=== PATIENT | female | born 1935 | race Caucasian/White ===

== ENCOUNTER 2019-06-10 12:01 | Outpatient (CLI) | payer MEDICARE, OTHER, SELFPAY ==
[2019-06-10 13:28] LABS: Basophils # 0.1 10^3/uL (0.0-0.1); Basophils % 0.1 %; Eosinophils # 0.2 10^3/uL (0.0-0.8); Eosinophils % 0.4 %; Hematocrit 41.2 % (37.0-47.0); Lymphocytes # 48.3 10^3/uL (0.8-4.8); Lymphocytes % 85.1 %; Mean Corpuscular HGB Conc 31.6 g/dL (30.0-36.0); Mean Corpuscular Volume 98.3 fL (81-99); Mean Platelet Volume 11.5 fL (7.4-10.4); Monocytes # 3.1 10^3/uL (0.2-0.9); Monocytes % 5.4 %; Neutrophils % 8.7 %; Nucleated Red Blood Cells % 0 %; Platelet Count 289 10^3/cmm (130-400); Red Blood Count 4.19 10^6/uL (4.1-5.3); Red Cell Distribution Width 18.1 % (12.1-15.1)
[2019-06-10 14:10] LABS: Slide Review Slide Review Perform; White Blood Count 56.8 10^3/uL (4.0-10.0)
--- NOTE | 2019-06-12 09:25 | ONC FU_ITS ---
Dr. Horton Patient Follow-Up Note Patient: Sadie Martines Unit #: [id number]: 1935 Dicatated By: Dakota Horton M.D.Date of Visit:Jun 10, 2019 Onc Med Follow-up/Prog Note Chief Complaint: Chronic lymphocytic leukemia. History of Present Illness: This is an 83 year-old woman with chronic lymphocytic leukemia, Hill stage 0. She had a mild lymphocytosis as an incidental finding on a CBC in March 2016. It had worsened slightly on a repeat study in September 2016. She was then seen by Dr. Rose, and she was confirmed by whole blood flow cytometry on 10/22/2016 to have a monoclonal B-cell population with kappa restriction, CD5 and CD23 positive, consistent with chronic lymphocytic leukemia. By clinical evaluation she was felt to have Hill stage 0 disease, and she has been followed on observation/expectant management. Her most recent laboratory studies, from 05/18/2018, showed hemoglobin normal at 13.2 g with hematocrit 41%. The white blood cell count was elevated at 67,600 with the differential showing 70% lymphocytes, 7% neutrophils, 8% monocytes, and 5% basophils. The platelet count was normal at 200,000. Her comprehensive metabolic profile was unremarkable. The only prior laboratory results that I have available are PJ and RA titers from 10/03/2016. The PJ was negative. The RA was elevated at 48 IU/mL. I had seen her initially on 07/07/2017. She had additional laboratory studies on 08/05/2018. Her CBC at that time showed hemoglobin normal at 13.3 g with white blood cell count 91,900 and platelet count 234,000. Her comprehensive metabolic profile was unremarkable. Uric acid level was mildly elevated at 8.7 mg/dL. LDH was 216 U/L, normal range 120-250. Her RA titer was elevated at 26 IU/mL, but her CCP antibody was normal at less than 16 and her sedimentation rate was normal at 10 mm/hour. As her CLL did not appear to be overtly symptomatic, I had recommended that she continue on observation/expectant management. Her other medical illnesses include hypertension, hyperlipidemia, degenerative arthritis, and vitamin B12 deficiency. She has a history of smoking 1 pack of cigarettes daily for 45 years, but she quit smoking 20 years ago. She has moderate alcohol use. She is seen for a follow-up visit. She has been feeling pretty good generally. She says she has been lazy, but that she just attributes to the cold weather. Her ECOG score is 1. Her appetite is good. She has not had fever or night sweats, but she sometimes feels warm at night. She has sinus drainage with some associated cough. She does not complain of shortness of breath or chest pain. She has no GI complaints. She has some urinary frequency and urgency. She has joint pain, particularly in the knees, and moreso on the right. She is scheduled to get a new injection next month. She has carpal tunnel symptoms bilaterally. She has no other focal neurologic symptoms. Medications: C 500 1 Tablet (of 500 mg) Oral daily, Co Q 10 1 Tablet (of 10 mg) Capsule Oral daily, Glucosamine 1 Tablet Oral daily, Lisinopril 1 Tablet (of 30 mg) Oral daily, Lutein-Zeaxanthin 1 Capsule Oral daily, Magnesium 1 Tablet (of 400 mg) Oral daily, Red Yeast Rice 1 Tablet (of 600 mg) Oral daily, Vitamin D2 1 Tablet (of 2000 Units) Oral daily, Zinc 1 Capsule (of 50 mg) Oral daily Allergies: No Known Allergies. Review of Systems: Constitutional - Her energy is fairly good. She does light work at home. Her appetite is good and her weight is up slightly. No fever, chills or hot flashes. She has some sweating at night. ECOG score is 1, ENMT - She has sinus drainage and a cough in the mornings. No mouth sores. No sore throat or difficulty swallowing, Hematologic/Lymphatic - She bruises easily, Respiratory - No shortness of breath. No pleuritic pain or hemoptysis, Cardiovascular - No angina pain. No palpitations, Gastrointestinal - No nausea or vomiting. No heartburn or acid reflux. No diarrhea or constipation. No blood in the stool or black stools, Genitourinary (F) - No dysuria or hematuria. She has urinary frequency. She has urgency. No incontinence, Musculoskeletal - She will be getting a different type of injection for the pain in her right knee, Integumentary - No skin complications, Neurologic - No headache or dizziness. She has numbness and tingling in her hands, Psychiatric - No anxiety or depression. No insomnia. Vital Signs: Performed on Jun 10, 2019 13:54 Height - 63.00 in Weight - 211.4 lbs (HIGH) BSA - 1.98 sq.m BMI - 37.45 (HIGH) Temperature - 97.4 F (LOW) Pulse - 77 /min Respiration - 24 /min BP - 138/66 mm(hg) O2 Sat - 97 % Pain - 7 Physical Examination: Constitutional - She looks pretty good generally, Eyes - Sclerae nonicteric. Conjunctivae clear, ENMT - No lesions noted in the oral cavity, Hematologic/Lymphatic - No cervical, clavicular, or axillary adenopathy, Respiratory - Lungs are clear with good air movement bilaterally, Cardiovascular - Heart rhythm is regular. There is a II/ systolic murmur. There is no gallop or rub noted, Abdomen - Soft. Liver and spleen are not enlarged. There is no abdominal mass or ascites noted and there is no inguinal adenopathy, Extremities - There are mild venous stasis changes and there is mild lower extremity edema. Dorsalis pedis pulses are palpable bilaterally, Neurologic - No focal neurologic deficits noted. Lab/Imaging: CBC shows hemoglobin 13.0 g, white blood cell count 56,800, and platelet count 289,000. The absolute lymphocyte count is 48,300 compared to 89,800 in August 2018. Impression: 1. Patient with chronic lymphocytic leukemia, Hill stage 0, initially presenting with lymphocytosis in March 2016. 2. She has been followed on observation/expectant management, though with fairly rapid increase in her lymphocyte count. Her other medical illnesses include: 3. Hypertension. 4. Hyperlipidemia. 5. Degenerative arthritis. 6. Vitamin B12 deficiency. 7. She had an elevated RA titer in September 2016. The clinical significance is uncertain. She had significant lymphocytosis at initial diagnosis, though her disease was stage 0 and she was not symptomatic. During the past year her lymphocyte count has been coming down gradually. She appears stable clinically. Plan: She remains on observation/expectant management for the CLL. I will see her again in 6 months. Signed By: Dakota Horton M.D. <<Signature on File>>
== END 2019-06-10 12:02 | disposition home or self-care (01) ==
LOC: ONCMED 12:01
PROVIDERS: PCP Nurse Practitioner Family; Visit Provider Internal Medicine Medical Oncology
DX: C91.10 Chronic lymphocytic leukemia of B-cell type not having achieved remission (principal); I10 Essential (primary) hypertension; E78.5 Hyperlipidemia, unspecified; M19.90 Unspecified osteoarthritis, unspecified site; E53.8 Deficiency of other specified B group vitamins; M25.562 Pain in left knee; M25.561 Pain in right knee; G56.03 Carpal tunnel syndrome, bilateral upper limbs; Z87.891 Personal history of nicotine dependence
CPT/HCPCS: 36415; 85025; G0463

== ENCOUNTER → 2019-08-13 09:12 | Outpatient (BNVA) | payer MEDICARE, OTHER, SELFPAY | PROVIDERS: PCP Nurse Practitioner Family; Visit Provider Orthopaedic Surgery | DX: M17.0 Bilateral primary osteoarthritis of knee (principal); M25.562 Pain in left knee | CPT/HCPCS: 73560; 73565 ==

== ENCOUNTER 2019-12-16 11:47 | Outpatient (CLI) | payer MEDICARE, OTHER, SELFPAY ==
[2019-12-16 12:23] LABS: Basophils % 0.1 %; Eosinophils # 0.2 10^3/uL (0.0-0.8); Eosinophils % 0.3 %; Hematocrit 40.3 % (37.0-47.0); Hemoglobin 11.9 g/dL (11.5-15.3); Lymphocytes # 60.1 10^3/uL (0.8-4.8); Lymphocytes % 90.8 %; Mean Corpuscular HGB Conc 29.5 g/dL (30.0-36.0); Mean Corpuscular Hemoglobin 30.9 pg (28.0-34.0); Mean Corpuscular Volume 104.7 fL (81-99); Mean Platelet Volume 9.7 fL (7.4-10.4); Monocytes # 2.2 10^3/uL (0.2-0.9); Monocytes % 3.3 %; Neutrophils # 3.52 10^3/uL (1.8-7.7); Neutrophils % 5.3 %; Nucleated Red Blood Cells % 0 %; Platelet Count 228 10^3/cmm (130-400); Red Blood Count 3.85 10^6/uL (4.1-5.3); Red Cell Distribution Width 18.6 % (12.1-15.1)
[2019-12-16 12:42] LABS: Alanine Aminotransferase 16 U/L (0-33); Albumin Level 4.3 g/dL (3.5-5.2); Alkaline Phosphatase 62 IU/L (35-105); Anion Gap 15.6 (5-19); Aspartate Amino Transferase 13 U/L (0-32); Blood Urea Nitrogen 20 mg/dL (8-23); Calcium 9.4 mg/dL (8.5-10.5); Carbon Dioxide 23 mmol/L (22-29); Chloride 105 mmol/L (98-107); Globulin 2.3 g/dL (1.3-4.6); Glucose 95 mg/dL (65-115); Lactate Dehydrogenase 267 U/L (135-214); Osmolality Calculated 284 mOsm/kg (285-295); Potassium 4.6 mmol/L (3.5-5.1); Sodium 139 mmol/L (136-145); Total Bilirubin 0.6 mg/dL (0.15-1.2); Total Protein 6.6 g/dL (6.6-8.7)
[2019-12-16 12:59] LABS: Slide Review Slide Review Perform; White Blood Count 66.2 10^3/uL (4.0-10.0)
[2019-12-16 18:39] LABS: Iron 95 ug/dL (37-145); Percent Saturation 34.5 % (20-50); Total Iron Binding Capacity 275 mcg/dl; Unsaturated Iron Binding 180 ug/dL (112-347)
--- NOTE | 2019-12-18 17:35 | ONC FU_ITS ---
Dr. Horton Patient Follow-Up Note Patient: Sadie Martines Unit #: [id number]: 1935 Dicatated By: Dakota Horton M.D.Date of Visit:Dec 16, 2019 Onc Med Follow-up/Prog Note Chief Complaint: Chronic lymphocytic leukemia. History of Present Illness: This is an 84 year-old woman with chronic lymphocytic leukemia, Hill stage 0 at initial diagnosis in 2016. She had a mild lymphocytosis as an incidental finding on a CBC in March 2016. It had worsened slightly on a repeat study in September 2016. She was then seen by Dr. Rose, and she was confirmed by whole blood flow cytometry on 10/22/2016 to have a monoclonal B-cell population with kappa restriction, CD5 and CD23 positive, consistent with chronic lymphocytic leukemia. By clinical evaluation she was felt to have Hill stage 0 disease, and she has been followed on observation/expectant management. Her most recent laboratory studies, from 05/18/2018, showed hemoglobin normal at 13.2 g with hematocrit 41%. The white blood cell count was elevated at 67,600 with the differential showing 70% lymphocytes, 7% neutrophils, 8% monocytes, and 5% basophils. The platelet count was normal at 200,000. Her comprehensive metabolic profile was unremarkable. The only prior laboratory results that I have available are PJ and RA titers from 10/03/2016. The PJ was negative. The RA was elevated at 48 IU/mL. I had seen her initially on 07/07/2017. She had additional laboratory studies on 08/05/2018. Her CBC at that time showed hemoglobin normal at 13.3 g with white blood cell count 91,900 and platelet count 234,000. Her comprehensive metabolic profile was unremarkable. Uric acid level was mildly elevated at 8.7 mg/dL. LDH was 216 U/L, normal range 120-250. Her RA titer was elevated at 26 IU/mL, but her CCP antibody was normal at less than 16 and her sedimentation rate was normal at 10 mm/hour. As her CLL did not appear to be overtly symptomatic, I had recommended that she continue on observation/expectant management. Her other medical illnesses include hypertension, hyperlipidemia, degenerative arthritis, and vitamin B12 deficiency. She has a history of smoking 1 pack of cigarettes daily for 45 years, but she quit smoking 20 years ago. She has moderate alcohol use. She is seen for a follow-up visit. She has been feeling pretty good generally, though she says she does get tired. ECOG score is 1. Her appetite is good. She has no fever. She has had one recent episode of significant night sweating. She has a little bit of sinus drainage and she occasionally has cough in the morning. She does not complain of shortness of breath or chest pain. She sometimes has nausea. She manages it with peppermint. She has no other GI complaints. She has frequent urination. She is having significant pain in both knees, right worse than left. She does not complain of headache. She sometimes has dizziness. She has numbness and tingling in both hands, which comes and goes. Medications: Co Q 10 1 Tablet (of 10 mg) Capsule Oral daily, Glucosamine 1 Tablet Oral daily, Lisinopril 1 Tablet (of 30 mg) Oral daily, Lutein-Zeaxanthin 1 Capsule Oral daily, Magnesium 1 Tablet (of 400 mg) Oral daily, Vitamin D2 1 Tablet (of 2000 Units) Oral daily, Zinc 1 Capsule (of 50 mg) Oral daily Allergies: No Known Allergies. Review of Systems: Constitutional - She has been feeling pretty good, though she says she does get tired. Appetite has been good. Her weight is down a few pounds. She has not had fever. She had one recent episode of pretty significant night sweating. ECOG score is 1, ENMT - She has a little bit of sinus drainage. No mouth sores. No sore throat or difficulty swallowing, Hematologic/Lymphatic - She has had some bruising, Respiratory - No shortness of breath. She occasionally has cough in the morning. No pleuritic pain or hemoptysis, Cardiovascular - No angina pain. No palpitations, Gastrointestinal - She sometimes has nausea, which she manages with peppermint. No heartburn or acid reflux. No diarrhea or constipation. No blood in the stool or black stools, Genitourinary (F) - No dysuria or hematuria. She has urinary frequency. No urgency or incontinence, Musculoskeletal - She has pain in both knees, right worse than left. She will be seeing Dr. Ambrosio next week, Integumentary - No skin rash, Neurologic - No headache. She has dizziness. She has intermittent numbness/tingling in both hands. No other focal neurologic symptoms, Psychiatric - No anxiety or depression. She does not sleep well at night. Vital Signs: Performed on Dec 16, 2019 13:11 Height - 63.00 in Weight - 207.00 lbs (LOW) BSA - 1.96 sq.m BMI - 36.67 (HIGH) Temperature - 97.4 F (LOW) Pulse - 78 /min Respiration - 19 /min BP - 138/62 mm(hg) O2 Sat - 97 % Pain - 0 Fatigue - 6 Physical Examination: Constitutional - She looks pretty good generally, Eyes - Sclerae nonicteric. Conjunctivae clear, ENMT - No lesions noted in the oral cavity, Hematologic/Lymphatic - No cervical, clavicular, or axillary adenopathy, Respiratory - Lungs are clear with good air movement bilaterally, Cardiovascular - Heart rhythm is regular. There is a II/ systolic murmur. There is no gallop or rub noted, Abdomen - Soft. Liver and spleen are not enlarged. There is no abdominal mass or ascites noted and there is no inguinal adenopathy, Extremities - There are mild venous stasis changes. There is slight lower extremity edema. Dorsalis pedis pulses are palpable bilaterally, Neurologic - No focal neurologic deficits noted. Lab/Imaging: Test performed on Dec 16, 2019 11:55 LDH (Total) 267 U/L Sodium 139 mmol/L Potassium 4.6 mmol/L Chloride 105 mmol/L CO2 23 mmol/L Anion Gap 15.6 BUN 20 mg/dL Creatinine 1.1 mg/dL Cr Clearance (Est) 57.44 mL/min Glucose 95 mg/dL Calcium 9.4 mg/dL Protein, Total 6.6 g/dL Albumin 4.3 g/dL Globulin 2.3 g/dL Bilirubin, Total 0.6 mg/dL ALT (SGPT) 16 U/L AST (SGOT) 13 U/L Alkaline Phosphatase 62 IU/L WBC 66.2 10 3/uL RBC 3.85 10 6/uL HGB 11.9 g/dL HCT 40.3 % MCV 104.7 fL MCH 30.9 pg MCHC 29.5 g/dL RDW 18.6 % Platelet Count 228 10 3/cmm MPV 9.7 fL Neutrophils 3.52 10 3/uL Lymphocytes 60.1 10 3/uL Monocytes 2.2 10 3/uL Eosinophils 0.2 10 3/uL Basophils 0.0 10 3/uL Neutrophil % 5.3 % Lymphocyte % 90.8 % Monocyte % 3.3 % Eosinophil % 0.3 % Basophils % 0.1 % NRBC % 0 % CBC Slide Review Slide Review Perform SLIDE REVIEW AGREES WITH AUTOMATED RESULT Impression: 1. Patient with chronic lymphocytic leukemia, Hill stage 0, initially presenting with lymphocytosis in March 2016. 2. She has been followed on observation/expectant management, though with fairly rapid increase in her lymphocyte count. Her other medical illnesses include: 3. Hypertension. 4. Hyperlipidemia. 5. Degenerative arthritis. 6. Vitamin B12 deficiency. 7. She had an elevated RA titer in September 2016. The clinical significance is uncertain. She had significant lymphocytosis at initial diagnosis, though her disease was stage 0 and she was not symptomatic. During follow-up her lymphocyte count has varied somewhat, but overall it has been increasing. She has now become mildly anemic. The cause is uncertain, but if it is due to the chronic lymphocytic leukemia, it would change her to Hill stage III disease and that would potentially be an indication for treatment. Plan: She will be seeing Dr. Ambrosio next week in regard to the arthritis in her knees. I will have serum iron studies added to her current lab studies. Assuming those are normal, she will just remain on observation/expectant management for the CLL, but I will now start following her at 3-month intervals. Signed By: Dakota Horton M.D. <<Signature on File>>
== END 2019-12-16 11:48 | disposition home or self-care (01) ==
LOC: ONCMED 11:48
PROVIDERS: PCP Nurse Practitioner Family; Visit Provider Internal Medicine Medical Oncology
DX: C91.10 Chronic lymphocytic leukemia of B-cell type not having achieved remission (principal); M17.0 Bilateral primary osteoarthritis of knee; I10 Essential (primary) hypertension; E78.5 Hyperlipidemia, unspecified; E53.8 Deficiency of other specified B group vitamins; D64.9 Anemia, unspecified
CPT/HCPCS: 36415; 80053; 83540; 83550; 83615; 85025; G0463

== ENCOUNTER → 2020-02-17 13:37 | Outpatient (BNVA) | payer MEDICARE, OTHER, SELFPAY | PROVIDERS: PCP Nurse Practitioner Family; Visit Provider Specialist | DX: M17.12 Unilateral primary osteoarthritis, left knee (principal) | CPT/HCPCS: 73560; 73565 ==

== ENCOUNTER → 2020-03-09 10:49 | Outpatient (BNVA) | payer MEDICARE, OTHER, SELFPAY | PROVIDERS: PCP Nurse Practitioner Family; Visit Provider Specialist | DX: Z11.59 Encounter for screening for other viral diseases (principal); M17.11 Unilateral primary osteoarthritis, right knee | CPT/HCPCS: 87635 ==

== ENCOUNTER 2020-03-14 14:42 | Observation (INO) | payer MEDICARE, OTHER, SELFPAY ==
[2020-03-02 10:14] VITALS: BMI 38.0
--- NOTE | 2020-03-02 10:30 | ECG_ITS ---
[facility] Test Date: 2020-03-02 Pat Name: Sadie Martines Department: Room: Gender: Female Human Anatomy Teacher: ABENA JINB: 1935 Requested By: Cammy Gordon Order Number: [id number] Griffin MD: VINCENT AGUILLON Measurements Intervals [place] Rate: 69 P: 53 [place]: 159 QRS: 0 QRSD: 88 T: 41 QT: 368 QTc: 396 Interpretive Statements SINUS RHYTHM MODERATE VOLTAGE CRITERIA FOR LVH, CONSIDER NORMAL VARIANT [MEETS CRITERIA IN ONE OF: R(aVL), S(V1), R(V5), R(V5/V6)+S(V1)] MINIMAL ST DEPRESSION [0.025+ mV ST DEPRESSION] No previous ECG available for comparison Electronically Signed On 03-03-2020 19:34:43 HEAD TRANSFER CLERK by VINCENT AGUILLON [id number]
--- NOTE | 2020-03-02 11:06 | ANES.PREANE2 ---
Pre-Anesthetic Assessment Pre-Anesthetic Assessment: Height/Weight: Height 1.57 m Weight 94.347 kg Preop Diagnosis: Degenerative osteoarthritis left knee Proposed Procedure: Operation Date: 03/14/20 07:00 Proposed Procedures p Right Total Knee Arthroplasty 52569 M17.11(Right) - Brinda Ambrosio MD Familial anesthetic complications: none Social: Social History: Alcohol (up to 3 vodkas with water a night) and No tobacco Exam: Pre-Anes Outpt Exam: alert, oriented x 3, clear to auscultation bilaterally and regular rate & rhythm Airway: Cervical ROM: WNL MP: 1 Dentition: False CV/HEM: CV/HEM: HTN Metabolic: Metabolic: Morbid obesity Comments: hx leukemia Musc/skel: Musc/skel: OA/DJD Anesthetic Plan: ASA status: 2 Anesthesia: General and Regional (specify below) Risk of > 500 ml blood loss (7ml/kg in children): No PFSH Anesthesia PFSH: Medical History Hypertension Lymphatic leukemia Social History Smoking and tobacco status: former smoker Alcohol intake: current Alcohol intake frequency: 0-2 Drinks per Day Data Anesthesia Cardiac Studies: No Data to Display
[2020-03-02 11:32] LABS: Add Urine Microscopic? NO
[2020-03-02 11:35] LABS: Hematocrit 38.4 % (37.0-47.0); Hemoglobin 11.9 g/dL (11.5-15.3); Mean Corpuscular Hemoglobin 30.7 pg (28.0-34.0); Mean Corpuscular Volume 99.2 fL (81-99); Platelet Count 225 10^3/cmm (130-400); Red Blood Count 3.87 10^6/uL (4.1-5.3); Red Cell Distribution Width 17.8 % (12.1-15.1)
[2020-03-02 11:39] LABS: Bilirubin Urine Neg (Negative); Blood Urine Neg (Negative); Glucose Urine UA Norm (Normal); Ketones Urine Negative (Negative); Leukocyte Esterase Urine Negative (Negative); Nitrate Urine Negative (Negative); Protein Urine Neg (Negative); Urine Appearance Clear (CLEAR); Urine Color Yellow (Yellow); Urobilinogen Urine Neg (Negative); pH Urine 7 (5-7)
[2020-03-02 11:52] LABS: White Blood Count 67.4 10^3/uL (4.0-10.0)
[2020-03-02 11:56] LABS: Absolute Segmented Neutrophil 5.4 10/cmm (1.6-7.1); Lymphocytes 78 %; Platelet Estimate Normal (Normal); Segmented Neutrophils 8 %; Smudge Cells 2+; Total Cells Counted 100 (0-100)
[2020-03-02 11:57] LABS: Absolute Neutrophil 5.4 10^3/cmm (1.4-6.5); Alanine Aminotransferase 18 U/L (0-33); Albumin Level 4.3 g/dL (3.5-5.2); Alkaline Phosphatase 61 IU/L (35-105); Anion Gap 15.6 (5-19); Aspartate Amino Transferase 14 U/L (0-32); Blood Urea Nitrogen 27 mg/dL (8-23); Calcium 9.4 mg/dL (8.5-10.5); Carbon Dioxide 25 mmol/L (22-29); Chloride 106 mmol/L (98-107); Eosinophils 0 %; Globulin 2.1 g/dL (1.3-4.6); Glucose 93 mg/dL (65-115); Osmolality Calculated 299 mOsm/kg (285-295); Potassium 4.6 mmol/L (3.5-5.1); Sodium 142 mmol/L (136-145); Total Bilirubin 0.6 mg/dL (0.15-1.2); Total Protein 6.4 g/dL (6.6-8.7)
[2020-03-14] VITALS (21 sets, daily range): BP systolic 92–208; BP diastolic 51–107; PULSE 56–95; RESP 13–20; TEMP 36.5–37; O2SAT 91–100
[2020-03-14] MEDS: sodium chloride 0.9% 1,000 ML 30 ML IV (08:46)
[2020-03-14] MEDS: CELEcoxib 200 mg Capsule 400 MG PO (08:52)
[2020-03-14] MEDS: midazolam 1 mg/mL INJ 2 mL 2 MG IVP (09:03)
--- NOTE | 2020-03-14 09:10 | P.ANESUD_ITS ---
Pre-Anesthetic Update Pre-Anesthetic Assessment: Date of Surgery/Procedure: 03/14/20 Preop Deonna gnosis: Degenerative osteoarthritis left knee Proposed Procedure: Operation Date: 03/14/20 09:40 Proposed Procedures p Right Total Knee Arthroplasty 30648 M17.11(Right) - Brinda Ambrosio MD Any changes to Pre-Anesthetic Assessment?: No Changes from Pre-Anesthetic Assessment: none Last Intake: Intake Last Liquid Date 03/13/20 Last Liquid Time 22:00 Last Solid Date 03/13/20 Last Solid Time 17:30 Vitals: Temperature 97.7 F 03/14/20 08:34 Temperature Source Temporal Artery S can 03/14/20 08:34 Pulse Rate 64 03/14/20 08:34 Pulse Rhythm 03/14/20 08:26 Respiratory Rate 18 03/14/20 08:34 Blood Pressure 191/61 03/14/20 08:34 Blood Pressure Ashley n 104 03/14/20 08:34 Pulse Oximetry 99 03/14/20 08:34 Oxygen Delivery Me thod 03/14/20 08:26 Exam: Pre-Anes Outpt Exam: alert, oriented x 3, clear to auscultation bilaterally and regular rate & rhythm Cardiac Studies: No Data to Display
--- NOTE | 2020-03-14 09:10 | ANES.PROC ---
Anesthesia Procedures Procedure/Date: 03/14/20 Nerve Block ^: Nerve Block 1: Main Anesthesia: general anesthesia Time Out Performed: Yes Consent: requested by attending/covering physician, from patient, from other, risks and benefits reviewed, patient agrees to proceed and emergency procedure Nerve block location: adductor canal (R) Anesthesia monitors applied: pulse oximetry, EKG, BP cuff and oxygen Nerve block position: supine Anesthetic Used: ropivicaine 0.5% and with decadron (4 mg) Amount of anesthesia used (mL): 30 Ultrasound used to: recognize landmarks and visualize and ID femerol nerve Nerve Stimulator Used?: No Interscalene/Femoral BLK: 4 stimuplex 21 g needle used for position and inplane approach, other needle, visualize local anesthetic spread and no vascular puncture identified Injection: neg aspiration of heme Patient Tolerated Procedure: well Complications: none
--- NOTE | 2020-03-14 09:21 | W.PM.OPSUD ---
Surgery/Procedure H&P Update DATE OF PROCEDURE: March 14, 2020 DATE H&P PERFORMED: 03/03/20 H&P UPDATE INFORMATION: I have reviewed H&P completed within last 30 days, I have examined patient prior to procedure, No changes to prior documentation and H&P is in [facility] [place], [place] EMR on date indicated PREOP DIAGNOSIS: Osteoarthritis Right Knee PLANNED PROCEDURE: Operation Date: 03/14/20 09:40 Proposed Procedures p Right Total Knee Arthroplasty 99241 M17.11(Right) - Brinda Ambrosio MD Related Problem List Diagnoses (1) Localized osteoarthritis of right knee:
--- NOTE | 2020-03-14 11:18 | SUR.OPER ---
Called and notified Daughter of surgical start.
[2020-03-14] MEDS: vancomycin 1,000 MG SDV 1000 MG XX (11:29)
[2020-03-14] MEDS: ceFAZolin 1,000 mg SDV 1000 MG IRRIGATION ×2 (11:30→11:31)
--- NOTE | 2020-03-14 13:02 | PM.OP ---
Operative Report Date of procedure: March 14, 2020 Pre-op Diagnosis: Osteoarthritis Right Knee, Severe Post-op diagnosis: same Procedure Done: Right total knee arthroplasty Implants: The [employer] total knee system with a size 4 triathlon beaded posterior stabilized femur right, a triathlon titanium tibial component size 4 beaded, a triathlon X3 posterior stabilized tibial bearing insert size 4 x 13 mm and a beaded triathlon titanium asymmetric patella size 32 x 10 mm Specimens removed/disposition: Bone, disposed of Pathology: none sent Surgeon: Brinda Ambrosio Silver Service Waiter: [facility] OR technicians Anesthesia: General (Intubated, ASA 2) Estimated blood loss (mL): 50 Tourniquet time (min): 103 Tourniquet time: At 250 mmHg IV fluids (mL): 1,000 Urine output (mL): 200 Complications: None Findings: Severe degenerative osteoarthritis with correctable varus deformity preoperatively Condition: stable Disposition: PACU (Then to floor for observation and postoperative pain management and rehabilitation) Brief History: This 84-year-old woman presented with complaints of severe right knee pain. She had difficulties with her daily activities of living. Conservative measures were not effective in relieving her pain and improving her function. She wished to proceed with total knee arthroplasty. Risks and complications were explained and discussed with her. Consents were signed preoperatively and questions were answered. Procedure: The patient was brought to the operating theater, and after undergoing adequate general intubated anesthesia with supplemental regional block, ASA2, the right lower extremity was prepped with Dura-Prep and draped in usual fashion following placement of a tourniquet high on the leg. The leg was then draped free. Following prepping and draping, the leg was exsanguinated, and the tourniquet was elevated to 250 mmHg for a total tourniquet time of 103 minutes. Prior to elevation of the tourniquet, but following exposure of the site of surgery, a surgical pause was performed. At the time of the surgical pause, we confirmed the site and side of surgery. Additionally, we confirmed the appropriate and timely administration of preoperative antibiotics, Ancef 2 g and transexemic acid 1 g. The availability of equipment was confirmed, and the patient's identity was verbalized as well. Following the surgical pause, an incision was made centering over the patella continuing proximally and distally as necessary to allow access to the knee joint. Dissection continued through skin and soft tissues using a scalpel. Hemostasis was obtained using electrocautery. The skin incision was followed by a median parapatellar arthrotomy. The leg was extended and the patella was everted. Following this, the leg was returned to flexed position. The distal femur was exposed and a drill hole was made in this for placement of the distal femoral jig. The distal femoral jig was set at 5? of valgus. The distal femoral cutting block was then placed in appropriate position, and an tony wing was used to confirm an appropriate amount of distal femur would be resected. The distal femoral resection was accomplished with 8 mm of bone being resected distally. After the distal femoral resection had been accomplished, the femur was measured and it measured a size 4. Medial lateral dimension also measured a size 4. A size 4 femoral cutting block was placed in position, and we were then able to accomplish the anterior, posterior and chamfer cuts. This jig was then removed and the notch guide was placed in position. With the notch guide in appropriate position, the notch was excised including resection of the anterior and posterior cruciate ligaments. This notch was to allow for the posterior stabilized femoral component. At this point, the femur was prepared and attention was directed to the proximal tibia. The posterior knee retractor was placed along with medial and lateral retractors. Further resection of the menisci was accomplished as we had better visualization. A complete meniscectomy was performed both medially and laterally with care being taken to protect the popliteus. Retractors were then placed so that the proximal tibia was well visualized. A drill hole was then made in the tibia for placement of the intramedullary guide. This guide was placed so that approximately 2 mm of bone would be resected from the deficient medial tibial plateau. The intramedullary guide was utilized supplemented with an extramedullary guide to assure appropriate alignment for the proximal tibial resection. The proximal tibial jig was then evaluated, pinned in position, and the proximal tibial resection was accomplished without difficulty. The jig was removed and the proximal tibia was measured. It measured a size 4. We then attempted a trial reduction with a size 4 by 11 mm insert. The femoral component was placed in position for the trial reduction, and the knee was placed through range of motion. The knee was slightly unbalanced and a medial release was required. Following a medial release, we trialed with a 4 x 13 mm insert. With this, there was excellent stability with excellent varus-valgus alignment with appropriate patellar tracking. This was felt to be the appropriate size insert. There was full extension and flexion without lift off and the rotation of the tibia was marked. Alignment was checked from the hip to the ankle, and this was noted to be appropriate as well. Attention was then directed to the patella. The patella was measured with a caliper. We resected sufficient patella to leave approximately 14 mm of patella remaining. Measurements of the patella then indicated that a size asymmetric 32 mm x 10 mm was the appropriate patellar size. We then placed the jig to drill for the 3 pegs of the press-fit patella, and these drill holes were made without incident. A trial patella was then placed, and the knee was placed through range of motion. The patella was noted to track nicely without evidence of subluxation. The femur was prepared for a press-fit femur by drilling 2 holes for the femoral pegs. All trial components were subsequently removed. The tibial tray was then pinned into position, and we broached the tibia for the stem of the tibial component. Subsequently, 4 drill holes were made for placement of the press-fit tibia. This was accomplished without difficulty. Care was taken to assure appropriate rotation of the tibia as well as appropriate position on the proximal tibia. The tibial tray was completely seated on the proximal tibia. Following broaching, the tibial guide was removed, and all surfaces were copiously irrigated. The surfaces were then dried and a bone plug was placed into the distal femur. Exparel was also injected at this point. The Tritanium tibia was impacted into position. The beaded femur was then impacted into position in a cementless fashion. The tibial insert was placed. The patella was pressed into position with a patellar clamp. The knee was irrigated with 20 mL of Betadine and 500 mL of normal saline, and this was allowed to remain in the knee for 3-4 minutes. The knee was then copiously irrigated and suctioned dry. Attention was then directed to closure. Closure was accomplished with 0 Vicryl in the fascial tissues, 2-0 Monocryl was used in the subcutaneous tissues, and the skin was closed with skin loretta and Exofin. A sterile dressing was then placed consisting of Telfa, 4 x 4's, ABDs, sterile soft roll, and an Mike wrap. The patient was returned the Recovery Room in a satisfactory condition. X-rays were obtained there. The patient will be discharged to the floor for postoperative rehabilitation and pain management. She'll be under observation status with plans to discharge home with home health. Associated Problem List Diagnoses (1) Primary localized osteoarthritis of left knee:
[2020-03-14] MEDS: labetalol 5 mg/mL SDV 20mL IVP ×2 (13:09→13:19)
--- NOTE | 2020-03-14 13:17 | XR_ITS ---
WS: [id number] Exam: XR knee RT 1-2V 18177 Date/Time of Exam: 03/14/2020 1:15 PM Reason For Exam: Status post total knee arthroplasty Total knee prosthesis is in place in excellent position. Postoperative changes in the adjacent soft t issues. Anterior surgical skin clips are noted. XR/XR knee RT 1-2V 14086 IMPRESSION: 1. Total knee replacement in excellent position.
--- NOTE | 2020-03-14 14:19 | SUR.PHASEI ---
pt sleeps if not disturbed rt knee dressing d/i first ice in place distal foot pink warm , vargas patent to DD yellow urine noted.VSS , holding pt for room placement
--- NOTE | 2020-03-14 14:32 | PM.PACU ---
PACU note Post-Anesthesia Exam: awake and vital signs stable Disposition: admitted
[2020-03-14] MEDS: lisinopril 10 mg Tablet 30 MG PO (15:53)
[2020-03-14] MEDS: oxyCODONE 5 mg IR Tab/Cap PO (15:55)
[2020-03-14] MEDS: chlorhexidine gluconate 0.12% Btl 473 mL 30 ML MUCOUS MEM ×2 (15:55→21:06)
[2020-03-14] MEDS: mupirocin oint 22 gm 1 APPLIC NASAL (17:32)
[2020-03-14] MEDS: iron polysaccharide complex 150 mg Capsule PO (17:32)
[2020-03-14] MEDS: calcium carbonate 500 mg Chew Tablet 1000 MG PO (17:32)
[2020-03-14] MEDS: sennosides-docusate Tablet 2 TAB PO (17:32)
[2020-03-14] MEDS: CELEcoxib 200 mg Capsule PO (21:06)
[2020-03-15 00:47] VITALS: BP 109/58; PULSE 67; RESP 17; TEMP 36.8; O2SAT 92
[2020-03-15 04:31] VITALS: BP 115/57; PULSE 60; RESP 18; TEMP 36.9; O2SAT 96
[2020-03-15 06:17] LABS: Basophils # 0.1 10^3/uL (0.0-0.1); Basophils % 0.1 %; Hematocrit 32.1 % (37.0-47.0); Hemoglobin 9.4 g/dL (11.5-15.3); Lymphocytes # 71.1 10^3/uL (0.8-4.8); Lymphocytes % 82.2 %; Mean Corpuscular HGB Conc 29.3 g/dL (30.0-36.0); Mean Corpuscular Hemoglobin 31.2 pg (28.0-34.0); Mean Corpuscular Volume 106.6 fL (81-99); Mean Platelet Volume 10.7 fL (7.4-10.4); Monocytes # 2.2 10^3/uL (0.2-0.9); Monocytes % 2.5 %; Neutrophils # 12.76 10^3/uL (1.8-7.7); Neutrophils % 14.8 %; Nucleated Red Blood Cells % 0 %; Platelet Count 165 10^3/cmm (130-400); Red Blood Count 3.01 10^6/uL (4.1-5.3); Red Cell Distribution Width 18.7 % (12.1-15.1)
[2020-03-15 06:39] LABS: Blood Urea Nitrogen 34 mg/dL (8-23); Calcium 8.3 mg/dL (8.5-10.5); Carbon Dioxide 22 mmol/L (22-29); Chloride 106 mmol/L (98-107); Glucose 122 mg/dL (65-115); Osmolality Calculated 291 mOsm/kg (285-295); Sodium 136 mmol/L (136-145)
[2020-03-15 06:50] LABS: Slide Review Slide Review Perform; White Blood Count 86.5 10^3/uL (4.0-10.0)
[2020-03-15 06:51] LABS: Anion Gap 13.1 (5-19); Potassium 5.1 mmol/L (3.5-5.1)
--- NOTE | 2020-03-15 06:53 | PC.NURSE ---
Notified Dr Ambrosio of patient's critical lab WBC 86.5
--- NOTE | 2020-03-15 07:07 | ANE.PACU2 ---
Inpatient post-anesthesia follow up: Airway intact: Yes Vital signs: Temperature 98.4 F Pulse Rate 60 Respiratory Rate 18 Blood Pressure 115/57 Pulse Oximetry 96 Oxygen Delivery Me thod Room Air Oxygen Flow Rate 2 Fraction of Inspir ed Oxygen Hydration adequate: Yes Nausea and vomiting: No Pain level: 2 Mental status: Baseline
[2020-03-15] MEDS: iron polysaccharide complex 150 mg Capsule PO (07:39)
[2020-03-15 07:52] VITALS: BP 118/60; PULSE 65; RESP 18; TEMP 36.7; O2SAT 92
[2020-03-15] MEDS: CELEcoxib 200 mg Capsule PO (09:25)
[2020-03-15] MEDS: cholecalciferol (vitamin D3) 1,000 unit Tablet 1000 UNIT PO (09:25)
[2020-03-15] MEDS: aspirin 325 mg EC Tablet PO (09:25)
[2020-03-15] MEDS: multivitamin therapeutic Tablet 1 TAB PO (09:25)
[2020-03-15] MEDS: calcium carbonate 500 mg Chew Tablet 1000 MG PO (09:26)
[2020-03-15] MEDS: mupirocin oint 22 gm 1 APPLIC NASAL (09:26)
[2020-03-15] MEDS: lisinopril 10 mg Tablet 30 MG PO (09:26)
[2020-03-15] MEDS: sennosides-docusate Tablet 2 TAB PO (09:26)
[2020-03-15] MEDS: chlorhexidine gluconate 0.12% Btl 473 mL 30 ML MUCOUS MEM (09:26)
[2020-03-15 11:18] VITALS: BP 123/69; PULSE 64; RESP 18; TEMP 36.4; O2SAT 98
--- NOTE | 2020-03-15 12:54 | PC.OT ---
OT screening performed today. Pt states she is independent in all ADL tasks and lives with son who can help her but she hasn't needed it. She has grab bars, shower chair, cane and is getting a walker. Pt demonstrated functional B UE strength/ROM. Pt is supposed to discharge home today. No further skilled OT required. co sign: Lakshmi Pat, MARYR/L
--- NOTE | 2020-03-15 13:11 | P.DS_ITS ---
Discharge Providers Date of Admission: 03/14/20 14:42 Date of Discharge: March 15, 2020 Attending Provider at Admission: Brinda Ambrosio MD Attending Provider at Discharge: Brinda Ambrosio MD Primary Care Provider: Griselda Garrett APRN Diagnoses at Discharge Discharge Diagnosis (1) Primary localized osteoarthritis of left knee: Status: Acute Reason for Visit Reason for Visit: right total knee arthroplasty Hospital Course Hospital Course Patient was admitted for same-day surgery. This was on March 14. She underwent the following procedure: Right total knee arthroplasty utilizing the [employer] total knee system with a size 4 triathlon beaded posterior stabilized femur right, a triathlon titanium tibial component size 4 beaded, a triathlon X3 posterior stabilized tibial bearing insert size 4 x 13 mm and a beaded triathlon titanium asymmetric patella size 32 x 10 mm. She was admitted under observation status overnight for pain management and monitoring. On the first postoperative day, the patient's dressing was removed. Her wound was benign. There was no drainage. She was able to actively lift her leg. She was neurologically intact distally. Patient felt ready for discharge, and physical therapy felt she was safe to go home. Therefore, she was discharged home to follow-up with me in the office as scheduled. Physical Exam Const: COMMON NORMALS: no acute distress, average body habitus, patient oriented x3 and alert GENERAL APPEARANCE: cooperative and comfortable ORIENTATION/CONSCIOUSNESS: Yes awake HENMT: COMMON NORMALS: normocephalic and atraumatic HEAD & SCALP: normocep halic and atraumatic Eye: GENERAL EYE: appearance normal, both eyes and all related structures Chest: COMMONS NORMALS: normal inspection of the chest Resp: COMMON NORMALS: normal respiratory effort EFFORT & INSPECTION: Yes able to speak in complete sentences and Yes symmetric chest movement Extremity: RIGHT LOWER EXTREMITY: Yes knee joint (Dressing is removed. The wound is benign. There is minimal to no swelling) Right knee: Yes inspection (There is no drainage and no sign of infection.), Yes palpation (Minimal tenderness about the knee and no tenderness within the calf.) and Yes neurovascular exam (Intact distal to the surgical site.) Neuro: COMMON NORMALS: patient oriented x3 SENSORIUM/ORIENTATION: Yes alert Psych: COMMON NORMALS: mental status grossly normal APPEARANCE: Yes grossly normal ATTITUDE: Yes calm and Yes engaged ATTENTION/CONCENTRATION: Yes attention grossly intact Skin: COMMON NORMALS: no rashes or lesions noted GENERAL SKIN EXAM: no rashes or lesions noted Urinary Catheter Management^: Lucas: Cath Placed During This Visit: yes, but has since been removed by the nurse Reason for Continuing Indwelling Catheter: Decision to DC Catheter Urinary Catheter Date of Insertion: 03/14/20 Urinary Catheter Time of Insertion: 10:50 Date Urinary Catheter Removed: 03/15/20 Time Urinary Catheter Discontinued: 06:45 Discharge Data Data Completed and Pending: Completed Studies During Hospitalization Category Date Time Status XR knee RT 1-2V 7 3560 Urgent Exams 03/14/20 13:17 Completed Pending at discharge Category Date Time Status Complete Blood Co unt w/Auto AM LABS Lab 03/16/20 04:00 Uncollected Complete Blood Co unt w/Auto AM LABS Lab 03/17/20 04:00 Uncollected Labs from last 24 hours 03/15/20 03/15/20 06:10 06:10 WBC 86.5 H* RBC 3.01 L Hgb 9.4 L Hct 32.1 L MCV 106.6 H MCH 31.2 MCHC 29.3 L RDW 18.7 H Plt Count 165 MPV 10.7 H Neut % (Auto) 14.8 Lymph % (Auto) 82.2 Eaton % (Auto) 2.5 Eos % (Auto) 0.0 Baso % (Auto) 0.1 Neut # (Auto) 12.76 H Lymph # (Auto) 71.1 H Eaton # (Auto) 2.2 H Eos # (Auto) 0.0 Baso # (Auto) 0.1 Nucleated RBC % (a uto) 0 Nucleated RBCs # 0.0 Sodium 136 Potassium 5.1 Chloride 106 Carbon Dioxide 22 Anion Gap 13.1 BUN 34 H Creatinine 1.2 H GFR Calculation Not Reportable Glucose 122 H Calculated Osmolal ity 291 Calcium 8.3 L Vitals: Last Vital Signs Temp 97.6 F 03/15/20 11:18 Pulse 64 03/15/20 11:18 Resp 18 03/15/20 11:18 BP 123/69 03/15/20 11:18 Pulse Ox 98 03/15/20 11:18 Discharge Plan Discharge Patient Disposition: Home Health Service Condition: Stable Prescriptions: New celecoxib 200 mg Capsule 200 mg PO DAILY 30 Days Qty: 30 RF: 0 oxycodone 5 mg Tablet 5 mg PO Q4H PRN (Reason: Moderate Pain) 7 Days Qty: 30 RF: 0 aspirin 325 mg Tablet,Delayed Release (Dr/Ec) 325 mg PO DAILY Qty: 0 RF: 0 acetaminophen 500 mg Tablet 1,000 mg PO Q8H Qty: 0 RF: 0 Continued lisinopril 30 mg tablet 30 mg PO ONCE RF: 0 ascorbic acid (vitamin C) [Vitamin C] 1,000 mg Tablet 500 mg PO DAILY RF: 0 glucosamine sulfate [Glucosamine] 500 mg Tablet 500 mg PO BID RF: 0 zinc 50 mg Tablet 50 mg PO DAILY RF: 0 magnesium 30 mg Tablet 30 mg PO DAILY RF: 0 lutein extract-zeaxanthin ext 15-0.7 mg Capsule 1 cap PO DAILY RF: 0 Vitamin D3 Complete 18 mg iron-800 mcg-150 mg Tablet 1 tab PO DAILY RF: 0 Discharge Orders: Discharge Order (Routine); Ordered 03/15/20 Ordered By: Brinda Ambrosio Other Ambulatory Orders: DME: Walker (Order) Location: None Selected Ordered By: Brinda Ambrosio Referrals: [facility] [place] [Outside] Brinda Ambrosio MD [Physician] - 03/31/20 11:00 am (Follow-up with me on 04/05/2020 at 1 PM. Please have nurse visit for staple removal as noted above.) Discharge Diet: Advance as tolerated and Usual diet Discharge Activity: Increase activity as tolerated, Use walker/crutches as instructed and As per PT/OT instructions Activity Restrictions/Additional Instructions: Cover wound as needed. Ice to wound. Ambulate weightbearing as tolerated. Range of motion and gait training with physical therapy. Discharge Attestations Time Spent in Discharge Care*: greater than 30 min Specific Discharge Activities: educating patient, discussing with case preparer and liner/social workers/dc planners and documenting/other paperwork Quality Metrics Clinical Quality Measures During this hospital stay, did patient experience: None Coding Level of Care Code Acute Vamp Stitcher for Michele Fwd Diagnoses Primary localized osteoarthritis of left knee M17.12
--- NOTE | 2020-03-15 13:32 | PC.CHAP ---
Pastoral Care Encounter/Spiritual Assessment Type of Contact [] Declined funds development director visit [] Patient/Family/Request visit [] Outpatient visit [] Follow-up visit [] Physician referral [] Code/Alert [X] Routine visit [] Staff referral [] Actively dying [] Patient sleeping [] Family support [] [] Out of room [] Palliative care [] [] Receiving care in room [] Pre-surgical visit [] Trauma [] Long length of stay [] ICU visit [] Other: Relational/Emotional Strength [] Patient feels connected with others/family/visitors/staff [] Distress [] Loneliness/isolation [] Abandonment Spirituality of Patient [] Person of Ghada [] Attends Zoroastrianism of their Ghada [] Believes in Prayer [] Reads Bible or Christianity materials [] There are Spiritual issues to be addressed Refinery Technician Interventions [] Prayer [] Active listening [] Non-anxious presence [] Spiritual/emotional support [] Crisis/trauma care [] Spiritual counseling [] Bereavement support [] Provided bereavement packet [] Provided Bible/devotional materials [] Provided toy/stuffed animal, coloring book to patient or family member [] Provided Communion [] Anointing/[place] [] Salvation [] Completed spiritual assessment [] Other: Impact on Illness or Injury [] Angry [] Fearful [] Anxious [] Often cries [] Exhaustion [] Unable to work [] Unable to attend temple [] Unable to walk/stand [] Unable to read [] Unable to drive [] Unable to eat/drink [] Unable to sleep [] Unable to be with family [] Patient intubated [] Other: Summary Time spent with patient
--- NOTE | 2020-03-15 14:20 | PC.NURSE ---
Faxed IVAN JOYA
--- NOTE | 2020-03-15 14:47 | PC.NURSE ---
patient given discharge instructions and patient verbalized understanding of instructions. patient received walker from HOME. Patient waiting on daughter to arrive for ride home.
--- NOTE | 2020-03-15 15:32 | PC.NURSE ---
patient taken to private vehicle via wheelchair.
[2020-03-15 15:33] VITALS: BP 123/69; PULSE 64; RESP 18; TEMP 36.4; O2SAT 98
== END 2020-03-15 15:34 | disposition home health service (06) ==
LOC: MEDSURG 14:42
PROVIDERS: Admitting Provider Specialist; PCP Nurse Practitioner Family; Visit Provider Specialist
PROC: (CPT 27447; principal; 2020-03-14 09:40)
DX: M17.11 Unilateral primary osteoarthritis, right knee (principal); M17.12 Unilateral primary osteoarthritis, left knee; Z87.891 Personal history of nicotine dependence
CPT/HCPCS: 27447; 12345; 36415; 51702; 64447; 73560; 76942; 80048; 80053; 81003; 85007; 85025; 93005; 94762; 96365; 96374; 97110; 97116; 97161; 97530; C1776; C9290; G0378; J0131; J0690; J1100; J2250; J2704; J2795; J3010; J3370; J3490; J7030

== ENCOUNTER → 2020-04-05 13:13 | Outpatient (BNVA) | payer MEDICARE, OTHER, SELFPAY | PROVIDERS: PCP Nurse Practitioner Family; Visit Provider Specialist | DX: M17.11 Unilateral primary osteoarthritis, right knee (principal) | CPT/HCPCS: 73560; 73565 ==

== ENCOUNTER 2020-04-17 11:52 | Outpatient (CLI) | payer MEDICARE, OTHER, SELFPAY ==
[2020-04-17 12:41] LABS: Eosinophils # 0.1 10^3/uL (0.0-0.8); Eosinophils % 0.1 %; Hematocrit 31.6 % (37.0-47.0); Hemoglobin 9.2 g/dL (11.5-15.3); Lymphocytes # 96.6 10^3/uL (0.8-4.8); Lymphocytes % 88.1 %; Mean Corpuscular HGB Conc 29.1 g/dL (30.0-36.0); Mean Corpuscular Volume 106.4 fL (81-99); Mean Platelet Volume 9.8 fL (7.4-10.4); Monocytes # 4.4 10^3/uL (0.2-0.9); Neutrophils # 8.02 10^3/uL (1.8-7.7); Neutrophils % 7.4 %; Nucleated Red Blood Cells % 0 %; Platelet Count 266 10^3/cmm (130-400); Red Blood Count 2.97 10^6/uL (4.1-5.3); Red Cell Distribution Width 20.4 % (12.1-15.1)
[2020-04-17 12:42] LABS: Alanine Aminotransferase 15 U/L (0-33); Alkaline Phosphatase 96 IU/L (35-105); Anion Gap 14.9 (5-19); Aspartate Amino Transferase 13 U/L (0-32); Blood Urea Nitrogen 23 mg/dL (8-23); Calcium 9.4 mg/dL (8.5-10.5); Carbon Dioxide 24 mmol/L (22-29); Chloride 106 mmol/L (98-107); Globulin 2.3 g/dL (1.3-4.6); Glucose 100 mg/dL (65-115); Lactate Dehydrogenase 275 U/L (135-214); Osmolality Calculated 294 mOsm/kg (285-295); Potassium 4.9 mmol/L (3.5-5.1); Sodium 140 mmol/L (136-145); Total Bilirubin 0.7 mg/dL (0.15-1.2); Total Protein 6.3 g/dL (6.6-8.7)
[2020-04-17 12:54] LABS: White Blood Count 109.7 10^3/uL (4.0-10.0)
[2020-04-17 12:59] LABS: Slide Review Slide Review Perform
[2020-04-17 14:29] LABS: Iron 62 ug/dL (37-145); Percent Saturation 22.3 % (20-50); Total Iron Binding Capacity 278 mcg/dl; Unsaturated Iron Binding 216 ug/dL (112-347)
--- NOTE | 2020-04-20 10:48 | ONC FU_ITS ---
Dr. Horton Patient Follow-Up Note Patient: Sadie Martines Unit #: [id number]: 1935 Dicatated By: Dakota Horton M.D.Date of Visit:Apr 17, 2020 Onc Med Follow-up/Prog Note Chief Complaint: Chronic lymphocytic leukemia. History of Present Illness: This is an 84 year-old woman with chronic lymphocytic leukemia, Hill stage 0 at initial diagnosis in 2016. She had a mild lymphocytosis as an incidental finding on a CBC in March 2016. It had worsened slightly on a repeat study in September 2016. She was then seen by Dr. Rose, and she was confirmed by whole blood flow cytometry on 10/22/2016 to have a monoclonal B-cell population with kappa restriction, CD5 and CD23 positive, consistent with chronic lymphocytic leukemia. By clinical evaluation she was felt to have Hill stage 0 disease, and she has been followed on observation/expectant management. Her most recent laboratory studies, from 05/18/2018, showed hemoglobin normal at 13.2 g with hematocrit 41%. The white blood cell count was elevated at 67,600 with the differential showing 70% lymphocytes, 7% neutrophils, 8% monocytes, and 5% basophils. The platelet count was normal at 200,000. Her comprehensive metabolic profile was unremarkable. The only prior laboratory results that I have available are PJ and RA titers from 10/03/2016. The PJ was negative. The RA was elevated at 48 IU/mL. I had seen her initially on 07/07/2017. She had additional laboratory studies on 08/05/2018. Her CBC at that time showed hemoglobin normal at 13.3 g with white blood cell count 91,900 and platelet count 234,000. Her comprehensive metabolic profile was unremarkable. Uric acid level was mildly elevated at 8.7 mg/dL. LDH was 216 U/L, normal range 120-250. Her RA titer was elevated at 26 IU/mL, but her CCP antibody was normal at less than 16 and her sedimentation rate was normal at 10 mm/hour. As her CLL did not appear to be overtly symptomatic, I had recommended that she continue on observation/expectant management. Her other medical illnesses include hypertension, hyperlipidemia, degenerative arthritis, and vitamin B12 deficiency. She has a history of smoking 1 pack of cigarettes daily for 45 years, but she quit smoking 20 years ago. She has moderate alcohol use. INTERIM HISTORY: On 03/14/2020 she underwent right total knee arthroplasty. She had no complications with the procedure. She is seen for a follow-up visit. She complains that she has been tiring very easily. She has ambulating well and she is able to do light work. Her ECOG score is 1. Appetite has diminished, and her weight is down a few pounds. She does not had fever. She recently had a single episode of night sweating. She has sinus drainage and she does have some cough, mainly in the morning. She does not complain of shortness of breath or chest pain. She has no GI complaints. She does report having frequent urination with small volume voids. She still has some pain in the right knee, but not bad. She says her numbness/tingling has improved. Medications: Co Q 10 1 Tablet (of 10 mg) Capsule Oral daily, Glucosamine 1 Tablet Oral daily, Lisinopril 1 Tablet (of 30 mg) Oral daily, Lutein-Zeaxanthin 1 Capsule Oral daily, Magnesium 1 Tablet (of 400 mg) Oral daily, Vitamin D2 1 Tablet (of 2000 Units) Oral daily, Zinc 1 Capsule (of 50 mg) Oral daily Allergies: No Known Allergies. Review of Systems: Constitutional - She complains that she tires very easily. She is able to do light work. Appetite has diminished and her weight is down a few pounds. She has not had fever. She had one episode of night sweating. ECOG score is 1, ENMT - She has sinus congestion/drainage. No mouth sores. She has a slight sore throat in the morning. No difficulty swallowing, Hematologic/Lymphatic - She has had some bruising, Respiratory - No shortness of breath. She has had some cough, mainly in the morning. No pleuritic pain or hemoptysis, Cardiovascular - No angina pain. No palpitations, Gastrointestinal - No nausea or vomiting. No heartburn or acid reflux. No diarrhea or constipation. No blood in the stool or black stools, Genitourinary (F) - No dysuria or hematuria. She has frequent urination with small volume voids. No urgency or incontinence, Musculoskeletal - She has some pain in the right knee, but not bad, Integumentary - No skin rash, Neurologic - No headache or dizziness. Her numbness/tingling has improved. No other focal neurologic symptoms, Psychiatric - No anxiety or depression. No insomnia. Vital Signs: Performed on Apr 17, 2020 13:37 Height - 63.00 in Weight - 202.8 lbs (LOW) BSA - 1.95 sq.m BMI - 35.92 (HIGH) Temperature - 98.0 F (LOW) Pulse - 88 /min Respiration - 22 /min BP - 138/92 mm(hg) O2 Sat - 97 % Pain - 6 Physical Examination: Constitutional - She looks pretty good generally, Eyes - Sclerae nonicteric. Conjunctivae clear, ENMT - No lesions noted in the oral cavity, Hematologic/Lymphatic - No cervical, clavicular, or axillary adenopathy, Respiratory - Lungs are clear with good air movement bilaterally, Cardiovascular - Heart rhythm is regular. There is a II/ systolic murmur. There is no gallop or rub noted, Abdomen - Soft. Liver and spleen are not enlarged. There is no abdominal mass or ascites noted and there is no inguinal adenopathy, Extremities - There is mild lower extremity edema, worse on the right, Neurologic - No focal neurologic deficits noted. Lab/Imaging: Test performed on Apr 17, 2020 12:10 Iron 62 mcg/dL LDH (Total) 275 U/L Sodium 140 mmol/L Iron Binding Capacity (TIBC) 278 mcg/dl Potassium 4.9 mmol/L % Iron Saturation 22.3 % Chloride 106 mmol/L CO2 24 mmol/L UIBC 216 mcg/dL Anion Gap 14.9 BUN 23 mg/dL Creatinine 1.0 mg/dL Cr Clearance (Est) 61.90 mL/min Glucose 100 mg/dL Osmolality - Calculated 294 mOsm/kg Calcium 9.4 mg/dL Protein, Total 6.3 g/dL Albumin 4.0 g/dL Globulin 2.3 g/dL Bilirubin, Total 0.7 mg/dL ALT (SGPT) 15 U/L AST (SGOT) 13 U/L Alkaline Phosphatase 96 IU/L WBC 109.7 10 3/uL RBC 2.97 10 6/uL HGB 9.2 g/dL HCT 31.6 % MCV 106.4 fL MCH 31.0 pg MCHC 29.1 g/dL RDW 20.4 % Platelet Count 266 10 3/cmm MPV 9.8 fL Neutrophils 8.02 10 3/uL Lymphocytes 96.6 10 3/uL Monocytes 4.4 10 3/uL Eosinophils 0.1 10 3/uL Basophils 0.0 10 3/uL Neutrophil % 7.4 % Lymphocyte % 88.1 % Monocyte % 4.0 % Eosinophil % 0.1 % Basophils % 0.0 % NRBC % 0 % CBC Slide Review Slide Review Perform SLIDE REVIEW AGREES WITH AUTOMATED RESULTS MANY SMUDGE CELLS OBSERVED ON SMEAR --- 04/17/20 1259 --- Slide Review previously reported as: Slide Review Perform SLIDE REVIEW AGREES WITH AUTOMATED RESULTS Impression: 1. Patient with chronic lymphocytic leukemia, Hill stage 0, initially presenting with lymphocytosis in March 2016. 2. She has been followed on observation/expectant management, though with fairly rapid increase in her lymphocyte count. Her other medical illnesses include: 3. Hypertension. 4. Hyperlipidemia. 5. Degenerative arthritis. 6. Vitamin B12 deficiency. 7. She had an elevated RA titer in September 2016. The clinical significance is uncertain. She had significant lymphocytosis at initial diagnosis, though her disease was stage 0 and she was not symptomatic. During follow-up her lymphocyte count has varied somewhat, but overall it has been increasing. As of her follow-up visit in November 2019 she had become mildly anemic. Since then, there has been a further decline in her hemoglobin/hematocrit levels, but in the interim she also underwent a total knee arthroplasty procedure, which may be a contributing factor to the anemia. Her serum iron studies show transferrin saturation in the low normal range. Plan: She will continue her monthly B12 injections I also will have her take an oral iron supplement. I will check blood counts monthly now. If her anemia is not improving, it will be an indication to start treatment for the CLL. I will tentatively plan a follow-up visit in 3 months. In the meantime, she also will be given a prescription for furosemide 20 mg daily for the lower extremity edema. Signed By: Dakota Horton M.D. <<Signature on File>>
== END 2020-04-17 11:53 | disposition home or self-care (01) ==
LOC: ONCMED 11:55
PROVIDERS: PCP Nurse Practitioner Family; Visit Provider Internal Medicine Medical Oncology
DX: C91.10 Chronic lymphocytic leukemia of B-cell type not having achieved remission (principal); R60.0 Localized edema; D64.9 Anemia, unspecified; I10 Essential (primary) hypertension; E78.5 Hyperlipidemia, unspecified; M19.90 Unspecified osteoarthritis, unspecified site; E53.8 Deficiency of other specified B group vitamins; R76.0 Raised antibody titer; Z96.659 Presence of unspecified artificial knee joint
CPT/HCPCS: 36415; 80053; 83540; 83550; 83615; 85025; 99214

== ENCOUNTER 2020-05-18 08:39 | Outpatient (CLI) | payer MEDICARE, OTHER, SELFPAY ==
[2020-05-18 09:17] LABS: Basophils # 0.1 10^3/uL (0.0-0.1); Basophils % 0.1 %; Eosinophils # 0.2 10^3/uL (0.0-0.8); Eosinophils % 0.2 %; Hematocrit 37.2 % (37.0-47.0); Hemoglobin 11.1 g/dL (11.5-15.3); Lymphocytes # 71.2 10^3/uL (0.8-4.8); Lymphocytes % 87.6 %; Mean Corpuscular HGB Conc 29.8 g/dL (30.0-36.0); Mean Corpuscular Hemoglobin 31.7 pg (28.0-34.0); Mean Corpuscular Volume 106.3 fL (81-99); Mean Platelet Volume 10.3 fL (7.4-10.4); Monocytes # 4.2 10^3/uL (0.2-0.9); Monocytes % 5.2 %; Neutrophils # 5.26 10^3/uL (1.8-7.7); Neutrophils % 6.6 %; Nucleated Red Blood Cells % 0 %; Platelet Count 248 10^3/cmm (130-400); Red Cell Distribution Width 19.1 % (12.1-15.1)
[2020-05-18 09:35] LABS: Anion Gap 14.6 (5-19); Blood Urea Nitrogen 19 mg/dL (8-23); Calcium 9.4 mg/dL (8.5-10.5); Carbon Dioxide 26 mmol/L (22-29); Chloride 103 mmol/L (98-107); Glucose 98 mg/dL (65-115); Osmolality Calculated 290 mOsm/kg (285-295); Potassium 4.6 mmol/L (3.5-5.1); Sodium 139 mmol/L (136-145)
[2020-05-18 10:21] LABS: White Blood Count 81.2 10^3/uL (4.0-10.0)
[2020-05-18 10:22] LABS: Slide Review Slide Review Perform
[2020-05-19 11:32] LABS: LAB Peripheral Smear Sent for Review
== END 2020-05-18 08:40 | disposition home or self-care (01) ==
PROVIDERS: PCP Nurse Practitioner Family; Visit Provider Internal Medicine Medical Oncology
DX: C91.10 Chronic lymphocytic leukemia of B-cell type not having achieved remission (principal); D63.0 Anemia in neoplastic disease
CPT/HCPCS: 80048; 85025

== ENCOUNTER → 2020-05-22 09:32 | Outpatient (BNVA) | payer MEDICARE, OTHER, SELFPAY | PROVIDERS: PCP Nurse Practitioner Family; Visit Provider Specialist | DX: M17.11 Unilateral primary osteoarthritis, right knee (principal); Z96.651 Presence of right artificial knee joint | CPT/HCPCS: 73560; 73565 ==

== ENCOUNTER 2020-06-19 09:04 | Outpatient (CLI) | payer MEDICARE, OTHER, SELFPAY ==
[2020-06-19 09:38] LABS: Basophils % 0.1 %; Eosinophils # 0.2 10^3/uL (0.0-0.8); Eosinophils % 0.2 %; Hemoglobin 11.5 g/dL (11.5-15.3); Lymphocytes # 68.2 10^3/uL (0.8-4.8); Lymphocytes % 88.7 %; Mean Corpuscular HGB Conc 30.3 g/dL (30.0-36.0); Mean Corpuscular Volume 102.4 fL (81-99); Mean Platelet Volume 10.5 fL (7.4-10.4); Monocytes # 3.8 10^3/uL (0.2-0.9); Neutrophils # 4.44 10^3/uL (1.8-7.7); Neutrophils % 5.7 %; Nucleated Red Blood Cells % 0 %; Platelet Count 213 10^3/cmm (130-400); Red Blood Count 3.71 10^6/uL (4.1-5.3); Red Cell Distribution Width 18.3 % (12.1-15.1)
[2020-06-19 09:41] LABS: White Blood Count 76.9 10^3/uL (4.0-10.0)
[2020-06-19 09:53] LABS: Anion Gap 14.2 (5-19); Blood Urea Nitrogen 15 mg/dL (8-23); Calcium 9.5 mg/dL (8.5-10.5); Carbon Dioxide 25 mmol/L (22-29); Chloride 108 mmol/L (98-107); Glucose 79 mg/dL (65-115); Iron 79 ug/dL (37-145); Osmolality Calculated 296 mOsm/kg (285-295); Percent Saturation 29.5 % (20-50); Potassium 4.2 mmol/L (3.5-5.1); Sodium 143 mmol/L (136-145); Total Iron Binding Capacity 267 mcg/dl; Unsaturated Iron Binding 188 ug/dL (112-347)
== END 2020-06-19 09:05 | disposition home or self-care (01) ==
LOC: ONCMED 09:07
PROVIDERS: PCP Nurse Practitioner Family; Visit Provider Internal Medicine Medical Oncology
DX: C91.10 Chronic lymphocytic leukemia of B-cell type not having achieved remission (principal); D50.9 Iron deficiency anemia, unspecified; M25.562 Pain in left knee; Z96.652 Presence of left artificial knee joint
CPT/HCPCS: 73560; 73565; 80048; 83540; 83550; 85025

== ENCOUNTER 2020-07-19 11:43 | Outpatient (CLI) | payer MEDICARE, OTHER, SELFPAY ==
[2020-07-19 12:45] LABS: Basophils # 0.1 10^3/uL (0.0-0.1); Basophils % 0.1 %; Eosinophils # 0.3 10^3/uL (0.0-0.8); Eosinophils % 0.4 %; Hematocrit 40.3 % (37.0-47.0); Hemoglobin 11.9 g/dL (11.5-15.3); Lymphocytes # 63.7 10^3/uL (0.8-4.8); Mean Corpuscular HGB Conc 29.5 g/dL (30.0-36.0); Mean Corpuscular Hemoglobin 30.6 pg (28.0-34.0); Mean Corpuscular Volume 103.6 fL (81-99); Mean Platelet Volume 10.5 fL (7.4-10.4); Monocytes # 5.3 10^3/uL (0.2-0.9); Monocytes % 7.1 %; Neutrophils # 4.52 10^3/uL (1.8-7.7); Neutrophils % 6.2 %; Nucleated Red Blood Cells % 0 %; Platelet Count 240 10^3/cmm (130-400); Red Blood Count 3.89 10^6/uL (4.1-5.3); Red Cell Distribution Width 18.5 % (12.1-15.1)
[2020-07-19 13:31] LABS: Reticulocyte % 1 % (37.0-47.0); Slide Review Slide Review Perform; White Blood Count 74.1 10^3/uL (4.0-10.0)
[2020-07-19 13:34] LABS: Alanine Aminotransferase 16 U/L (0-33); Albumin Level 4.1 g/dL (3.5-5.2); Alkaline Phosphatase 63 IU/L (35-105); Aspartate Amino Transferase 13 U/L (0-32); Blood Urea Nitrogen 26 mg/dL (8-23); Calcium 9.4 mg/dL (8.5-10.5); Carbon Dioxide 23 mmol/L (22-29); Chloride 105 mmol/L (98-107); Globulin 2.3 g/dL (1.3-4.6); Glucose 85 mg/dL (65-115); Iron 92 ug/dL (37-145); Osmolality Calculated 302 mOsm/kg (285-295); Percent Saturation 33.9 % (20-50); Sodium 144 mmol/L (136-145); Total Bilirubin 0.5 mg/dL (0.15-1.2); Total Iron Binding Capacity 271 mcg/dl; Total Protein 6.4 g/dL (6.6-8.7); Unsaturated Iron Binding 179 ug/dL (112-347)
[2020-07-19 13:35] LABS: Lactate Dehydrogenase 280 U/L (135-214)
--- NOTE | 2020-07-23 10:41 | ONC FU_ITS ---
Dr. Horton Patient Follow-Up Note Patient: Sadie Martines Unit #: [id number]: 1935 Dicatated By: Dakota Horton M.D.Date of Visit:Jul 19, 2020 Onc Med Follow-up/Prog Note Chief Complaint: Chronic lymphocytic leukemia. History of Present Illness: This is an 84 year-old woman with chronic lymphocytic leukemia, Hill stage 0 at initial diagnosis in 2016. She had a mild lymphocytosis as an incidental finding on a CBC in March 2016. It had worsened slightly on a repeat study in September 2016. She was then seen by Dr. Rose, and she was confirmed by whole blood flow cytometry on 10/22/2016 to have a monoclonal B-cell population with kappa restriction, CD5 and CD23 positive, consistent with chronic lymphocytic leukemia. By clinical evaluation she was felt to have Hill stage 0 disease, and she has been followed on observation/expectant management. Her most recent laboratory studies, from 05/18/2018, showed hemoglobin normal at 13.2 g with hematocrit 41%. The white blood cell count was elevated at 67,600 with the differential showing 70% lymphocytes, 7% neutrophils, 8% monocytes, and 5% basophils. The platelet count was normal at 200,000. Her comprehensive metabolic profile was unremarkable. The only prior laboratory results that I have available are PJ and RA titers from 10/03/2016. The PJ was negative. The RA was elevated at 48 IU/mL. I had seen her initially on 07/07/2017. She had additional laboratory studies on 08/05/2018. Her CBC at that time showed hemoglobin normal at 13.3 g with white blood cell count 91,900 and platelet count 234,000. Her comprehensive metabolic profile was unremarkable. Uric acid level was mildly elevated at 8.7 mg/dL. LDH was 216 U/L, normal range 120-250. Her RA titer was elevated at 26 IU/mL, but her CCP antibody was normal at less than 16 and her sedimentation rate was normal at 10 mm/hour. As her CLL did not appear to be overtly symptomatic, I had recommended that she continue on observation/expectant management. Her other medical illnesses include hypertension, hyperlipidemia, degenerative arthritis, and vitamin B12 deficiency. She underwent right total knee arthroplasty in February 2020. She has a history of smoking 1 pack of cigarettes daily for 45 years, but she quit smoking 20 years ago. She has moderate alcohol use. INTERIM HISTORY: She is seen for a follow-up visit. She has been feeling good. She has been told that she also needs a left knee replacement. She says her energy is okay in the mornings, but she does tend to be tired by afternoon. Her ECOG score is 1. She has good appetite. She has no fever or night sweats. She has some sinus drainage and she has a little bit of cough in the morning. She does not complain of shortness of breath or chest pain. She has no GI or complaints. She does have significant pain from her left knee radiating up to her left groin area. She does not complain of headache or dizziness. She has some numbness/tingling in her hands. Medications: Co Q 10 1 Tablet (of 10 mg) Capsule Oral daily, Glucosamine 1 Tablet Oral daily, Lisinopril 1 Tablet (of 30 mg) Oral daily, Lutein-Zeaxanthin 1 Capsule Oral daily, Magnesium 1 Tablet (of 400 mg) Oral daily, Vitamin D2 1 Tablet (of 2000 Units) Oral daily, Zinc 1 Capsule (of 50 mg) Oral daily Allergies: No Known Allergies. Vital Signs: Performed on Jul 19, 2020 13:50 Height - 63.00 in Weight - 196.6 lbs (LOW) BSA - 1.92 sq.m BMI - 34.83 (HIGH) Temperature - 97.7 F (LOW) Pulse - 63 /min Respiration - 18 /min BP - 130/70 mm(hg) O2 Sat - 93 % (LOW) Pain - 7 Fatigue - 6 Physical Examination: Constitutional - She looks pretty good generally, Eyes - Sclerae nonicteric. Conjunctivae clear, ENMT - No lesions noted in the oral cavity, Hematologic/Lymphatic - No cervical, clavicular, or axillary adenopathy, Respiratory - Lungs are clear with good air movement bilaterally, Cardiovascular - Heart rhythm is regular. There is a II/ systolic murmur. There is no gallop or rub noted, Abdomen - Soft. Liver and spleen are not enlarged. There is no abdominal mass or ascites noted and there is no inguinal adenopathy, Extremities - There is slight edema at the right ankle, Neurologic - No focal neurologic deficits noted. Lab/Imaging: Test performed on Jul 19, 2020 12:06 Iron 92 mcg/dL LDH (Total) 280 U/L Sodium 144 mmol/L Iron Binding Capacity (TIBC) 271 mcg/dl Potassium 5.0 mmol/L % Iron Saturation 33.9 % Chloride 105 mmol/L CO2 23 mmol/L UIBC 179 mcg/dL Anion Gap 21.0 BUN 26 mg/dL Creatinine 1.0 mg/dL Cr Clearance (Est) 60.01 mL/min Glucose 85 mg/dL Osmolality - Calculated 302 mOsm/kg Calcium 9.4 mg/dL Protein, Total 6.4 g/dL Albumin 4.1 g/dL Globulin 2.3 g/dL Bilirubin, Total 0.5 mg/dL ALT (SGPT) 16 U/L AST (SGOT) 13 U/L Alkaline Phosphatase 63 IU/L Retic Count % 1 % WBC 74.1 10 3/uL RBC 3.89 10 6/uL HGB 11.9 g/dL HCT 40.3 % MCV 103.6 fL MCH 30.6 pg MCHC 29.5 g/dL RDW 18.5 % Platelet Count 240 10 3/cmm MPV 10.5 fL Neutrophils 4.52 10 3/uL Lymphocytes 63.7 10 3/uL Monocytes 5.3 10 3/uL Eosinophils 0.3 10 3/uL Basophils 0.1 10 3/uL Neutrophil % 6.2 % Lymphocyte % 86.0 % Monocyte % 7.1 % Eosinophil % 0.4 % Basophils % 0.1 % NRBC % 0 % CBC Slide Review Slide Review Perform Problem List: 1. Chronic lymphocytic leukemia, Hill stage 0, initially presenting with lymphocytosis in March 2016. 2. Anemia. She has history of vitamin B12 deficiency. She had suspected iron deficiency following total knee arthroplasty. 3. Hypertension. 4. Hyperlipidemia. 5. Degenerative arthritis. Problems Addressed with this Encounter and Plan: 1. Patient with chronic lymphocytic leukemia, Hill stage 0 at initial diagnosis in March 2016. She has been followed expectantly, though with fairly rapid increase in her lymphocyte count. She has become borderline anemic, but thus far her other blood counts remain adequate and as long as her clinical status is also stable I will continue to follow her on observation/expectant management. She will be scheduled for repeat CBC in 3 months and for a follow-up visit in 6 months. 2. As of her follow-up visit in November 2019 she had become mildly anemic. Etiology is not entirely certain. She has history of vitamin B12 deficiency. She underwent a total knee arthroplasty procedure, which also may have contributed to the anemia. The other likely possibility is that it may be associated with the chronic lymphocytic leukemia. For now she will continue her monthly B12 injections and she will continue her oral iron supplement. Signed By: Dakota Horton M.D. <<Signature on File>>
== END 2020-07-19 11:44 | disposition home or self-care (01) ==
LOC: ONCMED 11:46
PROVIDERS: PCP Nurse Practitioner Family; Visit Provider Internal Medicine Medical Oncology
DX: C91.10 Chronic lymphocytic leukemia of B-cell type not having achieved remission (principal); D64.9 Anemia, unspecified
CPT/HCPCS: 80053; 83010; 83540; 83550; 83615; 85025; 85045; 99214

== ENCOUNTER → 2020-09-13 09:49 | Outpatient (BNVA) | payer MEDICARE, OTHER, SELFPAY | PROVIDERS: PCP Nurse Practitioner Family; Visit Provider Specialist | DX: M17.12 Unilateral primary osteoarthritis, left knee (principal); M25.562 Pain in left knee | CPT/HCPCS: 73560; 73565 ==

== ENCOUNTER → 2020-09-19 13:02 | Day surgery (SDC) | payer MEDICARE, OTHER, SELFPAY | PROVIDERS: PCP Nurse Practitioner Family; Visit Provider Specialist | DX: Z01.818 Encounter for other preprocedural examination (principal) | CPT/HCPCS: 93005 ==

== ENCOUNTER → 2020-09-21 12:46 | Outpatient (BNVA) | payer MEDICARE, OTHER, SELFPAY | PROVIDERS: PCP Nurse Practitioner Family; Visit Provider Specialist | DX: M17.12 Unilateral primary osteoarthritis, left knee (principal); Z20.822 Contact with and (suspected) exposure to COVID-19 | CPT/HCPCS: 87635 ==

== ENCOUNTER 2020-09-26 16:43 | Observation (INO) | payer MEDICARE, OTHER, SELFPAY ==
[2020-09-19 12:29] VITALS: BMI 35.8
[2020-09-19 13:01] LABS: Basophils # 0.2 10^3/uL (0.0-0.1); Basophils % 0.2 %; Eosinophils # 0.3 10^3/uL (0.0-0.8); Eosinophils % 0.4 %; Hemoglobin 11.9 g/dL (11.5-15.3); Mean Corpuscular HGB Conc 31.3 g/dL (30.0-36.0); Mean Corpuscular Hemoglobin 31.1 pg (28.0-34.0); Mean Corpuscular Volume 99.2 fL (81-99); Monocytes # 9.8 10^3/uL (0.2-0.9); Monocytes % 12.6 %; Neutrophils % 4.6 %; Nucleated Red Blood Cells % 0.1 %; Platelet Count 219 10^3/cmm (130-400); Red Blood Count 3.83 10^6/uL (4.1-5.3); Red Cell Distribution Width 18.8 % (12.1-15.1)
--- NOTE | 2020-09-19 13:02 | ECG_ITS ---
[facility] ED Test Date: 2020-09-19 Pat Name: Sadie Martines Department: Room: Gender: Female [employer]: : 1935 Requested By: Cammy Gordon Order Number: [id number] Griffin MD: Izabella Beltran M.D. Measurements Intervals [place] Rate: 61 P: 43 [place]: 153 QRS: -7 QRSD: 89 T: 14 QT: 400 QTc: 405 Interpretive Statements SINUS RHYTHM VOLTAGE CRITERIA FOR LVH [MEETS CRITERIA IN ONE OF: R(aVL), S(V1), R(V5), R(V5/V6)+S(V1)] Compared to ECG 03/02/2020 10:51:58 ST (T wave) deviation no longer present Electronically Signed On 09-19-2020 18:40:36 CDT by Izabella Beltran M.D. [email or web address]
--- NOTE | 2020-09-19 13:04 | ANES.PREANE2 ---
Pre-Anesthetic Assessment Pre-Anesthetic Assessment: Height/Weight: Height 1.57 m Weight 88.904 kg Preop Diagnosis: Left Knee DJD Proposed Procedure: Operation Date: 09/26/20 17:15 Proposed Procedures p left Total Knee Arthroplasty 20993 m17.10(Left) - Brinda Ambrosio MD Familial anesthetic complications: none Social: Social History: No alcohol and No tobacco Exam: Pre-Anes Outpt Exam: alert, oriented x 3, clear to auscultation bilaterally and regular rate & rhythm Airway: Cervical ROM: WNL MP: 3 Dentition: False and Full CV/HEM: CV/HEM: HTN Anesthetic Plan: ASA status: 2 Anesthesia: General and Regional (specify below) Other: patient declines spinal Risk of > 500 ml blood loss (7ml/kg in children): No PFSH Anesthesia PFSH: Medical History Hypertension Lymphatic leukemia Primary localized osteoarthritis of left knee Social History Smoking and tobacco status: former smoker Alcohol intake: current Alcohol intake frequency: 0-2 Drinks per Day Data Anesthesia CBC & Chem 7: 09/19/20 12:50 09/19/20 12:50 Cardiac Studies: No Data to Display
[2020-09-19 13:11] LABS: Add Urine Microscopic? NO; Charge for UA Resulting for Rev
[2020-09-19 13:38] LABS: Slide Review Slide Review Perform; White Blood Count 78.1 10^3/uL (4.0-10.0)
[2020-09-19 13:52] LABS: Bilirubin Urine Neg (Negative); Blood Urine Neg (Negative); Glucose Urine UA Norm (Normal); Ketones Urine Negative (Negative); Leukocyte Esterase Urine Negative (Negative); Nitrate Urine Negative (Negative); Protein Urine Neg (Negative); Specific Gravity, Urine 1.005 (1.005-1.030); Urine Appearance Clear (CLEAR); Urine Color Yellow (Yellow); Urobilinogen Urine Norm (Negative); pH Urine 7 (5-7)
[2020-09-19 14:57] LABS: Alanine Aminotransferase 19 U/L (0-33); Albumin Level 4.7 g/dL (3.5-5.2); Alkaline Phosphatase 62 IU/L (35-105); Anion Gap 18.1 (5-19); Aspartate Amino Transferase 14 U/L (0-32); Blood Urea Nitrogen 22 mg/dL (8-23); Calcium 9.4 mg/dL (8.5-10.5); Carbon Dioxide 25 mmol/L (22-29); Chloride 105 mmol/L (98-107); Globulin 1.6 g/dL (1.3-4.6); Glucose 88 mg/dL (65-115); Osmolality Calculated 299 mOsm/kg (285-295); Potassium 5.1 mmol/L (3.5-5.1); Sodium 143 mmol/L (136-145); Total Bilirubin 0.7 mg/dL (0.15-1.2); Total Protein 6.3 g/dL (6.6-8.7)
[2020-09-26] VITALS (12 sets, daily range): BP systolic 101–197; BP diastolic 60–91; PULSE 62–92; RESP 16–20; TEMP 36.3–37.2; O2SAT 93–100
[2020-09-26] MEDS: CELEcoxib 200 mg Capsule 400 MG PO (12:53)
[2020-09-26] MEDS: acetaminophen 1,000 MG/100 ML PIGGYBACK 400 MG IV ×2 (12:54→21:13)
[2020-09-26] MEDS: sodium chloride 0.9% 1,000 ML 30 ML IV (12:54)
--- NOTE | 2020-09-26 14:17 | P.ANESUD_ITS ---
Pre-Anesthetic Update Pre-Anesthetic Assessment: Date of Surgery/Procedure: 09/26/20 Preop Deonna gnosis: Left Knee DJD Proposed Procedure: Operation Date: 09/26/20 13:50 Proposed Procedures p left Total Knee Arthroplasty 07894 m17.10(Left) - Brinda Ambrosio MD Any changes to Pre-Anesthetic Assessment?: No Last Intake: Intake Last Liquid Date 09/25/20 Last Liquid Time 20:00 Last Solid Date 09/25/20 Last Solid Time 17:30 Vitals: Temperature 97.4 F L 09/26/20 12:35 Temperature Source Temporal Artery S can 09/26/20 12:35 Pulse Rate 67 09/26/20 12:35 Respiratory Rate 18 09/26/20 12:35 Blood Pressure 197/68 09/26/20 12:35 Blood Pressure Ashley n 111 09/26/20 12:35 Pulse Oximetry 98 09/26/20 12:35 Oxygen Delivery Me thod 09/26/20 12:45 Exam: Pre-Anes Outpt Exam: alert, oriented x 3, clear to auscultation bilaterally and regular rate & rhythm Cardiac Studies: No Data to Display
--- NOTE | 2020-09-26 14:39 | W.PM.OPSUD ---
Surgery/Procedure H&P Update DATE OF PROCEDURE: September 26, 2020 DATE H&P PERFORMED: 09/13/20 H&P UPDATE INFORMATION: I have reviewed H&P completed within last 30 days, I have examined patient prior to procedure, No changes to prior documentation and H[place] is [place] [facility] [place] date indicated PREOP DIAGNOSIS: Left Knee DJD PLANNED PROCEDURE: Operation Date: 09/26/20 13:50 Proposed Procedures p left Total Knee Arthroplasty 46488 m17.10(Left) - Brinda Ambrosio MD Related Problem List Diagnoses (1) Osteoarthritis of left knee: Qualifiers: Osteoarthritis type: primary Qualified Code(s): M17.12 - Unilateral primary osteoarthritis, left knee
--- NOTE | 2020-09-26 15:21 | ANES.PROC ---
Anesthesia Procedures Procedure/Date: 09/26/20 Nerve Block ^: Nerve Block 1: Main Anesthesia: general anesthesia Time Out Performed: Yes Consent: requested by attending/covering physician, from patient, risks and benefits reviewed and patient agrees to proceed Nerve block location: adductor canal (left) Anesthesia monitors applied: pulse oximetry, EKG, BP cuff and oxygen Nerve block position: supine Anesthetic Used: ropivicaine 0.5% Amount of anesthesia used (mL): 20 Nerve Stimulator Used?: No Interscalene/Femoral BLK: 4 stimuplex 21 g needle used for position and inplane approach, visualize local anesthetic spread and no vascular puncture identified Injection: neg aspiration of heme Patient Tolerated Procedure: well Complications: none
[2020-09-26] MEDS: vancomycin 1,000 MG SDV 1000 MG XX (16:03)
[2020-09-26] MEDS: ceFAZolin 1,000 mg SDV 2000 MG IRRIGATION (16:03)
--- NOTE | 2020-09-26 17:06 | P.OP_ITS ---
Operative Report Date of procedure: September 26, 2020 Pre-op Diagnosis: Left Knee primary osteoarthritis Post-op diagnosis: same Post-op Findings: Severe degenerative osteoarthritis left knee Procedure Done: Left total knee arthroplasty Implants: The [place] total knee system with a size 3 triathlon beaded posterior stabilized femur right, a triathlon titanium tibial component size 3 beaded, a triathlon X3 posterior stabilized tibial bearing insert size 3 x 11 mm and a beaded triathlon titanium asymmetric patella size 32 x 10 mm Specimens removed/disposition: Bone, disposed of Pathology: none sent Surgeon: Brinda Ambrosio [employer] Professor: [facility] operating room technicians Anesthesia: General (Intubated, ASA 2) Estimated blood loss (mL): 200 Tourniquet time (min): 12 Tourniquet time: At 250 mmHg. Blood pressure elevated and tourniquet was released IV fluids (mL): 1,100 Urine output (mL): 100 Complications: None Findings: Severe degenerative osteoarthritis with correctable varus deformity preoperatively Condition: stable Disposition: PACU (Then to floor for observation and postoperative pain management and rehabilitation) Brief History: This 84-year-old woman presented with complaints of severe left knee pain. She had difficulties with her daily activities of living. Conservative measures were not effective in relieving her pain and improving her function. She wished to proceed with total knee arthroplasty. Risks and complications were explained and discussed with her. Consents were signed preoperatively and questions were answered. Procedure: The patient was brought to the operating theater, and after undergoing adequate general intubated anesthesia with supplemental regional block, ASA2, the left lower extremity was prepped with Dura-Prep and draped in usual fashion following placement of a tourniquet high on the leg. The leg was then draped free. Following prepping and draping, the leg was exsanguinated, and the tourniquet was elevated to 250 mmHg for a total tourniquet time of 12 minutes. Prior to elevation of the tourniquet, but following exposure of the site of surgery, a surgical pause was performed. At the time of the surgical pause, we confirmed the site and side of surgery. Additionally, we confirmed the appropriate and timely administration of preoperative antibiotics, Ancef 2 g and transexemic acid 1 g. The availability of equipment was confirmed, and the patient's identity was verbalized as well. Following the surgical pause, an incision was made centering over the patella continuing proximally and distally as necessary to allow access to the knee joint. Dissection continued through skin and soft tissues using a scalpel. Hemostasis was obtained using electrocautery. The skin incision was followed by a median parapatellar arthrotomy. The leg was extended and the patella was everted. Following this, the leg was returned to flexed position. The distal femur was exposed and a drill hole was made in this for placement of the distal femoral jig. The distal femoral jig was set at 5? of valgus. The distal femoral cutting block was then placed in appropriate position, and an tony wing was used to confirm an appropriate amount of distal femur would be resected. The distal femoral resection was accomplished with 8 mm of bone being resected distally. After the distal femoral resection had been accomplished, the femur was measured and it measured a size 3. Medial lateral dimension also measured a size 3. A size 3 femoral cutting block was placed in position, and we were then able to accomplish the anterior, posterior and chamfer cuts. This jig was then removed and the notch guide was placed in position. With the notch guide in appropriate position, the notch was excised including resection of the anterior and posterior cruciate ligaments. This notch was to allow for the posterior stabilized femoral component. At this point, the femur was prepared and attention was directed to the proximal tibia. The posterior knee retractor was placed along with medial and lateral retractors. Further resection of the menisci was accomplished as we had better visualization. A complete meniscectomy was performed both medially and laterally with care being taken to protect the popliteus. Retractors were then placed so that the proximal tibia was well visualized. A drill hole was then made in the tibia for placement of the intramedullary guide. This guide was placed so that approximately 2 mm of bone would be resected from the deficient medial tibial plateau. The intramedullary guide was utilized supplemented with an extramedullary guide to assure appropriate alignment for the proximal tibial resection. The proximal tibial jig was then evaluated, pinned in position, and the proximal tibial resection was accomplished without difficulty. The jig was removed and the proximal tibia was measured. It measured a size 3. We then attempted a trial reduction with a size 3 by 9 mm insert. The femoral component was placed in position for the trial reduction, and the knee was placed through range of motion. The knee was slightly unbalanced and a medial release was required. Following a medial release, we trialed with a 3 x 11 mm insert. With this, there was excellent stability with excellent varus-valgus alignment with appropriate patellar tracking. This was felt to be the appropriate size insert. There was full extension and flexion without lift off and the rotation of the tibia was marked. Alignment was checked from the hip to the ankle, and this was noted to be appropriate as well. Attention was then directed to the patella. The patella was measured with a caliper. We resected sufficient patella to leave approximately 14 mm of patella remaining. Measurements of the patella then indicated that a size asymmetric 32 mm x 10 mm was the appropriate patellar size. We then placed the jig to drill for the 3 pegs of the press-fit patella, and these drill holes were made without incident. A trial patella was then placed, and the knee was placed through range of motion. The patella was noted to track nicely without evidence of subluxation. The femur was prepared for a press-fit femur by drilling 2 holes for the femoral pegs. All trial components were subsequently removed. The tibial tray was then pinned into position, and we broached the tibia for the stem of the tibial component. Subsequently, 4 drill holes were made for placement of the press-fit tibia. This was accomplished without difficulty. Care was taken to assure appropriate rotation of the tibia as well as appropriate position on the proximal tibia. The tibial tray was completely seated on the proximal tibia. Following broaching, the tibial guide was removed, and all surfaces were copiously irrigated. The surfaces were then dried and a bone plug was placed into the distal femur. Exparel was also injected at this point. The Tritanium tibia was impacted into position. The beaded femur was then impacted into position in a cementless fashion. The tibial insert was placed. The patella was pressed into position with a patellar clamp. The knee was irrigated with 20 mL of Betadine and 500 mL of normal saline, and this was allowed to remain in the knee for 3-4 minutes. The knee was then copiously irrigated and suctioned dry. Attention was then directed to closure. Closure was accomplished with 0 Vicryl in the fascial tissues, 2-0 Monocryl was used in the subcutaneous tissues, and the skin was closed with skin loretta and Dermabond Prineo. A sterile dressing was then placed consisting of Telfa, 4 x 4's, ABDs, sterile soft roll, and an Mike wrap. The patient was returned the Recovery Room in a satisfactory condition. X-rays were obtained there. The patient will be discharged to the floor for postoperative rehabilitation and pain management. She'll be under observation status with plans to discharge home with home health. Associated Problem List Diagnoses (1) Osteoarthritis of left knee: Qualifiers: Osteoarthritis type: primary Qualified Code(s): M17.12 - Unilateral primary osteoarthritis, left knee
--- NOTE | 2020-09-26 17:22 | XR_ITS ---
NOTE: Report was unsigned for reason: Order was edited. Original Signature date and time was: 09/27/20 @ 0759 WS: [id number] Left knee, 2 views, 09/26/2020 Clinical Data: Status post total knee arthroplasty Comparison: Left knee, 09/13/2020. Findings: A total knee arthroplasty has been inserted. The components are in good position. There is air in the knee joint from the surgery. There are anterior surgical loretta. [facility] LT 3V* [id number] Impression: Left knee arthroplasty. Kellgren-Bird Classification: NA
--- NOTE | 2020-09-26 17:31 | ANE.PACU2 ---
Inpatient post-anesthesia follow up: Airway intact: Yes Vital signs: Temperature 98.9 F Pulse Rate 73 Respiratory Rate 17 Blood Pressure 179/74 Pulse Oximetry 100 Oxygen Delivery Me thod Simple Mask Oxygen Flow Rate 8 Fraction of Inspir ed Oxygen Hydration adequate: Yes Nausea and vomiting: No Pain level: 3 Mental status: Baseline
--- NOTE | 2020-09-26 17:36 | SUR.PHASEI ---
X RAYS DONE, PT AWAKES AND TURNS TO LT SIDE, FIRST ICE TO LT KNEE DRESSING D/I DISTAL FOOT PINK WARM PULSE STRONG AND REGULAR , IV PATENT, BP BETTER THAN ON ADMIT TO PACU. DR ROSENBERG TALKED TO PT FAMILY WITH UPDATE AND THAT SHE WILL BE ON FLOOR IN 10-15 MINUTES. PT SLEEPS IF NOT AWAKENED, O2 3LNC SATS 94%
[2020-09-26] MEDS: calcium carbonate 500 mg Chew Tablet 1000 MG PO (19:06)
[2020-09-26] MEDS: sennosides-docusate Tablet 2 TAB PO (19:06)
[2020-09-26] MEDS: mupirocin oint 22 gm 1 APPLIC NASAL (19:06)
[2020-09-26] MEDS: iron polysaccharide complex 150 mg Capsule PO (19:06)
[2020-09-26] MEDS: chlorhexidine gluconate 0.12% Btl 473 mL 30 ML MUCOUS MEM (21:17)
[2020-09-26] MEDS: CELEcoxib 200 mg Capsule PO (23:03)
[2020-09-27] VITALS (7 sets, daily range): BP systolic 94–138; BP diastolic 56–75; PULSE 69–75; RESP 16–18; TEMP 36.6–37.1; O2SAT 93–97
[2020-09-27 02:42] LABS: Basophils # 0.1 10^3/uL (0.0-0.1); Basophils % 0.1 %; Hematocrit 33.6 % (37.0-47.0); Hemoglobin 10.2 g/dL (11.5-15.3); Lymphocytes # 62.8 10^3/uL (0.8-4.8); Lymphocytes % 74.6 %; Mean Corpuscular HGB Conc 30.4 g/dL (30.0-36.0); Mean Corpuscular Hemoglobin 30.6 pg (28.0-34.0); Mean Corpuscular Volume 100.9 fL (81-99); Mean Platelet Volume 10.5 fL (7.4-10.4); Monocytes # 8.2 10^3/uL (0.2-0.9); Monocytes % 9.8 %; Nucleated Red Blood Cells % 0 %; Platelet Count 193 10^3/cmm (130-400); Red Blood Count 3.33 10^6/uL (4.1-5.3); Red Cell Distribution Width 18.7 % (12.1-15.1)
[2020-09-27 03:03] LABS: Anion Gap 16.2 (5-19); Blood Urea Nitrogen 31 mg/dL (8-23); Calcium 8.5 mg/dL (8.5-10.5); Carbon Dioxide 23 mmol/L (22-29); Chloride 108 mmol/L (98-107); Glucose 142 mg/dL (65-115); Osmolality Calculated 303 mOsm/kg (285-295); Potassium 5.2 mmol/L (3.5-5.1); Sodium 142 mmol/L (136-145)
[2020-09-27 03:26] LABS: Slide Review Slide Review Perform; White Blood Count 84.2 10^3/uL (4.0-10.0)
[2020-09-27] MEDS: acetaminophen 1,000 MG/100 ML PIGGYBACK 400 MG IV ×2 (05:17→12:05)
[2020-09-27] MEDS: sennosides-docusate Tablet 2 TAB PO (08:49)
[2020-09-27] MEDS: oxyCODONE 5 mg IR Tab/Cap PO ×2 (08:49→13:12)
[2020-09-27] MEDS: aspirin 325 mg EC Tablet PO (08:49)
[2020-09-27] MEDS: multivitamin therapeutic Tablet 1 TAB PO (08:49)
[2020-09-27] MEDS: calcium carbonate 500 mg Chew Tablet 1000 MG PO (08:49)
[2020-09-27] MEDS: cholecalciferol (vitamin D3) 1,000 unit Tablet 1000 UNIT PO (08:49)
[2020-09-27] MEDS: iron polysaccharide complex 150 mg Capsule PO (08:49)
[2020-09-27] MEDS: lisinopril 20 mg Tablet 30 MG PO (08:49)
[2020-09-27] MEDS: chlorhexidine gluconate 0.12% Btl 473 mL 30 ML MUCOUS MEM ×2 (08:51→12:08)
[2020-09-27] MEDS: sodium chloride 0.9% 1,000 ML 100 ML IV (10:15)
--- NOTE | 2020-09-27 10:25 | PC.CHAP ---
Pastoral Care Encounter/Spiritual Assessment Type of Contact [] Declined residential solar sales consultant visit [] Patient/Family/Request visit [] Outpatient visit [] Follow-up visit [] Physician referral [] Code/Alert [x] Routine visit [] Staff referral [] Actively dying [x] Patient sleeping [] Family support [] [] Out of room [] Palliative care [] [] Receiving care in room [] Pre-surgical visit [] Trauma [] Long length of stay [] ICU visit [] Other: Relational/Emotional Strength [] Patient feels connected with others/family/visitors/staff [] Distress [] Loneliness/isolation [] Abandonment Spirituality of Patient [] Person of Ghada [] Attends Mu-Ism of their Ghada [] Believes in Prayer [] Reads Bible or Faith materials [] There are Spiritual issues to be addressed 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 [] Prayer [] Active listening [] Non-anxious presence [] Spiritual/emotional support [] Crisis/trauma care [] Spiritual counseling [] Bereavement support [] Provided bereavement packet [] Provided Bible/devotional materials [] Provided toy/stuffed animal, coloring book to patient or family member [] Provided Communion [] Anointing/[place] [] Salvation [] Completed spiritual assessment [] Other: Impact on Illness or Injury [] Angry [] Fearful [] Anxious [] Often cries [] Exhaustion [] Unable to work [] Unable to attend latter day [] Unable to walk/stand [] Unable to read [] Unable to drive [] Unable to eat/drink [] Unable to sleep [] Unable to be with family [] Patient intubated [] Other: Summary Time spent with patient
[2020-09-27] MEDS: CELEcoxib 200 mg Capsule PO (12:05)
--- NOTE | 2020-09-27 14:22 | P.DS_ITS ---
Discharge Providers Date of Admission: 09/26/20 16:43 Date of Discharge: September 27, 2020 Attending Provider at Admission: Brinda Ambrosio MD Attending Provider at Discharge: Brinda Ambrosio MD Primary Care Provider: Griselda Garrett APRN Diagnoses at Discharge Discharge Diagnosis (1) Osteoarthritis of left knee: Status: Acute Qualifiers: Osteoarthritis type: primary Qualified Code(s): M17.12 - Unilateral primary osteoarthritis, left knee (2) History of total left knee replacement: Status: Acute Permanent problem details: [place] total knee system with a size 3 triathlon beaded posterior stabilized femur left, a triathlon titanium tibial component size 3 beaded, a triathlon X3 posterior stabilized tibial bearing insert size 3 x 11 mm and a beaded triathlon titanium asymmetric patella size 32 x 10 mm Reason for Visit Reason for Visit: left total knee arthroplasty Hospital Course Hospital Course This 84-year-old woman was admitted secondary to severe degenerative osteoarthritis of the left knee for same-day total knee arthroplasty. She tolerated the procedure well. Following the procedure, she was placed in observation status for postoperative evaluation, optimization of pain control, and physical therapy initiation. On the first postoperative day, the patient was seen. Dressing was removed. Her wound was benign. There is no evidence of DVT. She was independent in transfers and working with physical therapy. The patient wished to be discharged to home, and I was in agreement with this. Therefore she was discharged home to follow-up with me in the office as previously scheduled. Physical Exam Const: COMMON NORMALS: no acute distress, average body habitus, patient oriented x3 and alert GENERAL APPEARANCE: cooperative and comfortable ORIENTATION/CONSCIOUSNESS: Yes awake HENMT: COMMON NORMALS: normocephalic and atraumatic HEAD & SCALP: normocephalic and atraumatic Eye: GENERAL EYE: appearance normal, both eyes and all related structures Chest: COMMONS NORMALS: normal inspection of the chest Resp: COMMON NORMALS: normal respiratory effort EFFORT & INSPECTION: Yes able to speak in complete sentences and Yes symmetric chest movement Extremity: LEFT LOWER EXTREMITY: Yes knee joint (Dressing is removed. Wound is benign.) Left knee: Yes inspection (There is minimal ecchymosis.), Yes palpation (Minimal tenderness about the total knee arthroplasty), Yes ROM (Able to straight leg raise and flex the knee comfortably.) and Yes neurovascular exam (Intact with no evidence of DVT) Neuro: COMMON NORMALS: patient oriented x3 SENSORIUM/ORIENTATION: Yes alert Psych: COMMON NORMALS: mental status grossly normal APPEARANCE: Yes grossly normal ATTITUDE: Yes calm and Yes engaged ATTENTION/CONCENTRATION: Yes attention grossly intact Skin: COMMON NORMALS: no rashes or lesions noted GENERAL SKIN EXAM: no rashes or lesions noted Urinary Catheter Management^: F: Cath Placed During This Visit: yes, but has since been removed by the nurse Reason for Continuing Indwelling Catheter: Perioperative Use in Selected Surgeries Urinary Catheter Date of Insertion: 09/26/20 Urinary Catheter Time of Insertion: 15:05 Date Urinary Catheter Removed: 09/27/20 Time Urinary Catheter Discontinued: 06:24 Discharge Data Data Completed and Pending: Completed Studies During Hospitalization Category Date Time Status XR knee LT 3V* [id number] Urgent Exams 09/26/20 17:22 Completed Labs from last 24 hours 09/27/20 09/27/20 02:28 02:28 WBC 84.2 H* RBC 3.33 L Hgb 10.2 L Hct 33.6 L MCV 100.9 H MCH 30.6 MCHC 30.4 RDW 18.7 H Plt Count 193 MPV 10.5 H Neut % (Auto) 15.0 Lymph % (Auto) 74.6 [place] % (Auto) 9.8 Eos % (Auto) 0.0 Baso % (Auto) 0.1 Neut # (Auto) 12.70 H Lymph # (Auto) 62.8 H [place] # (Auto) 8.2 H Eos # (Auto) 0.0 Baso # (Auto) 0.1 Nucleated RBC % (a uto) 0 Nucleated RBCs # 0.0 Sodium 142 Potassium 5.2 H Chloride 108 H Carbon Dioxide 23 Anion Gap 16.2 BUN 31 H Creatinine 1.1 H GFR Calculation Not Reportable Glucose 142 H Calculated Osmolal ity 303 H Calcium 8.5 Vitals: Last Vital Signs Temp 97.9 F 09/27/20 11:29 Pulse 75 09/27/20 11:29 Resp 16 09/27/20 13:12 BP 119/68 09/27/20 11:29 Pulse Ox 93 09/27/20 11:29 Discharge Plan Discharge Patient Disposition: Home Health Service Condition: Stable Prescriptions: New celecoxib 200 mg Capsule 200 mg PO DAILY Qty: 30 RF: 1 acetaminophen 500 mg Tablet 1,000 mg PO Q8H Qty: 0 RF: 0 aspirin 325 mg Tablet,Delayed Release (Dr/Ec) 325 mg PO BID 30 Days Qty: 60 RF: 0 oxycodone 5 mg Tablet 5 mg PO Q4H PRN (Reason: Moderate Pain) Qty: 30 RF: 0 Continued lisinopril 30 mg tablet 30 mg PO ONCE RF: 0 Multi-Day Plus Iron 1 tab PO DAILY RF: 0 Co Q-10 30 mg PO DAILY RF: 0 ascorbic acid (vitamin C) [Vitamin C] 1,000 mg Tablet 500 mg PO DAILY RF: 0 glucosamine sulfate [Glucosamine] 500 mg Tablet 500 mg PO BID RF: 0 zinc 50 mg Tablet 50 mg PO DAILY RF: 0 magnesium 30 mg Tablet 30 mg PO DAILY RF: 0 Vitamin D3 Complete 18 mg iron-800 mcg-150 mg Tablet 1 tab PO DAILY RF: 0 Discontinued aspirin 325 mg Tablet,Delayed Release (Dr/Ec) 325 mg PO DAILY Qty: 0 RF: 0 Discharge Orders: Discharge Order (Routine); Ordered 09/27/20 Ordered By: rBinda Ambrosio Referrals: Marycruz Jara [Other] Brinda Ambrosio MD [Physician] - 10/11/20 9:15 am Discharge Diet: Advance as tolerated and Usual diet Discharge Activity: Increase activity as tolerated, Limit activity as instructed, Use walker/crutches as instructed and As per PT/OT instructions Patient Instructions: Aspirin (By mouth), Celecoxib (By mouth), Oxycodone, Slow Release (By mouth), Total Knee Replacement (DC), Opioid Safety Activity Restrictions/Additional Instructions: Range of motion, gait training, strengthening per physical therapy. Ice and elevate left lower extremity. Discharge Attestations Time Spent in Discharge Care*: greater than 30 min Specific Discharge Activities: educating patient, discussing with case manage rs/social workers/dc planners and documenting/other paperwork Quality Metrics Clinical Quality Measures During this hospital stay, did patient experience: None Coding Level of Care Code Acute Chg FW DC note Exam Detailed Diagnoses Osteoarthritis of left knee M17.12 Osteoarthritis type: primary History of total left knee replacement Z96.652
== END 2020-09-27 15:04 | disposition home health service (06) ==
LOC: MEDSURG 16:43
PROVIDERS: Admitting Provider Specialist; PCP Nurse Practitioner Family; Visit Provider Specialist
PROC: (CPT 27447; principal; 2020-09-26 13:20)
DX: M17.12 Unilateral primary osteoarthritis, left knee (principal); I10 Essential (primary) hypertension; Z87.891 Personal history of nicotine dependence
CPT/HCPCS: 27447; 36415; 64447; 73560; 73562; 76942; 80048; 80053; 81003; 85025; 96365; 97116; 97161; 97165; C1776; C9290; G0378; J0360; J0690; J1100; J1170; J2405; J2704; J2710; J2795; J3010; J3370; J3490; J7030

== ENCOUNTER → 2020-10-11 09:04 | Outpatient (BNVA) | payer MEDICARE, OTHER, SELFPAY | PROVIDERS: PCP Nurse Practitioner Family; Visit Provider Specialist | DX: M25.559 Pain in unspecified hip (principal); M25.462 Effusion, left knee; Z96.652 Presence of left artificial knee joint | CPT/HCPCS: 73560; 73565 ==

== ENCOUNTER → 2020-11-08 10:21 | Outpatient (BNVA) | payer MEDICARE, OTHER, SELFPAY | PROVIDERS: PCP Nurse Practitioner Family; Visit Provider Specialist | DX: Z96.652 Presence of left artificial knee joint (principal) | CPT/HCPCS: 73560; 73565 ==

== ENCOUNTER 2021-01-24 12:12 | Outpatient (CLI) | payer MEDICARE, OTHER, SELFPAY ==
[2021-01-24 13:01] LABS: Basophils # 0.1 10^3/uL (0.0-0.1); Basophils % 0.1 %; Eosinophils # 0.2 10^3/uL (0.0-0.8); Eosinophils % 0.2 %; Hematocrit 36.7 % (37.0-47.0); Hemoglobin 11.1 g/dL (11.5-15.3); Lymphocytes % 83.9 %; Mean Corpuscular HGB Conc 30.2 g/dL (30.0-36.0); Mean Corpuscular Hemoglobin 30.3 pg (28.0-34.0); Mean Corpuscular Volume 100.3 fl (81-99); Mean Platelet Volume 9.9 fL (7.4-10.4); Monocytes # 14.5 10^3/uL (0.2-0.9); Monocytes % 11.5 %; Neutrophils # 5.13 10^3/uL (1.8-7.7); Nucleated Red Blood Cells % 0 %; Platelet Count 247 10^3/cmm (130-400); Red Blood Count 3.66 10^6/uL (4.1-5.3); Red Cell Distribution Width 18.6 % (12.1-15.1)
[2021-01-24 13:26] LABS: Alanine Aminotransferase 16 U/L (0-33); Albumin Level 4.4 g/dL (3.5-5.2); Alkaline Phosphatase 68 IU/L (35-105); Anion Gap 14.7 (5-19); Aspartate Amino Transferase 15 U/L (0-32); Blood Urea Nitrogen 25 mg/dL (8-23); Calcium 9.7 mg/dL (8.5-10.5); Carbon Dioxide 26 mmol/L (22-29); Chloride 103 mmol/L (98-107); Glucose 80 mg/dL (65-115); Iron 91 ug/dL (37-145); Osmolality Calculated 291 mOsm/kg (285-295); Potassium 4.7 mmol/L (3.5-5.1); Sodium 139 mmol/L (136-145); Total Bilirubin 0.6 mg/dL (0.15-1.2); Total Iron Binding Capacity 284 mcg/dl; Total Protein 6.4 g/dL (6.6-8.7); Unsaturated Iron Binding 193 ug/dL (112-347)
[2021-01-24 13:31] LABS: Lymphocytes # 106.5 10^3/uL (0.8-4.8)
[2021-01-24 13:34] LABS: White Blood Count 126.9 10^3/uL (4.0-10.0)
[2021-01-24 13:35] LABS: Slide Review Slide Review Perform
[2021-01-24 14:03] LABS: Lactate Dehydrogenase 329 U/L (135-214)
--- NOTE | 2021-01-24 14:33 | ONC FU_ITS ---
Dr. Horton Patient Follow-Up Note Patient: Sadie Martines Unit #: [id number]: 1935 Dicatated By: Dakota Horton M.D.Date of Visit:Jan 24, 2021 Onc Med Follow-up/Prog Note Chief Complaint: Chronic lymphocytic leukemia. History of Present Illness: This is an 84 year-old woman with chronic lymphocytic leukemia, Hill stage 0 at initial diagnosis in 2016. She had a mild lymphocytosis as an incidental finding on a CBC in March 2016. It had worsened slightly on a repeat study in September 2016. She was then seen by Dr. Rose, and she was confirmed by whole blood flow cytometry on 10/22/2016 to have a monoclonal B-cell population with kappa restriction, CD5 and CD23 positive, consistent with chronic lymphocytic leukemia. By clinical evaluation she was felt to have Hill stage 0 disease, and she has been followed on observation/expectant management. Her most recent laboratory studies, from 05/18/2018, showed hemoglobin normal at 13.2 g with hematocrit 41%. The white blood cell count was elevated at 67,600 with the differential showing 70% lymphocytes, 7% neutrophils, 8% monocytes, and 5% basophils. The platelet count was normal at 200,000. Her comprehensive metabolic profile was unremarkable. The only prior laboratory results that I have available are PJ and RA titers from 10/03/2016. The PJ was negative. The RA was elevated at 48 IU/mL. I had seen her initially on 07/07/2017. She had additional laboratory studies on 08/05/2018. Her CBC at that time showed hemoglobin normal at 13.3 g with white blood cell count 91,900 and platelet count 234,000. Her comprehensive metabolic profile was unremarkable. Uric acid level was mildly elevated at 8.7 mg/dL. LDH was 216 U/L, normal range 120-250. Her RA titer was elevated at 26 IU/mL, but her CCP antibody was normal at less than 16 and her sedimentation rate was normal at 10 mm/hour. As her CLL did not appear to be overtly symptomatic, I had recommended that she continue on observation/expectant management. Her other medical illnesses include hypertension, hyperlipidemia, degenerative arthritis, and vitamin B12 deficiency. She underwent right total knee arthroplasty in February 2020. She has a history of smoking 1 pack of cigarettes daily for 45 years, but she quit smoking 20 years ago. She has moderate alcohol use. INTERIM HISTORY: At her follow-up visit in March 2020 she had become moderately anemic, hemoglobin 9.2 g. I had suspected that it was probably related to the total knee arthroplasty, and at that point I did have her start on oral iron supplement. As of her visit in June 2019 when she was just mildly anemic with hemoglobin 11.9 g. Her white blood cell count has remained stable at 74,000 with normal platelet count at 240,000. She continued expectant management. She is seen for a follow-up visit. Her main complaint is that she has had ongoing problems with her left knee since her surgery in February, mainly with pain in the lateral aspect of the left leg just below the knee. She also has pain, though, in her left buttock area. It mainly occurs with walking, and it does limit her activity. She also does have some fatigue. Her ECOG score is 1. She has good appetite. She has no fever or night sweats. She has some sinus drainage in the mornings and she has associated cough. She does not complain of shortness of breath or chest pain. She has no GI complaints other than some mild constipation with her oral iron supplement. She has frequent urination. She has no other joint or bone pain. She does not complain of headache or dizziness. She does have some numbness in the left leg. Medications: Co Q 10 1 Tablet (of 10 mg) Capsule Oral daily, Glucosamine 1 Tablet Oral daily, Lisinopril 1 Tablet (of 30 mg) Oral daily, Lutein-Zeaxanthin 1 Capsule Oral daily, Magnesium 1 Tablet (of 400 mg) Oral daily, Vitamin D2 1 Tablet (of 2000 Units) Oral daily, Zinc 1 Capsule (of 50 mg) Oral daily Allergies: No Known Allergies. Vital Signs: Performed on Jan 24, 2021 14:17 Height - 63.00 in Weight - 190 lbs (LOW) BSA - 1.89 sq.m BMI - 33.66 (HIGH) Temperature - 98.2 F (LOW) Pulse - 83 /min Respiration - 18 /min BP - 160/70 mm(hg) (HIGH) O2 Sat - 97 % Pain - 4 Fatigue - 6 Physical Examination: Constitutional - She looks pretty good generally, Eyes - Sclerae nonicteric. Conjunctivae clear, ENMT - No lesions noted in the oral cavity, Hematologic/Lymphatic - No cervical, clavicular, or axillary adenopathy, Respiratory - Lungs are clear with good air movement bilaterally, Cardiovascular - Heart rhythm is regular. There is a II/ systolic murmur. There is no gallop or rub noted, Abdomen - Soft. Liver and spleen are not enlarged. There is no abdominal mass or ascites noted and there is no inguinal adenopathy, Extremities - No edema, Neurologic - No focal neurologic deficits noted. Lab/Imaging: Test performed on Jan 24, 2021 12:45 Iron 91 mcg/dL LDH (Total) 329 U/L Sodium 139 mmol/L Iron Binding Capacity (TIBC) 284 mcg/dl Potassium 4.7 mmol/L % Iron Saturation 32.0 % Chloride 103 mmol/L CO2 26 mmol/L UIBC 193 mcg/dL Anion Gap 14.7 BUN 25 mg/dL Creatinine 1.0 mg/dL Cr Clearance (Est) 56.9800 mL/min Glucose 80 mg/dL Osmolality - Calculated 291 mOsm/kg Calcium 9.7 mg/dL Protein, Total 6.4 g/dL Albumin 4.4 g/dL Globulin 2.0 g/dL Bilirubin, Total 0.6 mg/dL ALT (SGPT) 16 U/L AST (SGOT) 15 U/L Alkaline Phosphatase 68 IU/L WBC 126.9 10 3/uL RBC 3.66 10 6/uL HGB 11.1 g/dL HCT 36.7 % MCV 100.3 fl MCH 30.3 pg MCHC 30.2 g/dL RDW 18.6 % Platelet Count 247 10 3/cmm MPV 9.9 fL Neutrophils 5.13 10 3/uL Lymphocytes 106.5 10 3/uL Monocytes 14.5 10 3/uL Eosinophils 0.2 10 3/uL Basophils 0.1 10 3/uL Neutrophil % 4.0 % Lymphocyte % 83.9 % Monocyte % 11.5 % Eosinophil % 0.2 % Basophils % 0.1 % NRBC % 0 % CBC Slide Review Slide Review Perform SLIDE REVIEWED AGREES WITH THE AUTO RESULT. Problem List: 1. Chronic lymphocytic leukemia, Hill stage 0, initially presenting with lymphocytosis in March 2016. 2. Anemia. She has history of vitamin B12 deficiency. She had suspected iron deficiency following total knee arthroplasty. 3. Hypertension. 4. Hyperlipidemia. 5. Degenerative arthritis. Problems Addressed with this Encounter and Plan: Patient with chronic lymphocytic leukemia, Hill stage 0 at initial diagnosis in March 2016. She has been on expectant management. She had become moderately anemic following a left total knee arthroplasty procedure in February 2020. She did so some improvement with an oral iron supplement, but she has remained mildly anemic. During this time there has been a progressive increase in her lymphocyte count, which is now little over 100,000. At this point I think it is likely that some compound of the anemia is related to the CLL. If there is further decline in her hemoglobin/hematocrit levels, it will be an indication for her to start treatment. As such, I will recheck a CBC in 3 months. I will see her again in 6 months, or sooner as needed. Signed By: Dakota Horton M.D. <<Signature on File>>
== END 2021-01-24 12:13 | disposition home or self-care (01) ==
LOC: ONCMED 12:15
PROVIDERS: PCP Nurse Practitioner Family; Visit Provider Internal Medicine Medical Oncology
DX: C91.10 Chronic lymphocytic leukemia of B-cell type not having achieved remission (principal); D64.9 Anemia, unspecified; E53.8 Deficiency of other specified B group vitamins; I10 Essential (primary) hypertension; E78.5 Hyperlipidemia, unspecified; M19.90 Unspecified osteoarthritis, unspecified site; Z79.899 Other long term (current) drug therapy
CPT/HCPCS: 36415; 80053; 83540; 83550; 83615; 85025; 99214

== ENCOUNTER → 2021-02-19 10:04 | Outpatient (BNVA) | payer MEDICARE, OTHER, SELFPAY | PROVIDERS: PCP Nurse Practitioner Family; Visit Provider Specialist | DX: Z96.652 Presence of left artificial knee joint (principal) | CPT/HCPCS: 73560; 73565 ==

== ENCOUNTER 2021-06-05 09:20 | Outpatient (CLI) | payer MEDICARE, OTHER, SELFPAY ==
[2021-06-05 10:15] LABS: Basophils # 0.1 10^3/uL (0.0-0.1); Basophils % 0.1 %; Eosinophils # 0.2 10^3/uL (0.0-0.8); Eosinophils % 0.5 %; Hematocrit 33.9 % (37.0-47.0); Hemoglobin 10.1 g/dL (11.5-15.3); Lymphocytes # 40.1 10^3/uL (0.8-4.8); Lymphocytes % 83.7 %; Mean Corpuscular HGB Conc 29.8 g/dL (30.0-36.0); Mean Corpuscular Hemoglobin 31.8 pg (28.0-34.0); Mean Corpuscular Volume 106.6 fl (81-99); Mean Platelet Volume 10.7 fL (7.4-10.4); Monocytes # 2.3 10^3/uL (0.2-0.9); Monocytes % 4.7 %; Neutrophils # 5.11 10^3/uL (1.8-7.7); Neutrophils % 10.7 %; Nucleated Red Blood Cells % 0 %; Platelet Count 268 10^3/cmm (130-400); Red Blood Count 3.18 10^6/uL (4.1-5.3); Red Cell Distribution Width 19.9 % (12.1-15.1)
[2021-06-05 10:53] LABS: White Blood Count 47.9 10^3/uL (4.0-10.0)
[2021-06-05 10:54] LABS: Slide Review Slide Review Perform
[2021-06-05 10:55] LABS: Alanine Aminotransferase 15 U/L (0-33); Albumin Level 3.8 g/dL (3.5-5.2); Alkaline Phosphatase 57 IU/L (35-105); Anion Gap 15.3 (5-19); Aspartate Amino Transferase 11 U/L (0-32); Blood Urea Nitrogen 21 mg/dL (8-23); Calcium 9.6 mg/dL (8.5-10.5); Carbon Dioxide 23 mmol/L (22-29); Chloride 107 mmol/L (98-107); Globulin 2.5 g/dL (1.3-4.6); Glucose 70 mg/dL (65-115); Osmolality Calculated 293 mOsm/kg (285-295); Potassium 4.3 mmol/L (3.5-5.1); Sodium 141 mmol/L (136-145); Total Bilirubin 0.5 mg/dL (0.15-1.2); Total Protein 6.3 g/dL (6.6-8.7)
== END 2021-06-05 09:21 | disposition home or self-care (01) ==
LOC: ONCMED 09:27
PROVIDERS: PCP Nurse Practitioner Family; Visit Provider Nurse Practitioner Family
DX: Z08 Encounter for follow-up examination after completed treatment for malignant neoplasm (principal); Z85.6 Personal history of leukemia; D51.9 Vitamin B12 deficiency anemia, unspecified; D50.9 Iron deficiency anemia, unspecified; I10 Essential (primary) hypertension; E78.5 Hyperlipidemia, unspecified; M19.90 Unspecified osteoarthritis, unspecified site; Z79.899 Other long term (current) drug therapy
CPT/HCPCS: 36415; 80053; 84550; 85025; 99214

== ENCOUNTER → 2021-07-04 14:11 | Outpatient (BNVA) | payer MEDICARE, OTHER, SELFPAY | PROVIDERS: PCP Nurse Practitioner Family; Visit Provider Internal Medicine Cardiovascular Disease | DX: I25.10 Atherosclerotic heart disease of native coronary artery without angina pectoris (principal); I48.91 Unspecified atrial fibrillation; C91.90 Lymphoid leukemia, unspecified not having achieved remission; I11.0 Hypertensive heart disease with heart failure; I50.9 Heart failure, unspecified; Z87.891 Personal history of nicotine dependence | CPT/HCPCS: 99205 ==

== ENCOUNTER → 2021-07-09 13:29 | Outpatient (BNVA) | payer MEDICARE, OTHER, SELFPAY | PROVIDERS: PCP Nurse Practitioner Family; Visit Provider Internal Medicine Cardiovascular Disease | DX: I48.91 Unspecified atrial fibrillation (principal); R00.1 Bradycardia, unspecified | CPT/HCPCS: 93270 ==

== ENCOUNTER 2021-08-06 13:09 | Outpatient (CLI) | payer MEDICARE, OTHER, SELFPAY ==
[2021-08-06 13:57] LABS: Basophils # 0.1 10^3/uL (0.0-0.1); Basophils % 0.3 %; Eosinophils # 0.1 10^3/uL (0.0-0.8); Eosinophils % 0.4 %; Hematocrit 37.5 % (37.0-47.0); Lymphocytes # 21.8 10^3/uL (0.8-4.8); Lymphocytes % 66.1 %; Mean Corpuscular Hemoglobin 30.6 pg (28.0-34.0); Mean Corpuscular Volume 95.7 fl (81-99); Mean Platelet Volume 10.7 fL (7.4-10.4); Monocytes # 6.3 10^3/uL (0.2-0.9); Monocytes % 19.2 %; Neutrophils # 4.57 10^3/uL (1.8-7.7); Neutrophils % 13.7 %; Nucleated Red Blood Cells % 0 %; Platelet Count 227 10^3/cmm (130-400); Red Blood Count 3.92 10^6/uL (4.1-5.3); Red Cell Distribution Width 17.3 % (12.1-15.1)
[2021-08-06 14:13] LABS: Alanine Aminotransferase 15 U/L (0-33); Albumin Level 4.4 g/dL (3.5-5.2); Alkaline Phosphatase 59 IU/L (35-105); Anion Gap 15.9 (5-19); Aspartate Amino Transferase 12 U/L (0-32); Blood Urea Nitrogen 40 mg/dL (8-23); Calcium 9.8 mg/dL (8.5-10.5); Carbon Dioxide 25 mmol/L (22-29); Chloride 102 mmol/L (98-107); Globulin 2.9 g/dL (1.3-4.6); Glucose 126 mg/dL (65-115); Lactate Dehydrogenase 232 U/L (135-214); Osmolality Calculated 297 mOsm/kg (285-295); Potassium 4.9 mmol/L (3.5-5.1); Sodium 138 mmol/L (136-145); Total Bilirubin 0.4 mg/dL (0.15-1.2); Total Protein 7.3 g/dL (6.6-8.7)
== END 2021-08-06 13:10 | disposition home or self-care (01) ==
LOC: ONCMED 13:13
PROVIDERS: PCP Nurse Practitioner Family; Visit Provider Internal Medicine Medical Oncology
DX: C91.10 Chronic lymphocytic leukemia of B-cell type not having achieved remission (principal)
CPT/HCPCS: 36415; 80053; 83615; 85025

== ENCOUNTER 2021-08-08 12:29 | Outpatient (CLI) | payer MEDICARE, OTHER, SELFPAY ==
--- NOTE | 2021-08-12 09:19 | ONC FU_ITS ---
Dr. Horton Patient Follow-Up Note Patient: Sadie Martines Unit #: [id number]: 1935 Dicatated By: Dakota Horton M.D.Date of Visit:Aug 08, 2021 Onc Med Follow-up/Prog Note Chief Complaint: Chronic lymphocytic leukemia. History of Present Illness: This is an 85 year-old woman with chronic lymphocytic leukemia, Hill stage 0 at initial diagnosis in 2016. She had a mild lymphocytosis as an incidental finding on a CBC in March 2016. It had worsened slightly on a repeat study in September 2016. She was then seen by Dr. Rose, and she was confirmed by whole blood flow cytometry on 10/22/2016 to have a monoclonal B-cell population with kappa restriction, CD5 and CD23 positive, consistent with chronic lymphocytic leukemia. By clinical evaluation she was felt to have Hill stage 0 disease, and she has been followed on observation/expectant management. Her most recent laboratory studies, from 05/18/2018, showed hemoglobin normal at 13.2 g with hematocrit 41%. The white blood cell count was elevated at 67,600 with the differential showing 70% lymphocytes, 7% neutrophils, 8% monocytes, and 5% basophils. The platelet count was normal at 200,000. Her comprehensive metabolic profile was unremarkable. The only prior laboratory results that I have available are PJ and RA titers from 10/03/2016. The PJ was negative. The RA was elevated at 48 IU/mL. I had seen her initially on 07/07/2017. She had additional laboratory studies on 08/05/2018. Her CBC at that time showed hemoglobin normal at 13.3 g with white blood cell count 91,900 and platelet count 234,000. Her comprehensive metabolic profile was unremarkable. Uric acid level was mildly elevated at 8.7 mg/dL. LDH was 216 U/L, normal range 120-250. Her RA titer was elevated at 26 IU/mL, but her CCP antibody was normal at less than 16 and her sedimentation rate was normal at 10 mm/hour. As her CLL did not appear to be overtly symptomatic, I had recommended that she continue on observation/expectant management. Her other medical illnesses include hypertension, hyperlipidemia, degenerative arthritis, and vitamin B12 deficiency. She underwent right total knee arthroplasty in February 2020. She has a history of smoking 1 pack of cigarettes daily for 45 years, but she quit smoking 20 years ago. She has moderate alcohol use. INTERIM HISTORY: At her follow-up visit in March 2020 she had become moderately anemic, hemoglobin 9.2 g. I had suspected that it was probably related to the total knee arthroplasty, and at that point I did have her start on oral iron supplement. As of her visit in June 2019 when she was just mildly anemic with hemoglobin 11.9 g. Her white blood cell count was stable at 74,000 with normal platelet count at 240,000. She continued expectant management. As of 01/24/2021 there was further increase in her white blood cell count to 126,900 with an absolute lymphocyte count of 106,500. Her hemoglobin, was slightly low at 11.1 g. Her platelet count was normal at 247,000. She appeared stable clinically, and I did opt to continue to manage her expectantly. With the borderline low hemoglobin, I did schedule a 3-month interval follow-up CBC. In February 2021 she was hospitalized with COVID-19 virus infection/pneumonia. Her scheduled CBC on 04/18/2021 showed a further decrease in her hemoglobin to 9.9 g with her white blood cell count elevated at 122,400 and with her absolute lymphocyte count 97,500. At that point we had discussed the possibility of initiating treatment with a acalabrutinib. However, on her repeat CBC on 06/05/2021 there was a significant decrease in the white blood cell count to 47,900. She was then seen here for a follow-up visit on 06/05/2021, at which point her white blood cell count had decreased to 47,900 with absolute lymphocyte count 40,100. She was mildly anemic with hemoglobin 10.1 g. Platelet count remained normal at 268,000. She was still slightly anemic with hemoglobin 10.1 g, but with the change in her white blood cell count, we opted to defer starting treatment. She is seen now for a follow-up visit. She has been feeling pretty good generally. She still has some fatigue, but she says her energy is getting better. Her ECOG score is 1. She has had some decrease in appetite. By our scale her weight is down 19 pounds since December. She does not have fever or night sweats. She says she always feels cold. She has not had sore mouth or throat. She has just occasional cough. Her breathing has been getting better gradually, and she has been able to get off oxygen. She does not complain of chest pain. She has no GI or complaints. She says her left knee still hurts following the total knee arthroplasty. She also has pain in both hands. She has numbness in the median nerve distribution bilaterally. Medications: Amiodarone HCl 1 Tablet (of 200 mg) Oral daily, Apixaban 1 Tablet (of 5 mg) Oral b.i.d., Co Q 10 1 Tablet (of 10 mg) Capsule Oral daily, Lasix 1 Tablet (of 20 mg) Oral daily, Lutein-Zeaxanthin 1 Capsule Oral daily, Vitamin D2 1 Tablet (of 2000 Units) Oral daily Allergies: No Known Allergies. Vital Signs: Performed on Aug 08, 2021 13:14 Height - 63.00 in BP - 156/64 mm(hg) (HIGH) Performed on Aug 08, 2021 13:13 Height - 63.00 in Weight - 171.2 lbs (LOW) BSA - 1.81 sq.m BMI - 30.33 (HIGH) Temperature - 97.0 F (LOW) Pulse - 71 /min Respiration - 16 /min BP - 160/64 mm(hg) (HIGH) O2 Sat - 95 % (LOW) Pain - 0 Fatigue - 4 Physical Examination: Constitutional - She looks pretty good generally, Eyes - Sclerae nonicteric. Conjunctivae clear, ENMT - No lesions noted in the oral cavity, Hematologic/Lymphatic - No cervical, clavicular, or axillary adenopathy, Respiratory - Lungs are clear with good air movement bilaterally, Cardiovascular - Heart rhythm is regular. There is no murmur, gallop, or rub noted, Abdomen - Soft. Liver and spleen are not enlarged. There is no abdominal mass or ascites noted and there is no inguinal adenopathy, Extremities - No edema, Neurologic - No focal neurologic deficits noted. Lab/Imaging: Test performed on Jun 05, 2021 09:50 Sodium 141 mmol/L Uric Acid 6.0 mg/dL Potassium 4.3 mmol/L Chloride 107 mmol/L CO2 23 mmol/L Anion Gap 15.3 BUN 21 mg/dL Creatinine 0.9 mg/dL Cr Clearance (Est) 62.24 mL/min Glucose 70 mg/dL Osmolality - Calculated 293 mOsm/kg Calcium 9.6 mg/dL Protein, Total 6.3 g/dL Albumin 3.8 g/dL Globulin 2.5 g/dL Bilirubin, Total 0.5 mg/dL ALT (SGPT) 15 U/L AST (SGOT) 11 U/L Alkaline Phosphatase 57 IU/L WBC 47.9 10 3/uL RBC 3.18 10 6/uL HGB 10.1 g/dL HCT 33.9 % MCV 106.6 fl MCH 31.8 pg MCHC 29.8 g/dL RDW 19.9 % Platelet Count 268 10 3/cmm MPV 10.7 fL Neutrophils 5.11 10 3/uL Lymphocytes 40.1 10 3/uL Monocytes 2.3 10 3/uL Eosinophils 0.2 10 3/uL Basophils 0.1 10 3/uL Neutrophil % 10.7 % Lymphocyte % 83.7 % Monocyte % 4.7 % Eosinophil % 0.5 % Basophils % 0.1 % NRBC % 0 % CBC Slide Review Slide Review Perform SLIDE REVIEW AGREES WITH AUTOMATED RESULTS Problem List: 1. Chronic lymphocytic leukemia, Hill stage 0, initially presenting with lymphocytosis in March 2016. 2. Anemia. She has history of vitamin B12 deficiency. She had suspected iron deficiency following total knee arthroplasty. 3. Hypertension. 4. Hyperlipidemia. 5. Degenerative arthritis. Problems Addressed with this Encounter and Plan: 1. Patient with chronic lymphocytic leukemia, Hill stage 0 at initial diagnosis in March 2016. She was followed expectantly. She had become moderately anemic following a left total knee arthroplasty procedure in February 2020. She had some improvement on oral iron supplementation, but as of her follow-up visit in December 2020 she remained mildly anemic. Her clinical course was then complicated by a hospitalization for COVID-19 virus infection/pneumonia in February 2021. Her repeat CBC on 04/18/2021 showed a further decrease in her hemoglobin to 9.9 g with her white blood cell count elevated at 122,400 and with her absolute lymphocyte count 97,500. We had then discussed the possibility of initiating treatment with a acalabrutinib. However, on her repeat CBC on 06/05/2021 there was a significant decrease in the white blood cell count to 47,900 and without treatment it has now further decreased to 33,000 with absolute lymphocyte count 21,800. Her hemoglobin now is back up to normal range at 12.0 g and her platelet count is normal at 227,000. As such, she will continue on expectant management. She will have follow-up laboratory studies with Krystle Kennedy in October and I will plan a follow-up visit in 6 months. 2. She has numbness in the median nerve distribution bilaterally. I will have her scheduled for nerve conduction studies. She will have further evaluation as indicated. Signed By: Dakota Horton M.D. <<Signature on File>>
== END 2021-08-08 12:30 | disposition home or self-care (01) ==
LOC: ONCMED 12:30
PROVIDERS: PCP Nurse Practitioner Family; Visit Provider Internal Medicine Medical Oncology
DX: C91.10 Chronic lymphocytic leukemia of B-cell type not having achieved remission (principal)
CPT/HCPCS: 99214

== ENCOUNTER 2021-08-28 09:41 | Outpatient (CLI) | payer MEDICARE, OTHER, SELFPAY ==
--- NOTE | 2021-08-28 09:49 | NMCV_ITS ---
NM rhett perf SPECT r/s* [id number] Sadie Martines Age: 85 Gender: F : 1935 Exam Date: 08/28/2021 10:44 Ordering Phys: Jefferson Juan MD ([email or web address]) Technologist: DEON Pedroza Exam Location: [facility] Indications: SHORTNESS OF BREATH STRESS TEST [facility] IMAGE PROTOCOL Rest/Stress 1 Lexiscan Day Radiopharmaceutical Dose (mCi) Administration Site Administered by Rest: Tc-99m 10.8 IV DEON Walls Sestamibi Stress:Tc-99m 32.0 IV DEON Walls Sestamibi Rest: 28-Aug-2021 60 Discovery 630 Stress: 28-Aug-2021 30 Discovery 630 0.4mg Lexiscan. Supine position only as patient was unable to lay prone. SPECT RESULTS Technical Quality: Excellent Raw Data Analysis: Normal Image Corrections: No attenuation or motion correction applied Summed Stress Score: 1 Summed Rest Score: 0 Summed Difference Score: 1 PERFUSION FINDINGS A small area of slightly decreased tracer uptake was noted in the inferolateral region. Some reversibility was noted in this region FUNCTIONAL RESULTS (calculated via Gated SPECT) Stress Image LV EF (%): 71 Stress EDV (mL):90 TID: 1.09 Stress ESV (mL):26 FUNCTIONAL FINDINGS: Segmental wall motion analysis revealing no gross wall motion abnormality IMPRESSIONS 1. Myocardial perfusion imaging revealing small area of inconsistent reversible defect suggesting myocardial ischemia in the distribution of the left circumflex artery. However in view of the inconsistency, the reliability is questionable 2. Normal LV ejection fraction of 71%. 3. LV wall motion analysis revealing no gross wall motion normalities. 4. Normal LV volume Clinical correlation is recommended Dr Jefferson Juan MD [facility] (Electronically Signed) Final Date: 28 Aug 2021 16:01 S
--- NOTE | 2021-08-28 09:49 | ECG_ITS ---
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 Interpretive Statements NAME OF STUDY: LEXISCAN SESTAMIBI STRESS TEST INDICATION: Shortness of Breath, PROCEDURE: At the baseline, the EKG revealed sinus bradycardia with a rate of 55 bpm. Nonspecific IVCD. Poor R wave progression. Nonspecific ST changes in the inferolateral leads. The baseline blood pressure was 194/70 mm Hg with a heart rate of 55 beats/min. Lexiscan was infused over a period of 20 seconds. A total of 0.4 milligrams of Lexiscan was infused. The stress phase was continued for a total of 5 minutes. Heart rate at the end of the stress phase was 71 with a blood pressure 179/64. The EKG at the peak infusion revealed more prominent ST-T changes in the inferolateral leads. Sestamibi was injected 20 seconds after the Lexiscan infusion. Blood pressure at the end of the recovery phase was 174/62 with a heart rate of 70 per minute. CONCLUSION: 1. Nonspecific EKG changes with the LexiScan infusion 2. No LexiScan induced chest pain or cardiac arrhythmia 3. Normal blood pressure and heart rate response 4. Sestamibi/sestamibi perfusion scan pending; see separate report. Electronically Signed On 08-28-2021 16:58:48 CDT by Jefferson Juan M.D. [id number]
[2021-08-28 09:57] VITALS: BMI 32.5
[2021-08-28] MEDS: regadenoson 0.4 Mg/5 ml Syringe IVP (11:14)
[2021-08-28 11:33] VITALS: BP 174/62; PULSE 68
== END 2021-08-28 09:42 | disposition home or self-care (01) ==
LOC: CDL 09:44
PROVIDERS: PCP Nurse Practitioner Family; Visit Provider Internal Medicine Cardiovascular Disease
DX: I48.91 Unspecified atrial fibrillation (principal); R06.02 Shortness of breath; R00.1 Bradycardia, unspecified
CPT/HCPCS: 78452; 93017; A9500; J2785

== ENCOUNTER → 2021-08-30 13:25 | Outpatient (BNVA) | payer MEDICARE, OTHER, SELFPAY | PROVIDERS: PCP Nurse Practitioner Family; Visit Provider Internal Medicine Cardiovascular Disease | DX: I10 Essential (primary) hypertension (principal); C91.90 Lymphoid leukemia, unspecified not having achieved remission; Z87.891 Personal history of nicotine dependence | CPT/HCPCS: 99213; 99214 ==

== ENCOUNTER → 2021-09-18 12:48 | Outpatient (BNVA) | payer MEDICARE, OTHER, SELFPAY | PROVIDERS: PCP Nurse Practitioner Family; Referring Provider Internal Medicine Medical Oncology; Visit Provider Specialist | DX: G56.03 Carpal tunnel syndrome, bilateral upper limbs (principal); G56.22 Lesion of ulnar nerve, left upper limb | CPT/HCPCS: 95910; 95912 ==

== ENCOUNTER → 2021-10-10 09:53 | Outpatient (BNVA) | payer MEDICARE, OTHER, SELFPAY | PROVIDERS: PCP Nurse Practitioner Family; Visit Provider Specialist | DX: G56.23 Lesion of ulnar nerve, bilateral upper limbs (principal); G56.03 Carpal tunnel syndrome, bilateral upper limbs | CPT/HCPCS: 73110; 99214 ==

== ENCOUNTER 2021-10-10 13:43 | Outpatient (CLI) | payer MEDICARE, OTHER, SELFPAY | END 2021-10-10 13:44 | disposition home or self-care (01) | LOC: SPT 13:44 | PROVIDERS: PCP Nurse Practitioner Family; Visit Provider Specialist | DX: Z46.89 Encounter for fitting and adjustment of other specified devices (principal); G56.03 Carpal tunnel syndrome, bilateral upper limbs | CPT/HCPCS: 97760; L3908 ==

== ENCOUNTER → 2021-11-19 09:18 | Outpatient (BNVA) | payer MEDICARE, OTHER, SELFPAY | PROVIDERS: PCP Nurse Practitioner Family; Visit Provider Specialist | DX: G56.01 Carpal tunnel syndrome, right upper limb (principal) | CPT/HCPCS: 99214 ==

== ENCOUNTER 2021-12-07 06:49 | Day surgery (SDC) | payer MEDICARE, OTHER, SELFPAY ==
[2021-12-06 12:20] VITALS: BMI 31.2
[2021-12-07] VITALS (7 sets, daily range): BP systolic 146–177; BP diastolic 62–90; PULSE 51–78; RESP 12–18; TEMP 36.2–36.5; O2SAT 96–98
[2021-12-07] MEDS: sodium chloride 0.9% 1,000 ML 30 ML IV (07:08)
[2021-12-07] MEDS: CELEcoxib 200 mg Capsule 400 MG PO (07:08)
[2021-12-07] MEDS: acetaminophen 1,000 MG/100 ML PIGGYBACK 400 MG IV (07:08)
--- NOTE | 2021-12-07 07:17 | W.PM.OPSUD ---
Surgery/Procedure H&P Update DATE OF PROCEDURE: December 07, 2021 DATE H&P PERFORMED: 11/19/21 H&P UPDATE INFORMATION: I have reviewed H&P completed within last 30 days, I have examined patient prior to procedure, No changes to prior documentation and H&P is in [facility] on date indicated PREOP DIAGNOSIS: Right carpal tunnel syndrome PLANNED PROCEDURE: Operation Date: 12/07/21 08:30 Proposed Procedures p RIGHT CARPAL TUNNEL RELEASE 32311,G56.00(Right) - Brinda Ambrosio MD Related Problem List Diagnoses (1) Carpal tunnel syndrome on right:
--- NOTE | 2021-12-07 07:32 | ANES.PREANE2 ---
Pre-Anesthetic Assessment Height/Weight: Height 1.57 m Weight 77.564 kg Temp Pulse Resp Pulse Ox O2 Del Method 97.7 F 78 16 96 12/07/21 07:01 12/07/21 07:01 12/07/21 07:01 12/07/21 07:01 12/07/21 07:03 Preop Diagnosis: Right carpal tunnel syndrome Operation Date: 12/07/21 08:30 Proposed Procedures p RIGHT CARPAL TUNNEL RELEASE 22288,G56.00(Right) - Brinda Ambrosio MD Familial anesthetic complications: NOne Was Beta Krzysztof taken within 24 hours: N/A Was Clonidine taken within 24 hours: N/A Last intake: Intake Last Liquid Date 12/06/21 Last Liquid Time 21:00 Last Solid Date 12/06/21 Last Solid Time 17:30 Social Alcohol (1 or 2 vodkas a week) and No tobacco forme rsmoker Exam alert, oriented x 3, clear to auscultation bilaterally and regular rate & rhythm Airway Mallampati: Class III Dentition: false Pulmonary hx covid pneumonia severe, requiring O2 use for 6 weeks. Off since August CV/HEM Atrial Fibrillation (no longer on anticoagulation d/t low burden), Congestive Heart Failure and Hypertension negative stress test 09/[address] [facility] leukemia Anesthetic Plan ASA status: 4 Anesthesia: MAC and Regional (specify below) Risk of > 500 ml blood loss (7ml/kg in children): No Medications/Allergies Home Medications Medication Instructions Recorded Confirmed Last Taken Type cyanocobalamin (vitamin B-12) 1,000 mcg SUBCUT Q30D 07/04/21 12/07/21 12/06/21 History 1,000 mcg/mL injection solution furosemide 20 mg tablet 20 mg PO DAILY PRN swelling 07/04/21 12/06/21 Unknown History coenzyme Q10 100 mg capsule (Co 100 mg PO DAILY 08/30/21 12/07/21 12/06/21 History Q-10) glucosamine HCl 500 mg tablet 500 mg PO DAILY 08/30/21 12/07/21 12/06/21 History vit A 300 mcg-C 200 mg-E 27 1 tab PO DAILY 08/30/21 12/07/21 12/06/21 History mg-lutein 2 mg and minerals tablet ([facility] Plus Lutein) zinc acetate 25 mg (zinc) capsule 25 mg PO DAILY 08/30/21 12/07/21 12/06/21 History (Galzin) magnesium 200 mg tablet 200 mg PO DAILY 09/18/21 12/07/21 12/06/21 History COCK UP SPLINT #2 ea 10/10/21 11/19/21 Unknown Rx Allergies Allergy/AdvReac Type Severity Reaction Status Date / Time No Known Allergies Allergy Verified 12/06/21 12:19 Current Medications Generic Name Dose Route Start Last Admin Trade Name Ellen PRN Reason Stop Dose Admin Sodium Chloride 1,000 mls @ 30 mls/hr 12/07/21 07:00 12/07/21 07:08 Sodium Chloride 0.9% IV 12/08/21 06:59 30 mls/hr .Q24H CHEIKH Administration PFSH Anesthesia Medical History Hypertension Lymphatic leukemia Primary localized osteoarthritis of left knee Family History Mother CAD (coronary artery disease) unknown age of onset Stroke Father Cancer Brother Cancer Denies family history of Diabetes Clotting disorder Dementia Chronic kidney disease (CKD) Suicide Anesthesia complication Bleeding disorder Lung disease Social History Smoking and tobacco status: former smoker Alcohol intake: current Alcohol intake frequency: 0-2 Drinks per Day Data Anesthesia Cardiac Studies: Sestamibi Stress Test (Cardiology) 08/28/21 Cardiac Event Monitor 07/09/21
[2021-12-07 07:59] LABS: Blood Urea Nitrogen 24 mg/dL (8-23); Calcium 9.6 mg/dL (8.5-10.5); Carbon Dioxide 27 mmol/L (22-29); Chloride 105 mmol/L (98-107); Glucose 85 mg/dL (65-115); Osmolality Calculated 297 mOsm/kg (285-295); Sodium 142 mmol/L (136-145)
[2021-12-07 08:00] LABS: Anion Gap 14.6 (5-19); Creatinine Clr Calc Pharmacy 39.6632; Potassium 4.6 mmol/L (3.5-5.1)
[2021-12-07] MEDS: ceFAZolin 2,000 MG in sodium chloride 0.9% (plus) 50 ML 100 MG IV (08:30)
--- NOTE | 2021-12-07 09:11 | P.OP_ITS ---
Operative Report Date of procedure: December 07, 2021 Pre-op diagnosis: Right carpal tunnel syndrome Post-op diagnosis: Right carpal tunnel syndrome Post-op findings: Significant compression across the median nerve with hourglass shape and purpleish discoloration Procedure done: Right carpal tunnel release Pathology: none sent Surgeon: Brinda Ambrosio Concession Attendant: None Anesthesia: MAC (With Howard block, ASA 4) Estimated blood loss (mL): 1 Tourniquet time (min): 37 (At 300 mmHg) IV fluids (mL): 700 Urine output (mL): 0 (No Lucas) Complications: None Condition: stable Disposition: PACU (Then discharge to same-day surgery for discharge home with family) Brief History: Sadie is an 86-year-old woman who presented to my office with right wrist pain and numbness. EMG nerve conduction studies documented carpal tunnel syndrome. She has similar symptoms in the opposite wrist, but they are present to a much lesser degree. She has decreased feeling in the fingertips and the pain will keep her awake at night. After discussion, the patient wished to proceed with carpal tunnel release. Risks and complications were discussed with her. Consents were signed and questions were answered. Procedure: The patient was brought to the operating theater. She had a Howard block with MAC. The tourniquet was elevated to 300 mmHg for a total tourniquet time of 37 minutes. The patient was also given Ancef 2 g preoperatively. The arm was then prepped and draped with DuraPrep in usual fashion with the arm draped free. A surgical pause was performed. At the time, the surgical pause, we confirmed the site and side of surgery. We also confirmed the patient's identity, appropriate and timely administration of preoperative antibiotics and preoperative surgical markings. An incision was then made along the thenar crease. The incision crossed the wrist joint in a curvilinear fashion. Dissection continued through skin and soft tissues using a scalpel. The palmaris longus was identified along with the transverse carpal ligament. Each of these was released carefully to avoid injury to the median nerve. We were able to dissect gently into the carpal canal which was noted to be quite tight with significant compression across the median nerve. The nerve was visualized and was an hourglass shape. The canal was subsequently palpated to assure there was no bony encroachment upon the canal. There was a quite thickened fibrous tissue within the canal, and this was opened longitudinally as well. The canal was then palpated distally and proximally to assure that my small finger was passed easily without impingement. Finding this to be so, attention was directed to closure. The wound was irrigated with ropivacaine plain. It was then closed with 3-0 nylon in an interrupted mattress fashion. Sterile dressing was then placed consisting of Dermabond, OpSite, fluffed fluffs, sterile soft roll, and an Mike wrap. The tourniquet was released after 37 minutes. There were no complications. There were no specimens. The procedure was well tolerated. Plan is the patient will be discharged home. Related Problem List Diagnoses (1) Carpal tunnel syndrome on right:
[2021-12-07] MEDS: HYDROcodone-acetaminophen 5-325 mg Tablet 1 TAB PO (10:13)
--- NOTE | 2021-12-07 14:19 | ANE.PACU2 ---
Inpatient post-anesthesia follow up: Airway intact: Yes Vital signs: Temperature 97.6 F Pulse Rate 52 Respiratory Rate 16 Blood Pressure 156/68 Pulse Oximetry 98 Oxygen Delivery Me thod Room Air Oxygen Flow Rate Fraction of Inspir ed Oxygen Hydration adequate: Yes Nausea and vomiting: No Pain level: 1 Mental status: Baseline
== END 2021-12-07 10:36 | disposition home or self-care (01) ==
PROVIDERS: Anesthesiology; PCP Nurse Practitioner Family; Visit Provider Specialist
PROC: (CPT 64721; principal; 2021-12-07 08:20)
DX: G56.01 Carpal tunnel syndrome, right upper limb (principal); Z87.891 Personal history of nicotine dependence; Z86.16 Personal history of COVID-19; I48.91 Unspecified atrial fibrillation; I11.0 Hypertensive heart disease with heart failure; I50.9 Heart failure, unspecified
CPT/HCPCS: 64721; 80048; J2704; J3010; J7030

== ENCOUNTER → 2021-12-20 09:41 | Outpatient (BNVA) | payer MEDICARE, OTHER, SELFPAY | PROVIDERS: PCP Nurse Practitioner Family; Visit Provider Nurse Practitioner Family | DX: Z98.890 Other specified postprocedural states (principal); M76.32 Iliotibial band syndrome, left leg | CPT/HCPCS: 99213 ==

== ENCOUNTER 2022-02-07 12:32 | Oncology outpatient (recurring) (ONCR) | payer MEDICARE, OTHER, SELFPAY ==
[2022-02-07 13:05] LABS: Mean Corpuscular HGB Conc 31.4 g/dL (30.0-36.0); Mean Corpuscular Hemoglobin 30.5 pg (28.0-34.0); Mean Platelet Volume 10.4 fL (7.4-10.4); Platelet Count 209 10^3/cmm (130-400); Red Blood Count 3.61 10^6/uL (4.1-5.3); Red Cell Distribution Width 19.3 % (12.1-15.1)
[2022-02-07 13:26] LABS: Alanine Aminotransferase 16 U/L (0-33); Albumin Level 4.4 g/dL (3.5-5.2); Alkaline Phosphatase 70 U/L (35-105); Anion Gap 15.9 (5-19); Aspartate Amino Transferase 17 U/L (0-32); Blood Urea Nitrogen 20 mg/dL (8-23); Calcium 9.9 mg/dL (8.5-10.5); Carbon Dioxide 26 mmol/L (22-29); Chloride 103 mmol/L (98-107); Globulin 2.4 g/dL (1.3-4.6); Glucose 90 mg/dL (65-115); Osmolality Calculated 292 mOsm/kg (285-295); Potassium 4.9 mmol/L (3.5-5.1); Sodium 140 mmol/L (136-145); Total Bilirubin 0.5 mg/dL (0.15-1.2); Total Protein 6.8 g/dL (6.6-8.7)
[2022-02-07 13:27] LABS: Lactate Dehydrogenase 395 U/L (135-214)
[2022-02-07 13:42] LABS: White Blood Count 113.8 10^3/uL (4.0-10.0)
[2022-02-07 13:43] LABS: Absolute Segmented Neutrophil 4.6 10/cmm (1.6-7.1); Eosinophils 0 %; Lymphocytes 88 %; Monocytes Absolute 1.1 10^3/cmm (0.1-0.6); Segmented Neutrophils 4 %; Total Cells Counted 100 (0-100)
[2022-02-07 13:44] LABS: Absolute Neutrophil 4.6 10^3/cmm (1.4-6.5); Lymphocytes Absolute 108.1 10^3/cmm (1.2-3.4); Platelet Estimate Normal (Normal); Smudge Cells 1+
== END 2022-02-25 23:59 | disposition home or self-care (01) ==
PROVIDERS: PCP Nurse Practitioner Family; Visit Provider Internal Medicine Medical Oncology
DX: Z08 Encounter for follow-up examination after completed treatment for malignant neoplasm (principal); Z85.6 Personal history of leukemia; D64.9 Anemia, unspecified; Z96.652 Presence of left artificial knee joint; Z79.899 Other long term (current) drug therapy; Z87.891 Personal history of nicotine dependence
CPT/HCPCS: 36415; 80053; 83615; 85007; 85025; 99214

== ENCOUNTER → 2022-02-11 14:33 | Outpatient (BNVA) | payer MEDICARE, OTHER, SELFPAY | PROVIDERS: PCP Nurse Practitioner Family; Visit Provider Specialist | DX: Z96.653 Presence of artificial knee joint, bilateral (principal); M16.12 Unilateral primary osteoarthritis, left hip | CPT/HCPCS: 73502; 73560; 73565; 99214; 99215 ==

== ENCOUNTER → 2022-03-07 12:54 | Outpatient (BNVA) | payer MEDICARE, OTHER, SELFPAY | PROVIDERS: PCP Nurse Practitioner Family; Visit Provider Internal Medicine Cardiovascular Disease | DX: I48.91 Unspecified atrial fibrillation (principal); C91.10 Chronic lymphocytic leukemia of B-cell type not having achieved remission; I10 Essential (primary) hypertension; Z87.891 Personal history of nicotine dependence | CPT/HCPCS: 99213; 99214 ==

== ENCOUNTER → 2022-04-18 08:28 | Outpatient (BNVA) | payer MEDICARE, OTHER, SELFPAY | PROVIDERS: PCP Nurse Practitioner Family; Referring Provider Specialist; Visit Provider Specialist | DX: M16.12 Unilateral primary osteoarthritis, left hip (principal); M47.816 Spondylosis without myelopathy or radiculopathy, lumbar region; G56.03 Carpal tunnel syndrome, bilateral upper limbs | CPT/HCPCS: 95860; 99202 ==

== ENCOUNTER → 2022-05-08 14:38 | Outpatient (BNVA) | payer MEDICARE, OTHER, SELFPAY | PROVIDERS: PCP Nurse Practitioner Family; Visit Provider Specialist | DX: M16.12 Unilateral primary osteoarthritis, left hip (principal); C91.10 Chronic lymphocytic leukemia of B-cell type not having achieved remission | CPT/HCPCS: 99214 ==

== ENCOUNTER 2022-05-16 11:51 | Oncology outpatient (recurring) (ONCR) | payer MEDICARE, OTHER, SELFPAY ==
[2022-05-16 12:23] LABS: Hematocrit 30.6 % (37.0-47.0); Hemoglobin 8.5 g/dL (11.5-15.3); Mean Corpuscular HGB Conc 27.8 g/dL (30.0-36.0); Mean Corpuscular Hemoglobin 30.1 pg (28.0-34.0); Mean Corpuscular Volume 108.5 fl (81-99); Mean Platelet Volume 9.9 fL (7.4-10.4); Platelet Count 197 10^3/cmm (130-400); Red Blood Count 2.82 10^6/uL (4.1-5.3); Red Cell Distribution Width 21.9 % (12.1-15.1)
[2022-05-16 12:37] LABS: Alanine Aminotransferase 13 U/L (0-33); Albumin Level 4.3 g/dL (3.5-5.2); Alkaline Phosphatase 72 U/L (35-105); Anion Gap 14.1 (5-19); Aspartate Amino Transferase 20 U/L (0-32); Blood Urea Nitrogen 23 mg/dL (8-23); Calcium 10.2 mg/dL (8.5-10.5); Carbon Dioxide 25 mmol/L (22-29); Chloride 107 mmol/L (98-107); Globulin 2.4 g/dL (1.3-4.6); Glucose 84 mg/dL (65-115); Lactate Dehydrogenase 515 U/L (135-214); Osmolality Calculated 295 mOsm/kg (285-295); Potassium 5.1 mmol/L (3.5-5.1); Sodium 141 mmol/L (136-145); Total Bilirubin 0.6 mg/dL (0.15-1.2); Total Protein 6.7 g/dL (6.6-8.7)
[2022-05-16 12:48] LABS: White Blood Count 236.7 10^3/uL (4.0-10.0)
[2022-05-16 12:54] LABS: Slide Review Slide Review Perform
[2022-05-16 13:45] LABS: Blastocytes 1 % (0-0); Total Cells Counted 100 (0-100)
[2022-05-16 13:46] LABS: Absolute Segmented Neutrophil 7.1 10/cmm (1.6-7.1); Band Neutrophils Absolute 4.7 10^3/cmm (0.0-1.2); Segmented Neutrophils 3 %
[2022-05-16 13:47] LABS: Absolute Neutrophil 11.8 10^3/cmm (1.4-6.5); Lymphocytes 90 %; Lymphocytes Absolute 217.8 10^3/cmm (1.2-3.4); Platelet Estimate Decreased (Normal)
[2022-05-17 10:36] LABS: Reticulocyte % 1.3 % (0.5-2.0)
[2022-05-17 10:57] LABS: Iron 135 ug/dL (37-145); Percent Saturation 47.8 % (20-50); Total Iron Binding Capacity 282 mcg/dl; Unsaturated Iron Binding 147 ug/dL (112-347)
[2022-05-17 11:12] LABS: Vitamin B12 914 pg/mL (232-1245)
== END 2022-05-28 23:59 | disposition home or self-care (01) ==
PROVIDERS: PCP Nurse Practitioner Family; Visit Provider Internal Medicine Medical Oncology
DX: C91.10 Chronic lymphocytic leukemia of B-cell type not having achieved remission; D64.9 Anemia, unspecified; Z96.652 Presence of left artificial knee joint; Z79.899 Other long term (current) drug therapy
CPT/HCPCS: 36415; 80053; 82607; 83010; 83540; 83550; 83615; 85007; 85025; 85045; 86880; 99215

== ENCOUNTER 2022-06-24 08:27 | Oncology outpatient (recurring) (ONCR) | payer MEDICARE, OTHER, SELFPAY ==
[2022-06-24 08:54] LABS: Basophils # 0.1 10^3/uL (0.0-0.1); Hematocrit 34.8 % (37.0-47.0); Lymphocytes % 95.9 %; Mean Corpuscular HGB Conc 28.7 g/dL (30.0-36.0); Mean Corpuscular Hemoglobin 31.9 pg (28.0-34.0); Mean Corpuscular Volume 111.2 fl (81-99); Mean Platelet Volume 10.6 fL (7.4-10.4); Monocytes # 0.5 10^3/uL (0.2-0.9); Monocytes % 0.3 %; Neutrophils # 5.67 10^3/uL (1.8-7.7); Neutrophils % 3.4 %; Nucleated Red Blood Cells # 0.1 /100WBC; Nucleated Red Blood Cells % 0.1 %; Platelet Count 135 10^3/cmm (130-400); Red Blood Count 3.13 10^6/uL (4.1-5.3); Red Cell Distribution Width 25.2 % (12.1-15.1)
[2022-06-24 09:10] LABS: Alanine Aminotransferase 33 U/L (0-33); Albumin Level 3.9 g/dL (3.5-5.2); Alkaline Phosphatase 54 U/L (35-105); Blood Urea Nitrogen 48 mg/dL (8-23); Calcium 9.1 mg/dL (8.5-10.5); Carbon Dioxide 19 mmol/L (22-29); Chloride 104 mmol/L (98-107); Globulin 1.7 g/dL (1.3-4.6); Glucose 95 mg/dL (65-115); Osmolality Calculated 294 mOsm/kg (285-295); Sodium 136 mmol/L (136-145); Total Bilirubin 0.7 mg/dL (0.15-1.2); Total Protein 5.6 g/dL (6.6-8.7)
[2022-06-24 09:14] LABS: Anion Gap 18.2 (5-19); Aspartate Amino Transferase 15 U/L (0-32); Potassium 5.2 mmol/L (3.5-5.1)
[2022-06-24 09:20] LABS: Lymphocytes # 165.8 10^3/uL (0.8-4.8)
[2022-06-24 09:22] LABS: White Blood Count 172.8 10^3/uL (4.0-10.0)
--- NOTE | 2022-06-24 11:48 | ECG_ITS ---
[facility] Test Date: 2022-06-24 Pat Name: Sadie Martines Department: Room: Gender: Female Supervisor Sanding: : 1935 Requested By: Brinda Feliz Order Number: [id number] Griffin MD: Gustavo Arguello M.D. Measurements Intervals [place] Rate: 176 P: 0 [place]: 0 QRS: -1 QRSD: 85 T: 183 QT: 247 QTc: 423 Interpretive Statements ATRIAL FIBRILLATION WITH RAPID VENTRICULAR RESPONSE VOLTAGE CRITERIA FOR LVH [MEETS CRITERIA IN ONE OF: R(aVL), S(V1), R(V5), R(V5/V6)+S(V1)] ST DEVIATION AND MODERATE T-WAVE ABNORMALITY, CONSIDER LATERAL ISCHEMIA [-0.1+ mV T-WAVE IN I/aVL/V5/V6] Compared to ECG 09/19/2020 13:08:55 T-wave abnormality now present Possible ischemia now present Sinus rhythm no longer present Electronically Signed On 06-24-2022 17:32:28 PROFESSIONAL SYSTEM ADMINISTRATOR by Gustavo Arguello M.D. [id number] chaves
== END 2022-06-25 23:59 | disposition home or self-care (01) ==
PROVIDERS: PCP Nurse Practitioner Family; Visit Provider Nurse Practitioner Family
DX: C91.10 Chronic lymphocytic leukemia of B-cell type not having achieved remission (principal); I48.91 Unspecified atrial fibrillation; Z79.899 Other long term (current) drug therapy; J47.9 Bronchiectasis, uncomplicated; I50.9 Heart failure, unspecified; I11.0 Hypertensive heart disease with heart failure
CPT/HCPCS: 36415; 80053; 85025; 93005; 99214

== ENCOUNTER 2022-06-24 16:55 | Inpatient (IN) | payer MEDICARE, OTHER, SELFPAY ==
[2022-06-24] VITALS (37 sets, daily range): BP systolic 112–166; BP diastolic 59–104; PULSE 56–186; RESP 17–36; TEMP 36.6–36.9; O2SAT 85–100; BMI 29.8; BMI 30.5
--- NOTE | 2022-06-24 17:08 | ECG_ITS ---
[facility] Test Date: 2022-06-24 Pat Name: Sadie Martines Department: Room: Gender: Female Human Resources Benefits Manager: : 1935 Requested By: Hal Serrano Order Number: [id number] Griffin MD: Gustavo Arguello M.D. Measurements Intervals [place] Rate: 167 P: 0 [place]: 0 QRS: -5 QRSD: 90 T: 180 QT: 236 QTc: 394 Interpretive Statements ATRIAL FIBRILLATION WITH RAPID VENTRICULAR RESPONSE VOLTAGE CRITERIA FOR LVH [MEETS CRITERIA IN ONE OF: R(aVL), S(V1), R(V5), R(V5/V6)+S(V1)] ST DEVIATION AND MODERATE T-WAVE ABNORMALITY, CONSIDER LATERAL ISCHEMIA [-0.1+ mV T-WAVE IN I/aVL/V5/V6] CRITICAL TEST RESULT Compared to ECG 06/24/2022 11:48:17 No significant changes Electronically Signed On 06-24-2022 23:42:49 CAPACITY PLANNER by Gustavo Arguello M.D. [id number] andie
--- NOTE | 2022-06-24 17:16 | ED_ITS ---
HPI - Arrhythmia/Palpitations General: Chief Complaint: Arrhythmia/Palpitations Stated Complaint: sent from heart care Time Seen by Provider: 06/24/22 17:13 History of Present Illness: 86-year-old in with concerns of rapid heart rate. The patient was seen at the supervisor core drilling office today and found to be in atrial fibrillation with rapid ventricular response. Patient has had a prior history of atrial fibrillation but then taken off of her amiodarone and has reportedly done well for some time. The patient reported feeling some mild palpitations but overall was for the most part fairly asymptomatic she was not overtly short of breath or had significant shortness of breath on exertion. The patient denies any chest pain or recent illness. She has been taking her medications as directed. She is under treatment for a hematologic malignancy. 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) Family History Mother CAD (coronary artery disease) unknown age of onset Stroke Father Cancer Brother Cancer Denies family history of Diabetes Clotting disorder Dementia Chronic kidney disease (CKD) Suicide Anesthesia complication Bleeding disorder Lung disease Social History Smoking and tobacco status: former smoker (smoked x 45 years) Alcohol intake: current Alcohol intake frequency: 0-2 Drinks per Day Physical Exam Const: COMMON NORMALS: no acute distress, patient oriented x3, alert and well nourished HENMT: COMMON NORMALS: normocephalic HEAD & SCALP: normocephalic Eye: COMMON NORMALS: Equal, round and reactive pupils present, EOMs intact bilaterally and conjunctivae normal CONJUNCTIVA: Yes conjunctivae normal PUPIL: Yes Equal, round and reactive pupils present Resp: COMMON NORMALS: normal respiratory effort, No retractions, No use of ac cessory muscles, clear to auscultation bilaterally and percussion normal AUSCULTATION: clear to auscultation bilaterally PERCUSSION: percussion normal Cardio: OTHER: Tachycardic rate and irregularly irregular GI: COMMON NORMALS: Normal to inspection, nondistended, normoactive bowel sounds present, Soft to palpation, non-tender, No hepatosplenomegaly present, no masses and no bruits PALPATION: Yes Soft to palpation and Yes No hepatosplenomegaly present : COMMON NORMALS: Yes no CVA tenderness BLADDER/KIDNEY EXAM: Yes no CVA tenderness Back/Pelvis: COMMON NORMALS: no CVA tenderness Extremity: COMMON NORMALS: normal to inspection, full ROM, capillary refill normal, no joint enlargement, no clubbing, cyanosis or edema, no calf tenderness and no pedal edema Neuro: COMMON NORMALS: patient oriented x3 SENSORIUM/ORIENTATION: Yes alert Skin: COMMON NORMALS: no rashes or lesions noted, turgor normal and no jaundice GENERAL SKIN EXAM: no rashes or lesions noted and turgor normal Course Vital Signs: Vital signs: Vital Signs Temperature 98.4 F 06/24/22 16:56 Pulse Rate 112 H 06/24/22 19:00 Respiratory Rate 20 H 06/24/22 19:00 Blood Pressure 132/72 06/24/22 19:00 Pulse Oximetry 100 06/24/22 19:00 Oxygen Delivery Me thod 06/24/22 19:00 MDM - Arrhythmia/Palpitations Medical Decision Making 86-year-old female sent over from the clinic with concerns of atrial fibrillation with rapid ventricular response. This is confirmed on electrocardiogram here. Her rate is in the 170s. Surprisingly she is minimally symptomatic. We will give her a Cardizem push and check some routine labs and make further recommendations based on her response to the intervention here as well as her labs. Patient's labs came back and significantly changed from previous she did have BUN that was 50 in relationship to a creatinine that was only 1 but she has no signs or symptoms of GI bleeding. She has not been drinking as much fluid is normal. Her BNP is up chest x-ray still pending I talked to the hospitalist about bringing her and on a Cardizem drip and I discussed with Dr. Juan her supervisor core drilling about reinstituting amiodarone. This is what currently had her fairly rate controlled previously. Bridge orders will be written. Lab Data 06/24/22 17:06/24/22 17: Laboratory Results WBC 195.9 10^3/uL (4.0-10.0) H* 06/24/22 17: RBC 3.60 10^6/uL (4.1-5.3) L 06/24/22 17: Hgb 11.5 g/dL (11.5-15.3) 06/24/22 17: Hct 39.2 % (37.0-47.0) 06/24/22: MCV 108.9 fl (81-99) H 06/24/22 17: MCH 31.9 pg (28.0-34.0) 06/24/22 17: MCHC 29.3 g/dL (30.0-36.0) L 06/24/22 17: RDW 25.6 % (12.1-15.1) H 06/24/22 17: Plt Count 281 10^3/cmm (130-400) D 06/24/22: MPV 9.6 fL (7.4-10.4) 06/24/22: Neut % (Auto) 3.0 % 06/24/22: Lymph % (Auto) 96.4 % 06/24/22: [place] % (Auto) 0.3 % 06/24/22: Eos % (Auto) 0.0 % 06/24/22 17: Baso % (Auto) 0.0 % 06/24/22: Neut # (Auto) 5.81 10^3/uL (1.8-7.7) 06/24/22: Lymph # (Auto) 188.9 10^3/uL (0.8-4.8) H 06/24/22 17: [place] # (Auto) 0.5 10^3/uL (0.2-0.9) 06/24/22: Eos # (Auto) 0.0 10^3/uL (0.0-0.8) 06/24/22 17:26 Baso # (Auto) 0.1 10^3/uL (0.0-0.1) 06/24/22 17: Nucleated RBC % (auto) 0.1 % 06/24/22 17: Nucleated RBCs # 0.2 /100WBC 06/24/22 17: PT 12.00 SECONDS (12.1-14.9) L 06/24/22 17: INR 0.86 (0.8-1.2) 06/24/22 17:26 Sodium 139 mmol/L (136-145) 06/24/22 17:26 Potassium 4.9 mmol/L (3.5-5.1) 06/24/22 17: Chloride 102 mmol/L (98-107) 06/24/22 17: Carbon Dioxide 24 mmol/L (22-29) 06/24/22 17:26 Anion Gap 17.9 (5-19) 06/24/22 17:26 BUN 50 mg/dL (8-23) H 06/24/22 17:26 Creatinine 1.0 mg/dL (0.5-0.9) H 06/24/22 17:26 GFR Calculation Not Reportable 06/24/22 17:26 Glucose 108 mg/dL (65-115) 06/24/22 17:26 Calculated Osmolality 302 mOsm/kg (285-295) H 06/24/22 17:26 Calcium 9.7 mg/dL (8.5-10.5) 06/24/22 17:26 Total Bilirubin 0.7 mg/dL (0.15-1.2) 06/24/22 17:26 AST 13 U/L (0-32) 06/24/22 17:26 ALT 38 U/L (0-33) H 06/24/22 17:26 Alkaline Phosphatase 67 U/L (35-105) 06/24/22 17:26 NT-Pro-B Natriuret Pep 17067 pg/mL (0-450) H 06/24/22 17:26 Total Protein 6.8 g/dL (6.6-8.7) D 06/24/22 17:26 Albumin 4.7 g/dL (3.5-5.2) 06/24/22 17: Globulin 2.1 g/dL (1.3-4.6) 06/24/22 17:26 Discharge Plan Discharge Patient Disposition: Admitted As Inpatient Clinical Impression: Atrial fibrillation with RVR Condition: Stable Coding Level of Care Code ED Director Of In Service Education for Mcihele Taylor
--- NOTE | 2022-06-24 17:16 | ECG_ITS ---
[facility] Test Date: 2022-07-16 Pat Name: Sadie Martines Department: Room: [facility] Gender: Female Neurodiagnostic Technologist: : 1935 Requested By: Manuel Weathers Order Number: [id number] Griffin MD: Gustavo Arguello M.D. Measurements Intervals [place] Rate: 112 P: 0 [place]: 0 QRS: 9 QRSD: 97 T: 31 QT: 300 QTc: 410 Interpretive Statements ATRIAL FIBRILLATION WITH RAPID VENTRICULAR RESPONSE NONSPECIFIC T-WAVE ABNORMALITY Compared to ECG 07/16/2022 14:03:24 T-wave abnormality now present ST (T wave) deviation no longer present Electronically Signed On 07-29-2022 13:07:42 CDT by Gustavo Arguello M.D. [id number]
[2022-06-24] MEDS: dilTIAZem 5 mg/mL SDV 5 mL 20 MG IVP (17:23)
[2022-06-24 17:35] LABS: Basophils # 0.1 10^3/uL (0.0-0.1); Hematocrit 39.2 % (37.0-47.0); Hemoglobin 11.5 g/dL (11.5-15.3); Mean Corpuscular HGB Conc 29.3 g/dL (30.0-36.0); Mean Corpuscular Hemoglobin 31.9 pg (28.0-34.0); Mean Corpuscular Volume 108.9 fl (81-99); Mean Platelet Volume 9.6 fL (7.4-10.4); Monocytes # 0.5 10^3/uL (0.2-0.9); Monocytes % 0.3 %; Neutrophils # 5.81 10^3/uL (1.8-7.7); Nucleated Red Blood Cells # 0.2 /100WBC; Nucleated Red Blood Cells % 0.1 %; Platelet Count 281 10^3/cmm (130-400); Red Cell Distribution Width 25.6 % (12.1-15.1)
[2022-06-24 17:45] LABS: INR 0.86 (0.8-1.2)
[2022-06-24 18:01] LABS: Alanine Aminotransferase 38 U/L (0-33); Albumin Level 4.7 g/dL (3.5-5.2); Alkaline Phosphatase 67 U/L (35-105); Anion Gap 17.9 (5-19); Aspartate Amino Transferase 13 U/L (0-32); Blood Urea Nitrogen 50 mg/dL (8-23); Calcium 9.7 mg/dL (8.5-10.5); Carbon Dioxide 24 mmol/L (22-29); Chloride 102 mmol/L (98-107); Creatinine Clr Calc Pharmacy 38.7209; Globulin 2.1 g/dL (1.3-4.6); Glucose 108 mg/dL (65-115); NT Pro B Type Natriuretic Pept 11649 pg/mL (0-450); Osmolality Calculated 302 mOsm/kg (285-295); Potassium 4.9 mmol/L (3.5-5.1); Sodium 139 mmol/L (136-145); Total Bilirubin 0.7 mg/dL (0.15-1.2); Total Protein 6.8 g/dL (6.6-8.7)
[2022-06-24 18:05] LABS: Lymphocytes # 188.9 10^3/uL (0.8-4.8); White Blood Count 195.9 10^3/uL (4.0-10.0)
[2022-06-24 18:06] LABS: Lymphocytes % 96.4 %; Slide Review Slide Review Perform
[2022-06-24] MEDS: dilTIAZem 100 MG in sodium chloride 0.9% (add-van) 100 ML IV (18:28)
--- NOTE | 2022-06-24 19:08 | PC.NURSE ---
Report from AMISH Carranza. Pt resting quietly. Is a,a,ox3. NAD. Denies needs at this time.
--- NOTE | 2022-06-24 19:45 | XRR_ITS ---
PROCEDURE INFORMATION: Exam: XR Chest Exam date and time: 06/24/2022 8:00 PM Age: 86 years old Clinical indication: Other: Arrythmia/ palpitations; Additional info: SOB TECHNIQUE: Imaging protocol: Radiologic exam of the chest. Views: 1 view. COMPARISON: No relevant prior studies available. FINDINGS: Lungs: Emphysematous changes. Pleural spaces: Unremarkable. No pleural effusion. No pneumothorax. Heart/Mediastinum: Cardiomegaly. Bones/joints: Unremarkable. XR/XR chest 1V portable [id number] IMPRESSION: 1. Negative for infiltrate 2. Cardiomegaly. 3. Emphysematous changes.
--- NOTE | 2022-06-24 20:05 | P.HP_ITS ---
Providers/Chief Complaint Admitting Physician: Job Lopez MD, hospitalist Primary Care Provider: Griselda Garrett APRN Chief Complaint: sent from heart care History of Present Illness Sadie Martines is a 86 year old female presenting to the emergency department with complaints of palpitations. She has had some shortness of breath with exertion, for the last week or so. She noticed this after she got her prednisone refilled which she takes 20 mg 3 times a day. She thought it might be related. She has had no fever. Occasional cough. States her swelling has been worse in the last week or so as well. Was found to be in atrial fibrillation with rapid ventricular rate at cardiology, and sent to the ER. Patient denies any chest discomfort, or syncope. She has had a past history of atrial fibrillation for which she was on amiodarone and Eliquis. This was discontinued in the fall 2021. She reports she felt bad on amiodarone although she cannot qualify this. She would like to avoid going back on it if possible. Review of Systems General: Reports: 10 or more systems reviewed and unremarkable except in HPI and below Const: Reports: malaise; Denies: fever(s) or chills Eyes: Denies: change in vision ENMT: Denies: throat pain Card: Reports: palpitations; Denies: chest pain Resp: Reports: dyspnea and non-productive cough GI: Denies: abdominal pain, hematochezia, melena or mucus in stool : Denies: flank pain Musc: Denies: neck pain Skin/Breast: Denies: rash Neuro: Denies: headache(s) Psych: Denies: anxiety or depression Davey/Lymph: Denies: easy bruising All/Imm: Denies: urticaria Medications/Allergies Home Medications Medication Instructions Recorded Confirmed Last Taken Type cyanocobalamin (vitamin B-12) 1,000 mcg SUBCUT Q30D 07/04/21 06/24/22 12/06/21 History 1,000 mcg/mL injection solution furosemide 20 mg tablet 20 mg PO DAILY PRN swelling 07/04/21 06/24/22 Unknown History coenzyme Q10 100 mg capsule (Co 100 mg PO DAILY 08/30/21 06/24/22 12/06/21 History Q-10) glucosamine HCl 500 mg tablet 500 mg PO DAILY 08/30/21 06/24/22 12/06/21 History vit A 300 mcg-C 200 mg-E 27 1 tab PO DAILY 08/30/21 06/24/22 12/06/21 History mg-lutein 2 mg and minerals tablet (Eye Health Plus Lutein) zinc acetate 25 mg (zinc) capsule 25 mg PO DAILY 08/30/21 06/24/22 12/06/21 History (Galzin) magnesium 200 mg tablet 200 mg PO DAILY 09/18/21 06/24/22 12/06/21 History COCK UP SPLINT #2 ea 10/10/21 06/24/22 Unknown Rx ascorbic acid (vitamin C) 1,000 mg 1 g PO DAILY 05/16/22 06/24/22 Unknown History capsule prednisone 20 mg tablet 20 mg PO TID #90 tabs 05/20/22 06/24/22 Unknown Rx acalabrutinib maleate 100 mg tablet 100 mg PO Q12H #60 tabs 06/13/22 06/24/22 Unknown Rx allopurinol 300 mg tablet 300 mg PO DAILY #30 tabs 06/24/22 06/24/22 Unknown Rx cholecalciferol (vitamin D3) 10 See Rx Instructions PO DAILY 06/24/22 06/24/22 Unknown History mcg (400 unit) capsule prochlorperazine maleate 10 mg 10 mg PO Q6H PRN nausea and 06/24/22 06/24/22 Unknown Rx tablet vomiting #30 tabs Allergies Allergy/AdvReac Type Severity Reaction Status Date / Time No Known Allergies Allergy Verified 06/24/22 16:05 PFSH Acute PFSH: Medical History Atrial fibrillation by electrocardiogram B12 deficiency Chronic lymphocytic leukemia Degenerative arthritis Hyperlipidemia Hypertension Surgical History History of carpal tunnel surgery of right wrist History of tubal ligation Status post total knee replacement, 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) Family History Mother CAD (coronary artery disease) unknown age of onset Stroke Father Cancer Brother Cancer Denies family history of Diabetes Clotting disorder Dementia Chronic kidney disease (CKD) Suicide Anesthesia complication Bleeding disorder Lung disease Social History Smoking and tobacco status: former smoker (smoked x 45 years) Alcohol intake: current Alcohol intake frequency: 0-2 Drinks per Day Vitals/I&O/Wt Last Vital Signs Temp 98.4 F 06/24/22 16:56 Pulse 112 H 06/24/22 19:00 Resp 20 H 06/24/22 19:00 BP 132/72 06/24/22 19:00 Pulse Ox 100 06/24/22 19:00 O2 Del Method 06/24/22 19:00 06/24/22 06/24/22 06/24/22 06:59 14:59 22:59 Intake Total 1.833 / 1.833 Balance 1.833 / 1.833 Weight last 48 hrs Weight 73.936 kg Physical Exam Narrative: General exam is white female, no distress, currently heart rate about 110 on a Cardizem drip at 10 mg/h HEENT: Atraumatic and normocephalic. Pupils equally round. Oropharynx clear. Neck is supple no lymphadenopathy thyromegaly Cardiovascular irregular, irregular rhythm without murmur Lungs clear no wheezing or crackles. Diminished breath sounds are noted bilaterally Abdomen is soft nontender positive bowel sounds. No obvious organomegaly exam is deferred Extremities show 1+ edema bilaterally. No cyanosis or clubbing. Cap refill brisk. Data 06/24/22 17:26 06/24/22 17:26 Other Labs: INR 0.86 LFTs normal with exception of ALT of 38 BNP 11,649 Chest x-ray by my review demonstrates no infiltrate EKG initially demonstrated A-fib with rapid ventricular rate, normal axis, nonspecific ST-T wave changes and flipped T waves V4 through 6 and laterally Albumin 4.7 Previous nuclear stress test in August 2021 demonstrated small area of inconsistent reversible defect A&P Assessment and plan (1) Atrial fibrillation with RVR: Patient presents with atrial fibrillation with rapid ventricular rate. She would like to try to avoid amiodarone this time if possible. Continue Cardizem drip Add metoprolol 25 mg twice daily. If tolerates first dose consider increasing to 50 mg twice daily. May need diltiazem as well. Initiate Eliquis 5 mg twice daily. Risks and benefits discussed. Check TSH and magnesium Check echocardiogram Admission to [facility], telemetry CBC, BMP in the morning Check urinalysis. (2) Lymphatic leukemia: Chronic. No medication changes needed. Continue prednisone. Continue follow- up with oncology. (3) Congestive heart failure: Patient presents with mild acute congestive heart failure demonstrated by her elevated BNP, peripheral edema, shortness of breath. Chest x-ray to my read does not demonstrated significant congestion currently. She is not requiring oxygen. I believe this is likely rate related We will try to control rate. If this can be achieved and no hypotension is noted could consider a dose of IV Lasix CBC, BMP in the morning Plan Mild acute kidney injury. Recheck BMP tomorrow. Consider small dose of Lasix tomorrow Other medical problems as listed under past medical history Full code Eliquis will suffice for DVT prophylaxis Attestations Medical Necessity Statement*: Will require greater than 2 midnight stay for treatment of atrial fibrillation with rapid ventricular rate requiring IV Cardizem Diagnoses Atrial fibrillation with RVR I48.91 Lymphatic leukemia C91.90 Congestive heart failure I50.9 Time Spent (min) 40
[2022-06-24] MEDS: amiodarone 200 mg Tablet PO (20:08)
[2022-06-24 20:46] LABS: Magnesium 2.7 mg/dL (1.7-2.3)
--- NOTE | 2022-06-24 20:55 | PC.NURSE ---
Pt arrived to ICU 7 from ER, via stretcher on continuos monitoring @approximately 2054. Continuos monitoring continued. No skin issues noted. Pt reports 0/10 pain.
[2022-06-24] MEDS: metoprolol tartrate 25 mg Tablet PO (21:41)
[2022-06-24] MEDS: predniSONE 20 mg Tablet PO (21:55)
[2022-06-25] VITALS (53 sets, daily range): BP systolic 103–156; BP diastolic 53–119; PULSE 68–141; RESP 16–40; TEMP 36.5–36.7; O2SAT 92–100
[2022-06-25 00:13] LABS: Bilirubin Urine Neg (Negative); Blood Urine Neg (Negative); Glucose Urine UA Norm (Normal); Ketones Urine Negative (Negative); Leukocyte Esterase Urine Negative (Negative); Nitrate Urine Negative (Negative); Protein Urine Neg (Negative); Specific Gravity, Urine 1.015 (1.005-1.030); Urine Appearance Clear (CLEAR); Urine Color Yellow (Yellow); Urobilinogen Urine Norm (Negative); pH Urine 6 (5-7)
[2022-06-25 00:19] LABS: RBC Urine 0-4 /hpf (0-2); Squamous Epithelial Cell Urine 0-4 /hpf (0-5); WBC Urine 0-4 /hpf (0-5)
[2022-06-25 00:21] LABS: Bacteria Urine TRACE /hpf
[2022-06-25 03:16] LABS: Mean Corpuscular Hemoglobin 31.8 pg (28.0-34.0); Mean Corpuscular Volume 109.5 fl (81-99); Mean Platelet Volume 9.7 fL (7.4-10.4); Platelet Count 203 10^3/cmm (130-400); Red Blood Count 2.83 10^6/uL (4.1-5.3); Red Cell Distribution Width 25.2 % (12.1-15.1)
[2022-06-25 03:37] LABS: Anion Gap 12.8 (5-19); Blood Urea Nitrogen 40 mg/dL (8-23); Calcium 8.6 mg/dL (8.5-10.5); Carbon Dioxide 25 mmol/L (22-29); Chloride 107 mmol/L (98-107); Glucose 101 mg/dL (65-115); Osmolality Calculated 300 mOsm/kg (285-295); Potassium 4.8 mmol/L (3.5-5.1); Sodium 140 mmol/L (136-145)
[2022-06-25 03:38] LABS: White Blood Count 147.1 10^3/uL (4.0-10.0)
[2022-06-25 03:44] LABS: Absolute Segmented Neutrophil 4.4 10/cmm (1.6-7.1); Band Neutrophils Absolute 1.5 10^3/cmm (0.0-1.2); Eosinophils 0 %; Segmented Neutrophils 3 %; Total Cells Counted 100 (0-100)
[2022-06-25 03:46] LABS: Lymphocytes 96 %; Lymphocytes Absolute 141.2 10^3/cmm (1.2-3.4)
[2022-06-25 03:47] LABS: Absolute Neutrophil 5.9 10^3/cmm (1.4-6.5); Platelet Estimate Normal (Normal)
--- NOTE | 2022-06-25 06:22 | PC.NURSE ---
Shift Summary: Pt rested most of the night. Got up three times to use the bedside commode, during these times HR went up to 140's A.fib but recovered to 80-110 w/ about 1/2 minutes of rest. Pt continues to report 0/10 pain.
[2022-06-25] MEDS: allopurinol 300 mg Tablet PO (08:22)
[2022-06-25] MEDS: metoprolol tartrate 25 mg Tablet PO ×2 (08:22→18:26)
[2022-06-25] MEDS: apixaban 5 mg Tablet PO ×2 (08:22→17:36)
[2022-06-25] MEDS: predniSONE 20 mg Tablet 50 MG PO (08:23)
--- NOTE | 2022-06-25 08:38 | PC.PHAR ---
pt states she takes care of her own medications-pt states she hasnt started taking acalabrutinib 100mg [id number] states she had been out of her allopurinol 300mg daily for about a week-
--- NOTE | 2022-06-25 13:43 | P.PN_ITS ---
Subjective Subjective: seen today cardizem ggt turned off overnight no acute events HR still 110 at rest asymptomatic Vitals/I&O/Wt Last Vital Signs Temp 97.7 F 06/25/22 11:19 Pulse 93 06/25/22 13:26 Resp 18 06/25/22 13:26 BP 153/95 06/25/22 13:26 Pulse Ox 98 06/25/22 13:26 O2 Del Method 06/25/22 13:26 06/24/22 06/25/22 06/25/22 22:59 06:59 14:59 Intake Total 32.166 / 32.166 12.6 / 44.766 26.483 / 26.483 Output Total 1350 / 1350 500 / 500 Balance 32.166 / 32.166 -1337.4 / -1305.234 -473.517 / -473.517 Weight last 48 hrs Weight 75.931 kg Weight 75.841 kg Weight 73.936 kg Physical Exam Narrative: General exam is white female, no distress, currently heart rate about 110 HEENT: Atraumatic and normocephalic. Cardiovascular irregular, irregular rhythm without murmur Lungs clear no wheezing or crackles. Diminished breath sounds are noted bilaterally at bases Abdomen is soft nontender positive bowel sounds. No obvious organomegaly exam is deferred Extremities show trace edema bilaterally. No cyanosis or clubbing. Cap refill brisk. Data 06/25/22 02:32 06/25/22 02:32 A&P Assessment and plan (1) Atrial fibrillation with RVR: Patient presents with atrial fibrillation with rapid ventricular rate. cardizem drip stopped continue eliquis she is ok with amiodarone if needed. she meant to say she did not want prednisone at admission Metoprolol 50 mg BID Monitor HR today TSH 0.70 Mg 2.7 Echo pending (2) Lymphatic leukemia: Chronic. No medication changes needed. Continue prednisone. Continue follow- up with oncology. (3) Congestive heart failure: Patient presents with mild acute congestive heart failure demonstrated by her elevated BNP, peripheral edema, shortness of breath. Chest x-ray to my read does not demonstrated significant congestion currently. She is not requiring oxygen. Plan Mild acute kidney injury. Recheck BMP tomorrow. Consider small dose of Lasix tomorrow Other medical problems as listed under past medical history Full code Eliquis will suffice for DVT prophylaxis Attestations Medical Necessity Statement*: Continue to monitor HR in hospital today. Diagnoses Atrial fibrillation with RVR I48.91 Lymphatic leukemia C91.90 Congestive heart failure I50.9
[2022-06-25] MEDS: dilTIAZem 30 mg Tablet PO (20:02)
[2022-06-25] MEDS: metoprolol tartrate 50 mg Tablet PO (20:02)
[2022-06-26] VITALS (34 sets, daily range): BP systolic 111–165; BP diastolic 48–95; PULSE 66–113; RESP 16–39; TEMP 36.7; O2SAT 93–100
[2022-06-26] MEDS: dilTIAZem 30 mg Tablet PO ×2 (02:39→08:22)
[2022-06-26] MEDS: allopurinol 300 mg Tablet PO (08:22)
[2022-06-26] MEDS: metoprolol tartrate 50 mg Tablet PO (08:22)
[2022-06-26] MEDS: apixaban 5 mg Tablet PO (08:22)
[2022-06-26] MEDS: predniSONE 20 mg Tablet 50 MG PO (08:23)
--- NOTE | 2022-06-26 10:05 | PM.DCS ---
Discharge Providers Date of Admission: 06/24/22 20:23 Date of Discharge: June 26, 2022 Attending Provider at Admission: Job Lopez MD Attending Provider at Discharge: Fauzia Santos MD Primary Care Provider: Griselda Garrett APRN Diagnoses at Discharge Discharge Diagnosis (1) Atrial fibrillation with RVR: Status: Acute (2) Lymphatic leukemia: Status: Acute (3) Congestive heart failure: Status: Acute Reason for Visit Reason for Visit: sent from heart care Brief History: Sadie Martines is a 86 year old female presenting to the emergency department with complaints of palpitations.? She has had some shortness of breath with exertion, for the last week or so.? She noticed this after she got her prednisone refilled which she takes 20 mg 3 times a day.? She thought it might be related.? She has had no fever.? Occasional cough.? States her swelling has been worse in the last week or so as well.? Was found to be in atrial fibrillation with rapid ventricular rate at cardiology, and sent to the ER.? Patient denies any chest discomfort, or syncope.? She has had a past history of atrial fibrillation for which she was on amiodarone and Eliquis.? This was discontinued in the fall 2021.? She reports she felt bad on amiodarone although she cannot qualify this.? She would like to avoid going back on it if possible. Hospital Course Hospital Course Admitted for atrial fibrillation with RVR. Sent home on metoprolol 25 twice daily and Cardizem 120 daily extended release. Also had elevated BNP peripheral edema shortness of breath however x-ray did not show significant congestion. She was not given any diuretics. Not requiring oxygen. Echo showed EF 45 to 50%. Diastolic function is indeterminate because of atrial fibrillation. I called her professor of marketing Dr. Juan on the phone who recommended to have her see cardiology office within a week of discharge for possible outpatient stress test at a later time. I suspect her reduced EF noted on echo was due to rate related heart failure due to atrial fibrillation. She has not complained of chest pain and has been symptomatically asymptomatic during hospital stay. Patient will be discharged home in stable condition at this time with follow-up with cardiology. Of note she was started on Eliquis during hospital stay. Physical Exam Narrative: General exam is white female, no distress, HEENT: Atraumatic and normocephalic. Cardiovascular irregular, irregular rhythm without murmur Lungs clear no wheezing or crackles. Diminished breath sounds are noted bilaterally at bases Abdomen is soft nontender positive bowel sounds. No obvious organomegaly exam is deferred Extremities show trace edema bilaterally. No cyanosis or clubbing. Cap refill brisk. Discharge Data Studies Completed and Pending Completed Studies During Hospitalization Category Date Time Status XR chest 1V portable [id number] Stat Exams 06/24/22 19:45 Completed CV. echo complete* [id number] Routine Ultrasound 06/26/22 13:49 Completed Radiology Impressions Chest X-Ray 06/24/22 19:45 IMPRESSION: 1. Negative for infiltrate 2. Cardiomegaly. 3. Emphysematous changes. Laboratory Results WBC 147.1 10^3/uL (4.0-10.0) H* 06/25/22 02:32 RBC 2.83 10^6/uL (4.1-5.3) L 06/25/22 02:32 Hgb 9.0 g/dL (11.5-15.3) L 06/25/22 02:32 Hct 31.0 % (37.0-47.0) L 06/25/22 02:32 MCV 109.5 fl (81-99) H 06/25/22 02:32 MCH 31.8 pg (28.0-34.0) 06/25/22 02:32 MCHC 29.0 g/dL (30.0-36.0) L 06/25/22 02:32 RDW 25.2 % (12.1-15.1) H 06/25/22 02:32 Plt Count 203 10^3/cmm (130-400) 06/25/22 02:32 MPV 9.7 fL (7.4-10.4) 06/25/22 02:32 Neut % (Auto) 3.0 % 06/24/22 17:26 Lymph % (Auto) Not Reportable 06/25/22 02:32 [place] % (Auto) Not Reportable 06/25/22 02:32 Eos % (Auto) 0.0 % 06/24/22 17:26 Baso % (Auto) 0.0 % 06/24/22 17:26 Neut # (Auto) 5.81 10^3/uL (1.8-7.7) 06/24/22 17:26 Lymph # (Auto) Not Reportable 06/25/22 02:32 [place] # (Auto) Not Reportable 06/25/22 02:32 Eos # (Auto) 0.0 10^3/uL (0.0-0.8) 06/24/22 17:26 Baso # (Auto) 0.1 10^3/uL (0.0-0.1) 06/24/22 17:26 Nucleated RBC % (auto) 0.1 % 06/24/22 17:26 Total Counted 100 (0-100) 06/25/22 02:32 Atypical Lymphs % 0.0 % (0-5) 06/25/22 02:32 Absolute Neutrophils 5.9 10^3/cmm (1.4-6.5) 06/25/22 02:32 Segmented Neutrophils 3 % 06/25/22 02:32 Abs Segm Neuts (Man) 4.4 10/cmm (1.6-7.1) 06/25/22 02:32 Band Neutrophils 1.0 % 06/25/22 02:32 Abs Band Neuts (Man) 1.5 10^3/cmm (0.0-1.2) H 06/25/22 02:32 Absolute Lymphocytes 141.2 10^3/cmm (1.2-3.4) H 06/25/22 02:32 Lymphocytes (Manual) 96 % 06/25/22 02:32 Monocytes (Manual) 0.0 % 06/25/22 02:32 Absolute Monocytes 0.0 10^3/cmm (0.1-0.6) L 06/25/22 02:32 Eosinophils (Manual) 0 % 06/25/22 02:32 Absolute Eosinophils 0.0 10^3/cmm (0.0-0.7) 06/25/22 02:32 Basophils (Manual) 0.0 % 06/25/22 02:32 Absolute Basophils 0.0 10^3/cmm (0.0-0.2) 06/25/22 02:32 Nucleated RBCs # 0.2 /100WBC 06/24/22 17:26 Platelet Estimate Normal (Normal) 06/25/22 02:32 PT 12.00 SECONDS (12.1-14.9) L 06/24/22 17:26 INR 0.86 (0.8-1.2) 06/24/22 17:26 Sodium 140 mmol/L (136-145) 06/25/22 02:32 Potassium 4.8 mmol/L (3.5-5.1) 06/25/22 02:32 Chloride 107 mmol/L (98-107) 06/25/22 02:32 Carbon Dioxide 25 mmol/L (22-29) 06/25/22 02:32 Anion Gap 12.8 (5-19) 06/25/22 02:32 BUN 40 mg/dL (8-23) H 06/25/22 02:32 Creatinine 0.8 mg/dL (0.5-0.9) 06/25/22 02:32 GFR Calculation Not Reportable 06/25/22 02:32 Glucose 101 mg/dL (65-115) 06/25/22 02:32 Calculated Osmolality 300 mOsm/kg (285-295) H 06/25/22 02:32 Calcium 8.6 mg/dL (8.5-10.5) 06/25/22 02:32 Magnesium 2.7 mg/dL (1.7-2.3) H 06/24/22 17:26 Total Bilirubin 0.7 mg/dL (0.15-1.2) 06/24/22 17:26 AST 13 U/L (0-32) 06/24/22 17:26 ALT 38 U/L (0-33) H 06/24/22 17:26 Alkaline Phosphatase 67 U/L (35-105) 06/24/22 17:26 NT-Pro-B Natriuret Pep 19005 pg/mL (0-450) H 06/24/22 17:26 Total Protein 6.8 g/dL (6.6-8.7) D 06/24/22 17:26 Albumin 4.7 g/dL (3.5-5.2) 06/24/22 17:26 Globulin 2.1 g/dL (1.3-4.6) 06/24/22 17:26 TSH 0.70 uIU/mL (0.27-4.20) 06/24/22 17:26 Urine Color Yellow (Yellow) 06/24/22 23:13 Urine Appearance Clear (CLEAR) 06/24/22 23:13 Urine pH 6 (5-7) 06/24/22 23:13 Ur Specific [place] 1.015 (1.005-1.030) 06/24/22 23:13 Urine Protein Neg (Negative) 06/24/22 23:13 Urine Glucose (UA) Norm (Normal) 06/24/22 23:13 Urine Ketones Negative (Negative) 06/24/22 23:13 Urine Blood Neg (Negative) 06/24/22 23:13 Urine Nitrate Negative (Negative) 06/24/22 23:13 Urine Bilirubin Neg (Negative) 06/24/22 23:13 Urine Urobilinogen Norm mg/dL (Negative) 06/24/22 23:13 Ur Leukocyte Esterase Negative (Negative) 06/24/22 23:13 Urine RBC 0-4 /hpf (0-2) H 06/24/22 23:13 Urine WBC 0-4 /hpf (0-5) H 06/24/22 23:13 Ur Squamous Epith Cells 0-4 /hpf (0-5) H 06/24/22 23:13 Amorphous Sediment Not Reportable 06/24/22 23:13 Urine Bacteria Trace /hpf (NONE) 06/24/22 23:13 Vitals Last Vital Signs Temp 98.1 F 06/26/22 04:30 Pulse 66 06/26/22 09:30 Resp 19 H 06/26/22 09:30 BP 122/73 06/26/22 09:30 Pulse Ox 94 06/26/22 06:00 O2 Del Method 06/25/22 17:43 Discharge Plan Discharge Patient Disposition: Home Condition: Stable Prescriptions: New Eliquis 5 mg Tablet 5 mg PO BID 30 Days Qty: 60 0RF diltiazem HCl 120 mg capsule,extended release 24hr 120 mg PO DAILY Qty: 30 0RF Lopressor 50 mg tablet 25 mg PO BID Qty: 60 0RF Continued furosemide 20 mg tablet 20 mg PO DAILY PRN (Reason: swelling) cyanocobalamin (vitamin B-12) 1,000 mcg/mL solution 1,000 mcg SUBCUT Q30D coenzyme Q10 [Co Q-10] 100 mg capsule 100 mg PO DAILY Eye Health Plus Lutein 1,000 unit-200 mg-60 unit-2 mg tablet 1 tab PO DAILY Rx Instructions: administer after a meal glucosamine HCl 500 mg tablet 500 mg PO DAILY Rx Instructions: administer with a meal magnesium 200 mg tablet 200 mg PO DAILY (DME) COCK UP SPLINT See Rx Instructions .Route .MEDSUPPLY Qty: 2 0RF Rx Instructions: As directed allopurinol 300 mg tablet 300 mg PO DAILY Qty: 30 0RF prochlorperazine maleate 10 mg tablet 10 mg PO Q6H PRN (Reason: nausea and vomiting) Qty: 30 2RF ascorbic acid (vitamin C) 1,000 mg capsule 1 g PO DAILY@12 prednisone 20 mg tablet 20 mg PO TID Qty: 90 1RF acalabrutinib maleate 100 mg tablet 100 mg PO Q12H Qty: 60 0RF Rx Instructions: not started as of 06/25/22 zinc acetate 50 mg (zinc) Capsule 50 mg PO DAILY Vitamin D3 125 mcg (5,000 unit) Tablet 125 mcg PO DAILY@12 Discharge Orders: Discharge Order (Routine); Ordered 06/26/22 Ordered By: Fauzia Santos Referrals: Griselda Garrett APRN [Primary Care Provider] - 4-7 days (appointment date ,time of 10:20 am ) Jefferson Juan MD [Physician] - 1 month (appointment to be made with after being seen by Alexia Mayen apn nurse) Alexia Mayen FNP [Nurse Practitioner] - 2 weeks (June time of 10:00 am with Alexia Mayen APN Nurse , after this appointment follow up: will scheduled for cardiology follow up with for 1 month ) Dakota Horton MD [Hospitalist] - 6 Weeks (appointment confirmed for follow up from [facility] : July at time 12:00 pm for labs and follow up with nurse practicioner,if you need anything ,please call office) Discharge Diet: Cardiac Discharge Activity: Resume usual activity Patient Instructions: Metoprolol (By mouth) (Lopressor, Toprol XL), Diltiazem (By mouth) (Cardizem, Cardizem CD, Cardizem LA, Cardizem SR), Apixaban (By mouth) (Eliquis), Heart Failure (DC), A-fib (Atrial Fibrillation) (DC), Fall Prevention (DC), CHF Stoplight, Opioid Safety, Stroke Stoplight Discharge Attestations Time Spent in Discharge Care*: less than 30 min Quality Metrics Clinical Quality Measures [ No reported AMI, CVA or VTE this stay] Coding Level of Care Code Acute Code for Chg Fwd Diagnoses Atrial fibrillation with RVR I48.91 Lymphatic leukemia C91.90 Congestive heart failure I50.9
--- NOTE | 2022-06-26 10:50 | PC.CHAP ---
Pastoral Care Encounter/Spiritual Assessment Type of Contact [] Declined top precipitator operator visit [] Patient/Family/Request visit [] Outpatient visit [] Follow-up visit [] Physician referral [] Code/Alert [x] Routine visit [] Staff referral [] Actively dying [] Patient sleeping [] Family support [] [] Out of room [] Palliative care [] [x] Receiving care in room [] Pre-surgical visit [] Trauma [] Long length of stay [x] ICU visit [] Other: Relational/Emotional Strength [] Patient feels connected with others/family/visitors/staff [] Distress [] Loneliness/isolation [] Abandonment Spirituality of Patient [] Person of Ghada [] Attends Baptism of their Ghada [] Believes in Prayer [] Reads Bible or Anglican materials [] There are Spiritual issues to be addressed Production Intern Interventions [x] Prayer [] Active listening [] Non-anxious presence [] Spiritual/emotional support [] Crisis/trauma care [] Spiritual counseling [] Bereavement support [] Provided bereavement packet [] Provided Bible/devotional materials [] Provided toy/stuffed animal, coloring book to patient or family member [] Provided Communion [] Anointing/[place] [] Salvation [x] Completed spiritual assessment [] Other: Impact on Illness or Injury [] Angry [] Fearful [] Anxious [] Often cries [] Exhaustion [] Unable to work [] Unable to attend quaker [] Unable to walk/stand [] Unable to read [] Unable to drive [] Unable to eat/drink [] Unable to sleep [] Unable to be with family [] Patient intubated [] Other: Summary Time spent with patient
--- NOTE | 2022-06-26 12:19 | PC.NURSE ---
Patient was taken to personal vehichle with daughter at 1215 via wheelchair. All instructions gone over using the teach back method.
--- NOTE | 2022-06-26 13:49 | USCV_ITS ---
Sadie Martines Age: 86 Gender: F : 1935 Exam Date: 06/26/2022 05:39 Ordering Phys: Fauzia Santos MD Technologist: Judy Rodriguez [place]am [place] [facility] [place] Indication: A FIB, HEART FAILURE BP: 139 / 69 HR: 38 Rhythm: Atrial fibrillation Technical Quality: Adequate MEASUREMENTS (Male / Female) Normal Values 2D ECHO LVOT Diameter 2.0 cm LV Ejection Fraction MOD 2C 47.8 % LV Ejection Fraction 2C AL 49.1 % LA Diameter 3.6 cm LA Width 2.9 cm LA Height 4.5 cm RA Width 2.4 cm RA Height 4.4 cm Aorta at Sinotubular Diameter 2.0 cm IVC Diameter 1.6 cm M-MODE Aortic Annulus Diameter 2.4 cm LA Ao Ratio MM 1.5 MV E Point Septal Separation 0.7 cm DOPPLER AV Peak Velocity 131.7 cm/s LVOT Peak Velocity 95.0 cm/s AV Area Cont Eq vti 2.3 cm squared AV Area Cont Eq pk 2.2 cm squared MV Peak Velocity 147.0 cm/s MV Area PHT 4.0 cm squared MV E' Velocity 60.0 cm/s Mitral E to MV E' Ratio 10.0 Mitral E to LV E' Lateral Ratio 10.6 Mitral E to LV E' Septal Ratio 9.5 TR Peak Velocity 297.4 cm/s TR Peak Gradient 35.4 mmHg TR Mean Velocity 230.1 cm/s TR Mean Gradient 24.3 mmHg TR Velocity Time Integral 100.7 cm TV Peak E Velocity 46.0 cm/s Right Atrial Pressure 3.0 mmHg Pulmonary Artery Systolic Pressu 38.4 mmHg FINDINGS Left Ventricle Left ventricle is normal in size. LV systolic function is mildly reduced with EF of 45 to 50%. Mild global hypokinesis. Diastolic function is indeterminate because of atrial fibrillation. Right Ventricle Normal in size and function. Right Atrium Normal in size Left Atrium Dilated Mitral Valve Mitral valve is structurally noraml. Moderate mitral regurgitation. Aortic Valve Structurally normal aortic valve. No significant stenosis. Tricuspid Valve Mild tricuspid regurgitation. RVSP is 35-40mmHg. This is consistent with mild pulmonary hypertension Pulmonic Valve Not well visualized Pericardium Normal Aorta Normal in size IVC Appears to be normal CONCLUSIONS LV systolic function is mildly reduced with EF of 45 to 50% Diastolic function is indeterminate because of atrial fibrillation. Left atrial dilation Moderate mitral regurgitation Mild tricuspid regurgitation Mild pulmonary hypertension No comparison studies are available Gustavo Arguello MD (Electronically Signed) Final Date: 26 June 2022 08:54 S
== END 2022-06-26 12:15 | disposition home or self-care (01) | DRG 308 ==
LOC: ER 20:21 → ICU 20:24
PROVIDERS: Admitting Provider Internal Medicine; Emergency Provider Family Medicine; PCP Nurse Practitioner Family; Visit Provider Internal Medicine
DX: I48.91 Unspecified atrial fibrillation (principal); I50.21 Acute systolic (congestive) heart failure; C91.10 Chronic lymphocytic leukemia of B-cell type not having achieved remission; N17.9 Acute kidney failure, unspecified; I11.0 Hypertensive heart disease with heart failure; Z79.899 Other long term (current) drug therapy; Z87.891 Personal history of nicotine dependence; Z79.52 Long term (current) use of systemic steroids
CPT/HCPCS: 36415; 71045; 80048; 80053; 81001; 83735; 83880; 84443; 85007; 85025; 85610; 93005; 93306; 96365; 96366; 96375; 99214; 99291; J3490; J7512

== ENCOUNTER 2022-07-13 11:53 | Inpatient (IN) | payer MEDICARE, OTHER, SELFPAY ==
[2022-07-13] VITALS (35 sets, daily range): BP systolic 88–126; BP diastolic 45–97; PULSE 85–193; RESP 13–47; TEMP 36.7–37.5; O2SAT 76–99; BMI 29.8; BMI 30.9
[2022-07-13] MEDS: dilTIAZem 5 mg/mL SDV 5 mL 20 MG IVP ×2 (12:09→12:33)
--- NOTE | 2022-07-13 12:15 | ECG_ITS ---
[facility] Test Date: 2022-07-13 Pat Name: Sadie Martines Department: Room: Gender: Female Street Department Dispatcher: : 1935 Requested By: Sergio Beach Order Number: [id number] Reading MD: VINCENT AGUILLON Measurements Intervals [place] Rate: 188 P: 0 TX: 0 QRS: 19 QRSD: 107 T: 218 QT: 232 QTc: 410 Interpretive Statements ATRIAL FIBRILLATION WITH RAPID VENTRICULAR RESPONSE ST DEVIATION AND MODERATE T-WAVE ABNORMALITY, CONSIDER LATERAL ISCHEMIA [-0.1+ mV T-WAVE IN I/aVL/V5/V6] ST DEVIATION AND MODERATE T-WAVE ABNORMALITY, CONSIDER INFERIOR ISCHEMIA [-0.1+ mV T-WAVE IN II/aVF] CRITICAL TEST RESULT Compared to ECG 06/24/2022 17:08:25 Left ventricular hypertrophy no longer present T-wave abnormality still present Possible ischemia still present Electronically Signed On 07-13-2022 23:36:38 CDT by VINCENT AGUILLON [id number]
--- NOTE | 2022-07-13 12:15 | XRR_ITS ---
PROCEDURE INFORMATION: Exam: XR Chest Exam date and time: 07/13/2022 12:29 PM Age: 86 years old Clinical indication: Injury or trauma; Fall; Blunt trauma (contusions or hematomas); Additional info: Tacycardia TECHNIQUE: Imaging protocol: Radiologic exam of the chest. Views: 1 view. COMPARISON: CR (CHEST, ) 06/24/2022 8:00 PM FINDINGS: Lungs: Unremarkable. No consolidation. Pleural spaces: Unremarkable. No pleural effusion. No pneumothorax. Heart/Mediastinum: Unremarkable. No cardiomegaly. Bones/joints: Unremarkable. XR/XR chest 1V portable [id number] IMPRESSION: No acute findings.
--- NOTE | 2022-07-13 12:16 | XRR_ITS ---
PROCEDURE INFORMATION: Exam: XR Left Hip Exam date and time: 07/13/2022 12:22 PM Age: 86 years old Clinical indication: Injury or trauma; Fall; Blunt trauma (contusions or hematomas); Left; Hip TECHNIQUE: Imaging protocol: Radiologic exam of the left hip. Views: 2 or 3 views hip with pelvis when performed. COMPARISON: CR XR hip LT 2-3V wo/w pel* [id number] 02/11/2022 3:41 PM FINDINGS: Bones/joints: Sclerotic densities are seen in the superior aspect of the left femoral head. There is symmetric narrowing of the left hip joint. These findings correspond to severe osteoarthritis. A wedge shaped area of sclerosis is seen in the superior aspect of the left femoral head suspicious for avascular necrosis. No acute fracture. Soft tissues: Unremarkable. Other findings: Comparison to prior examination similar findings seen XR/XR hip LT 2-3V wo/w pel* [id number] IMPRESSION: 1. 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 Otherwise No acute findings.
[2022-07-13 12:27] LABS: Hematocrit 37.1 % (37.0-47.0); Hemoglobin 10.9 g/dL (11.5-15.3); Lymphocytes % 86.9 %; Mean Corpuscular HGB Conc 29.4 g/dL (30.0-36.0); Mean Corpuscular Hemoglobin 32.6 pg (28.0-34.0); Mean Corpuscular Volume 111.1 fl (81-99); Mean Platelet Volume 9.4 fL (7.4-10.4); Monocytes # 0.4 10^3/uL (0.2-0.9); Monocytes % 0.4 %; Neutrophils # 10.74 10^3/uL (1.8-7.7); Neutrophils % 11.5 %; Nucleated Red Blood Cells % 0 %; Platelet Count 272 10^3/cmm (130-400); Red Blood Count 3.34 10^6/uL (4.1-5.3); Red Cell Distribution Width 23.1 % (12.1-15.1)
[2022-07-13 12:32] LABS: INR 1.34 (0.8-1.2)
--- NOTE | 2022-07-13 12:32 | ED_ITS ---
HPI - Arrhythmia/Palpitations General: Chief Complaint: Arrhythmia/Palpitations Stated Complaint: LEFT HIP PAIN S/P FALL Time Seen by Provider: 07/13/22 11:57 History of Present Illness: This 86-year-old female with a recently diagnosed A-fib (on Eliquis and Cardizem) presents to the ER for evaluation following a fall. She fell around 1 to 2 PM yesterday, landing on the left hip. Since then, she has been having difficulty bearing weight on that left lower extremity. She presents today in the ER with left hip pain. On checking her vitals, heart rate was in the 180s. Patient has no palpitations, chest pain, shortness of breath and is unaware that her heart rate is very fast. She denies fever, nausea, vomiting or any other pertinent systemic symptoms. Review of Systems Const: Denies: chills, body aches or change in appetite Card: Denies: chest pain or lightheadedness : Denies: dysuria Musc: Reports: joint pain (Left hip pain) and other (Unable to bear weight on the left lower extremity.); Denies: neck pain Neuro: Denies: headache(s) or weakness in extremities Psych: Denies: depression Davey/Lymph: Denies: easy bruising PFSH ED PFSH: Medical History (Updated 07/13/22 @ 13:42 by Sergio Bales MD) Atrial fibrillation by electrocardiogram B12 deficiency Chronic lymphocytic leukemia Degenerative arthritis Hyperlipidemia Hypertension Surgical History History of carpal tunnel surgery of right wrist History of tubal ligation Status post total knee replacement, 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) Family History Mother CAD (coronary artery disease) unknown age of onset Stroke Father Cancer Brother Cancer Denies family history of Diabetes Clotting disorder Dementia Chronic kidney disease (CKD) Suicide Anesthesia complication Bleeding disorder Lung disease Social History Smoking and tobacco status: former smoker (smoked x 45 years) Alcohol intake: current Alcohol intake frequency: 0-2 Drinks per Day Physical Exam Const: COMMON NORMALS: no acute distress, patient oriented x3, no limitations and alert HENMT: COMMON NORMALS: normocephalic HEAD & SCALP: normocephalic Eye: COMMON NORMALS: EOMs intact bilaterally Neck/C-Spine: COMMON NORMALS: full ROM and supple Chest: COMMONS NORMALS: normal inspection of the chest Resp: COMMON NORMALS: normal respiratory effort, No retractions, No use of accessory muscles and clear to auscultation bilaterally AUSCULTATION: clear to auscultation bilaterally Cardio: COMMON NORMALS: No murmurs present (Cardio) RATE: tachycardic RHYTHM: abnormal rhythm irregularly irregular OTHER: She is tachycardic, irregularly irregular with no murmur. GI: COMMON NORMALS: Normal to inspection, nondistended, normoactive bowel sounds present and non-tender : COMMON NORMALS: Yes no CVA tenderness BLADDER/KIDNEY EXAM: Yes no CVA tenderness Back/Pelvis: COMMON NORMALS: no CVA tenderness and no thoracic nor lumbar tenderness Extremity: GENERAL: Yes normal exam except as noted OTHER: Limitation of left hip flexion due to pain. No distal neurovascular deficit. Neuro: COMMON NORMALS: patient oriented x3 and no focal motor deficits SENSORIUM/ORIENTATION: Yes alert Psych: COMMON NORMALS: mental status grossly normal and cooperative Course Reevaluation(s): Reevaluation #1: Case discussed with Dr. Torres, hospitalist on-call. He accepted patient for admission. Vital Signs: Vital signs: Vital Signs Pulse Rate 145 H 07/13/22 13:00 Respiratory Rate 19 H 07/13/22 13:00 Blood Pressure 106/66 07/13/22 13:01 Pulse Oximetry 99 07/13/22 13:00 Oxygen Delivery Me thod 07/13/22 12:07 Oxygen Flow Rate 2 07/13/22 13:00 MDM - Arrhythmia/Palpitations Medical Decision Making Medical decision making: History as above. Patient is unaware that she was in A-fib with RVR. Despite receiving 2 boluses of IV Cardizem, patient continued to be tachycardic, so she was started on Cardizem drip and will be admitted for further management. IV bolus metoprolol also administered. Case discussed with Dr. Torres who accepted patient for admission. Lab Data 07/13/22 12:05 07/13/22 12:05 Radiology Impressions Chest X-Ray 07/13/22 12:15 IMPRESSION: No acute findings. Hip/Pelvis X-Ray 07/13/22 12:16 IMPRESSION: 1. 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 Otherwise No acute findings. Laboratory Results WBC 94.3 10^3/uL (4.0-10.0) H* 07/13/22 12:05 RBC 3.34 10^6/uL (4.1-5.3) L 07/13/22 12:05 Hgb 10.9 g/dL (11.5-15.3) L 07/13/22 12:05 Hct 37.1 % (37.0-47.0) 07/13/22 12:05 MCV 111.1 fl (81-99) H 07/13/22 12:05 MCH 32.6 pg (28.0-34.0) 07/13/22 12:05 MCHC 29.4 g/dL (30.0-36.0) L 07/13/22 12:05 RDW 23.1 % (12.1-15.1) H 07/13/22 12:05 Plt Count 272 10^3/cmm (130-400) 07/13/22 12:05 MPV 9.4 fL (7.4-10.4) 07/13/22 12:05 Neut % (Auto) 11.5 % 07/13/22 12:05 Lymph % (Auto) 86.9 % 07/13/22 12:05 [place] % (Auto) 0.4 % 07/13/22 12:05 Eos % (Auto) 0.0 % 07/13/22 12:05 Baso % (Auto) 0.0 % 07/13/22 12:05 Neut # (Auto) 10.74 10^3/uL (1.8-7.7) H 07/13/22 12:05 Lymph # (Auto) 82.0 10^3/uL (0.8-4.8) H 07/13/22 12:05 [place] # (Auto) 0.4 10^3/uL (0.2-0.9) 07/13/22 12:05 Eos # (Auto) 0.0 10^3/uL (0.0-0.8) 07/13/22 12:05 Baso # (Auto) 0.0 10^3/uL (0.0-0.1) 07/13/22 12:05 Nucleated RBC % (auto) 0 % 07/13/22 12:05 Nucleated RBCs # 0.0 /100WBC 07/13/22 12:05 PT 17.00 SECONDS (12.1-14.9) H 07/13/22 12:05 INR 1.34 (0.8-1.2) H 07/13/22 12:05 Sodium 143 mmol/L (136-145) 07/13/22 12:05 Potassium 4.1 mmol/L (3.5-5.1) 07/13/22 12:05 Chloride 104 mmol/L (98-107) 07/13/22 12:05 Carbon Dioxide 26 mmol/L (22-29) 07/13/22 12:05 Anion Gap 17.1 (5-19) 07/13/22 12:05 BUN 38 mg/dL (8-23) H 07/13/22 12:05 Creatinine 1.4 mg/dL (0.5-0.9) H 07/13/22 12:05 GFR Calculation Not Reportable 07/13/22 12:05 Glucose 111 mg/dL (65-115) 07/13/22 12:05 Calculated Osmolality 306 mOsm/kg (285-295) H 07/13/22 12:05 Calcium 9.2 mg/dL (8.5-10.5) 07/13/22 12:05 Total Bilirubin 1.5 mg/dL (0.15-1.2) H 07/13/22 12:05 AST 14 U/L (0-32) 07/13/22 12:05 ALT 24 U/L (0-33) 07/13/22 12:05 Alkaline Phosphatase 80 U/L (35-105) 07/13/22 12:05 Troponin T Baseline 57 ng/L (0-10) H 07/13/22 12:05 NT-Pro-B Natriuret Pep 11510 pg/mL (0-450) H 07/13/22 12:05 Total Protein 6.0 g/dL (6.6-8.7) L 07/13/22 12:05 Albumin 3.3 g/dL (3.5-5.2) L 07/13/22 12:05 Globulin 2.7 g/dL (1.3-4.6) 07/13/22 12:05 Discharge Plan Discharge Patient Disposition: Admitted As Inpatient Clinical Impression: Atrial fibrillation with rapid ventricular response, Chronic left hip pain Condition: Stable Coding Level of Care Code ED Jute Bag Cutting Machine Operator for Michele Taylor
[2022-07-13 12:38] LABS: Troponin(5th) Baseline 57 ng/L (0-10)
[2022-07-13] MEDS: dilTIAZem 100 MG in sodium chloride 0.9% (add-van) 100 ML 10 MG IV (12:39)
[2022-07-13] MEDS: sodium chloride 0.9% 1,000 ML 999 ML IV ×2 (12:42→14:35)
[2022-07-13 12:45] LABS: Alanine Aminotransferase 24 U/L (0-33); Albumin Level 3.3 g/dL (3.5-5.2); Alkaline Phosphatase 80 U/L (35-105); Anion Gap 17.1 (5-19); Aspartate Amino Transferase 14 U/L (0-32); Blood Urea Nitrogen 38 mg/dL (8-23); Calcium 9.2 mg/dL (8.5-10.5); Carbon Dioxide 26 mmol/L (22-29); Chloride 104 mmol/L (98-107); Globulin 2.7 g/dL (1.3-4.6); Glucose 111 mg/dL (65-115); NT Pro B Type Natriuretic Pept 11810 pg/mL (0-450); Osmolality Calculated 306 mOsm/kg (285-295); Potassium 4.1 mmol/L (3.5-5.1); Sodium 143 mmol/L (136-145); Total Bilirubin 1.5 mg/dL (0.15-1.2)
[2022-07-13 12:57] LABS: Slide Review Slide Review Perform
[2022-07-13 13:00] LABS: White Blood Count 94.3 10^3/uL (4.0-10.0)
[2022-07-13] MEDS: metoprolol tartrate 1 mg/1 mL SDV 5 mL 5 MG IVP (13:17)
--- NOTE | 2022-07-13 14:15 | ECG_ITS ---
[facility] Test Date: 2022-07-13 Pat Name: Sadie Martines Department: Room: 102 Gender: Female Drug Counselor: : 1935 Requested By: Sergio Beach Order Number: [id number] Reading MD: VINCENT AGUILLON Measurements Intervals [place] Rate: 122 P: 0 AR: 0 QRS: -3 QRSD: 93 T: 217 QT: 287 QTc: 410 Interpretive Statements ATRIAL FIBRILLATION WITH RAPID VENTRICULAR RESPONSE MODERATE VOLTAGE CRITERIA FOR LVH, CONSIDER NORMAL VARIANT [MEETS CRITERIA IN ONE OF: R(aVL), S(V1), R(V5), R(V5/V6)+S(V1)] POSSIBLE SEPTAL MYOCARDIAL INFARCTION , PROBABLY OLD [30 ms Q WAVE IN V1/V2] MODERATE T-WAVE ABNORMALITY, CONSIDER LATERAL ISCHEMIA [-0.1+ mV T-WAVE IN I/aVL/V5/V6] MODERATE T-WAVE ABNORMALITY, CONSIDER INFERIOR ISCHEMIA [-0.1+ mV T-WAVE IN II/aVF] Compared to ECG 07/13/2022 11:59:37 Myocardial infarct finding now present T-wave abnormality still present Possible ischemia still present Electronically Signed On 07-13-2022 23:42:07 CDT by VINCENT AGUILLON [id number]
[2022-07-13 14:42] LABS: Troponin 5 2HR 53.18 ng/L (0-10)
--- NOTE | 2022-07-13 14:50 | PM.HP ---
Providers/Chief Complaint Admitting Physician: Abimael Torres MD Primary Care Provider: Griselda Garrett APRN Chief Complaint: LEFT HIP PAIN S/P FALL History of Present Illness Sadie Martines is a 86 year old female with Hx of CHF, HTN, Afib and lymphocytic leukemia presented to the ED to be evaluated s/o fall at 1-2PM yesterday landing on her left hip. Fell while attempting to go to the bathroom. states her left leg gave out on her and she landed on the L hip and hit her head against the cabinet, no LOC. At time was not able to walk, had to use rollaid sitting on it and kicking her feet. States this AM she was in a lot of pain and could not get out of bed. Admitted to worsening L hip pain in comparison to her baseline 2/2 avascular necrosis and OA. Of importance, pt did state she had not taken her medication since the evening of 07/11/22. Pt was recently admitted 2 weeks ago for Afib RVR and sent home on cardizem 120mg DS daily and metoprolol 25mg BID and restarted on eliquis 5mg BID. Pt was seen by Cards T[employer] CAR INSPECTOR on 07/08/22, no changes to medication other than restarting lasix 20mg PO qd. Pt admits to posterior hip pain worse than baseline, associated with some radiation down the L lateral aspect of her leg. Denies CP, palpitations, SOB, N/V/D/C. admits to decreased appetite. Upon arrival to ED, EKG showed HR in 180's in Afib RVR. Given Cardizem 20mg x 2, started on drip and an additional metoprolol 5mg IVP. HR decreased to 120's. When i saw the patient her HR was ranging from 115-140 in afib rvr but asymptomatic. Review of Systems General: Reports: 10 or more systems reviewed and unremarkable except in HPI and below Const: Denies: fever(s) or chills Eyes: Denies: change in vision or blurry vision ENMT: Denies: throat pain, odynophagia or hoarseness Card: Reports: lightheadedness and orthopnea; Denies: chest pain, palpitations, irregular heart rhythm, edema, swelling of feet/ankles or dyspnea on exertion Resp: Denies: dyspnea, productive cough, non-productive cough, wheezing or pain on inspiration GI: Denies: abdominal pain, nausea, vomiting, diarrhea or constipation Musc: Reports: extremity pain (LEFT hip pain); Denies: neck pain, back pain or joint pain Skin/Breast: Denies: rash or new lesions Neuro: Denies: headache(s), numbness in extremities or weakness in extremities Medications/Allergies Home Medications Medication Instructions Recorded Confirmed Last Taken Type cyanocobalamin (vitamin B-12) 1,000 mcg SUBCUT Q30D 07/04/21 07/13/22 07/12/22 History 1,000 mcg/mL injection solution coenzyme Q10 100 mg capsule (Co 100 mg PO DAILY 08/30/21 07/13/22 07/12/22 History Q-10) glucosamine HCl 500 mg tablet 500 mg PO DAILY 08/30/21 07/13/22 07/12/22 History vit A 300 mcg-C 200 mg-E 27 1 tab PO DAILY 08/30/21 07/13/22 07/12/22 History mg-lutein 2 mg and minerals tablet (Eye Health Plus Lutein) magnesium 200 mg tablet 200 mg PO DAILY 09/18/21 07/13/22 07/12/22 History COCK UP SPLINT #2 ea 10/10/21 07/13/22 Unknown Rx ascorbic acid (vitamin C) 1,000 mg 1 g PO DAILY@05/16/22 07/13/22 07/12/22 History capsule cholecalciferol (vitamin D3) 125 125 mcg PO DAILY@12 06/25/22 07/13/22 07/12/22 History mcg (5,000 unit) tablet (Vitamin D3) zinc acetate 50 mg (zinc) capsule 50 mg PO DAILY 06/25/22 07/13/22 07/12/22 History apixaban 5 mg tablet (Eliquis) 5 mg PO BID 30 days #60 tabs 06/26/22 07/13/22 07/12/22 Rx diltiazem HCl 120 mg 120 mg PO DAILY #30 caps 06/26/22 07/13/22 07/12/22 Rx capsule,extended release 24 hr metoprolol tartrate 50 mg tablet 25 mg PO BID #60 tabs 06/26/22 07/13/22 07/12/22 Rx (Lopressor) furosemide 20 mg tablet 20 mg PO DAILY swelling 07/08/22 07/13/22 07/12/22 History prednisone 20 mg tablet 20 mg PO DAILY 07/08/22 07/13/22 07/12/22 History acalabrutinib maleate 100 mg tablet 100 mg PO Q12H #60 tabs 07/09/22 07/13/22 Unknown Rx allopurinol 300 mg tablet 150 mg PO BID 07/13/22 07/13/22 07/12/22 History Allergies Allergy/AdvReac Type Severity Reaction Status Date / Time No Known Allergies Allergy Verified 07/08/22 10:03 PFSH Acute PFSH: Medical History (Updated 07/13/22 @ 16:07 by Abimael Torres MD) Atrial fibrillation by electrocardiogram B12 deficiency Chronic lymphocytic leukemia Degenerative arthritis Hyperlipidemia Hypertension Surgical History History of carpal tunnel surgery of right wrist History of tubal ligation Status post total knee replacement, 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) Family History Mother CAD (coronary artery disease) unknown age of onset Stroke Father Cancer Brother Cancer Denies family history of Diabetes Clotting disorder Dementia Chronic kidney disease (CKD) Suicide Anesthesia complication Bleeding disorder Lung disease Social History Smoking and tobacco status: former smoker (smoked x 45 years) Alcohol intake: current Alcohol intake frequency: 0-2 Drinks per Day Vitals/I&O/Wt Last Vital Signs Pulse 128 H 07/13/22 14:48 Resp 16 07/13/22 14:48 BP 113/78 07/13/22 14:05 Pulse Ox 96 07/13/22 14:48 O2 Del Method 07/13/22 14:48 O2 Flow Rate 2 07/13/22 13:00 07/12/22 07/13/22 07/13/22 22:59 06:59 14:59 Intake Total 1999 Balance 1999 Weight last 48 hrs Weight 163 lb Physical Exam Narrative: General: AOx3, no acute distress, well developed, well nourished, appears stated age psych: appropriate mood and affect. good judgment and insight. No suicidal or homicidal ideation. Head: atraumatic, normocephalic, no mass/lesions Eyes: conjunctiva clear w/o exudate or hemorrhage. non-icteric, EOM intact, PERRLA. no signs of nystagmus Nose: nasal mucosa pink, septum midline Oropharynx: good dentition, pink moist mucosa, non-deviated tongue, no buccal nodules/lesions. no pharyngeal exudate Neck: FROM, no lymphadenopathy, no tracheal deviation, non tender, thyroid gland normal w/o mass. supple Chest: atraumatic, symmetrical CVD: afib RVR, normal S1 and S2, no M/R/G. 2+ pulse x 4 extremities, no JVD, no carotid bruit. no edema Lungs: clear lung sounds in all serrano, no crackles, rhonchi, wheezing, rales. Abdomen: NT, ND, soft, NABS. No hepatosplenomegaly, Spine: no visible deformities, FROM, 5/5 strength, no lordosis or kyphosis. no paraspinal ttp.non tender bony features. no discomfort with ROM Extremities: FROM and 5/5 strength in BUE and RLE. no visible joint abnormalities on active and passive ROM. L hip: ttp at greater trochanter and labrum. generalized ttp around hip. limited ROM 2/2 pain, no visible abnormalities. Neuro: CNII-XII grossly intact. No atrophy, weakness, tremors or clonus.? 2+ DTR, no sensory abnormalities. Skin:? no rash, vesicles, lesions. Data 07/13/22 12:05 07/13/22 12:05 A&P Assessment and plan (1) Atrial fibrillation with rapid ventricular response: s/p Cardizem 20mg IVP x 2, metoprolol 5mg x 1 in ED Cardizem gtt - will titrate, goal to restart Cardizem 120 in AM restart home metoprolol 25mg BID, will give 1st dose now and second dose at 21:00 Continue eliquis 5mg BID (2) Heart failure: Pt presents in mild acute congest[place] [address]. no peripheral edema, SOB or crackles thus far. CXR negative Does not require oxygen support I beleive this is secondary to afib RVR we will attempt to control rate If IV lasix needed, we will give small dose. (3) Injury of left hip: s/p mechanical fall PT/OT to eval XRAY negative for fracture (4) Chronic left hip pain: Hx of avascular necrosis and OA poor surgical candidate at this time (5) Lymphatic leukemia: chronic no medication changes has not started management per Dr. Horton (6) JES (acute kidney injury): 2/2 afib rvr with hypotension Cr increased from 0.8 to 1.4 monitor in AM Plan I expect this patient to cross greater than 2 midnighs Full code Eliquis for DVT prophylaxis Attestations Medical Necessity Statement*: requires hospitalization for afib RVR Coding Level of Care Code 94154 Diagnoses Atrial fibrillation with rapid ventricular response I48.91 Heart failure I50.9 Injury of left hip S79.912A Chronic left hip pain M25.552; G89.29 Lymphatic leukemia C91.90 JES (acute kidney injury) N17.9
[2022-07-13 14:52] LABS: Troponin 5 2HR Delta -3.82 ABS# (0-10)
[2022-07-13] MEDS: apixaban 5 mg Tablet PO (16:47)
[2022-07-13] MEDS: HYDROcodone-acetaminophen 5-325 mg Tablet 1 TAB PO (16:47)
[2022-07-13] MEDS: metoprolol tartrate 25 mg Tablet PO (16:47)
[2022-07-13] MEDS: predniSONE 20 mg Tablet PO (16:48)
[2022-07-13] MEDS: dilTIAZem 100 MG in sodium chloride 0.9% (add-van) 100 ML 15 MG IV (19:22)
[2022-07-14] VITALS (32 sets, daily range): BP systolic 92–117; BP diastolic 54–70; PULSE 78–153; RESP 15–30; TEMP 36.4–36.7; O2SAT 95–100
[2022-07-14] MEDS: dilTIAZem 100 MG in sodium chloride 0.9% (add-van) 100 ML 10 MG IV (02:38)
[2022-07-14] MEDS: HYDROcodone-acetaminophen 5-325 mg Tablet 1 TAB PO ×3 (03:18→17:52)
[2022-07-14 04:21] LABS: Hematocrit 30.6 % (37.0-47.0); Hemoglobin 8.7 g/dL (11.5-15.3); Lymphocytes # 70.3 10^3/uL (0.8-4.8); Lymphocytes % 82.4 %; Mean Corpuscular HGB Conc 28.4 g/dL (30.0-36.0); Mean Corpuscular Hemoglobin 32.7 pg (28.0-34.0); Mean Platelet Volume 9.8 fL (7.4-10.4); Monocytes # 0.4 10^3/uL (0.2-0.9); Monocytes % 0.5 %; Neutrophils # 13.56 10^3/uL (1.8-7.7); Nucleated Red Blood Cells % 0 %; Platelet Count 244 10^3/cmm (130-400); Red Blood Count 2.66 10^6/uL (4.1-5.3); Red Cell Distribution Width 23.1 % (12.1-15.1)
[2022-07-14 04:36] LABS: INR 1.43 (0.8-1.2)
[2022-07-14 04:37] LABS: Partial Thromboplastin Time 37.6 SECONDS (23.9-36.7)
[2022-07-14 04:57] LABS: Alanine Aminotransferase 18 U/L (0-33); Albumin Level 2.8 g/dL (3.5-5.2); Alkaline Phosphatase 72 U/L (35-105); Anion Gap 16.7 (5-19); Aspartate Amino Transferase 11 U/L (0-32); Blood Urea Nitrogen 49 mg/dL (8-23); Calcium 8.2 mg/dL (8.5-10.5); Carbon Dioxide 23 mmol/L (22-29); Chloride 105 mmol/L (98-107); Globulin 2.7 g/dL (1.3-4.6); Glucose 159 mg/dL (65-115); Magnesium 2.8 mg/dL (1.7-2.3); NT Pro B Type Natriuretic Pept 7788 pg/mL (0-450); Osmolality Calculated 306 mOsm/kg (285-295); Phosphorus 5.2 mg/dL (2.5-4.5); Potassium 4.7 mmol/L (3.5-5.1); Sodium 140 mmol/L (136-145); Total Bilirubin 0.9 mg/dL (0.15-1.2); Total Protein 5.5 g/dL (6.6-8.7)
[2022-07-14 05:27] LABS: Add RBC Morph Yes; Slide Review Slide Review Perform
[2022-07-14 05:28] LABS: Dohle Bodies 2+; Neutrophils % 15.9 %; RBC Morph Comp No; Toxic Vacuolation 1+
[2022-07-14 05:29] LABS: White Blood Count 85.4 10^3/uL (4.0-10.0)
--- NOTE | 2022-07-14 07:11 | P.PN_ITS ---
Subjective Subjective: seen at bedside this AM States she is feeling slightly improved from yesterday. Denies CP, palpitations, SOB, dizziness, fatigue. tolerating diet well. taking all medications. Overnight HR improved, HR <110 most of evening. majority of readings in 80's and 90's. Vitals/I&O/Wt Last Vital Signs Temp 97.8 F 07/14/22 07:02 Pulse 107 H 07/14/22 07:02 Resp 17 07/14/22 07:02 BP 110/64 07/14/22 07:02 Pulse Ox 97 07/14/22 04:58 O2 Del Method 07/14/22 04:58 O2 Flow Rate 2 07/13/22 13:00 07/13/22 07/14/22 07/14/22 22:59 06:59 14:59 Intake Total 667.5 / 2689.667 580 / 3269.667 Output Total 300 / 300 Balance 667.5 / 2689.667 280 / 2969.667 Weight last 48 hrs Weight 172 lb 1.6 oz Weight 169 lb 7 oz Weight 163 lb Physical Exam Narrative: General: AOx3, no acute distress, well developed, well nourished, appears stated age psych: appropriate mood and affect. good judgment and insight. No suicidal or homicidal ideation. Head: atraumatic, normocephalic, no mass/lesions Eyes: conjunctiva clear w/o exudate or hemorrhage. non-icteric, EOM intact, PERRLA. no signs of nystagmus Oropharynx: good dentition, pink moist mucosa, non-deviated tongue, no buccal nodules/lesions. no pharyngeal exudate Neck: FROM, no lymphadenopathy, no tracheal deviation, non tender, thyroid gland normal w/o mass. supple Chest: atraumatic, symmetrical CVD: regular rate, abnormal rhythm, normal S1 and S2, no M/R/G. 2+ pulse x 4 extremities, no JVD, no carotid bruit. no edema Lungs: clear lung sounds in all serrano, no crackles, rhonchi, wheezing, rales. Abdomen: NT, ND, soft, NABS. No hepatosplenomegaly, Spine: FROM, 5/5 strength, no lordosis or kyphosis. no paraspinal ttp.non tender bony features. no discomfort with ROM Extremities: FROM and 5/5 strength in BUE and RLE. no visible joint abnormalities on active and passive ROM. L hip: ttp at greater trochanter. generalized ttp around hip. limited ROM 2/2 pain, no visible abnormalities. Neuro: CNII-XII grossly intact. No atrophy, weakness, tremors or clonus.? 2+ DTR, no sensory abnormalities. Skin:? no rash, vesicles, lesions. Data 07/14/22 03:56 07/14/22 03:56 A&P Assessment and plan (1) Atrial fibrillation with rapid ventricular response: s/p Cardizem 20mg IVP x 2, metoprolol 5mg x 1 in ED will stop cardizem gtt and restart home Cardizem 120mg in AM continue home metoprolol 25mg BID, may need to increase to 50mg BID Continue eliquis 5mg BID (2) JES (acute kidney injury): 2/2 afib rvr with hypotension Cr increased from 0.8 to 1.4 to 1.9 this AM will continue to monitor would add fluids; however pt is in HFpEF exacerbation 2/2 Afib RVR (3) Heart failure: Pt presents in mild acute congestive HF. [place] [address] to 7788 no peripheral edema, SOB or crackles thus far. CXR negative Does not require oxygen support I believe this is secondary to afib RVR we will attempt to control rate If IV lasix needed, we will give small dose. (4) Injury of left hip: s/p mechanical fall PT/OT to eval XRAY negative for fracture (5) Lymphatic leukemia: chronic no medication changes has not started management per Dr. Horton (6) Chronic left hip pain: Hx of avascular necrosis and OA poor surgical candidate at this time Plan I expect this patient to cross greater than 2 [facility] Full code Eliquis for DVT prophylaxis Attestations Medical Necessity Statement*: requires hospitalization for afib RVR Coding Level of Care Code 38024 Diagnoses Atrial fibrillation with rapid ventricular response I48.91 JES (acute kidney injury) N17.9 Heart failure I50.9 Injury of left hip S79.912A Lymphatic leukemia C91.90 Chronic left hip pain M25.552; G89.29
[2022-07-14] MEDS: predniSONE 20 mg Tablet PO (09:11)
[2022-07-14] MEDS: apixaban 5 mg Tablet PO ×2 (09:11→17:52)
[2022-07-14] MEDS: dilTIAZem ER (24HR) 120 mg Capsule PO (09:11)
[2022-07-14] MEDS: metoprolol tartrate 25 mg Tablet PO ×2 (09:11→17:52)
[2022-07-14] MEDS: pantoprazole DR 40 mg Tablet PO (09:12)
[2022-07-14] MEDS: lactated ringers 1,000 ML 100 ML IV (16:33)
[2022-07-15] VITALS (14 sets, daily range): BP systolic 95–134; BP diastolic 50–75; PULSE 76–122; RESP 17–30; TEMP 36.6–37.7; O2SAT 92–97
[2022-07-15] MEDS: lactated ringers 1,000 ML 100 ML IV (04:20)
[2022-07-15 04:43] LABS: Hematocrit 26.5 % (37.0-47.0); Hemoglobin 7.9 g/dL (11.5-15.3); Lymphocytes # 58.1 10^3/uL (0.8-4.8); Lymphocytes % 78.6 %; Mean Corpuscular HGB Conc 29.8 g/dL (30.0-36.0); Mean Corpuscular Hemoglobin 34.1 pg (28.0-34.0); Mean Corpuscular Volume 114.2 fl (81-99); Mean Platelet Volume 10.3 fL (7.4-10.4); Monocytes % 1.3 %; Neutrophils % 18.9 %; Nucleated Red Blood Cells % 0 %; Platelet Count 235 10^3/cmm (130-400); Red Blood Count 2.32 10^6/uL (4.1-5.3); Red Cell Distribution Width 22.6 % (12.1-15.1)
[2022-07-15 05:06] LABS: Alanine Aminotransferase 18 U/L (0-33); Albumin Level 2.6 g/dL (3.5-5.2); Alkaline Phosphatase 61 U/L (35-105); Blood Urea Nitrogen 51 mg/dL (8-23); Calcium 8.1 mg/dL (8.5-10.5); Carbon Dioxide 22 mmol/L (22-29); Chloride 102 mmol/L (98-107); Globulin 1.9 g/dL (1.3-4.6); Glucose 127 mg/dL (65-115); Osmolality Calculated 293 mOsm/kg (285-295); Sodium 134 mmol/L (136-145); Total Bilirubin 0.5 mg/dL (0.15-1.2); Total Protein 4.5 g/dL (6.6-8.7)
[2022-07-15 05:16] LABS: Anion Gap 15.2 (5-19); Aspartate Amino Transferase 12 U/L (0-32); Potassium 5.2 mmol/L (3.5-5.1)
[2022-07-15 05:21] LABS: Slide Review Slide Review Perform
[2022-07-15 05:22] LABS: White Blood Count 73.9 10^3/uL (4.0-10.0)
[2022-07-15] MEDS: dilTIAZem 100 MG in sodium chloride 0.9% (add-van) 100 ML IV (06:33)
[2022-07-15] MEDS: dilTIAZem ER (24HR) 120 mg Capsule PO (06:33)
[2022-07-15] MEDS: metoprolol tartrate 25 mg Tablet PO (08:46)
[2022-07-15] MEDS: predniSONE 20 mg Tablet PO (08:46)
[2022-07-15] MEDS: pantoprazole DR 40 mg Tablet PO (08:46)
[2022-07-15] MEDS: HYDROcodone-acetaminophen 5-325 mg Tablet 1 TAB PO ×2 (08:46→18:08)
--- NOTE | 2022-07-15 10:05 | PC.CHAP ---
Pastoral Care Encounter/Spiritual Assessment Type of Contact [] Declined log pond worker visit [] Patient/Family/Request visit [] Outpatient visit [] Follow-up visit [] Physician referral [] Code/Alert [x] Routine visit [] Staff referral [] Actively dying [] Patient sleeping [] Family support [] [] Out of room [] Palliative care [] [] Receiving care in room [] Pre-surgical visit [] Trauma [] Long length of stay [] ICU visit [] Other: Relational/Emotional Strength [x] Patient feels connected with others/family/visitors/staff [] Distress [] Loneliness/isolation [] Abandonment Spirituality of Patient [x] Person of Ghada [] Attends Rastafari of their Ghada [] Believes in Prayer [] Reads Bible or Buddhist materials [] There are Spiritual issues to be addressed Project Manager/Team Coach Interventions [x] Prayer [x] Active listening [] Non-anxious presence [x] Spiritual/emotional support [] Crisis/trauma care [] Spiritual counseling [] Bereavement support [] Provided bereavement packet [] Provided Bible/devotional materials [] Provided toy/stuffed animal, coloring book to patient or family member [] Provided Communion [] Anointing/[place] [] Salvation [x] Completed spiritual assessment [] Other: Impact on Illness or Injury [] Angry [] Fearful [] Anxious [] Often cries [] Exhaustion [] Unable to work [] Unable to attend yarsanism [] Unable to walk/stand [] Unable to read [] Unable to drive [] Unable to eat/drink [] Unable to sleep [] Unable to be with family [] Patient intubated [] Other: Summary Time spent with patient 10 min
--- NOTE | 2022-07-15 10:52 | CTR_ITS ---
PROCEDURE INFORMATION: Exam: CT Pelvis Without Contrast; Skeletal Exam date and time: 07/15/2022 11:55 AM Age: 86 years old Clinical indication: Condition or disease; Other: Left hip fracture; Patient HX: , Left leg pain , unable to move left leg, poor urine out put; Additional info: Left hip fracture, known h/o left hip TECHNIQUE: Imaging protocol: Computed tomography of the pelvis without contrast. Exam focused on the skeleton. Radiation optimization: All CT scans at this facility use at least one of these dose optimization techniques: automated exposure control; mA and/or kV adjustment per patient size (includes targeted exams where dose is matched to clinical indication); or iterative reconstruction. REPORTING DATA: Count of CT and Cardiac NM exams in prior 12 months: This patient has received 2 known CTs and 0 known cardiac nuclear medicine studies in the 12 months prior to the current study. COMPARISON: CR (PELVIS, ) 07/13/2022 12:22 PM RADIATION DOSE METRICS: Total DLP (mGy-cm): 804.9 FINDINGS: Bones/joints: Femoroacetabular alignment is normal bilaterally. There is complete loss of joint space on the left with extensive subchondral cysts and subchondral sclerosis in the acetabulum and femoral head. Articular surfaces are markedly irregular. There are prominent femoral and acetabular osteophytes on the left. The left femur is intact. Alignment is normal on the right. There is moderate superolateral femoroacetabular joint space narrowing with minimal subchondral sclerosis, cysts and osteophytes. The right femur is intact. The bony pelvis is intact. The sacrum and SI joints are unremarkable. There is moderate degenerative disease in the lower lumbar spine. Soft tissues: Pelvic musculature is diffusely atrophic, greatest bilaterally in the gluteus minimus muscle and left gluteus medius muscle. See abdomen pelvis CT report for discussion of pelvic contents. CT/CT bony pelvis [id number] IMPRESSION: 1. Severe osteoarthritis at the left hip. 2. Moderate osteoarthritis at the right hip. 3. No fracture.
--- NOTE | 2022-07-15 10:57 | XR_ITS ---
WS: [id number] EXAMINATION: XR chest 1V portable [id number] REASON FOR EXAM: worsening dyspnea COMPARISON: 07/13/2022 ORDER DATE: 07/15/2022 11:09 AM TECHNIQUE: A single, portable frontal chest x-ray was obtained. X-RAY FINDINGS: There are curly B lines in the lung bases with prominence of the perihilar bronchovascular markings i ncluding cuffing and some coalescing opacity in the right infrahilar region. Left diaphragm is efface d consistent with a small left pleural effusion. There is atherosclerotic aortic change. Soft tissue and osseous structures are unremarkable. No tubes or lines are present. XR/XR chest 1V portable [id number] IMPRESSION: Early interstitial edema with a small left pleural effusion versus other cause for left basilar consolidation.
--- NOTE | 2022-07-15 10:59 | P.PN_ITS ---
Subjective Subjective: Patient complains of pain in her left leg. She is unable to move this leg today. Yesterday she was able to ambulate with PT, however today she is refusing even to move her leg while laying in bed. She currently denies any chest pain or dyspnea to me, however earlier this morning had reported to her nurse that she is feeling short of breath. Currently on 2 L/min supplemental O2. Tmax of 99.9 Fahrenheit today. Overnight Cardizem drip had been turned off as heart rate had been controlled, however needed to be resumed this morning at 10 mg/h once heart rate started to trend up to 140. Blood pressure ranging soft, systolic between 94-1 05. Medications: Reviewed: Yes Vitals/I&O/Wt Last Vital Signs Temp 99.9 F H 07/15/22 10:25 Pulse 122 H 07/15/22 10:25 Resp 30 H 07/15/22 10:25 BP 134/75 07/15/22 10:25 Pulse Ox 92 07/15/22 10:25 O2 Del Method 07/15/22 10:25 O2 Flow Rate 2 07/15/22 10:25 07/14/22 07/15/22 07/15/22 22:59 06:59 14:59 Intake Total 870 / 1380 1100 / 2480 478.833 / 478.833 Output Total 400 / 400 Balance 470 / 980 1100 / 2080 478.833 / 478.833 Weight last 48 hrs Weight 83.143 kg Weight 78.063 kg Weight 76.856 kg Weight 73.936 kg Physical Exam Narrative: General: No acute distress, laying in bed, HEENT: PERRLA, chronically ill-appearing laying in bed, pupils bilaterally equal and reactive, pallors present Chest: Crackles to auscultation at bilateral lung bases CVS: S1-S2 regular, no murmurs, no tachycardia, no gallops, no rubs Abdomen: Soft, nontender, no organomegaly, bowel sounds present Neuro: No focal deficits, no facial deformity, AO x3, power 5/5 in all limbs Extremities: Refuses to move left leg stating there is pain. Data 07/15/22 03:48 07/15/22 03:48 A&P Assessment and plan (1) Atrial fibrillation with rapid ventricular response: s/p Cardizem 20mg IVP x 2, metoprolol 5mg x 1 in ED This morning she is on Cardizem infusion at 10 mg/h, heart rate is uncontrolled ranging between 1 22-1 40. We will stop Cardizem infusion at this time, switch to amiodarone infusion to control her heart rate. Unable to titrate up oral doses of Cardizem or metoprolol to overlap with the drip due to hypotension. We will switch instead to amiodarone given soft blood pressures. continue home metoprolol 25mg BID, hold p.o. Cardizem Patient has a past history of A-fib with RVR for which she used to be on amiodarone until summer 2021. Echocardiogram from June 26, 2022 with LVEF of 45 to 50%, mild global hypokinesis, diastolic function was unable to be determined at the time due to A-fib. Evidence of mild pulmonary hypertension noted. 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 Continue eliquis 5mg BID, held this morning due to hemoglobin of 7.9. Suspect that this hemoglobin is related to marrow suppression of RBC cell line due to extremely high white blood cell count due to CLL. However will rule out bleeding by checking FOBT before resuming Eliquis. We will also trend hemoglobin over the next 24 hours. (2) JES (acute kidney injury): Likely afib rvr with hypotension Patient was noted to be retaining 300 cc urine this morning. Lucas has been placed. CT KUB to evaluate for any obstruction Creatinine trending down from 1.9 to 1.5 today. D/c fluids due to interim development of crackles, signs of heart failure, lower extremity pitting edema. Start Lasix 20 mg IV daily while closely monitoring renal function. Check CPK for rhabdomyolysis (3) Heart failure: Acute on chronic combined systolic and diastolic heart failure Echocardiogram as noted above from June Interval development of crackles on exam Discontinue IV fluids, start Lasix 20 mg IV daily while closely monitoring kidney function Requiring 2 L/min supplemental O2 Likely that current heart failure is triggered by afib RVR. Amiodarone today to control rate (4) Injury of left hip: s/p mechanical fall PT/OT to eval XRAY negative for fracture Patient was able to ambulate with refuses to move her left leg. Will check CT pelvis for interval development of any fractures. Patient is high risk for pathological fractures given her CLL and steroid use chronically. Reports using prednisone 20 mg daily at home. (5) Lymphatic leukemia: chronic lymphocytic leukenma Has not yet started BTK inhibitors (6) Chronic left hip pain: Hx of avascular necrosis and OA worse today Check CT pelvis for pathological fracture (7) Fever: Low grade fever today Check resp panel, CXR, UA, urine cx and blood cx Monitro off abx for now (8) Elevated troponin: Elevated troponin, baseline of 57, downtrending at 2 and 6 hours. Suspect that elevated troponin is a result of CHF exacerbation, unlikely ACS. Holding off on adding aspirin as hemoglobin is dropping. Will evaluate for FOBT. Stress test performed in August 2021 had shown myocardial imaging with small area of inconsistent reversible defect in the distribution of LCx. At that time LVEF was 71% on stress test. 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 Patient will likely need additional ischemic work-up once stabilized with more acute issues of a fib rvr and CHF Plan Full code Eliquis for DVT prophylaxis Attestations Medical Necessity Statement*: iv diuresis, switch to amiodarone infusion, control HR, Pelvis CT Coding Level of Care Code Acute Code for Chg Fwd High MDM includes number and complexity of problems actively addressed during encounter, amount and/or complexity of data reviewed/ordered and described risk of complication, morbidity or mortality of management as documented Diagnoses Atrial fibrillation with rapid ventricular response I48.91 JES (acute kidney injury) N17.9 Heart failure I50.9 Injury of left hip S79.912A Lymphatic leukemia C91.90 Chronic left hip pain M25.552; G89.29 Fever R50.9 Elevated troponin R77.8
--- NOTE | 2022-07-15 11:02 | CTR_ITS ---
PROCEDURE INFORMATION: Exam: CT Abdomen And Pelvis Without Contrast Exam date and time: 07/15/2022 11:55 AM Age: 86 years old Clinical indication: Other: Joseph, poor urine output, patient HX: Left hip fracture, left leg pain , unable to move left leg, poor urine out put; Additional info: Joseph, poor urine output, evalaute for obstrcution TECHNIQUE: Imaging protocol: Computed tomography of the abdomen and pelvis without contrast. Radiation optimization: All CT scans at this facility use at least one of these dose optimization techniques: automated exposure control; mA and/or kV adjustment per patient size (includes targeted exams where dose is matched to clinical indication); or iterative reconstruction. REPORTING DATA: Count of CT and Cardiac NM exams in prior 12 months: This patient has received 2 known CTs and 0 known cardiac nuclear medicine studies in the 12 months prior to the current study. COMPARISON: CR (PELVIS, ) 07/13/2022 12:22 PM RADIATION DOSE METRICS: Total DLP (mGy-cm): 804.9 FINDINGS: Lungs: There is a noncalcified pulmonary nodule in the right middle lobe visible on series 2, image 1 measuring 10 mm. There is a noncalcified pulmonary nodule in the right lower lobe visible on series 2, image 18 measuring 12 mm. There is dependent atelectasis in the right lower lobe. There is dependent atelectasis in the left lower lobe. Pleural spaces: Small bilateral pleural effusions. Liver: The liver is normal. Gallbladder and bile ducts: The gallbladder is distended. There is high attenuation material within the gallbladder lumen consistent with sludge. There is no intrahepatic or extrahepatic bile duct dilation. Pancreas: The pancreas is unremarkable. Spleen: The spleen is unremarkable. Adrenal glands: The adrenal glands are unremarkable. Kidneys and ureters: There is left renal vascular calcification. There is no hydronephrosis or ureteral dilation. There is a nonobstructive stone in the left lower pole collecting system. Stomach and bowel: The stomach is unremarkable. The small bowel is nondilated. The colon is unremarkable. Appendix: The appendix is normal. Intraperitoneal space: Small volume pelvic free fluid. Vasculature: There is moderate aortic atherosclerotic disease. Lymph nodes: No pelvic or inguinal lymphadenopathy. Enlarged retroperitoneal lymph nodes measure up to 2.4 x 1.5 cm on axial series 2, image 113. There is an enlarged left common iliac lymph node measuring 17 x 13 mm on series 2, image 128. There are multiple mildly enlarged central mesenteric lymph nodes measuring up to 21 x 9 mm on axial series 2, image 121. Urinary bladder: The Lucas catheter is appropriately positioned with the bulb and tip within the bladder lumen. The urinary bladder is decompressed, preventing meaningful evaluation of wall thickness. Reproductive: The uterus is unremarkable. There is no adnexal mass or large cyst. Bones/joints: There is moderate degenerative disease in the lumbar spine. There is moderate degenerative disease of the right hip. There is severe degenerative disease at the left hip. The bony pelvis is intact. Soft tissues: The abdominal wall is intact. CT/CT kidney stone [id number] IMPRESSION: 1. No obstructive uropathy. 2. Small bilateral pleural effusions and compressive atelectasis in the lower lobes. 3. Retroperitoneal, left iliac and lower mesenteric lymphadenopathy. Possible reactive or neoplastic nodes. 4. Right middle and lower lobe pulmonary nodules measuring up to 12 mm.For patients at low risk (minimal or absent history of smoking and of other known risk factors), recommend CT Chest at 3-6 months, then consider CT Chest at 18-24 months. For patients at high risk (history of smoking or of other known risk factors), recommend CT Chest at 3-6 months, then CT Chest at 18-24 months. (Reference: Kellee) REFERENCES: Kellee Garcias et al. Guidelines for Management of Incidental Pulmonary Nodules Detected on CT Images: From the Fleischner Society 2017. Radiology. 2017;284(1):228-243.
[2022-07-15 11:15] LABS: Urine Appearance Hazy (CLEAR); Urine Color Yellow (Yellow); pH Urine 5 (5-7)
[2022-07-15 11:16] LABS: Add Urine Microscopic? YES; Bilirubin Urine Neg (Negative); Blood Urine 3+ (Negative); Glucose Urine UA Norm (Normal); Ketones Urine 1+ (Negative); Leukocyte Esterase Urine Trace (Negative); Nitrate Urine Negative (Negative); Protein Urine Trace (Negative); Urobilinogen Urine Norm (Negative)
[2022-07-15 11:17] LABS: Add Urine Culture? Yes; Bacteria Urine 3+ /hpf; RBC Urine 15-25 /hpf (0-2); Squamous Epithelial Cell Urine 0-4 /hpf (0-5); WBC Urine 15-25 /hpf (0-5)
[2022-07-15 12:06] LABS: Creatine Phosphokinase 17 U/L (26-192)
[2022-07-15] MEDS: FUROsemide 10 mg/mL SDV 2mL 20 MG IVP (14:27)
--- NOTE | 2022-07-15 17:39 | PC.NURSE ---
Reported manual bp of 102/59 to physician received orders to give 12.5 mg of metoprolol non-admin 25mg
[2022-07-15] MEDS: metoprolol tartrate 25 mg Tablet 12.5 MG PO (17:56)
[2022-07-15 18:05] LABS: Adenovirus Not Detected (NOT DETECT); Chlamydia Pneumoniae Not Detected (NOT DETECT); Coronavirus 229E,HKU1,NL63,OC4 Not Detected (NOT DETECT); Human Metapneumovirus Not Detected (NOT DETECT); Human Rhinovirus/Enterovirus Not Detected (NOT DETECT); Influenza A Not Detected (NOT DETECT); Influenza A H1 Not Detected (NOT DETECT); Influenza A H1-2009 Not Detected (NOT DETECT); Influenza A H3 Not Detected (NOT DETECT); Influenza B Not Detected (NOT DETECT); Mycoplasma Pneumoniae Not Detected (NOT DETECT); Parainfluenza Virus Type 1 Not Detected (NOT DETECT); Parainfluenza Virus Type 2 Not Detected (NOT DETECT); Parainfluenza Virus Type 3 Not Detected (NOT DETECT); Parainfluenza Virus Type 4 Not Detected (NOT DETECT); Respiratory Syncytial Virus A Not Detected (NOT DETECT); Respiratory Syncytial Virus B Not Detected (NOT DETECT); SARS-COV-2 Not Detected (NOT DETECT)
[2022-07-16] VITALS (17 sets, daily range): BP systolic 87–115; BP diastolic 43–76; PULSE 71–112; RESP 16–24; TEMP 36.4–36.9; O2SAT 93–100
[2022-07-16 02:05] LABS: Acinetobacter baumannii Not Detected (NOT DETECT); Bacteroides fragilis Not Detected (NOT DETECT); CTX-M Not Detected (NOT DETECT); Citrobacter Not Detected (NOT DETECT); Cronobacter sakazakii Not Detected (NOT DETECT); Enterobacter cloacae complex Not Detected (NOT DETECT); Enterobacter non cloacae Not Detected (NOT DETECT); Fusobacterium necrophorum Not Detected (NOT DETECT); Fusobacterium nucleatum Not Detected (NOT DETECT); Haemophilus influenzae Not Detected (NOT DETECT); IMP Resistance Gene Not Detected (NOT DETECT); KPC Resistance Gene Not Detected (NOT DETECT); Klebsiella pneumoniae group Not Detected (NOT DETECT); Morganella morganii Not Detected (NOT DETECT); NDM Resistance Gene Not Detected (NOT DETECT); Neisseria meningitidis Not Detected (NOT DETECT); OXA Resistance Gene Not Detected (NOT DETECT); Pan Candida Not Detected (NOT DETECT); Pan Gram-Positive Not Detected (NOT DETECT); Proteus mirabilis Not Detected (NOT DETECT); Pseudomonas aeruginosa Not Detected (NOT DETECT); Salmonella Not Detected (NOT DETECT); Serratia Not Detected (NOT DETECT); Serratia marcescens Not Detected (NOT DETECT); Stenotrophomonas maltophilia Not Detected (NOT DETECT); VIM Resistance Gene Not Detected (NOT DETECT)
[2022-07-16] MEDS: piperacillin-tazobactam 3.375 GM in sodium chloride 0.9% (plus) 50 ML IV ×2 (04:13→16:37)
[2022-07-16 04:56] LABS: Hematocrit 26.9 % (37.0-47.0); Hemoglobin 7.9 g/dL (11.5-15.3); Mean Corpuscular HGB Conc 29.4 g/dL (30.0-36.0); Mean Corpuscular Hemoglobin 33.1 pg (28.0-34.0); Mean Corpuscular Volume 112.6 fl (81-99); Mean Platelet Volume 10.3 fL (7.4-10.4); Platelet Count 253 10^3/cmm (130-400); Red Blood Count 2.39 10^6/uL (4.1-5.3); Red Cell Distribution Width 22.7 % (12.1-15.1)
[2022-07-16 05:08] LABS: White Blood Count 69.9 10^3/uL (4.0-10.0)
[2022-07-16 05:09] LABS: Alanine Aminotransferase 21 U/L (0-33); Albumin Level 2.4 g/dL (3.5-5.2); Alkaline Phosphatase 84 U/L (35-105); Anion Gap 15.9 (5-19); Aspartate Amino Transferase 11 U/L (0-32); Blood Urea Nitrogen 59 mg/dL (8-23); Calcium 8.5 mg/dL (8.5-10.5); Carbon Dioxide 20 mmol/L (22-29); Chloride 100 mmol/L (98-107); Globulin 2.9 g/dL (1.3-4.6); Glucose 128 mg/dL (65-115); Osmolality Calculated 290 mOsm/kg (285-295); Potassium 4.9 mmol/L (3.5-5.1); Sodium 131 mmol/L (136-145); Total Bilirubin 1.3 mg/dL (0.15-1.2); Total Protein 5.3 g/dL (6.6-8.7)
[2022-07-16 05:26] LABS: Absolute Segmented Neutrophil 11.9 10/cmm (1.6-7.1); Band Neutrophils Absolute 0.7 10^3/cmm (0.0-1.2); Segmented Neutrophils 17 %; Total Cells Counted 100 (0-100)
[2022-07-16 05:27] LABS: Absolute Neutrophil 12.6 10^3/cmm (1.4-6.5); Eosinophils 0 %; Lymphocytes 82 %; Lymphocytes Absolute 57.3 10^3/cmm (1.2-3.4); Platelet Estimate Normal (Normal)
[2022-07-16 05:30] LABS: Anisocytosis 2+
[2022-07-16 05:31] LABS: Macrocytosis 1+
[2022-07-16 05:32] LABS: Toxic Granulation 1+; Toxic Vacuolation TRACE
[2022-07-16] MEDS: polyethylene glycol 3350 Pkt 17 gm PO (08:38)
[2022-07-16] MEDS: predniSONE 20 mg Tablet PO (08:38)
[2022-07-16] MEDS: metoprolol tartrate 25 mg Tablet PO ×2 (08:38→18:38)
[2022-07-16] MEDS: pantoprazole DR 40 mg Tablet PO (08:38)
[2022-07-16] MEDS: HYDROcodone-acetaminophen 5-325 mg Tablet 1 TAB PO (10:59)
--- NOTE | 2022-07-16 13:22 | ECG_ITS ---
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 Measurements Intervals [place] Rate: 101 P: 0 AL: 0 QRS: 10 QRSD: 88 T: 33 QT: 309 QTc: 402 Interpretive Statements ATRIAL FIBRILLATION WITH RAPID VENTRICULAR RESPONSE MINIMAL ST DEPRESSION [0.025+ mV ST DEPRESSION] ABNORMAL RHYTHM ECG Compared to ECG 07/13/2022 15:11:25 ST (T wave) deviation now present Myocardial infarct finding no longer present T-wave abnormality no longer present Possible ischemia no longer present Electronically Signed On 07-16-2022 23:10:44 CDT by Jefferson Juan M.D. [email or web address]/store/[id number]
--- NOTE | 2022-07-16 13:22 | USCV_ITS ---
Sadie Martines Age: 86 Gender: F : 1935 Exam Date: 07/16/2022 14:25 Ordering Phys: Catia Agarwal MD Technologist: EVELYN Exam Location: [facility] [place] Indication: BLE SWELLING HISTORY: Lower extremity swelling. PROCEDURES: Venous duplex imaging was performed in bilateral lower extremities. The following venous structures were evaluated: common femoral vein, profunda vein, proximal portion of the greater saphenous vein, superficial femoral vein, and the popliteal vein. In addition, the posterior tibial and peroneal trunk were evaluated. Serial compression, augmentation maneuvers, and spectral Doppler flow evaluation were performed. FINDINGS: No evidence of DVT seen in any vessel visualized at this time. CONCLUSIONS No evidence of right lower extremity DVT. No evidence of left lower extremity DVT. Jacobo Valadez MD (Electronically Signed) Final Date: 16 July 2022 17:47 S
--- NOTE | 2022-07-16 13:30 | PC.NURSE ---
Patient had an acute hypoxic event. Patient was sitting in chair after working with physical therapy and began to feel very cold, was shivering and shaking. Patient color was pale and had cyanosis of the lips and nose. Patient cap refill was greater than 10 seconds and patient was short of breath. Heart rate was in the low 100's afib, no apparent cardiac event on tele. Blood pressure was 100/[address] Pack was already on the floor so nurse asked him to come assess patient. Dr. Agarwal was notified and promptly arrived to the floor. Patient was transferred to ICU and was stable upon departure.
[2022-07-16] MEDS: amiodarone 200 mg Tablet 400 MG PO (14:16)
--- NOTE | 2022-07-16 15:22 | ECG_ITS ---
[facility] Test Date: 2022-07-16 Pat Name: Sadie Martines Department: Room: [facility] Gender: Female Electronic Organ Technician: : 1935 Requested By: Catia Agarwal Order Number: [id number] Griffin MD: Jefferson Juan M.D. Measurements Intervals [place] Rate: 92 P: 0 NE: 0 QRS: 12 QRSD: 94 T: 46 QT: 340 QTc: 422 Interpretive Statements ATRIAL FIBRILLATION POSSIBLE ANTERIOR MYOCARDIAL INFARCTION , OF INDETERMINATE AGE [30 ms Q WAVE IN V3/V4, OR R < 0.2 mV IN V4] Compared to ECG 07/16/2022 14:02:01 Myocardial infarct finding now present ST (T wave) deviation no longer present Electronically Signed On 07-16-2022 23:16:30 CDT by Jefferson Juan M.D. [id number]
[2022-07-16 15:31] LABS: Cortisol Random 9.94 ug/dL (2.47-19.5); Troponin(5th) Baseline 35 ng/L (0-10)
[2022-07-16 17:26] LABS: Troponin 5 2HR 32.85 ng/L (0-10)
[2022-07-16 17:29] LABS: Troponin 5 2HR Delta -2.15 ABS# (0-10)
--- NOTE | 2022-07-16 18:12 | ECG_ITS ---
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 Measurements Intervals [place] Rate: 99 P: 0 [place]: 0 QRS: 11 QRSD: 99 T: 55 QT: 344 QTc: 441 Interpretive Statements ATRIAL FIBRILLATION POSSIBLE ANTERIOR MYOCARDIAL INFARCTION , OF INDETERMINATE AGE [30 ms Q WAVE IN V3/V4, OR R < 0.2 mV IN V4] Compared to ECG 07/16/2022 15:50:29 No significant changes Electronically Signed On 07-16-2022 23:17:12 CDT by Jefferson Juan M.D. [email or web address] [email or web address]/store/[id number]
--- NOTE | 2022-07-16 19:03 | PC.NURSE ---
Amiodarone gtt, telephone order to stop by Dr. Agarwal after PO amiodarone given.
[2022-07-16 21:11] LABS: Troponin 5 6HR 30.92 ng/L (0-10)
[2022-07-16 21:17] LABS: Troponin 5 6HR Delta -4.08 ng/L (0-12)
--- NOTE | 2022-07-16 23:28 | P.PN_ITS ---
Subjective Subjective: Blood cx reported positive for GNR overnight, started on Zosyn empirically. Patient's HR is better controlled today after being on amiodarone gtt. Continues to have controlled A fib with HR between 70-100 bpm. Earlier this morning patient had an episode of sudden onset of chills and turning purple and mottled shortly after returning to sitting position in her chair after having worked with PT. Patient was responsive during this episode however had a cyanosed appearance per multiple nursing accounts. Reportedly there was no palpable BP at time of event. Patient was returned to bed where she ocntinued to have chills. Placed in Trendelenbug position, manual BP checked at 100/50 mmhg. She is afberile. At the tof my assessment, patient had patchy blotching on her legs but no gross mottling. She is alert, awake, responsive. Denies any chest pain. Appears uncomfortable 2/2 shivering. Medications: Reviewed: Yes Vitals/I&O/Wt Last Vital Signs Temp 97.6 F 07/16/22 21:49 Pulse 98 07/16/22 22:00 Resp 17 07/16/22 20:00 BP 111/76 07/16/22 21:00 Pulse Ox 100 07/16/22 20:00 O2 Del Method 07/16/22 16:30 O2 Flow Rate 4 07/16/22 20:00 07/16/22 07/16/22 07/17/22 14:59 22:59 06:59 Intake Total 669.025 / 669.025 355.356 / 1024.381 Output Total 700 / 700 Balance 669.025 / 669.025 -344.644 / 324.381 Weight last 48 hrs Weight 81.647 kg Weight 83.143 kg Physical Exam Narrative: General: Laying in bed, currently with chills, wrapped in mutliple blankets HEENT: PERRLA, pupils bilaterally equal and reactive, pallors not present Chest: Normal vesicular breath sounds, no added sounds, equal good air entry bilaterally CVS: S1-S2 regular, no murmurs, no tachycardia, no gallops, no rubs Abdomen: Soft, nontender, no organomegaly, bowel sounds present Neuro: No focal deficits, no facial deformity, AO x3, power 5/5 in all limbs Urinary Catheter Management: Lucas: Cath Placed During This Visit: yes Reason for Continuing Indwelling Catheter: Accurate Measurement of Urinary Output in Critically Ill Patients Urinary Catheter Date of Insertion: 07/15/22 Urinary Catheter Time of Insertion: 10:00 Data 07/16/22 04:32 07/16/22 04:32 Micro: Microbiology 07/15/22 10:00 Urine Culture - Preliminary Urine,Clean Catch Gram Negative Rods 07/15/22 11:42 Blood Culture - Preliminary Blood 07/15/22 11:39 Blood Culture - Preliminary Blood A&P Assessment and plan (1) Atrial fibrillation with rapid ventricular response: s/p Cardizem 20mg IVP x 2, metoprolol 5mg x 1 in ED, did not respond to Cardizem infusion and developed hypotension. Started on amiodarone gtt on 07/15/22, currently running at 0.5 HR is much better controlled today Transition to po amiodarone 400mg daily once off gtt Qtc reveiwed, not prolonged continue home metoprolol but reduced to 12.5 mg BID due to soft BP, holding p.o. Cardizem as rate currently controlled Patient has a past history of A-fib with RVR for which she used to be on amiodarone until summer 2021. Echocardiogram from June 26, 2022 with LVEF of 45 to 50%, mild global hypokinesis, diastolic function was unable to be determined at the time due to A-fib. Evidence of mild pulmonary hypertension noted. 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 eliquis 5mg BID on hold due to drop in Hb, pending FOBT Suspect that anemia hemoglobin is related to marrow suppression of RBC cell line due to extremely high white blood cell count due to CLL. Will additonally evaluate for AIHA with CLL given elevated t bili and LDH. (2) JES (acute kidney injury): Likely secondary to afib rvr with hypotension Patient was noted to be retaining 300 cc urine on 07/15. Lucas has been placed. CT KUB negative for any obstruction. Note made of significant retroperitoneal LAD concerning for malignant process. Creatinine trending up today Fluids had been D/c on 07/15 due to interim development of crackles, signs of heart failure, lower extremity pitting edema. received Lasix 20 mg IV on 07/15, will d/c lasix today given worsening JES Renal consult if cr ails to improve over the next 24 hrs CPK 17, not c/f rhabdomyolysis (3) Heart failure: Acute on chronic combined systolic and diastolic heart failure Echocardiogram as noted above from June Lasix due to worsenign renal function Requiring 2 L/min supplemental O2 (4) Injury of left hip: s/p mechanical fall PT/OT to eval XRAY and CT pelvis negative for fracture. Severe OA changes particularly at left hip which would explain her pain. Offer lidocaine patch locally continue prn opiates for pain management (5) Lymphatic leukemia: chronic lymphocytic leukenma Has not yet started BTK inhibitors Concerned that events from today may be related to B symptoms from CLL. She has evidence of predominant lymphocytosis on differential (> 50%), retroperitoneal LAD on exam and increasing LDH and T. bili which raises concern for hemolytic process. Patient's outpatient oncologist is away, not currently available to discuss case. Will check haptoglobin, indirect bili, peripheral smear Increase steroids to pulse dosing Prednisone 80 mg daily today x 2 days, then decrease by 20 mg daily every 2 days. She has been on Prednisone 60mg daily ---> 20 mg daily one month ago. BTK inhibitors have not been started due to interim development of A fib. (6) Chronic left hip pain: severe degenerative arthritis (7) Fever: Low grade fever 99.9 F on 07/15, chills today Infectious w/up thus far: negative resp panel, CXR Early interstitial edema with a small left pleural effusion trace LA , negative nitrate, 3+ bacteria, prelim urine cx with GNR, emprically on zosyn blood cx prelim with GNR, started on ZOsyn overnight Repeat with am labs (8) Elevated troponin: Elevated troponin, baseline of 57, downtrending at 2 and 6 hours. Suspect that elevated troponin is a result of CHF exacerbation, unlikely ACS. Holding off on adding aspirin as hemoglobin is dropping. Will evaluate for FOBT. Stress test performed in August 2021 had shown myocardial imaging with small area o f inconsistent reversible defect in the distribution of LCx. At that time LVEF was 71% on stress test. 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 Patient will likely need additional ischemic work-up once stabilized with more acute issues of a fib rvr and CHF Plan Chills today with episode of transient mottling. Symptoms may be related to gram negative bacteremia for which she has been started on ZOsyn. May additonally be B symptoms related to CLL. Given acuity of events, will check trop series and EKG, orthostatics, V Q scan. LE doppler , random cortisol, labs for hemolysis . Transferred to ICU for closer monitoring Full code Eliquis for DVT prophylaxis Attestations Medical Necessity Statement*: iv abx, gram negative bacteremia, evaluate for hemolysis, transition amiodarone gtt to po Coding Level of Care Code Acute Code for Chg Fwd High MDM includes number and complexity of problems actively addressed during encounter, amount and/or complexity of data reviewed/ordered and described risk of complication, morbidity or mortality of management as documented Diagnoses Atrial fibrillation with rapid ventricular response I48.91 JES (acute kidney injury) N17.9 Heart failure I50.9 Injury of left hip S79.912A Lymphatic leukemia C91.90 Chronic left hip pain M25.552; G89.29 Fever R50.9 Elevated troponin R77.8
[2022-07-17] VITALS (27 sets, daily range): BP systolic 99–128; BP diastolic 55–86; PULSE 95–127; RESP 16–34; TEMP 36.4–36.8; O2SAT 98–100
[2022-07-17 03:41] LABS: Chloride 102 mmol/L (98-107)
[2022-07-17 04:08] LABS: Alanine Aminotransferase 27 U/L (0-33); Alkaline Phosphatase 112 U/L (35-105); Aspartate Amino Transferase 17 U/L (0-32); Blood Urea Nitrogen 58 mg/dL (8-23); Calcium 8.3 mg/dL (8.5-10.5); Carbon Dioxide 21 mmol/L (22-29); Glucose 110 mg/dL (65-115); Total Bilirubin 1.4 mg/dL (0.15-1.2); Total Protein 5.3 g/dL (6.6-8.7)
[2022-07-17] MEDS: piperacillin-tazobactam 3.375 GM in sodium chloride 0.9% (plus) 50 ML IV ×2 (04:12→17:07)
[2022-07-17 04:19] LABS: Lactate Dehydrogenase 242 U/L (135-214)
[2022-07-17 04:20] LABS: Anion Gap 16.3 (5-19); Osmolality Calculated 295 mOsm/kg (285-295); Potassium 5.3 mmol/L (3.5-5.1); Sodium 134 mmol/L (136-145)
[2022-07-17 04:46] LABS: Albumin Level 2.3 g/dL (3.5-5.2)
--- NOTE | 2022-07-17 07:00 | NM_ITS ---
WS: [id number] NUCLEAR MEDICINE LUNG VENTILATION AND PERFUSION CLINICAL INFORMATION: evalaute for PE TECHNIQUE: Ventilation/perfusion lung scan with 32.1 mCi technetium 99m DTPA. 5.3 mCi MAA COMPARISON: None. FINDINGS: Radiograph July 15, 2022 reviewed Cardiomegaly. Shallow inspiration. Aortic calcification. Interstitial edema. Small LEFT pleural effus ion with LEFT basilar infiltrate. Patchy radiotracer deposition on the ventilatory images along the central bronchi compatible with emp hysematous changes. Relatively symmetric bilateral radiotracer uptake on the perfusion images. A few matched ventilation/perfusion defects. No large mismatched or lobar perfusion defects. Low probabilit y for PE. NM/NM pul vent and perfus* [id number] IMPRESSION: 1. Low probability for pulmonary embolus.
[2022-07-17 07:23] LABS: LAB Peripheral Smear Sent for Review
[2022-07-17] MEDS: pantoprazole DR 40 mg Tablet PO ×2 (08:59→17:07)
[2022-07-17] MEDS: amiodarone 200 mg Tablet 400 MG PO ×2 (08:59→17:06)
[2022-07-17] MEDS: metoprolol tartrate 25 mg Tablet PO (09:00)
[2022-07-17] MEDS: polyethylene glycol 3350 Pkt 17 gm PO (09:01)
[2022-07-17] MEDS: predniSONE 20 mg Tablet 80 MG PO (09:01)
[2022-07-17] MEDS: HYDROcodone-acetaminophen 5-325 mg Tablet 1 TAB PO (09:07)
--- NOTE | 2022-07-17 10:52 | PC.CHAP ---
Pastoral Care Encounter/Spiritual Assessment Type of Contact [] Declined director translational visit [] Patient/Family/Request visit [] Outpatient visit [] Follow-up visit [] Physician referral [] Code/Alert [x] Routine visit [] Staff referral [] Actively dying [] Patient sleeping [] Family support [] [] Out of room [] Palliative care [] [x] Receiving care in room [] Pre-surgical visit [] Trauma [] Long length of stay [x] ICU visit [] Other: Relational/Emotional Strength [] Patient feels connected with others/family/visitors/staff [] Distress [] Loneliness/isolation [] Abandonment Spirituality of Patient [] Person of Ghada [] Attends Yazdanism of their Ghada [] Believes in Prayer [] Reads Bible or Rastafarian materials [] There are Spiritual issues to be addressed Sole Splitter Interventions [x] Prayer [] Active listening [] Non-anxious presence [] Spiritual/emotional support [] Crisis/trauma care [] Spiritual counseling [] Bereavement support [] Provided bereavement packet [] Provided Bible/devotional materials [] Provided toy/stuffed animal, coloring book to patient or family member [] Provided Communion [] Anointing/[place] [] Salvation [x] Completed spiritual assessment [] Other: Impact on Illness or Injury [] Angry [] Fearful [] Anxious [] Often cries [] Exhaustion [] Unable to work [] Unable to attend sabianist [] Unable to walk/stand [] Unable to read [] Unable to drive [] Unable to eat/drink [] Unable to sleep [] Unable to be with family [] Patient intubated [] Other: Summary Time spent with patient
[2022-07-17] MEDS: insulin regular-human 10 UNIT in SYRINGE 1 EACH IVP (12:39)
--- NOTE | 2022-07-17 13:25 | P.CONIM_ITS ---
Providers/Reason For Consult Consulting Physician/Specialty*: COTY Juan MD/cardiology Reason for Consult*: Patient with atrial fibrillation and rapid ventricular rate/rate remains uncontrolled with multiple AV racheal blocking agents and IV amiodarone Requesting Physician: Dr. Agarwal Attending Physician: Catia Agarwal MD Primary Care Provider: Griselda Garrett APRN History of Present Illness History of Present Illness Sadie Martines is a 86 year old female is admitted to the hospital with fall and sustaining right hip injury. She was found to be in atrial fibrillation with a rapid ventricular rate. She is on amiodarone drip. The rate still remains uncontrolled. She also is being treated for possible gram-negative sepsis. Patient has any chest pain. No significant palpitation. No dizziness or syncopal episodes. She is known to have LV dysfunction and congestive heart failure. The LV ejection fraction was 45 to 50% by echocardiogram at the beginning of this month. She had moderate mitral regurgitation and mild pulmonary hypertension. She is on long-term oral anticoagulation. She also was recently diagnosed with CLL. She had an Myocardial perfusion imaging which revealed some small areas of inconsistent reversibility. Since the patient did not have any significant symptoms of coronary insufficiency, it was decided to continue the medical treatment. The patient has a history of megaloblastic anemia, COVID-19 pneumonia complicated with respiratory failure, stage III kidney disease and dyslipidemia. Review of Systems Narrative: CONSTITUTIONAL: Has a feeling of generalized weakness. An episode of chills with respiratory difficulty and hypotension earlier this morning. EYES: No blurring of vision or other visual disturbances lately. ENT: No hoarseness of voice, auditory disturbances or sore throat. CARDIOVASCULAR: As mentioned above. RESPIRATORY: No significant cough. GASTROINTESTINAL: No hematemesis or melena. GENITOURINARY: No dysuria or hematuria. INTEGUMENTARY: No skin rashes or history of skin cancer. NEURO: As mentioned above HEMATOLOGIC: As mentioned above ENDOCRINE: No history of polyuria or polydipsia. MUSCULOSKELETAL: No recent joint pain or swelling. ALLERGY/IMMUNOLOGY: As mentioned above. Medications/Allergies Home Medications Medication Instructions Recorded Confirmed Last Taken Type cyanocobalamin (vitamin B-12) 1,000 mcg SUBCUT Q30D 07/04/21 07/13/22 07/12/22 History 1,000 mcg/mL injection solution coenzyme Q10 100 mg capsule (Co 100 mg PO DAILY 08/30/21 07/13/22 07/12/22 History Q-10) glucosamine HCl 500 mg tablet 500 mg PO DAILY 08/30/21 07/13/22 07/12/22 History vit A 300 mcg-C 200 mg-E 27 1 tab PO DAILY 08/30/21 07/13/22 07/12/22 History mg-lutein 2 mg and minerals tablet (Eye Health Plus Lutein) magnesium 200 mg tablet 200 mg PO DAILY 09/18/21 07/13/22 07/12/22 History COCK UP SPLINT #2 ea 10/10/21 07/13/22 Unknown Rx ascorbic acid (vitamin C) 1,000 mg 1 g PO DAILY@05/16/22 07/13/22 07/12/22 History capsule cholecalciferol (vitamin D3) 125 125 mcg PO DAILY@12 06/25/22 07/13/22 07/12/22 History mcg (5,000 unit) tablet (Vitamin D3) zinc acetate 50 mg (zinc) capsule 50 mg PO DAILY 06/25/22 07/13/22 07/12/22 History apixaban 5 mg tablet (Eliquis) 5 mg PO BID 30 days #60 tabs 06/26/22 07/13/22 07/12/22 Rx diltiazem HCl 120 mg 120 mg PO DAILY #30 caps 06/26/22 07/13/22 07/12/22 Rx capsule,extended release 24 hr metoprolol tartrate 50 mg tablet 25 mg PO BID #60 tabs 06/26/22 07/13/22 07/12/22 Rx (Lopressor) furosemide 20 mg tablet 20 mg PO DAILY swelling 07/08/22 07/13/22 07/12/22 History prednisone 20 mg tablet 20 mg PO DAILY 07/08/22 07/13/22 07/12/22 History acalabrutinib maleate 100 mg tablet 100 mg PO Q12H #60 tabs 07/09/22 07/13/22 Unknown Rx allopurinol 300 mg tablet 150 mg PO BID 07/13/22 07/13/22 07/12/22 History Allergies Allergy/AdvReac Type Severity Reaction Status Date / Time No Known Allergies Allergy Verified 07/08/22 10:03 Current Medications Generic Name Dose Route Start Last Admin Trade Name Freq PRN Reason Stop Dose Admin Hydrocodone Bitart/Acetaminophen 1 tab 07/13/22 15:37 07/17/22 09:07 Hydrocodone-Acetaminophen 5-325 Mg Tablet PO 1 tab Q4H PRN Administration MODERATE TO SEVERE PAIN Amiodarone HCl 400 mg 07/16/22 13:25 07/17/22 08:59 Amiodarone 200 Mg Tablet PO 400 mg DAILY CHEIKH Administration Apixaban 5 mg 07/13/22 15:45 07/15/22 10:24 Apixaban 5 Mg Tablet PO Not Given BID CHEIKH Furosemide 20 mg 07/15/22 11:00 07/15/22 14:27 Furosemide 10 Mg/Ml Sdv 2ml IVP 20 mg Q24H CHEIHK Administration Amiodarone HCl 900 mg/ 518 mls @ 0 mls/hr 07/15/22 11:00 07/16/22 18:49 Dextrose/ IV Miscellaneous IV 0 mg/min Supplies .Q0M CHEIKH 0 mls/hr Titration Protocol Per Protocol Piperacillin Sod/Tazobactam 50 mls @ 12.5 mls/hr 07/16/22 16:00 07/17/22 08:07 Sod 3.375 gm/ Sodium Chloride IV 0 mls/hr Q12H CHEIKH Infusion Protocol Polyethylene Glycol 17 gm 07/16/22 09:00 07/17/22 09:01 Polyethylene Glycol 3350 Pkt 17 Gm PO 17 gm DAILY CHEIKH Administration PFSH Acute PFSH: Medical History Atrial fibrillation by electrocardiogram B12 deficiency Chronic lymphocytic leukemia Degenerative arthritis Hyperlipidemia Hypertension Surgical History History of carpal tunnel surgery of right wrist History of tubal ligation Status post total knee replacement, 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) Family History Mother CAD (coronary artery disease) unknown age of onset Stroke Father Cancer Brother Cancer Denies family history of Diabetes Clotting disorder Dementia Chronic kidney disease (CKD) Suicide Anesthesia complication Bleeding disorder Lung disease Social History Smoking and tobacco status: former smoker (smoked x 45 years) Alcohol intake: current Alcohol intake frequency: 0-2 Drinks per Day Vitals/I&O/Wt Last Vital Signs Temp 97.5 F L 07/17/22 12:42 Pulse 106 H 07/17/22 12:00 Resp 21 H 07/17/22 12:00 BP 101/69 07/17/22 12:00 Pulse Ox 100 07/17/22 12:00 O2 Del Method 07/17/22 08:00 O2 Flow Rate 4 07/17/22 08:00 07/16/22 07/17/22 07/17/22 22:59 06:59 14:59 Intake Total 355.356 / 1024.381 120 / 4272.383 1092.958 / 1033.958 Output Total 700 / 700 550 / 1250 Balance -344.644 / 324.381 -430 / -898.240 0752.958 / 1033.958 Weight last 48 hrs Weight 181 lb 3.2 oz Weight 180 lb Physical Exam Narrative: GENERAL: The patient is alert and oriented times three. Not in any acute distress. HEENT: Moderate pallor, no icterus or lymphadenopathy.Oral cavity: There are no mucous membrane lesions. NECK: Trachea appears to be central. No masses noted. No JVD or thyromegaly appreciated. RESPIRATORY: Chest is symmetrical. No intercostals muscle retraction or any accessory muscle activation. There is no chest wall tenderness. Breath sounds are heard bilaterally. No rales or rhonchi heard. No evidence of any consolidation. BREASTS: Deferred. HEART: The heart sounds are normal. No S3 or S4. Short systolic murmur in the lower sternal border. No diastolic murmurs. No pericardial rub ABDOMEN: No vessel pulsations or distention. No tenderness. No organomegaly appreciated. Bowel sounds are normally heard. : Deferred. RECTAL: Deferred. LYMPHATIC: No lymphadenopathy noted in the neck. EXTREMITIES: No edema or cyanosis. No clubbing. MUSCULOSKELETAL: No acute joint deformities or swelling SKIN: There are no significant rashes or ecchymosis NEUROPSYCHIATRIC: The patient is alert and oriented x3. Appears to be in a good mood. No tremors or rigidity noted. Urinary Catheter Management: Lucas: Cath Placed During This Visit: yes Reason for Continuing Indwelling Catheter: Accurate Measurement of Urinary Ou tput in Critically Ill Patients Urinary Catheter Date of Insertion: 07/15/22 Urinary Catheter Time of Insertion: 10:00 Data 07/16/22 04:32 07/17/22 03:11 Micro: Microbiology 07/17/22 03:11 Blood Culture - Preliminary Blood SPECIMEN COLLECTED 07/17/22 03:09 Blood Culture - Preliminary Blood SPECIMEN COLLECTED 07/15/22 10:00 Urine Culture - Preliminary Urine,Clean Catch Gram Negative Rods MPI: My impression: 08/28/21 Stress test 1.? Myocardial perfusion imaging revealing small area of inconsistent ?reversible defect suggesting myocardial ischemia in the distribution of the ?left circumflex artery.? However in view of the inconsistency, the reliability ?is questionable ?2. Normal LV ejection fraction of 71%. ?3.? LV wall motion analysis revealing no gross wall motion normalities. ?4.? Normal LV volume ?Clinical correlation is recommended 1.? Nonspecific EKG changes? with the LexiScan infusion 2. No LexiScan induced chest pain or cardiac arrhythmia 3. Normal blood pressure and heart rate response 07/09/21 Event Monitor 1.? The baseline rhythm was found to be sinus bradycardia with an overall average heart rate of 87 bpm.? Rare ventricular and supraventricular ectopics. 2.? No symptomatic tachycardia or bradyarrhythmias.? No significant pauses 3.? No previous similar studies, available for comparison Echo: My impression: Echocardiogram on LV systolic function is mildly reduced with EF of 45 to 50% ?Diastolic function is indeterminate because of atrial ?fibrillation. ?Left atrial dilation ?Moderate mitral regurgitation ?Mild tricuspid regurgitation ?Mild pulmonary hypertension ?No comparison studies are available EKG 1: My Interpretation: Atrial fibrillation with a ventricular rate of [address]-T changes. A&P Assessment and plan (1) Atrial fibrillation with rapid ventricular response: The patient is currently on amiodarone 400 mg daily. The dose may be increased to 400 mg p.o. twice daily. Need to be closely monitored on telemetry. May continue on the current dose of the Cardizem and metoprolol. The doses of this medication may need to be cut back, depending on the heart rate response. (2) Heart failure: Clinically appears to be compensated. May be treated with the diuretics on a as needed basis. (3) JES (acute kidney injury): Careful IV diuresis may be continued. (4) Injury of left hip: Continue on the current management (5) Fever: Antibiotic treatment as per the hospital service (6) Lymphatic leukemia: Management as per the oncology service. Plan Her other problems are Anemia Acute on chronic kidney disease UTI We will increase the dose of amiodarone to 400 mg p.o. twice daily If the patient continues to remain in atrial fibrillation, we may consider electrical cardioversion. For the time being, she may be continued on the current medications. She will be closely monitored on telemetry. Thank you for the opportunity to evaluate this patient and make these recommendations Coding Level of Care Code 49992 Diagnoses Atrial fibrillation with rapid ventricular response I48.91 Heart failure I50.9 JSE (acute kidney injury) N17.9 Injury of left hip S79.912A Fever R50.9 Lymphatic leukemia C91.90
[2022-07-17] MEDS: metoprolol tartrate 50 mg Tablet PO (17:06)
--- NOTE | 2022-07-17 17:22 | PM.PN ---
Subjective Subjective: No repeat episodes of chills or presyncope. Patient in better spirits. No new complaints this morning. Tmax 99.9 on July 23, 2022. Urine culture identified gram-negative rods with E. coli. Supplemental O2 at 4 L/min. Heart rate ranging between 90 to 120 bpm. Medications: Reviewed: Yes Vitals/I&O/Wt Last Vital Signs Temp 97.5 F L 07/17/22 12:42 Pulse 104 H 07/17/22 16:00 Resp 23 H 07/17/22 16:00 BP 122/71 07/17/22 16:00 Pulse Ox 100 07/17/22 16:00 O2 Del Method 07/17/22 08:00 O2 Flow Rate 4 07/17/22 08:00 07/17/22 07/17/22 07/17/22 06:59 14:59 22:59 Intake Total 120 / 7165.278 4325.058 / 1034.058 0 / 1034.058 Output Total 550 / 1250 Balance -430 / -607.062 9253.058 / 1034.058 0 / 1034.058 Weight last 48 hrs Weight 82.191 kg Weight 81.647 kg Physical Exam Narrative: General: No acute distress, AO x3 HEENT: PERRLA, pupils bilaterally equal and reactive, pallors not present Chest: Normal vesicular breath sounds, no added sounds, equal good air entry bilaterally CVS: S1-S2 regular, no murmurs, no tachycardia, no gallops, no rubs Abdomen: Soft, nontender, no organomegaly, bowel sounds present Neuro: No focal deficits, no facial deformity, AO x3, power 5/5 in all limbs Urinary Catheter Management: Lucas: Cath Placed During This Visit: yes Reason for Continuing Indwelling Catheter: Accurate Measurement of Urinary Output in Critically Ill Patients Urinary Catheter Date of Insertion: 07/15/22 Urinary Catheter Time of Insertion: 10:00 Data 07/16/22 04:32 07/17/22 03:11 Micro: Microbiology 07/15/22 10:00 Urine Culture - Final Urine,Clean Catch Escherichia coli 07/15/22 11:42 Blood Culture - Preliminary 4 OF 4 BOTTLES POSITIVE GRAM STAIN: GRAM NEGATIVE RODS BCID: PRESUMPTIVE E. COLI Blood 07/15/22 11:39 Blood Culture - Preliminary Blood 07/17/22 03:11 Blood Culture - Preliminary Blood SPECIMEN COLLECTED 07/17/22 03:09 Blood Culture - Preliminary Blood SPECIMEN COLLECTED 07/15 Urine Culture Final 07/17/22-4645 Organism 1 Escherichia coli [place] Count >100,000 CFU/ml DAY 2 E coli M.I.C. RX --------- ------ * Amikacin <=16 S * Amoxicillin/Clavulanate <=8/4 S * Ampicillin <=8 S * Ampicillin/Sulbactam <=8/4 S * Aztreonam <=4 S * Cefepime <=8 S * Ceftriaxone <=1 S * Cefuroxime <=4 S * Ciprofloxacin <=1 S * Gentamicin <=2 S * Imipenem <=1 S * Levofloxacin <=2 S * Nitrofurantoin <=32 S * Tetracycline <=4 S * Trimethoprim/Sulfamethoxazole <=2/38 S * Piperacillin/Tazobactam <=16 S A&P Assessment and plan (1) Gram-negative bacteremia: Gram-negative bacteremia as seen on blood cultures from July 15, 2022. Isolate is pending final identification and susceptibility testing. Presumably source is the urine as urine culture with E. coli. Susceptibilities available from the urine isolate. Awaiting final identification of the blood isolate before narrowing Zosyn to ceftriaxone. CT of her abdomen did not show any hydronephrosis or ureteral dilatation. There was a nonobstructive stone in the left lower pole of the collecting system. No surgical intervention currently indicated. JES not explained by obstructive process, more likely related to ATN from hypotension. Likely that her episode of chills and presyncope was related to gram-negative bacteremia on July 16, though cannot completely exclude possibility of B symptoms contributing. Repeat culture from July 17 to assess for clearance. (2) Atrial fibrillation with rapid ventricular response: s/p Cardizem 20mg IVP x 2, metoprolol 5mg x 1 in ED, did not respond to Cardizem infusion and developed hypotension. Started on amiodarone gtt on 07/15/22, transition now to p.o. amiodarone We will increase dose to amiodarone 400 mg twice daily Increase metoprolol to 50 twice daily from 25 twice daily. Continue to monitor on telemetry. Heart rate today ranging between 80 to 120 bpm Echocardiogram from June 26, 2022 with LVEF of 45 to 50%, mild global hypokinesis, diastolic function was unable to be determined at the time due to A-fib. Evidence of mild pulmonary hypertension noted. 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 Patient is on Eliquis as outpatient, for now we will start her on Lovenox 1 mg/kg every 12 hours. Eliquis was previously placed on hold due to concerns for anemia. Hemoglobin has remained stable over the course of last 3 days. Suspect that anemia hemoglobin is related to marrow suppression of RBC cell line due to extremely high white blood cell count due to CLL. No evidence of bleeding at this time. (3) JES (acute kidney injury): Cr improving today at 1.6, urine output 1.2L Likely secondary to afib rvr with hypotension, ATN from sepsis Patient was noted to be retaining 300 cc urine on 07/15. Lucas has been placed. CT KUB negative for any obstruction. Note made of significant retroperitoneal LAD concerning for malignant process. Fluids had been D/c on 07/15 due to interim development of crackles, signs of heart failure, lower extremity pitting edema. received Lasix 20 mg IV on 07/15, then d/c lasix 07/16 CPK 17, not c/f rhabdomyolysis (4) Heart failure: Acute on chronic combined systolic and diastolic heart failure Echocardiogram as noted above from June Lasix due to worsenign renal function Requiring 4 L/min supplemental O2 (5) Injury of left hip: s/p mechanical fall PT/OT to eval XRAY and CT pelvis negative for fracture. Severe OA changes particularly at left hip which would explain her pain. Offer lidocaine patch locally continue prn opiates for pain management (6) Lymphatic leukemia: chronic lymphocytic leukenma Has not yet started BTK inhibitors Concerned that chills may be contributed by B symptoms from CLL. She has evidence of predominant lymphocytosis on differential (> 50%), retroperitoneal LAD. elevated haptoglobin, normal indirect bili, downtrending LDH less oncerning for AIHA at this time Keep prednisone at 20 mg daily. Will discuss adding PJP ppx once acute issues settled BTK inhibitors have not been started due to interim development of A fib. (7) Chronic left hip pain: severe degenerative arthritis (8) Fever: related to gram negative bacatremia (9) Elevated troponin: Elevated troponin, baseline of 57, downtrending at 2 and 6 hours. Suspect that elevated troponin is a result of CHF exacerbation, unlikely ACS. Holding off on adding aspirin as hemoglobin is dropping. Will evaluate for FOBT. Stress test performed in August 2021 had shown myocardial imaging with small area of inconsistent reversible defect in the distribution of LCx. At that time LVEF was 71% on stress test. More recent echocardiogram from June 2022 shows an EF of 45 to 50% which would be considered a change management administrator prior. Patient will likely need additional ischemic work-up once stabilized with more acute issues of a fib rvr and CHF Plan Full code lovenox for DVT prophylaxis Attestations Medical Necessity Statement*: iv abx, optimize rate control, gram negative bacteremia Coding Level of Care Code Acute Code for Chg Fwd High MDM (all updates and test resuts discused with family in detail ) includes number and complexity of problems actively addressed during encounter, amount and/or complexity of data reviewed/ordered and described risk of complication, morbidity or mortality of management as documented Diagnoses Gram-negative bacteremia R78.81 Atrial fibrillation with rapid ventricular response I48.91 JES (acute kidney injury) N17.9 Heart failure I50.9 Injury of left hip S79.912A Lymphatic leukemia C91.90 Chronic left hip pain M25.552; G89.29 Fever R50.9 Elevated troponin R77.8
[2022-07-17] MEDS: enoxaparin 100 mg/mL Syringe 80 MG SUBCUT (19:03)
[2022-07-17] MEDS: lidocaine 5% Patch 1 PATCH TOPICAL (21:30)
[2022-07-18] VITALS (30 sets, daily range): BP systolic 106–138; BP diastolic 69–102; PULSE 100–128; RESP 19–30; TEMP 36.1–37.7; O2SAT 90–100
[2022-07-18 03:16] LABS: Hematocrit 25.8 % (37.0-47.0); Hemoglobin 7.9 g/dL (11.5-15.3); Lymphocytes # 44.3 10^3/uL (0.8-4.8); Lymphocytes % 73.3 %; Mean Corpuscular HGB Conc 30.6 g/dL (30.0-36.0); Mean Corpuscular Hemoglobin 32.8 pg (28.0-34.0); Mean Corpuscular Volume 107.1 fl (81-99); Monocytes # 0.3 10^3/uL (0.2-0.9); Monocytes % 0.5 %; Neutrophils # 14.87 10^3/uL (1.8-7.7); Neutrophils % 24.7 %; Nucleated Red Blood Cells % 0 %; Platelet Count 301 10^3/cmm (130-400); Red Blood Count 2.41 10^6/uL (4.1-5.3); Red Cell Distribution Width 21.7 % (12.1-15.1)
[2022-07-18 03:28] LABS: White Blood Count 60.4 10^3/uL (4.0-10.0)
[2022-07-18] MEDS: piperacillin-tazobactam 3.375 GM in sodium chloride 0.9% (plus) 50 ML IV ×2 (05:03→13:01)
[2022-07-18] MEDS: enoxaparin 100 mg/mL Syringe 80 MG SUBCUT (05:03)
[2022-07-18] MEDS: polyethylene glycol 3350 Pkt 17 gm PO (08:24)
[2022-07-18] MEDS: predniSONE 20 mg Tablet PO (08:24)
[2022-07-18] MEDS: pantoprazole DR 40 mg Tablet PO ×2 (08:24→17:12)
[2022-07-18] MEDS: metoprolol tartrate 50 mg Tablet PO (08:25)
[2022-07-18] MEDS: amiodarone 200 mg Tablet 400 MG PO ×2 (08:25→17:12)
[2022-07-18] MEDS: lidocaine 5% Patch 1 PATCH TOPICAL ×2 (08:43→20:43)
--- NOTE | 2022-07-18 13:07 | PC.SOCIAL ---
IMM Updated Updated pt's daughter on IMM. No questions voiced. Provided pt a copy. Initialed, dated, & timed copy in chart.
[2022-07-18] MEDS: enoxaparin 80 mg/0.8 mL Syringe SUBCUT (14:37)
[2022-07-18] MEDS: cefTRIAXone 1,000 MG in sodium chloride 0.9% (plus) 50 ML 100 MG IV (14:37)
--- NOTE | 2022-07-18 16:12 | PM.PN ---
Subjective Subjective: No repeat episodes of fever or chills. She remains afebrile. Blood culture from July 17 was thus far negative. Heart rate is ranging between 1 10-1 20. Hemoglobin this morning at 7.9. FOBT testing returned negative. Starting to develop lower extremity pitting edema, oxygen requirements are stable currently at 4 L/min. Saturating 98%. Medications: Reviewed: Yes Vitals/I&O/Wt Last Vital Signs Temp 98 F 07/18/22 12:00 Pulse 122 H 07/18/22 14:00 Resp 20 H 07/18/22 12:00 BP 120/73 07/18/22 12:00 Pulse Ox 98 07/18/22 12:00 O2 Del Method 07/18/22 12:00 O2 Flow Rate 4 07/18/22 12:00 07/18/22 07/18/22 07/18/22 06:59 14:59 22:59 Intake Total 729.583 / 729.583 50 / 779.583 Output Total 550 / 1000 450 / 450 Balance -550 / 639.058 279.583 / 279.583 50 / 329.583 Weight last 48 hrs Weight 82.1 kg Weight 82.191 kg Physical Exam Narrative: General: No acute distress, AO x3 HEENT: PERRLA, pupils bilaterally equal and reactive, pallors not present Chest: Normal vesicular breath sounds, no added sounds, equal good air entry bilaterally CVS: S1-S2 regular, no murmurs, no tachycardia, no gallops, no rubs Abdomen: Soft, nontender, no organomegaly, bowel sounds present Neuro: No focal deficits, no facial deformity, AO x3, power 5/5 in all limbs extremities: 1+ pitting edema bilaterally Urinary Catheter Management: Lucas: Cath Placed During This Visit: yes Reason for Continuing Indwelling Catheter: Accurate Measurement of Urinary Output in Critically Ill Patients Urinary Catheter Date of Insertion: 07/15/22 Urinary Catheter Time of Insertion: 10:00 Data 07/18/22 02:49 07/17/22 03:11 Micro: Microbiology 07/15/22 11:39 Blood Culture - Final Blood Escherichia coli 07/17/22 03:11 Blood Culture - Preliminary Blood NEGATIVE TO DATE 07/17/22 03:09 Blood Culture - Preliminary Blood NEGATIVE TO DATE 07/17/22 05:30 Occult Blood (FIT) - Final Stool 07/15/22 10:00 Urine Culture - Final Urine,Clean Catch Escherichia coli 07/15/22 11:42 Blood Culture - Preliminary Blood A&P Assessment and plan (1) Gram-negative bacteremia: Gram-negative bacteremia as seen on blood cultures from July 15, 2022. Now identified as E. coli which is craft susceptible. Discontinue piperacillin/tazobactam, changed treatment to ceftriaxone 1 g IV every 24 hours. Presumably source is the urine as urine culture with E. coli. CT of her abdomen did not show any hydronephrosis or ureteral dilatation. There was a nonobstructive stone in the left lower pole of the collecting system. No surgical intervention currently indicated. JES not explained by obstructive process, more likely related to ATN from hypotension. Likely that her episode of chills and presyncope was related to gram-negative bacteremia on July 16 Repeat culture from July 17 thus far negative to date We will plan for transition to oral fluoroquinolone at the time of discharge for a total therapy of 14 days for complicated UTI. (2) Atrial fibrillation with rapid ventricular response: Currently on amiodarone 400 mg twice daily Increase metoprolol to 75mg twice daily from 50 twice daily. Continue to monitor on telemetry. Heart rate today ranging between 80 to 120 bpm Echocardiogram from June 26, 2022 with LVEF of 45 to 50%, mild global hypokinesis, diastolic function was unable to be determined at the time due to A-fib. Evidence of mild pulmonary hypertension noted. 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 Fecal occult blood testing returned negative, started on Lovenox 1 mg/kg every 12 hours, previously on Eliquis. Recommended to transfuse 2 units packed red blood cells with a hemoglobin threshold of 9 and a cardiac patient to help control heart rate better. Part of the tachycardia may be related to anemic state. (3) JES (acute kidney injury): Cr stable at 1.6, urine output 1.4L Likely secondary to afib rvr with hypotension, ATN from sepsis Patient was noted to be retaining 300 cc urine on 07/15. Lucas has been placed. CT KUB negative for any obstruction. Continue to hold Lasix today. Patient is developing lower extremity edema, her respiratory status is stable for now. No crackles on auscultation. Holding off on Lasix again today in an effort to preserve renal function. May need to be resumed at a lower dose tomorrow. (4) Heart failure: Acute on chronic combined systolic and diastolic heart failure Echocardiogram as noted above from June Lasix due to worsenign renal function Requiring 4 L/min supplemental O2 Will likely restart Lasix tomorrow if kidney function remains stable (5) Injury of left hip: s/p mechanical fall PT/OT to eval Imaging negative for any acute fractures. Severe left osteoarthritis. Outpatient follow-up with orthopedics recommended (6) Lymphatic leukemia: chronic lymphocytic leukenma Has not yet started BTK inhibitors Concerned that chills may be contributed by B symptoms from CLL, however this has not yet recurred during the course of admission since treating for bacteremia. Initially also concerned about potential autoimmune hemolytic anemia as a cause of anemia, however haptoglobin's are elevated, LDH is not increased over baseline, indirect bili is normal. Labs are less concerning for AIHA. Continue prednisone 20 mg p.o. daily as she does outpatient. add PJP ppx with atovaquone (avoid bactrim due to fluctuating renal function and hyperkalemia recently) (7) Chronic left hip pain: severe degenerative arthritis (8) Fever: related to gram negative bacatremia (9) Elevated troponin: Elevated troponin, baseline of 57, downtrending at 2 and 6 hours. Suspect that elevated troponin is a result of CHF exacerbation, unlikely ACS. Stress test performed in August 2021 had shown myocardial imaging with small area of inconsistent reversible defect in the distribution of LCx. At that time LVEF was 71% on stress test. 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 Patient will likely need additional ischemic work-up once stabilized with more acute issues of a fib rvr and CHF Plan Full code lovenox for DVT prophylaxis Attestations Medical Necessity Statement*: IV antibiotics for bacteremia, getting blood transfusion today, initiating anticoagulation with close monitoring of hemoglobin Coding Level of Care Code Acute Code for Chg Fwd High MDM includes number and complexity of problems actively addressed during encounter, amount and/or complexity of data reviewed/ordered and described risk of complication, morbidity or mortality of management as documented Diagnoses Gram-negative bacteremia R78.81 Atrial fibrillation with rapid ventricular response I48.91 JES (acute kidney injury) N17.9 Heart failure I50.9 Injury of left hip S79.912A Lymphatic leukemia C91.90 Chronic left hip pain M25.552; G89.29 Fever R50.9 Elevated troponin R77.8
[2022-07-18] MEDS: sodium chloride 0.9% 100 mL Bag 50 ML IV ×2 (16:49→20:43)
[2022-07-18] MEDS: metoprolol tartrate 50 mg Tablet 75 MG PO (17:12)
--- NOTE | 2022-07-18 19:01 | PC.NURSE ---
Patient resting in bed, AAOx4, HR elevated with remaining VSS on supplemental oxygen. Patients daughter at bedside this AM, patient refused to attempt to get OOBTC but will be willing to go to [facility] when needed. Room clean and clutter free with call light in reach.
--- NOTE | 2022-07-18 21:04 | P.PN_ITS ---
Subjective Subjective: The patient is feeling okay. Telemetry shows atrial fibrillation with intermittent rapid ventricular rate. The hemoglobin from today is 7.6. Denies any chest pain or shortness of breath. Medications: Medication Review Details: Current Medications Acetaminophen (Acetaminophen 325 Mg Tablet) 650 mg PO Q6H PRN PRN Reason: Mild/Mod Pain Or Temp >/= 101 Hydrocodone Bitart/Acetaminophen (Hydrocodone-Acetaminophen 5-325 Mg Tablet) 1 tab PO Q4H PRN PRN Reason: MODERATE TO SEVERE PAIN Last Admin: 07/17/22 09:07 Dose: 1 tab Al Hydrox/Mg Hydrox/Simethicone (Pkhi-Uxz-Arbilhvxh-Monique 30 Ml Udc) 15 ml PO Q6H PRN PRN Reason: INDIGESTION Amiodarone HCl (Amiodarone 200 Mg Tablet) 400 mg PO BID [facility] Last Admin: 07/18/22 17:12 Dose: 400 mg Bisacodyl (Bisacodyl 5 Mg Tablet) 10 mg PO DAILY PRN; Protocol PRN Reason: Constipation (see protocol) Enoxaparin Sodium (Enoxaparin 80 Mg/0.8 Ml Syringe) 80 mg 1 mg/kg (80 mg) SUBCUT Q12H [facility] Last Admin: 07/18/22 14:37 Dose: 80 mg Furosemide (Furosemide 10 Mg/Ml Sdv 2ml) 20 mg IVP Q24H [facility] Last Admin: 07/15/22 14:27 Dose: 20 mg Amiodarone HCl 900 mg/Dextrose/ IV Miscellaneous Supplies 518 mls @ 0 mls/hr IV .Q0M [facility]; Protocol Last Titration: 07/16/22 18:49 Dose: 0 mg/min, 0 mls/hr Ceftriaxone Sodium 1,000 mg/ (Sodium Chloride) 50 mls @ 100 mls/hr IV Q24H [facility]; Protocol Last Infusion: 07/18/22 15:32 Dose: Infused Lidocaine (Lidocaine 5% Patch) 1 patch TOPICAL [id number] [facility] Last Admin: 07/18/22 20:43 Dose: 1 patch Metoprolol Tartrate (Metoprolol Tartrate 50 Mg Tablet) 75 mg PO BID [facility] Last Admin: 07/18/22 17:12 Dose: 75 mg Naloxone HCl (Naloxone 0.4 Mg/Ml Sdv) 0.1 mg IVP Q2M PRN PRN Reason: OPIATERV Pantoprazole Sodium (Pantoprazole Dr 40 Mg Tablet) 40 mg PO BID [facility] Last Admin: 07/18/22 17:12 Dose: 40 mg Polyethylene Glycol (Polyethylene Glycol 3350 Pkt 17 Gm) 17 gm PO DAILY [facility] Last Admin: 07/18/22 08:24 Dose: 17 gm Prednisone (Prednisone 20 Mg Tablet) 20 mg PO DAILY [facility] Last Admin: 07/18/22 08:24 Dose: 20 mg Promethazine HCl (Promethazine 25 Mg Tablet) 25 mg PO Q6H PRN PRN Reason: NAUSEA Vitals/I&O/Wt Last Vital Signs Temp 97.7 F 07/18/22 20:16 Pulse 128 H 07/18/22 20:00 Resp 19 H 07/18/22 20:16 BP 126/85 07/18/22 20:16 Pulse Ox 95 07/18/22 20:16 O2 Del Method 07/18/22 20:00 O2 Flow Rate 2 07/18/22 20:00 07/18/22 07/18/22 07/18/22 06:59 14:59 22:59 Intake Total 729.583 / 729.583 520 / 1249.583 Output Total 550 / 1000 450 / 450 Balance -550 / 639.058 279.583 / 279.583 520 / 799.583 Weight last 48 hrs Weight 181 lb Weight 181 lb 3.2 oz Physical Exam Narrative: GENERAL: The patient is alert and oriented times three. Not in any acute distress. HEENT: Moderate pallor, no icterus or lymphadenopathy.Oral cavity: There are no mucous membrane lesions. NECK: Trachea appears to be central. No masses noted. No JVD or thyromegaly appr eciated. RESPIRATORY: Chest is symmetrical. No intercostals muscle retraction or any accessory muscle activation. There is no chest wall tenderness. Breath sounds are heard bilaterally. No rales or rhonchi heard. No evidence of any consolidation. BREASTS: Deferred. HEART: The heart sounds are normal. No S3 or S4. Short systolic murmur in the left sternal border. No pericardial rub ABDOMEN: No vessel pulsations or distention. No tenderness. No organomegaly appreciated. Bowel sounds are normally heard. : Deferred. RECTAL: Deferred. LYMPHATIC: No lymphadenopathy noted in the neck. EXTREMITIES: Trace edema with no cyanosis MUSCULOSKELETAL: No acute joint deformities or swelling SKIN: There are no significant rashes or ecchymosis NEUROPSYCHIATRIC: The patient is alert and oriented x3. Appears to be in a good mood. No tremors or rigidity noted. Urinary Catheter Management: Lucas: Cath Placed During This Visit: yes Reason for Continuing Indwelling Catheter: Accurate Measurement of Urinary Out put in Critically Ill Patients Urinary Catheter Date of Insertion: 07/15/22 Urinary Catheter Time of Insertion: 10:00 Data 07/18/22 02:49 07/17/22 03:11 Micro: Microbiology 07/15/22 11:39 Blood Culture - Final Blood Escherichia coli 07/17/22 03:11 Blood Culture - Preliminary Blood NEGATIVE TO DATE 07/17/22 03:09 Blood Culture - Preliminary Blood NEGATIVE TO DATE 07/17/22 05:30 Occult Blood (FIT) - Final Stool A&P Assessment and plan (1) Atrial fibrillation with rapid ventricular response: Patient may be continued on the current dose of the amiodarone. The dose of the metoprolol will be gradually increased. The drop in the hemoglobin also could be contributing factor for the tachycardia. I would like to see the hemoglobin about 9 if possible. (2) Heart failure: Clinically appears to be compensated. May be treated with the diuretics on a as needed basis. Careful blood transfusion to keep the hemoglobin around 9 (3) Gram-negative bacteremia: Reviewed as per the hospitalist service (4) Injury of left hip: Continue on the current management (5) Lymphatic leukemia: Management as per the oncology service. Plan Her other problems are Anemia, blood transfusion to keep the hemoglobin above 9 would be appropriate Acute on chronic kidney disease, seems stable Mild hyperkalemia UTI Since the patient is hemodynamically stable, I may hold off on the cardioversion for the time being. Try to optimize her medical treatment. Based on the cl inical progress, further recommendations will be made. Attestations Medical Necessity Statement*: Patient requires continued hospital stay for close monitoring and further management Coding Level of Care Code Acute Code for g Fwd Diagnoses Atrial fibrillation with rapid ventricular response I48.91 Heart failure I50.9 Gram-negative bacteremia R78.81 Injury of left hip S79.912A Lymphatic leukemia C91.90
[2022-07-19] VITALS (28 sets, daily range): BP systolic 110–159; BP diastolic 61–111; PULSE 96–142; RESP 22–32; TEMP 36.6–37.3; O2SAT 86–100
[2022-07-19] MEDS: enoxaparin 80 mg/0.8 mL Syringe SUBCUT ×2 (01:59→14:16)
[2022-07-19 02:54] LABS: Hematocrit 37.5 % (37.0-47.0); Hemoglobin 11.9 g/dL (11.5-15.3); Lymphocytes % 78.7 %; Mean Corpuscular HGB Conc 31.7 g/dL (30.0-36.0); Mean Corpuscular Hemoglobin 32.6 pg (28.0-34.0); Mean Corpuscular Volume 102.7 fl (81-99); Mean Platelet Volume 9.8 fL (7.4-10.4); Monocytes # 0.5 10^3/uL (0.2-0.9); Monocytes % 0.7 %; Neutrophils # 12.36 10^3/uL (1.8-7.7); Neutrophils % 18.7 %; Nucleated Red Blood Cells % 0 %; Platelet Count 396 10^3/cmm (130-400); Red Blood Count 3.65 10^6/uL (4.1-5.3); Red Cell Distribution Width 23.2 % (12.1-15.1)
[2022-07-19 03:07] LABS: Alanine Aminotransferase 54 U/L (0-33); Albumin Level 2.7 g/dL (3.5-5.2); Alkaline Phosphatase 117 U/L (35-105); Aspartate Amino Transferase 21 U/L (0-32); Blood Urea Nitrogen 49 mg/dL (8-23); Carbon Dioxide 27 mmol/L (22-29); Chloride 104 mmol/L (98-107); Globulin 2.9 g/dL (1.3-4.6); Glucose 84 mg/dL (65-115); Osmolality Calculated 302 mOsm/kg (285-295); Sodium 140 mmol/L (136-145); Total Bilirubin 1.6 mg/dL (0.15-1.2); Total Protein 5.6 g/dL (6.6-8.7)
[2022-07-19] MEDS: metoprolol tartrate 50 mg Tablet 75 MG PO ×2 (08:23→18:11)
[2022-07-19] MEDS: amiodarone 200 mg Tablet 400 MG PO ×2 (08:25→18:11)
[2022-07-19] MEDS: predniSONE 20 mg Tablet PO (08:26)
[2022-07-19] MEDS: pantoprazole DR 40 mg Tablet PO ×2 (08:26→18:12)
[2022-07-19] MEDS: digoxin 250 mcg/ml INJ 2 mL IVP ×2 (14:16→20:14)
[2022-07-19] MEDS: cefTRIAXone 1,000 MG in sodium chloride 0.9% (plus) 50 ML 100 MG IV (14:16)
--- NOTE | 2022-07-19 14:56 | PM.PN ---
Subjective Subjective: The patient is feeling okay. It is a blood transfusion yesterday. Hemoglobin today is 11.9. She continues to be atrial fibrillation with rapid ventricular rate. The dose of the metoprolol was increased this morning. Currently the heart rate in the 120s. The blood pressure seems to be staying in the normal range. Medications: Medication Review Details: Current Medications Acetaminophen (Acetaminophen 325 Mg Tablet) 650 mg PO Q6H PRN PRN Reason: Mild/Mod Pain Or Temp >/= 101 Al Hydrox/Mg Hydrox/Simethicone (Xtii-Qen-Zypsetoqt-Monique 30 Ml Udc) 15 ml PO Q6H PRN PRN Reason: INDIGESTION Amiodarone HCl (Amiodarone 200 Mg Tablet) 400 mg PO BID [facility] Last Admin: 07/19/22 08:25 Dose: 400 mg Bisacodyl (Bisacodyl 5 Mg Tablet) 10 mg PO DAILY PRN; Protocol PRN Reason: Constipation (see protocol) Enoxaparin Sodium (Enoxaparin 80 Mg/0.8 Ml Syringe) 80 mg 1 mg/kg (80 mg) SUBCUT Q12H [facility] Last Admin: 07/19/22 14:16 Dose: 80 mg Furosemide (Furosemide 10 Mg/Ml Sdv 2ml) 20 mg IVP Q24H [facility] Last Admin: 07/15/22 14:27 Dose: 20 mg Amiodarone HCl 900 mg/Dextrose/ IV Miscellaneous Supplies 518 mls @ 0 mls/hr IV .Q0M [facility]; Protocol Last Titration: 07/16/22 18:49 Dose: 0 mg/min, 0 mls/hr Ceftriaxone Sodium 1,000 mg/ (Sodium Chloride) 50 mls @ 100 mls/hr IV Q24H [facility]; Protocol Last Admin: 07/19/22 14:16 Dose: 100 mls/hr Lidocaine (Lidocaine 5% Patch) 1 patch TOPICAL [id number] [facility] Last Admin: 07/19/22 10:05 Dose: Not Given Metoprolol Tartrate (Metoprolol Tartrate 50 Mg Tablet) 75 mg PO BID [facility] Last Admin: 07/19/22 08:23 Dose: 75 mg Naloxone HCl (Naloxone 0.4 Mg/Ml Sdv) 0.1 mg IVP Q2M PRN PRN Reason: OPIATERV Non-Formulary Medication (Atovaquone) 1,500 mg PO DAILY [facility] Last Admin: 07/19/22 14:42 Dose: 1,500 mg Pantoprazole Sodium (Pantoprazole Dr 40 Mg Tablet) 40 mg PO BID [facility] Last Admin: 07/19/22 08:26 Dose: 40 mg Polyethylene Glycol (Polyethylene Glycol 3350 Pkt 17 Gm) 17 gm PO DAILY [facility] Last Admin: 07/19/22 14:10 Dose: Not Given Prednisone (Prednisone 20 Mg Tablet) 20 mg PO DAILY [facility] Last Admin: 07/19/22 08:26 Dose: 20 mg Promethazine HCl (Promethazine 25 Mg Tablet) 25 mg PO Q6H PRN PRN Reason: NAUSEA Vitals/I&O/Wt Last Vital Signs Temp 99.1 F 07/19/22 10:00 Pulse 125 H 07/19/22 14:00 Resp 22 H 07/19/22 10:00 BP 118/83 07/19/22 13:19 Pulse Ox 96 07/19/22 13:19 O2 Del Method T-Piece 07/19/22 13:19 O2 Flow Rate 2 07/19/22 13:19 07/18/22 07/19/22 07/19/22 22:59 06:59 14:59 Intake Total 670 / 1399.583 900 / 2299.583 Output Total 600 / 1050 450 / 1500 Balance 70 / 349.583 450 / 799.583 Weight last 48 hrs Weight 177 lb Weight 181 lb Physical Exam Narrative: GENERAL: The patient is alert and oriented times three. Not in any acute distress. HEENT: Mild pallor no icterus or lymphadenopathy.Oral cavity: There are no mucous membrane lesions. NECK: Trachea appears to be central. No masses noted. No JVD or thyromegaly appreciated. RESPIRATORY: Chest is symmetrical. No intercostals muscle retraction or any accessory muscle activation. There is no chest wall tenderness. Breath sounds are heard bilaterally. No rales or rhonchi heard. No evidence of any consolidation. BREASTS: Deferred. HEART: The heart sounds are normal. No S3 or S4. No significant murmurs. No pericardial rub ABDOMEN: No vessel pulsations or distention. No tenderness. No organomegaly appreciated. Bowel sounds are normally heard. : Deferred. RECTAL: Deferred. LYMPHATIC: No lymphadenopathy noted in the neck. EXTREMITIES: Trace edema with no cyanosis.. No clubbing. MUSCULOSKELETAL: No acute joint deformities or swelling SKIN: There are no significant rashes or ecchymosis NEUROPSYCHIATRIC: The patient is alert and oriented x3. Appears to be in a good mood. No tremors or rigidity noted. Urinary Catheter Management: Lucas: Cath Placed During This Visit: yes Reason for Continuing Indwelling Catheter: Accurate Measurement of Urinary Output in Critically Ill Patients Urinary Catheter Date of Insertion: 07/15/22 Urinary Catheter Time of Insertion: 10:00 Data 07/19/22 02:40 07/19/22 02:40 Micro: Microbiology 07/15/22 11:39 Blood Culture - Final Blood Escherichia coli A&P Assessment and plan (1) Atrial fibrillation with rapid ventricular response: Patient is currently on amiodarone and metoprolol. Since the heart rate still remains uncontrolled, I may give her a dose of digoxin 0.25 mg IV now followed by another at 0.25 mg after 4 hours, if the heart rate is still stays above 110. (2) Heart failure: Clinically appears to be compensated. May be treated with the diuretics on a as needed basis. Careful blood transfusion to keep the hemoglobin around 9 (3) Gram-negative bacteremia: Patient seems to be responding well to the current antibiotics. (4) Injury of left hip: Continue on the current management (5) Lymphatic leukemia: The white cell count still remains unchanged. Management as per the oncology service. Plan Her other problems are Anemia, has improved after blood transfusion Acute on chronic kidney disease, seems stable Mild hyperkalemia UTI Since the patient is hemodynamically stable, I may hold off on the cardioversion for the time being. Try to optimize her medical treatment. If the heart rate still remains uncontrolled and also if she develops any hemodynamic compromise, may consider electrical cardioversion. Attestations Medical Necessity Statement*: Patient requires continued hospital stay for close monitoring and further management Coding Level of Care Code 31826 Diagnoses Atrial fibrillation with rapid ventricular response I48.91 Heart failure I50.9 Gram-negative bacteremia R78.81 Injury of left hip S79.912A Lymphatic leukemia C91.90
[2022-07-19] MEDS: FUROsemide 10 mg/mL SDV 2mL 20 MG IVP (18:24)
--- NOTE | 2022-07-19 20:06 | PC.NURSE ---
Pt reports 10/10 pain. Pt refused Lidocaine patch, she stats that it is not effective. She also explained that she does not want any pain meds because she does not want them to interfere with her leukemia. Pt refused Tylenol. Heat pack offered- pt accepted.
--- NOTE | 2022-07-19 20:08 | PC.OT ---
OT Eval Held - Eval held on this day secondary to insufficient time for completion of evaluation.
--- NOTE | 2022-07-19 22:52 | PM.PN ---
Subjective Subjective: HB improved today to ~11, however HR continues to be uncontrolled at 120bpm, increasing LE pitting edema. No further chills or rigors. Clinically improving . cr improving at 1.4 Medications: Reviewed: Yes Medication Review Details: Current Medications Acetaminophen (Acetaminophen 325 Mg Tablet) 650 mg PO Q6H PRN PRN Reason: Mild/Mod Pain Or Temp >/= 101 Al Hydrox/Mg Hydrox/Simethicone (Wbxe-Iad-Xtffsdhmg-Monique 30 Ml Udc) 15 ml PO Q6H PRN PRN Reason: INDIGESTION Amiodarone HCl (Amiodarone 200 Mg Tablet) 400 mg PO BID [facility] Last Admin: 07/19/22 08:25 Dose: 400 mg Bisacodyl (Bisacodyl 5 Mg Tablet) 10 mg PO DAILY PRN; Protocol PRN Reason: Constipation (see protocol) Enoxaparin Sodium (Enoxaparin 80 Mg/0.8 Ml Syringe) 80 mg 1 mg/kg (80 mg) SUBCUT Q12H [facility] Last Admin: 07/19/22 14:16 Dose: 80 mg Furosemide (Furosemide 10 Mg/Ml Sdv 2ml) 20 mg IVP Q24H [facility] Last Admin: 07/15/22 14:27 Dose: 20 mg Amiodarone HCl 900 mg/Dextrose/ IV Miscellaneous Supplies 518 mls @ 0 mls/hr IV .Q0M [facility]; Protocol Last Titration: 07/16/22 18:49 Dose: 0 mg/min, 0 mls/hr Ceftriaxone Sodium 1,000 mg/ (Sodium Chloride) 50 mls @ 100 mls/hr IV Q24H [facility]; Protocol Last Admin: 07/19/22 14:16 Dose: 100 mls/hr Lidocaine (Lidocaine 5% Patch) 1 patch TOPICAL [id number] [facility] Last Admin: 07/19/22 10:05 Dose: Not Given Metoprolol Tartrate (Metoprolol Tartrate 50 Mg Tablet) 75 mg PO BID [facility] Last Admin: 07/19/22 08:23 Dose: 75 mg Naloxone HCl (Naloxone 0.4 Mg/Ml Sdv) 0.1 mg IVP Q2M PRN PRN Reason: OPIATERV Non-Formulary Medication (Atovaquone) 1,500 mg PO DAILY [facility] Last Admin: 07/19/22 14:42 Dose: 1,500 mg Pantoprazole Sodium (Pantoprazole Dr 40 Mg Tablet) 40 mg PO BID [facility] Last Admin: 07/19/22 08:26 Dose: 40 mg Polyethylene Glycol (Polyethylene Glycol 3350 Pkt 17 Gm) 17 gm PO DAILY [facility] Last Admin: 07/19/22 14:10 Dose: Not Given Prednisone (Prednisone 20 Mg Tablet) 20 mg PO DAILY [facility] Last Admin: 07/19/22 08:26 Dose: 20 mg Promethazine HCl (Promethazine 25 Mg Tablet) 25 mg PO Q6H PRN PRN Reason: NAUSEA Vitals/I&O/Wt Last Vital Signs Temp 99.1 F 07/19/22 10:00 Pulse 126 H 07/19/22 20:10 Resp 22 H 07/19/22 20:10 BP 147/95 07/19/22 20:00 Pulse Ox 100 07/19/22 20:10 O2 Del Method 07/19/22 20:10 O2 Flow Rate 2 07/19/22 20:10 07/19/22 07/19/22 07/19/22 06:59 14:59 22:59 Intake Total 900 / 2299.583 50 / 50 Output Total 450 / 1500 2400 / 2400 Balance 450 / 799.583 -2350 / -2350 Weight last 48 hrs Weight 80.286 kg Weight 82.1 kg Physical Exam Narrative: General: No acute distress, AO x3 HEENT: PERRLA, pupils bilaterally equal and reactive, pallors not present Chest: Normal vesicular breath sounds, no added sounds, equal good air entry bilaterally CVS: S1-S2 regular, no murmurs, no tachycardia, no gallops, no rubs Abdomen: Soft, nontender, no organomegaly, bowel sounds present Neuro: No focal deficits, no facial deformity, AO x3, power 5/5 in all limbs extremities: 1+ pitting edema bilaterally Urinary Catheter Management: Lucas: Cath Placed During This Visit: yes Reason for Continuing Indwelling Catheter: Accurate Measurement of Urinary Output in Critically Ill Patients Urinary Catheter Date of Insertion: 07/15/22 Urinary Catheter Time of Insertion: 10:00 Data 07/19/22 02:40 07/19/22 02:40 A&P Assessment and plan (1) Gram-negative bacteremia: Gram-negative bacteremia as seen on blood cultures from July 15, 2022. Now identified as E. coli which is craft susceptible. Discontinue piperacillin/tazobactam, changed treatment to ceftriaxone 1 g IV every 24 hours. Presumably source is the urine as urine culture with E. coli. CT of her abdomen did not show any hydronephrosis or ureteral dilatation. There was a nonobstructive stone in the left lower pole of the collecting system. No surgical intervention currently indicated. JES not explained by obstructive process, more likely related to ATN from hypotension. Likely that her episode of chills and presyncope was related to gram-negative bacteremia on July 16 Repeat culture from July 17 thus far negative to date We will plan for transition to oral fluoroquinolone at the time of discharge for a total therapy of 14 days for complicated UTI. (2) Atrial fibrillation with rapid ventricular response: Currently on amiodarone 400 mg twice daily Increase metoprolol to 75mg twice daily from 50 twice daily. Continue to monitor on telemetry. Heart rate today ranging between 80 to 120 bpm Echocardiogram from June 26, 2022 with LVEF of 45 to 50%, mild global hypokinesis, diastolic function was unable to be determined at the time due to A-fib. Evidence of mild pulmonary hypertension noted. 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 Fecal occult blood testing returned negative, started on Lovenox 1 mg/kg every 12 hours, previously on Eliquis. Recommended to transfuse 2 units packed red blood cells with a hemoglobin threshold of 9 and a cardiac patient to help control heart rate better. Part of the tachycardia may be related to anemic state. (3) JES (acute kidney injury): Cr stable at 1.6, urine output 1.4L Likely secondary to afib rvr with hypotension, ATN from sepsis Patient was noted to be retaining 300 cc urine on 07/15. Lucas has been placed. CT KUB negative for any obstruction. Continue to hold Lasix today. Patient is developing lower extremity edema, her respiratory status is stable for now. No crackles on auscultation. Holding off on Lasix again today in an effort to preserve renal function. May need to be resumed at a lower dose tomorrow. (4) Heart failure: Acute on chronic combined systolic and diastolic heart failure Echocardiogram as noted above from June hold Lasix due to worsenign renal function Requiring 4 L/min supplemental O2 Will likely restart Lasix tomorrow if kidney function remains stable (5) Injury of left hip: s/p mechanical fall PT/OT to eval Imaging negative for any acute fractures. Severe left osteoarthritis. Outpatient follow-up with orthopedics recommended (6) Lymphatic leukemia: chronic lymphocytic leukenma Has not yet started BTK inhibitors Concerned that chills may be contributed by B symptoms from CLL, however this has not yet recurred during the course of admission since treating for bacteremia. Initially also concerned about potential autoimmune hemolytic anemia as a cause of anemia, however haptoglobin's are elevated, LDH is not increased over baseline, indirect bili is normal. Labs are less concerning for AIHA. Continue prednisone 20 mg p.o. daily as she does outpatient. add PJP ppx with atovaquone (avoid bactrim due to fluctuating renal function and hyperkalemia recently) (7) Chronic left hip pain: severe degenerative arthritis (8) Fever: related to gram negative bacatremia (9) Elevated troponin: Elevated troponin, baseline of 57, downtrending at 2 and 6 hours. Suspect that elevated troponin is a result of CHF exacerbation, unlikely ACS. Stress test performed in August 2021 had shown myocardial imaging with small area of inconsistent reversible defect in the distribution of LCx. At that time LVEF was 71% on stress test. More recent echocardiogram from June 2022 shows an EF of 45 to 50% which would be considered a supervisor records change prior. Patient will likely need additional ischemic work-up once stabilized with more acute issues of a fib rvr and CHF Plan Full code lovenox for DVT prophylaxis Plan for today: Digoxin load to control HR. lasix 20mg iv x 1 given increasing LE pitting edema. started atovaquone. negative blood cx from 07/17. Transfer to CSU Attestations Medical Necessity Statement*: A fib RVR, dig load today, lasix today with close monitoring of cr Coding Level of Care Code Acute Code for Chg Fwd Diagnoses Gram-negative bacteremia R78.81 Atrial fibrillation with rapid ventricular response I48.91 JES (acute kidney injury) N17.9 Heart failure I50.9 Injury of left hip S79.912A Lymphatic leukemia C91.90 Chronic left hip pain M25.552; G89.29 Fever R50.9 Elevated troponin R77.8
[2022-07-20] VITALS (30 sets, daily range): BP systolic 119–159; BP diastolic 59–104; PULSE 86–120; RESP 16–33; TEMP 36.6–37.2; O2SAT 84–98
[2022-07-20] MEDS: enoxaparin 80 mg/0.8 mL Syringe SUBCUT ×2 (02:01→15:00)
[2022-07-20 06:12] LABS: Basophils # 0.1 10^3/uL (0.0-0.1); Basophils % 0.1 %; Hematocrit 38.2 % (37.0-47.0); Lymphocytes # 53.7 10^3/uL (0.8-4.8); Lymphocytes % 79.2 %; Mean Corpuscular HGB Conc 31.4 g/dL (30.0-36.0); Mean Corpuscular Volume 101.9 fl (81-99); Monocytes # 0.4 10^3/uL (0.2-0.9); Monocytes % 0.6 %; Neutrophils # 12.15 10^3/uL (1.8-7.7); Neutrophils % 17.9 %; Nucleated Red Blood Cells % 0 %; Platelet Count 418 10^3/cmm (130-400); Red Blood Count 3.75 10^6/uL (4.1-5.3); Red Cell Distribution Width 22.4 % (12.1-15.1)
[2022-07-20 06:20] LABS: White Blood Count 67.8 10^3/uL (4.0-10.0)
[2022-07-20 06:32] LABS: Alanine Aminotransferase 45 U/L (0-33); Albumin Level 2.4 g/dL (3.5-5.2); Alkaline Phosphatase 110 U/L (35-105); Blood Urea Nitrogen 42 mg/dL (8-23); Calcium 8.6 mg/dL (8.5-10.5); Carbon Dioxide 25 mmol/L (22-29); Chloride 102 mmol/L (98-107); Globulin 2.8 g/dL (1.3-4.6); Glucose 76 mg/dL (65-115); Osmolality Calculated 295 mOsm/kg (285-295); Sodium 138 mmol/L (136-145); Total Bilirubin 0.9 mg/dL (0.15-1.2); Total Protein 5.2 g/dL (6.6-8.7)
[2022-07-20 06:53] LABS: Aspartate Amino Transferase 15 U/L (0-32)
--- NOTE | 2022-07-20 08:47 | PM.PN ---
Subjective Subjective: Patient is doing well. No chest pain. Heart rate is elevated. Vitals/I&O/Wt Last Vital Signs Temp 98.4 F 07/20/22 04:00 Pulse 104 H 07/20/22 06:00 Resp 26 H 07/20/22 06:00 BP 152/84 07/20/22 06:00 Pulse Ox 95 07/20/22 06:00 O2 Del Method 07/19/22 23:00 O2 Flow Rate 1 07/19/22 23:00 07/19/22 07/20/22 07/20/22 22:59 06:59 14:59 Intake Total 300 / 300 Output Total 2400 / 2400 1100 / 3500 Balance -2100 / -2100 -1100 / -3200 Weight last 48 hrs Weight 177 lb Physical Exam Narrative: GENERAL: Patient is alert, awake and oriented x3. [] NECK: No jugular vein distension. [] HEENT: No cyanosis. No icterus. No pallor. [] HEART: Tachycardia, irregularly irregular LUNGS: Clear to auscultate bilaterally. [] CENTRAL NERVOUS SYSTEM: Grossly nonfocal. [] EXTREMITIES: Lower extremities with 1+ edema bilaterally. Pulses palpable in the lower extremities, both dorsalis pedis and posterior tibial. [] Urinary Catheter Management: Lucas: Cath Placed During This Visit: yes Reason for Continuing Indwelling Catheter: Accurate Measurement of Urinary Output in Critically Ill Patients Urinary Catheter Date of Insertion: 07/15/22 Urinary Catheter Time of Insertion: 10:00 Data 07/20/22 05:18 07/20/22 05:18 A&P Assessment and plan (1) Atrial fibrillation with rapid ventricular response: Patient is currently on amiodarone and metoprolol. Continue amiodarone. Start p.o. digoxin 0.125 mg daily. We will also uptitrate metoprolol to 100 mg twice daily. If heart rate is not well controlled, we will plan on NANCY/ Cardioversion. Continue anticoagulation. (2) Heart failure: Clinically appears to be compensated. May be treated with the diuretics on a as needed basis. Careful blood transfusion to keep the hemoglobin around 9 (3) Gram-negative bacteremia: Patient seems to be responding well to the current antibiotics. (4) Injury of left hip: Continue on the current management (5) Lymphatic leukemia: The white cell count still remains unchanged. Management as per the oncology service. Plan Her other problems are Anemia, has improved after blood transfusion Acute on chronic kidney disease, seems stable Mild hyperkalemia UTI We will continue uptitration of rate controlling medications, if heart rate is not controlled,we will plan for NANCY/ Cardioversion. Attestations Medical Necessity Statement*: Care expected to cross 2 midnights Coding Level of Care Code Acute Code for Chg Fwd Diagnoses Atrial fibrillation with rapid ventricular response I48.91 Heart failure I50.9 Gram-negative bacteremia R78.81 Injury of left hip S79.912A Lymphatic leukemia C91.90
[2022-07-20] MEDS: pantoprazole DR 40 mg Tablet PO ×2 (09:01→17:22)
[2022-07-20] MEDS: predniSONE 20 mg Tablet PO (09:01)
[2022-07-20] MEDS: amiodarone 200 mg Tablet 400 MG PO ×2 (09:01→17:23)
[2022-07-20] MEDS: metoprolol tartrate 50 mg Tablet 75 MG PO (09:10)
--- NOTE | 2022-07-20 09:49 | PC.SOCIAL ---
IMM update IMM updated with patient. Verbalized an understanding. Copy PG 2 provided. Initialled, dated, timed, and placed in chart.
[2022-07-20] MEDS: digoxin 125 mcg Tablet PO (10:04)
--- NOTE | 2022-07-20 12:00 | PC.NURSE ---
Transfer Note Patient transferred to CSU from ICU via wheelchair. Handoff report given to AMISH Espino. Patient oriented to environment and equipment. Covering service notified. Orders reviewed and will continue to monitor. Family notified. Patient transferred on 1LNC and is alert/oriented x4. No wounds or skin issues noted at this time.
[2022-07-20] MEDS: cefTRIAXone 1,000 MG in sodium chloride 0.9% (plus) 50 ML 100 MG IV (14:57)
--- NOTE | 2022-07-20 16:54 | P.PN_ITS ---
Subjective Subjective: Interval development of a runny nose, nasal congestion and cough. Tmax 99.1 overnight. Started on scheduled digoxin as rate continues to be in the 120s. Lower extremity edema still persisting. Kidney function has improved significantly down to 0.9 today on the creatinine. Medications: Reviewed: Yes Medication Review Details: Current Medications Acetaminophen (Acetaminophen 325 Mg Tablet) 650 mg PO Q6H PRN PRN Reason: Mild/Mod Pain Or Temp >/= 101 Al Hydrox/Mg Hydrox/Simethicone (Yrpr-Cte-Mlglpcson-Monique 30 Ml Udc) 15 ml PO Q6H PRN PRN Reason: INDIGESTION Amiodarone HCl (Amiodarone 200 Mg Tablet) 400 mg PO BID [facility] Last Admin: 07/19/22 08:25 Dose: 400 mg Bisacodyl (Bisacodyl 5 Mg Tablet) 10 mg PO DAILY PRN; Protocol PRN Reason: Constipation (see protocol) Enoxaparin Sodium (Enoxaparin 80 Mg/0.8 Ml Syringe) 80 mg 1 mg/kg (80 mg) SUBCUT Q12H [facility] Last Admin: 07/19/22 14:16 Dose: 80 mg Furosemide (Furosemide 10 Mg/Ml Sdv 2ml) 20 mg IVP Q24H [facility] Last Admin: 07/15/22 14:27 Dose: 20 mg Amiodarone HCl 900 mg/Dextrose/ IV Miscellaneous Supplies 518 mls @ 0 mls/hr IV .Q0M [facility]; Protocol Last Titration: 07/16/22 18:49 Dose: 0 mg/min, 0 mls/hr Ceftriaxone Sodium 1,000 mg/ (Sodium Chloride) 50 mls @ 100 mls/hr IV Q24H [facility]; Protocol Last Admin: 07/19/22 14:16 Dose: 100 mls/hr Lidocaine (Lidocaine 5% Patch) 1 patch TOPICAL [id number] [facility] Last Admin: 07/19/22 10:05 Dose: Not Given Metoprolol Tartrate (Metoprolol Tartrate 50 Mg Tablet) 75 mg PO BID [facility] Last Admin: 07/19/22 08:23 Dose: 75 mg Naloxone HCl (Naloxone 0.4 Mg/Ml Sdv) 0.1 mg IVP Q2M PRN PRN Reason: OPIATERV Non-Formulary Medication (Atovaquone) 1,500 mg PO DAILY [facility] Last Admin: 07/19/22 14:42 Dose: 1,500 mg Pantoprazole Sodium (Pantoprazole Dr 40 Mg Tablet) 40 mg PO BID [facility] Last Admin: 07/19/22 08:26 Dose: 40 mg Polyethylene Glycol (Polyethylene Glycol 3350 Pkt 17 Gm) 17 gm PO DAILY [facility] Last Admin: 07/19/22 14:10 Dose: Not Given Prednisone (Prednisone 20 Mg Tablet) 20 mg PO DAILY [facility] Last Admin: 07/19/22 08:26 Dose: 20 mg Promethazine HCl (Promethazine 25 Mg Tablet) 25 mg PO Q6H PRN PRN Reason: NAUSEA Vitals/I&O/Wt Last Vital Signs Temp 98.9 F 07/20/22 13:00 Pulse 86 07/20/22 16:38 Resp 16 07/20/22 16:00 BP 125/68 07/20/22 13:00 Pulse Ox 96 07/20/22 16:00 O2 Del Method 07/20/22 10:21 O2 Flow Rate 0.5 07/20/22 13:00 07/20/22 07/20/22 07/20/22 06:59 14:59 22:59 Intake Total 530 / 530 Output Total 1100 / 3500 700 / 700 Balance -1100 / -3200 -170 / -170 Weight last 48 hrs Weight 80.286 kg Physical Exam Narrative: General: No acute distress, AO x3 HEENT: PERRLA, pupils bilaterally equal and reactive, pallors not present Chest: Normal vesicular breath sounds, no added sounds, equal good air entry bilaterally CVS: S1-S2 regular, no murmurs, no tachycardia, no gallops, no rubs Abdomen: Soft, nontender, no organomegaly, bowel sounds present Neuro: No focal deficits, no facial deformity, AO x3, power 5/5 in all limbs extremities: 1+ pitting edema bilaterally Urinary Catheter Management: Lucas: Cath Placed During This Visit: yes Reason for Continuing Indwelling Catheter: Accurate Measurement of Urinary Output in Critically Ill Patients Urinary Catheter Date of Insertion: 07/15/22 Urinary Catheter Time of Insertion: 10:00 Data 07/20/22 05:18 07/20/22 05:18 A&P Assessment and plan (1) Gram-negative bacteremia: Gram-negative bacteremia as seen on blood cultures from July 15, 2022. Now identified as E. coli which is craft susceptible. Continue ceftriaxone 1 g IV every 24 hours. Plan to treat for total 2 weeks duration(day 1 to be counted as 322) Presumably source is the urine as urine culture with E. coli. CT of her abdomen did not show any hydronephrosis or ureteral dilatation. There was a nonobstructive stone in the left lower pole of the collecting system. No surgical intervention currently indicated. JES not explained by obstructive process, more likely related to ATN from hypotension. Likely that her episode of chills and presyncope was related to gram-negative bacteremia on July 16 Repeat culture from July 17 thus far negative to date We will plan for transition to oral fluoroquinolone at the time of discharge for a total therapy of 14 days for complicated UTI. (2) Atrial fibrillation with rapid ventricular response: Currently on amiodarone 400 mg twice daily Increase metoprolol to 100 mg twice daily from 75 twice daily. Continue to monitor on telemetry. Heart rate today ranging between 80 to 120 bpm Digoxin 125 mg p.o. daily has been added per cardiology recommendations. Echocardiogram from June 26, 2022 with LVEF of 45 to 50%, mild global hypo kinesis, diastolic function was unable to be determined at the time due to A- fib. Evidence of mild pulmonary hypertension noted. 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 Fecal occult blood testing returned negative, started on Lovenox 1 mg/kg every 12 hours, previously on Eliquis. Received 2 units of packed red blood cell transfusion during admission, hemog lobin currently stable at 12. (3) JES (acute kidney injury): Cr significantly improved at 0.9 Likely secondary to afib rvr with hypotension, ATN from sepsis Patient was noted to be retaining 300 cc urine on 07/15. Lucas has been placed. CT KUB negative for any obstruction. Resume Lasix now that kidney function is improving. Interval development of lower extremity edema (4) Heart failure: Acute on chronic combined systolic and diastolic heart failure Echocardiogram as noted above from June Resume Lasix, 20 mg IV daily for now, may need to be titrated up based on kidney function and urine output. (5) Injury of left hip: s/p mechanical fall Imaging negative for any acute fractures. Severe left osteoarthritis. Ou tpatient follow-up with orthopedics recommended Encouraged to keep working with physical therapy (6) Lymphatic leukemia: chronic lymphocytic leukenma Has not yet started BTK inhibitors Concerned that chills may be contributed by B symptoms from CLL, however this has not yet recurred during the course of admission since treating for bacteremia. Initially also concerned about potential autoimmune hemolytic anemia as a cause of anemia, however haptoglobin's are elevated, LDH is not increased over baseline, indirect bili is normal. Labs are less concerning for AIHA. Continue prednisone 20 mg p.o. daily as she does outpatient. added PJP ppx with atovaquone (avoid bactrim due to fluctuating renal function and hyperkalemia recently) (7) Chronic left hip pain: severe degenerative arthritis (8) Fever: related to gram negative bacatremia (9) Elevated troponin: Elevated troponin, baseline of 57, downtrending at 2 and 6 hours. Suspect that elevated troponin is a result of CHF exacerbation, unlikely ACS. Stress test performed in August 2021 had shown myocardial imaging with small area of inconsistent reversible defect in the distribution of LCx. At that time LVEF was 71% on stress test. More recent echocardiogram from June 2022 shows an EF of 45 to 50% which would be considered a exchange consultant prior. Patient will likely need additional ischemic work-up once stabilized with more acute issues of a fib rvr and CHF Plan Complaining of nasal congestion, Tmax 99.1, interval development of cough. Check chest x-ray and respiratory viral panel Full code lovenox for DVT prophylaxis Attestations Medical Necessity Statement*: IV diuresis, adding digoxin for rate control, monitor closely Coding Level of Care Code Acute Code for Chg Fwd High MDM includes number and complexity of problems actively addressed during encounter, amount and/or complexity of data reviewed/ordered and described risk of complication, morbidity or mortality of management as documented Diagnoses Gram-negative bacteremia R78.81 Atrial fibrillation with rapid ventricular response I48.91 JES (acute kidney injury) N17.9 Heart failure I50.9 Injury of left hip S79.912A Lymphatic leukemia C91.90 Chronic left hip pain M25.552; G89.29 Fever R50.9 Elevated troponin R77.8
[2022-07-20] MEDS: metoprolol tartrate 50 mg Tablet 100 MG PO (17:22)
[2022-07-20 21:20] LABS: Adenovirus Not Detected (NOT DETECT); Chlamydia Pneumoniae Not Detected (NOT DETECT); Coronavirus 229E,HKU1,NL63,OC4 Detected (NOT DETECT); Human Metapneumovirus Not Detected (NOT DETECT); Human Rhinovirus/Enterovirus Not Detected (NOT DETECT); Influenza A Not Detected (NOT DETECT); Influenza A H1 Not Detected (NOT DETECT); Influenza A H1-2009 Not Detected (NOT DETECT); Influenza A H3 Not Detected (NOT DETECT); Influenza B Not Detected (NOT DETECT); Mycoplasma Pneumoniae Not Detected (NOT DETECT); Parainfluenza Virus Type 1 Not Detected (NOT DETECT); Parainfluenza Virus Type 2 Not Detected (NOT DETECT); Parainfluenza Virus Type 3 Not Detected (NOT DETECT); Parainfluenza Virus Type 4 Not Detected (NOT DETECT); Respiratory Syncytial Virus A Not Detected (NOT DETECT); Respiratory Syncytial Virus B Not Detected (NOT DETECT); SARS-COV-2 Not Detected (NOT DETECT)
[2022-07-21] VITALS (29 sets, daily range): BP systolic 104–142; BP diastolic 54–93; PULSE 78–134; RESP 8–36; TEMP 36.6–39.2; O2SAT 82–98
[2022-07-21] MEDS: enoxaparin 80 mg/0.8 mL Syringe SUBCUT ×2 (01:58→14:24)
[2022-07-21 03:28] LABS: Hematocrit 33.5 % (37.0-47.0); Hemoglobin 10.5 g/dL (11.5-15.3); Lymphocytes # 48.8 10^3/uL (0.8-4.8); Lymphocytes % 78.8 %; Mean Corpuscular HGB Conc 31.3 g/dL (30.0-36.0); Mean Corpuscular Hemoglobin 32.6 pg (28.0-34.0); Mean Platelet Volume 9.8 fL (7.4-10.4); Monocytes # 0.4 10^3/uL (0.2-0.9); Monocytes % 0.6 %; Neutrophils # 11.36 10^3/uL (1.8-7.7); Neutrophils % 18.4 %; Nucleated Red Blood Cells % 0 %; Platelet Count 392 10^3/cmm (130-400); Red Blood Count 3.22 10^6/uL (4.1-5.3); Red Cell Distribution Width 21.1 % (12.1-15.1)
[2022-07-21 03:41] LABS: Alanine Aminotransferase 36 U/L (0-33); Albumin Level 2.1 g/dL (3.5-5.2); Alkaline Phosphatase 85 U/L (35-105); Anion Gap 11.5 (5-19); Aspartate Amino Transferase 8 U/L (0-32); Blood Urea Nitrogen 36 mg/dL (8-23); Calcium 8.2 mg/dL (8.5-10.5); Carbon Dioxide 25 mmol/L (22-29); Chloride 104 mmol/L (98-107); Globulin 2.3 g/dL (1.3-4.6); Glucose 87 mg/dL (65-115); Osmolality Calculated 290 mOsm/kg (285-295); Potassium 4.5 mmol/L (3.5-5.1); Sodium 136 mmol/L (136-145); Total Bilirubin 0.7 mg/dL (0.15-1.2); Total Protein 4.4 g/dL (6.6-8.7)
[2022-07-21 04:00] LABS: White Blood Count 61.9 10^3/uL (4.0-10.0)
--- NOTE | 2022-07-21 07:48 | P.PN_ITS ---
Subjective Subjective: Heart rates have been better controlled since uptitration of medications but still elevated. 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 Had fever episode Vitals/I&O/Wt Last Vital Signs Temp 98.6 F 07/21/22 04:00 Pulse 80 07/21/22 06:00 Resp 29 H 07/21/22 04:00 BP 129/76 07/21/22 04:00 Pulse Ox 96 07/21/22 06:34 O2 Del Method 07/21/22 06:34 O2 Flow Rate 0.5 07/21/22 04:00 07/20/22 07/21/22 07/21/22 22:59 06:59 14:59 Intake Total 890 / 890 Output Total 1100 / 1100 450 / 1550 Balance -210 / -210 -450 / -660 Weight last 48 hrs Weight 176 lb 3.2 oz Physical Exam Narrative: GENERAL: Patient is alert, awake and oriented x3. [] NECK: No jugular vein distension. [] HEENT: No cyanosis. No icterus. No pallor. [] HEART: Tachycardia, irregularly irregular LUNGS: Clear to auscultate bilaterally. [] CENTRAL NERVOUS SYSTEM: Grossly nonfocal. [] EXTREMITIES: Lower extremities with 1+ edema bilaterally. Pulses palpable in the lower extremities, both dorsalis pedis and posterior tibial. [] Urinary Catheter Management: Lucas: Cath Placed During This Visit: yes Reason for Continuing Indwelling Catheter: Accurate Measurement of Urinary Output in Critically Ill Patients Urinary Catheter Date of Insertion: 07/15/22 Urinary Catheter Time of Insertion: 10:00 Data 07/21/22 02:59 07/21/22 02:59 A&P Assessment and plan (1) Atrial fibrillation with rapid ventricular response: Patient is currently on amiodarone and metoprolol. Continue amiodarone. Continue digoxin. Will hold off on cardioversion given viral infection and fever. heart rates are improving (2) Heart failure: Clinically appears to be compensated. May be treated with the diuretics on a as needed basis. Careful blood transfusion to keep the hemoglobin around 9 (3) Gram-negative bacteremia: Patient seems to be responding well to the current antibiotics. (4) Injury of left hip: Continue on the current management (5) Lymphatic leukemia: The white cell count still remains unchanged. Management as per the oncology se rvice. Plan Her other problems are Anemia, has improved after blood transfusion Acute on chronic kidney disease, seems stable Mild hyperkalemia UTI Will observe on higher doses of rate controlling agents at this time. Attestations Medical Necessity Statement*: Care expected to cross 2 midnights Coding Level of Care Code Acute Code for Chg Fwd Diagnoses Atrial fibrillation with rapid ventricular response I48.91 Heart failure I50.9 Gram-negative bacteremia R78.81 Injury of left hip S79.912A Lymphatic leukemia C91.90
[2022-07-21] MEDS: digoxin 125 mcg Tablet PO (09:18)
[2022-07-21] MEDS: predniSONE 20 mg Tablet PO (09:21)
[2022-07-21] MEDS: metoprolol tartrate 50 mg Tablet 100 MG PO ×2 (09:21→17:54)
[2022-07-21] MEDS: amiodarone 200 mg Tablet 400 MG PO ×2 (09:21→17:54)
[2022-07-21] MEDS: pantoprazole DR 40 mg Tablet PO ×2 (09:21→17:54)
--- NOTE | 2022-07-21 10:46 | PC.NURSE ---
at 1040 pt noted to be shivering.temp 99.2.dr clark ordered to dc vargas catheter and obtain blood culture.
[2022-07-21] MEDS: acetaminophen 325 mg Tablet 650 MG PO (12:03)
[2022-07-21] MEDS: FUROsemide 10 mg/mL SDV 2mL 20 MG IVP (14:24)
[2022-07-21] MEDS: cefTRIAXone 1,000 MG in sodium chloride 0.9% (plus) 50 ML 100 MG IV (14:25)
--- NOTE | 2022-07-21 15:11 | PM.PN ---
Subjective Subjective: Patient spiked a fever today to 102.5 Fahrenheit along with some chills. A respiratory viral panel had been ordered yesterday because of new symptoms of runny nose, cough, it is positive for coronavirus 229E, not COVID. Her oxygen requirements are improving. She is saturating 96% on room air today. No longer needing supplemental oxygen. Lower extremity edema is significantly improved. Medications: Reviewed: Yes Medication Review Details: Current Medications Acetaminophen (Acetaminophen 325 Mg Tablet) 650 mg PO Q6H PRN PRN Reason: Mild/Mod Pain Or Temp >/= 101 Al Hydrox/Mg Hydrox/Simethicone (Hxcn-Nxw-Ehyxtrvbw-Monique 30 Ml Udc) 15 ml PO Q6H PRN PRN Reason: INDIGESTION Amiodarone HCl (Amiodarone 200 Mg Tablet) 400 mg PO BID [facility] Last Admin: 07/19/22 08:25 Dose: 400 mg Bisacodyl (Bisacodyl 5 Mg Tablet) 10 mg PO DAILY PRN; Protocol PRN Reason: Constipation (see protocol) Enoxaparin Sodium (Enoxaparin 80 Mg/0.8 Ml Syringe) 80 mg 1 mg/kg (80 mg) SUBCUT Q12H [facility] Last Admin: 07/19/22 14:16 Dose: 80 mg Furosemide (Furosemide 10 Mg/Ml Sdv 2ml) 20 mg IVP Q24H [facility] Last Admin: 07/15/22 14:27 Dose: 20 mg Amiodarone HCl 900 mg/Dextrose/ IV Miscellaneous Supplies 518 mls @ 0 mls/hr IV .Q0M [facility]; Protocol Last Titration: 07/16/22 18:49 Dose: 0 mg/min, 0 mls/hr Ceftriaxone Sodium 1,000 mg/ (Sodium Chloride) 50 mls @ 100 mls/hr IV Q24H [facility]; Protocol Last Admin: 07/19/22 14:16 Dose: 100 mls/hr Lidocaine (Lidocaine 5% Patch) 1 patch TOPICAL [id number] [facility] Last Admin: 07/19/22 10:05 Dose: Not Given Metoprolol Tartrate (Metoprolol Tartrate 50 Mg Tablet) 75 mg PO BID [facility] Last Admin: 07/19/22 08:23 Dose: 75 mg Naloxone HCl (Naloxone 0.4 Mg/Ml Sdv) 0.1 mg IVP Q2M PRN PRN Reason: OPIATERV Non-Formulary Medication (Atovaquone) 1,500 mg PO DAILY [facility] Last Admin: 07/19/22 14:42 Dose: 1,500 mg Pantoprazole Sodium (Pantoprazole Dr 40 Mg Tablet) 40 mg PO BID [facility] Last Admin: 07/19/22 08:26 Dose: 40 mg Polyethylene Glycol (Polyethylene Glycol 3350 Pkt 17 Gm) 17 gm PO DAILY [facility] Last Admin: 07/19/22 14:10 Dose: Not Given Prednisone (Prednisone 20 Mg Tablet) 20 mg PO DAILY [facility] Last Admin: 07/19/22 08:26 Dose: 20 mg Promethazine HCl (Promethazine 25 Mg Tablet) 25 mg PO Q6H PRN PRN Reason: NAUSEA Vitals/I&O/Wt Last Vital Signs Temp 102.5 F H 07/21/22 12:00 Pulse 105 H 07/21/22 12:00 Resp 22 H 07/21/22 12:00 BP 142/63 07/21/22 12:00 Pulse Ox 96 07/21/22 12:00 O2 Del Method 07/21/22 12:00 O2 Flow Rate 0.5 07/21/22 04:00 07/21/22 07/21/22 07/21/22 06:59 14:59 22:59 Intake Total 400 / 400 Output Total 450 / 1550 350 / 350 Balance -450 / -660 50 / 50 Weight last 48 hrs Weight 79.923 kg Physical Exam Narrative: General: No acute distress, AO x3 HEENT: PERRLA, pupils bilaterally equal and reactive, pallors not present Chest: Normal vesicular breath sounds, no added sounds, equal good air entry bilaterally CVS: S1-S2 irregular Abdomen: Soft, nontender, no organomegaly, bowel sounds present Neuro: No focal deficits, no facial deformity, AO x3, power 5/5 in all limbs extremities: Le edema improving Urinary Catheter Management: Lucas: Cath Placed During This Visit: yes, but has since been removed by the nurse Reason for Continuing Indwelling Catheter: Accurate Measurement of Urinary Output in Critically Ill Patients Urinary Catheter Date of Insertion: 07/15/22 Urinary Catheter Time of Insertion: 10:00 Date Urinary Catheter Removed: 07/21/22 Time Urinary Catheter Discontinued: 10:35 Data 07/21/22 02:59 07/21/22 02:59 Micro: Microbiology 07/21/22 10:46 Blood Culture - Preliminary Blood SPECIMEN COLLECTED 07/21/22 10:40 Blood Culture - Preliminary Blood SPECIMEN COLLECTED A&P Assessment and plan (1) Gram-negative bacteremia: Gram-negative bacteremia as seen on blood cultures from July 15, 2022, E. coli which is craft susceptible. Continue ceftriaxone 1 g IV every 24 hours. 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 coli. CT of her abdomen did not show any hydronephrosis or ureteral dilatation. There was a nonobstructive stone in the left lower pole of the collecting system. No surgical intervention currently indicated. Likely that her episode of chills and presyncope was related to gram-negative bacteremia on July 16 Repeat culture from July 17 thus far negative to date Will plan for transition to oral fluoroquinolone at the time of discharge for a total therapy of 14 days for complicated UTI. (2) Atrial fibrillation with rapid ventricular response: Currently on amiodarone 400 mg twice daily, metoprolol to 100 mg twice daily, Digoxin 125 mg p.o. daily. cardiology following Possible plan for cardioversion however deferred for now with new viral URI Echocardiogram from June 26, 2022 with LVEF of 45 to 50%, mild global hypokinesis, diastolic function was unable to be determined at the time due to A-fib. Evidence of mild pulmonary hypertension noted. 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 Fecal occult blood testing returned negative, started on Lovenox 1 mg/kg every 12 hours, previously on Eliquis. Received 2 units of packed red blood cell transfusion during admission, hemoglobin currently stable (3) JES (acute kidney injury): Now resolved Cr back at baseline Good urine output remove Lucas today Likely secondary to afib rvr with hypotension, ATN from sepsis Patient was noted to be retaining 300 cc urine on 07/15. Lucas placed, to be removed today CT KUB negative for any obstruction. (4) Heart failure: Acute on chronic combined systolic and diastolic heart failure Echocardiogram as noted above from June Resumed Lasix, 20 mg IV daily monitor kidney function and urine output. (5) Injury of left hip: s/p mechanical fall Imaging negative for any acute fractures. Severe left osteoarthritis. Outpatient follow-up with orthopedics recommended Encouraged to keep working with physical therapy (6) Lymphatic leukemia: chronic lymphocytic leukenma Has not yet started BTK inhibitors Concerned that chills may be contributed by B symptoms from CLL, however since co relating with fever and bacteremia, more likely to have infectious explanation Initially also concerned about potential autoimmune hemolytic anemia as a cause of anemia, however haptoglobin's are elevated, LDH is not increased over baseline, indirect bili is normal. Labs are less concerning for AIHA. Continue prednisone 20 mg p.o. daily as she does outpatient. added PJP ppx with atovaquone (avoid bactrim due to fluctuating renal function and hyperkalemia recently) (7) Chronic left hip pain: severe degenerative arthritis (8) Fever: related to gram negative bacatremia and now coronavirus 229E (9) Elevated troponin: Elevated troponin, baseline of 57, downtrending at 2 and 6 hours. Suspect that elevated troponin is a result of CHF exacerbation, unlikely ACS. Stress test performed in August 2021 had shown myocardial imaging with small area of inconsistent reversible defect in the distribution of LCx. At that time LVEF was 71% on stress test. 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 Patient will likely need additional ischemic work-up once stabilized with more acute issues of a fib rvr and CHF (10) Coronavirus infection, unspecified: Coronavirus 229E infection , NOT covid , RVP positive on 07/20 supportive symptomatic treatment prn tylenol for fever and chills likely to be the cause of new fever today off oxygen now Plan Full code lovenox for DVT prophylaxis All updates discussed with daughter Shanika Hsu Attestations Medical Necessity Statement*: ongoing fever, rpt blood cx, optimize rate control, iv abx Coding Level of Care Code Acute Code for Chg Fwd High MDM includes number and complexity of problems actively addressed during encounter, amount and/or complexity of data reviewed/ordered and described risk of complication, morbidity or mortality of management as documented Diagnoses Gram-negative bacteremia R78.81 Atrial fibrillation with rapid ventricular response I48.91 JES (acute kidney injury) N17.9 Heart failure I50.9 Injury of left hip S79.912A Lymphatic leukemia C91.90 Chronic left hip pain M25.552; G89.29 Fever R50.9 Elevated troponin R77.8 Coronavirus infection, unspecified B34.2
[2022-07-22] VITALS (23 sets, daily range): BP systolic 107–168; BP diastolic 54–98; PULSE 9–108; RESP 17–33; TEMP 36.6–37.2; O2SAT 91–96
[2022-07-22] MEDS: enoxaparin 80 mg/0.8 mL Syringe SUBCUT ×2 (02:40→14:39)
--- NOTE | 2022-07-22 04:00 | XRR_ITS ---
PROCEDURE INFORMATION: Exam: XR Chest Exam date and time: 07/22/2022 3:07 AM Age: 86 years old Clinical indication: Cough TECHNIQUE: Imaging protocol: Radiologic exam of the chest. Views: 1 view. COMPARISON: CR (CHEST, ) 07/13/2022 12:29 PM FINDINGS: Lungs: Hazy lung base atelectasis or scarring. Mild COPD. Pleural spaces: No pneumothorax. Heart/Mediastinum: The heart is large. Vasculature: Advanced diffuse vascular calcification noted. Bones/joints: Unremarkable. XR/XR chest 1V portable [id number] IMPRESSION: 1. Large heart with mild diffuse interstitial edema or scarring. These findings have progressed slightly from 9 days ago. 2. No focal pneumonia. 3. Other chronic findings again noted.
[2022-07-22 04:04] LABS: Hematocrit 34.8 % (37.0-47.0); Lymphocytes # 48.7 10^3/uL (0.8-4.8); Lymphocytes % 78.5 %; Mean Corpuscular HGB Conc 31.6 g/dL (30.0-36.0); Mean Corpuscular Hemoglobin 32.8 pg (28.0-34.0); Mean Corpuscular Volume 103.9 fl (81-99); Mean Platelet Volume 9.7 fL (7.4-10.4); Monocytes # 0.5 10^3/uL (0.2-0.9); Monocytes % 0.7 %; Neutrophils # 11.86 10^3/uL (1.8-7.7); Neutrophils % 19.2 %; Nucleated Red Blood Cells % 0 %; Platelet Count 384 10^3/cmm (130-400); Red Blood Count 3.35 10^6/uL (4.1-5.3); Red Cell Distribution Width 20.2 % (12.1-15.1)
[2022-07-22 04:32] LABS: Alanine Aminotransferase 33 U/L (0-33); Albumin Level 2.2 g/dL (3.5-5.2); Alkaline Phosphatase 85 U/L (35-105); Anion Gap 13.2 (5-19); Aspartate Amino Transferase 7 U/L (0-32); Blood Urea Nitrogen 32 mg/dL (8-23); Calcium 8.5 mg/dL (8.5-10.5); Carbon Dioxide 27 mmol/L (22-29); Chloride 105 mmol/L (98-107); Globulin 2.4 g/dL (1.3-4.6); Glucose 105 mg/dL (65-115); Osmolality Calculated 299 mOsm/kg (285-295); Potassium 4.2 mmol/L (3.5-5.1); Sodium 141 mmol/L (136-145); Total Bilirubin 0.7 mg/dL (0.15-1.2); Total Protein 4.6 g/dL (6.6-8.7)
[2022-07-22] MEDS: FUROsemide 20 mg Tablet PO (08:43)
[2022-07-22] MEDS: metoprolol tartrate 50 mg Tablet 100 MG PO ×2 (08:43→18:04)
[2022-07-22] MEDS: amiodarone 200 mg Tablet 400 MG PO ×2 (08:43→18:04)
[2022-07-22] MEDS: digoxin 125 mcg Tablet PO (08:44)
[2022-07-22] MEDS: predniSONE 20 mg Tablet PO (08:44)
[2022-07-22] MEDS: pantoprazole DR 40 mg Tablet PO ×2 (08:45→18:03)
--- NOTE | 2022-07-22 11:53 | PC.SOCIAL ---
IMM Update pg 2 of IMM updated and reviewed w/ patient. Copy provided and Copy in chart dated, and initialed.
[2022-07-22] MEDS: cefTRIAXone 1,000 MG in sodium chloride 0.9% (plus) 50 ML 100 MG IV (14:38)
--- NOTE | 2022-07-22 18:27 | P.PN_ITS ---
Subjective Subjective: The patient developed fever yesterday. She was found to have coronavirus E229 positive. Currently she is afebrile. Feeling much better. No chest pain or shortness of breath. Vitals are stable. Telemetry shows atrial fibrillation with a mostly controlled ventricular response rate. Medications: Medication Review Details: Current Medications Acetaminophen (Acetaminophen 325 Mg Tablet) 650 mg PO Q6H PRN PRN Reason: Mild/Mod Pain Or Temp >/= 101 Last Admin: 07/21/22 12:03 Dose: 650 mg Al Hydrox/Mg Hydrox/Simethicone (Olti-Bbz-Eseptfdud-Monique 30 Ml Udc) 15 ml PO Q6H PRN PRN Reason: INDIGESTION Amiodarone HCl (Amiodarone 200 Mg Tablet) 400 mg PO BID [facility] Last Admin: 07/22/22 18:04 Dose: 400 mg Bisacodyl (Bisacodyl 5 Mg Tablet) 10 mg PO DAILY PRN; Protocol PRN Reason: Constipation (see protocol) Digoxin (Digoxin 125 Mcg Tablet) 125 mcg PO DAILY [facility] Last Admin: 07/22/22 08:44 Dose: 125 mcg Enoxaparin Sodium (Enoxaparin 80 Mg/0.8 Ml Syringe) 80 mg 1 mg/kg (80 mg) SUBCUT Q12H [facility] Last Admin: 07/22/22 14:39 Dose: 80 mg Furosemide (Furosemide 20 Mg Tablet) 20 mg PO DAILY@0800 [facility] Last Admin: 07/22/22 08:43 Dose: 20 mg Amiodarone HCl 900 mg/Dextrose/ IV Miscellaneous Supplies 518 mls @ 0 mls/hr IV .Q0M [facility]; Protocol Last Titration: 07/19/22 19:00 Dose: Infused Ceftriaxone Sodium 1,000 mg/ (Sodium Chloride) 50 mls @ 100 mls/hr IV Q24H [facility]; Protocol Last Infusion: 07/22/22 15:10 Dose: Infused Lidocaine (Lidocaine 5% Patch) 1 patch TOPICAL [id number] [facility] Last Admin: 07/22/22 08:45 Dose: Not Given Metoprolol Tartrate (Metoprolol Tartrate 50 Mg Tablet) 100 mg PO BID [facility] Last Admin: 07/22/22 18:04 Dose: 100 mg Naloxone HCl (Naloxone 0.4 Mg/Ml Sdv) 0.1 mg IVP Q2M PRN PRN Reason: OPIATERV Non-Formulary Medication (Atovaquone) 1,500 mg PO DAILY [facility] Last Admin: 07/22/22 11:33 Dose: 1,500 mg Pantoprazole Sodium (Pantoprazole Dr 40 Mg Tablet) 40 mg PO BID [facility] Last Admin: 07/22/22 18:03 Dose: 40 mg Polyethylene Glycol (Polyethylene Glycol 3350 Pkt 17 Gm) 17 gm PO DAILY [facility] Last Admin: 07/22/22 08:45 Dose: Not Given Prednisone (Prednisone 20 Mg Tablet) 20 mg PO DAILY [facility] Last Admin: 07/22/22 08:44 Dose: 20 mg Promethazine HCl (Promethazine 25 Mg Tablet) 25 mg PO Q6H PRN PRN Reason: NAUSEA Vitals/I&O/Wt Last Vital Signs Temp 98.9 F 07/22/22 12:00 Pulse 98 07/22/22 16:00 Resp 23 H 07/22/22 16:00 BP 158/71 07/22/22 16:00 Pulse Ox 95 07/22/22 16:00 O2 Del Method 07/22/22 12:00 O2 Flow Rate 0.5 07/21/22 04:00 07/22/22 07/22/22 07/22/22 06:59 14:59 22:59 Intake Total 50 / 50 Output Total 450 / 450 Balance -400 / -400 Weight last 48 hrs Weight 177 lb Weight 176 lb 3.2 oz Physical Exam Narrative: GENERAL: The patient is alert and oriented times three. Not in any acute distress. HEENT: Mild pallor. No icterus or lymphadenopathy.Oral cavity: There are no mucous membrane lesions. NECK: Trachea appears to be central. No masses noted. No JVD or thyromegaly delilah reciated. RESPIRATORY: Chest is symmetrical. No intercostals muscle retraction or any accessory muscle activation. There is no chest wall tenderness. Breath sounds are heard bilaterally. No rales or rhonchi heard. No evidence of any consolidation. BREASTS: Deferred. HEART: The heart sounds are normal. No S3 or S4. No significant murmurs. No pericardial rub ABDOMEN: No vessel pulsations or distention. No tenderness. No organomegaly appreciated. Bowel sounds are normally heard. : Deferred. RECTAL: Deferred. LYMPHATIC: No lymphadenopathy noted in the neck. EXTREMITIES: No edema or cyanosis. No clubbing. MUSCULOSKELETAL: No acute joint deformities or swelling SKIN: There are no significant rashes or ecchymosis NEUROPSYCHIATRIC: The patient is alert and oriented x3. Appears to be in a good mood. No tremors or rigidity noted. Urinary Catheter Management: Lucas: Cath Placed During This Visit: yes, but has since been removed by the nurse Reason for Continuing Indwelling Catheter: Accurate Measurement of Urinary Output in Critically Ill Patients Urinary Catheter Date of Insertion: 07/15/22 Urinary Catheter Time of Insertion: 10:00 Date Urinary Catheter Removed: 07/21/22 Time Urinary Catheter Discontinued: 10:35 Data 07/22/22 03:15 07/22/22 03:15 Micro: Microbiology 07/21/22 10:40 Blood Culture - Preliminary Blood NEGATIVE TO DATE 07/21/22 10:46 Blood Culture - Preliminary Blood NEGATIVE TO DATE 07/17/22 03:11 Blood Culture - Final Blood NO GROWTH AFTER 5 DAYS 07/17/22 03:09 Blood Culture - Final Blood NO GROWTH AFTER 5 DAYS A&P Assessment and plan (1) Atrial fibrillation with rapid ventricular response: Patient is on amiodarone, metoprolol and digoxin. This may be continued. We will be closely monitoring the rhythm on the telemetry. We may have to cut back on some of these medications as the heart rate improves. (2) Heart failure: The heart failure seems to be fairly compensated. We will continue on the current medications. (3) Gram-negative bacteremia: Patient seems to be responding well to the current antibiotics. (4) Injury of left hip: Continue on the current management. 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 Management as per the oncology service. Plan Her other problems are Anemia, has improved after blood transfusion Coronavirus E 229-clinically improving May continue on the current medications. Continue monitoring the heart rhythm Attestations Medical Necessity Statement*: Disposition as per the primary Coding Level of Care Code 98234 Diagnoses Atrial fibrillation with rapid ventricular response I48.91 Heart failure I50.9 Gram-negative bacteremia R78.81 Injury of left hip S79.912A Lymphatic leukemia C91.90
--- NOTE | 2022-07-22 18:58 | PM.PN ---
Subjective Subjective: Patient was seen and examined this morning noted Tmax in the last 24 hours is:102.5, continue to be in A-fib with well-controlled heart rate. No other acute events. Medications: Reviewed: Yes Medication Review Details: Generic Name Dose Route Start Last Admin Trade Name Freq PRN Reason Stop Dose Admin Acetaminophen 650 mg 07/13/22 15:37 07/21/22 12:03 Acetaminophen 32 5 Mg Tablet PO 650 mg Q6H PRN Administration Mild/Mod Pain Or Temp >/= 101 Amiodarone HCl 400 mg 07/17/22 18:00 07/22/22 18:04 Amiodarone 200 M g Tablet PO 400 mg BID CHEIKH Administration Digoxin 125 mcg 07/20/22 09:30 07/22/22 08:44 Digoxin 125 Mcg Tablet PO 125 mcg DAILY CHEIKH Administration Enoxaparin Sodium 80 mg 07/18/22 14:30 07/22/22 14:39 Enoxaparin 80 Mg /0.8 Ml Syringe 1 mg/kg (80 mg) 80 mg SUBCUT Administration Q12H CHEIKH Furosemide 20 mg 07/22/22 08:00 07/22/22 08:43 Furosemide 20 Mg Tablet PO 20 mg DAILY@0800 CHEIKH Administration Amiodarone HCl 900 mg/ 518 mls @ 0 mls/h r 07/15/22 11:00 07/19/22 19:00 Dextrose/ IV Misce llaneous IV Infused Supplies .Q0M CHEIKH Titration Protocol Per Protocol Ceftriaxone Sodium 1,000 mg/ 50 mls @ 100 mls/ hr 07/18/22 14:30 07/22/22 15:10 Sodium Chloride IV Infused Q24H CHEIKH Infusion Protocol Lidocaine 1 patch 07/17/22 21:00 07/22/22 08:45 Lidocaine 5% Pat ch TOPICAL Not Given [id number] CHEIKH Metoprolol Tartrat e 100 mg 07/20/22 18:00 07/22/22 18:04 Metoprolol Tartr ate 50 Mg Tablet PO 100 mg BID CHEIKH Administration Non-Formulary Medi cation 1,500 mg 07/19/22 13:00 07/22/22 11:33 Atovaquone PO 1,500 mg DAILY CHEIKH Administration Pantoprazole Sodiu m 40 mg 07/17/22 18:00 07/22/22 18:[address] 40 Mg Tablet PO 40 mg BID CHEIKH Administration Polyethylene Glyco l 17 gm 07/16/22 09:00 07/22/22 08:45 Polyethylene Gly col 3350 Pkt 17 Gm PO Not Given DAILY CHEIKH Prednisone 20 mg 07/18/22 09:00 07/22/22 08:44 Prednisone 20 Mg Tablet PO 20 mg DAILY CHEIKH Administration Vitals/I&O/Wt Last Vital Signs Temp 98.9 F 07/22/22 12:00 Pulse 98 07/22/22 16:00 Resp 23 H 07/22/22 16:00 BP 158/71 07/22/22 16:00 Pulse Ox 95 07/22/22 16:00 O2 Del Method 07/22/22 12:00 O2 Flow Rate 0.5 07/21/22 04:00 07/22/22 07/22/22 07/22/22 06:59 14:59 22:59 Intake Total 50 / 50 Output Total 450 / 450 Balance -400 / -400 Weight last 48 hrs Weight 80.286 kg Weight 79.923 kg Physical Exam Const: COMMON NORMALS: patient oriented x3 HENMT: COMMON NORMALS: normocephalic and atraumatic HEAD & SCALP: normocephalic and atraumatic Resp: COMMON NORMALS: clear to auscultation bilaterally EFFORT & INSPECTION: Yes symmetric chest movement AUSCULTATION: clear to auscultation bilaterally Cardio: COMMON NORMALS: No gallops present (Cardio), No murmurs present (Cardio), No rub (Cardio) and Peripheral pulses 2+ throughout PERIPHERAL PULSES: Peripheral pulses 2+ throughout OTHER: Irregularly irregular rhythm S1-S2 variable intensity GI: COMMON NORMALS: Normal to inspection, nondistended, normoactive bowel sounds present, Soft to palpation, non-tender, No hepatosplenomegaly present and no masses AUSCULTATION: Yes normoactive bowel sounds PALPATION: Yes Soft to palpation and Yes No hepatosplenomegaly present RECTAL EXAM: deferred Extremity: COMMON NORMALS: no clubbing, cyanosis or edema and no pedal edema Neuro: COMMON NORMALS: patient oriented x3 Urinary Catheter Management: Lucas: Cath Placed During This Visit: yes, but has since been removed by the nurse Reason for Continuing Indwelling Catheter: Accurate Measurement of Urinary Output in Critically Ill Patients Urinary Catheter Date of Insertion: 07/15/22 Urinary Catheter Time of Insertion: 10:00 Date Urinary Catheter Removed: 07/21/22 Time Urinary Catheter Discontinued: 10:35 Data 07/22/22 03:15 07/22/22 03:15 Micro: Microbiology 07/21/22 10:40 Blood Culture - Preliminary Blood NEGATIVE TO DATE 07/21/22 10:46 Blood Culture - Preliminary Blood NEGATIVE TO DATE 07/17/22 03:11 Blood Culture - Final Blood NO GROWTH AFTER 5 DAYS 07/17/22 03:09 Blood Culture - Final Blood NO GROWTH AFTER 5 DAYS A&P Assessment and plan (1) Gram-negative bacteremia: Gram-negative bacteremia as seen on blood cultures from July 15, 2022, E. coli which is craft susceptible. Continue ceftriaxone 1 g IV every 24 hours. 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 coli. CT of her abdomen did not show any hydronephrosis or ureteral dilatation. There was a nonobstructive stone in the left lower pole of the collecting system. No surgical intervention currently indicated. Likely that her episode of chills and presyncope was related to gram-negative bacteremia on July 16 Repeat culture from July 17 thus far negative to date Will plan for transition to oral fluoroquinolone at the time of discharge for a total therapy of 14 days for complicated UTI. (2) Atrial fibrillation with rapid ventricular response: Currently on amiodarone 400 mg twice daily, metoprolol to 100 mg twice daily, Digoxin 125 mg p.o. daily. cardiology following Possible plan for cardioversion however deferred for now with new viral URI Echocardiogram from June 26, 2022 with LVEF of 45 to 50%, mild global hypokinesis, diastolic function was unable to be determined at the time due to A-fib. Evidence of mild pulmonary hypertension noted. 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 Fecal occult blood testing returned negative, started on Lovenox 1 mg/kg every 12 hours, previously on Eliquis. Received 2 units of packed red blood cell transfusion during admission, hemoglobin currently stable (3) JES (acute kidney injury): Now resolved Cr back at baseline Good urine output remove Lucas today Likely secondary to afib rvr with hypotension, ATN from sepsis Patient was noted to be retaining 300 cc urine on 07/15. Lucas placed, to be removed today CT KUB negative for any obstruction. (4) Heart failure: Acute on chronic combined systolic and diastolic heart failure Echocardiogram as noted above from June Resumed Lasix, 20 mg IV daily monitor kidney function and urine output. (5) Injury of left hip: s/p mechanical fall Imaging negative for any acute fractures. Severe left osteoarthritis. Outpatient follow-up with orthopedics recommended Encouraged to keep working with physical therapy (6) Lymphatic leukemia: chronic lymphocytic leukenma Has not yet started BTK inhibitors Concerned that chills may be contributed by B symptoms from CLL, however since co relating with fever and bacteremia, more likely to have infectious explanation Initially also concerned about potential autoimmune hemolytic anemia as a cause of anemia, however haptoglobin's are elevated, LDH is not increased over baseline, indirect bili is normal. Labs are less concerning for AIHA. Continue prednisone 20 mg p.o. daily as she does outpatient. added PJP ppx with atovaquone (avoid bactrim due to fluctuating renal function and hyperkalemia recently) (7) Chronic left hip pain: severe degenerative arthritis (8) Fever: related to gram negative bacatremia and now coronavirus 229E (9) Elevated troponin: Elevated troponin, baseline of 57, downtrending at 2 and 6 hours. Suspect that elevated troponin is a result of CHF exacerbation, unlikely ACS. Stress test performed in August 2021 had shown myocardial imaging with small area of inconsistent reversible defect in the distribution of LCx. At that time LVEF was 71% on stress test. 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 Patient will likely need additional ischemic work-up once stabilized with more acute issues of a fib rvr and CHF (10) Coronavirus infection, unspecified: Coronavirus 229E infection , NOT covid , RVP positive on 07/20 supportive symptomatic treatment prn tylenol for fever and chills likely to be the cause of new fever today off oxygen now Plan Full code lovenox for DVT prophylaxis All updates discussed with daughter Shanika Hsu Attestations Medical Necessity Statement*: Needs to be in hospital for management of coronavirus infection.Currently having temperature spikes. Coding Level of Care Code 41806 Diagnoses Gram-negative bacteremia R78.81 Atrial fibrillation with rapid ventricular response I48.91 JES (acute kidney injury) N17.9 Heart failure I50.9 Injury of left hip S79.912A Lymphatic leukemia C91.90 Chronic left hip pain M25.552; G89.29 Fever R50.9 Elevated troponin R77.8 Coronavirus infection, unspecified B34.2
[2022-07-23] VITALS (11 sets, daily range): BP systolic 135–163; BP diastolic 54–95; PULSE 68–87; RESP 18–27; TEMP 36.6–37.3; O2SAT 92–99; BMI 32.3
[2022-07-23] MEDS: enoxaparin 80 mg/0.8 mL Syringe SUBCUT ×2 (02:21→15:28)
--- NOTE | 2022-07-23 07:00 | PC.NURSE ---
I have reviewed and agree with the charting of Jaylene WELLINGTON.
[2022-07-23] MEDS: amiodarone 200 mg Tablet 400 MG PO ×2 (08:31→17:53)
[2022-07-23] MEDS: FUROsemide 20 mg Tablet PO (08:32)
[2022-07-23] MEDS: metoprolol tartrate 50 mg Tablet 100 MG PO ×2 (08:32→17:53)
[2022-07-23] MEDS: pantoprazole DR 40 mg Tablet PO ×2 (08:32→17:53)
[2022-07-23] MEDS: predniSONE 20 mg Tablet PO (08:32)
[2022-07-23] MEDS: digoxin 125 mcg Tablet PO (08:32)
[2022-07-23] MEDS: cefTRIAXone 1,000 MG in sodium chloride 0.9% (plus) 50 ML 100 MG IV (15:28)
--- NOTE | 2022-07-23 19:05 | P.PN_ITS ---
Subjective Subjective: Patient was seen and examined this morning has been afebrile for more than 48 hours. Medications: Reviewed: Yes Medication Review Details: Generic Name Dose Route Start Last Admin Trade Name Ellen PRN Reason Stop Dose Admin Acetaminophen 650 mg 07/13/22 15:37 07/21/22 12:03 Acetaminophen 32 5 Mg Tablet PO 650 mg Q6H PRN Administration Mild/Mod Pain Or Temp >/= 101 Amiodarone HCl 400 mg 07/17/22 18:00 07/23/22 17:53 Amiodarone 200 M g Tablet PO 400 mg BID CHEIKH Administration Digoxin 125 mcg 07/20/22 09:30 07/23/22 08:32 Digoxin 125 Mcg Tablet PO 125 mcg DAILY CHEIKH Administration Enoxaparin Sodium 80 mg 07/18/22 14:30 07/23/22 15:28 Enoxaparin 80 Mg /0.8 Ml Syringe 1 mg/kg (80 mg) 80 mg SUBCUT Administration Q12H CHEIKH Furosemide 20 mg 07/22/22 08:00 07/23/22 08:32 Furosemide 20 Mg Tablet PO 20 mg DAILY@0800 CHEIKH Administration Amiodarone HCl 900 mg/ 518 mls @ 0 mls/h r 07/15/22 11:00 07/19/22 19:00 Dextrose/ IV Misce llaneous IV Infused Supplies .Q0M CHEIKH Titration Protocol Per Protocol Ceftriaxone Sodium 1,000 mg/ 50 mls @ 100 mls/ hr 07/18/22 14:30 07/23/22 16:18 Sodium Chloride IV Infused Q24H CHEIKH Infusion Protocol Lidocaine 1 patch 07/17/22 21:00 07/23/22 10:46 Lidocaine 5% Pat ch TOPICAL Not Given [id number] CHEIKH Metoprolol Tartrat e 100 mg 07/20/22 18:00 07/23/22 17:53 Metoprolol Tartr ate 50 Mg Tablet PO 100 mg BID CHEIKH Administration Non-Formulary Medi cation 1,500 mg 07/19/22 13:00 07/22/22 11:33 Atovaquone PO 1,500 mg DAILY CHEIKH Administration Pantoprazole Sodiu m 40 mg 07/17/22 18:00 07/23/22 17:[address] 40 Mg Tablet PO 40 mg BID CHEIKH Administration Polyethylene Glyco l 17 gm 07/16/22 09:00 07/23/22 10:47 Polyethylene Gly col 3350 Pkt 17 Gm PO Not Given DAILY CHEIKH Prednisone 20 mg 07/18/22 09:00 07/23/22 08:32 Prednisone 20 Mg Tablet PO 20 mg DAILY CHEIKH Administration Vitals/I&O/Wt Last Vital Signs Temp 97.9 F 07/23/22 16:00 Pulse 87 07/23/22 16:00 Resp 27 H 07/23/22 16:00 BP 136/55 07/23/22 16:00 Pulse Ox 96 07/23/22 16:00 O2 Del Method 07/23/22 16:00 O2 Flow Rate 0.5 07/21/22 04:00 07/23/22 07/23/22 07/23/22 06:59 14:59 22:59 Intake Total 960 / 960 410 / 1370 Balance 960 / 960 410 / 1370 Weight last 48 hrs Weight 80.286 kg Weight 80.286 kg Physical Exam Const: COMMON NORMALS: patient oriented x3 HENMT: COMMON NORMALS: normocephalic and atraumatic HEAD & SCALP: normocephalic and atraumatic Resp: COMMON NORMALS: clear to auscultation bilaterally EFFORT & INSPECTION: Yes symmetric chest movement AUSCULTATION: clear to auscultation bilaterally Cardio: COMMON NORMALS: No gallops present (Cardio), No murmurs present (Cardio), No rub (Cardio) and Peripheral pulses 2+ throughout PERIPHERAL PULSES: Peripheral pulses 2+ throughout OTHER: Irregularly irregular rhythm S1-S2 variable intensity GI: COMMON NORMALS: Normal to inspection, nondistended, normoactive bowel sounds present, Soft to palpation, non-tender, No hepatosplenomegaly present and no masses AUSCULTATION: Yes normoactive bowel sounds PALPATION: Yes Soft to palpation and Yes No hepatosplenomegaly present RECTAL EXAM: deferred Extremity: COMMON NORMALS: no clubbing, cyanosis or edema and no pedal edema Neuro: COMMON NORMALS: patient oriented x3 Urinary Catheter Management: Lucas: Cath Placed During This Visit: yes, but has since been removed by the nurse Reason for Continuing Indwelling Catheter: Accurate Measurement of Urinary Output in Critically Ill Patients Urinary Catheter Date of Insertion: 07/15/22 Urinary Catheter Time of Insertion: 10:00 Date Urinary Catheter Removed: 07/21/22 Time Urinary Catheter Discontinued: 10:35 Data 07/22/22 03:15 07/22/22 03:15 A&P Assessment and plan (1) Gram-negative bacteremia: Gram-negative bacteremia as seen on blood cultures from July 15, 2022, E. coli which is craft susceptible. Continue ceftriaxone 1 g IV every 24 hours. 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 coli. CT of her abdomen did not show any hydronephrosis or ureteral dilatation. There was a nonobstructive stone in the left lower pole of the collecting system. No surgical intervention currently indicated. Likely that her episode of chills and presyncope was related to gram-negative bacteremia on July 16 Repeat culture from July 17 thus far negative to date Will plan for transition to oral fluoroquinolone at the time of discharge for a total therapy of 14 days for complicated UTI. (2) Atrial fibrillation with rapid ventricular response: Currently on amiodarone 400 mg twice daily, metoprolol to 100 mg twice daily, Digoxin 125 mg p.o. daily. cardiology following Possible plan for cardioversion however deferred for now with new viral URI Echocardiogram from June 26, 2022 with LVEF of 45 to 50%, mild global hypoki nesis, diastolic function was unable to be determined at the time due to A-fib. Evidence of mild pulmonary hypertension noted. 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 Fecal occult blood testing returned negative, started on Lovenox 1 mg/kg every 12 hours, previously on Eliquis. Received 2 units of packed red blood cell transfusion during admission, hemoglo bin currently stable (3) JES (acute kidney injury): Now resolved Cr back at baseline Good urine output remove Lucas today Likely secondary to afib rvr with hypotension, ATN from sepsis Patient was noted to be retaining 300 cc urine on 07/15. Lucas placed, to be removed today CT KUB negative for any obstruction. (4) Heart failure: Acute on chronic combined systolic and diastolic heart failure Echocardiogram as noted above from June Resumed Lasix, 20 mg IV daily monitor kidney function and urine output. (5) Injury of left hip: s/p mechanical fall Imaging negative for any acute fractures. Severe left osteoarthritis. Outpatient follow-up with orthopedics recommended Encouraged to keep working with physical therapy (6) Lymphatic leukemia: chronic lymphocytic leukenma Has not yet started BTK inhibitors Concerned that chills may be contributed by B symptoms from CLL, however since co relating with fever and bacteremia, more likely to have infectious explanation Initially also concerned about potential autoimmune hemolytic anemia as a cause of anemia, however haptoglobin's are elevated, LDH is not increased over baseline, indirect bili is normal. Labs are less concerning for AIHA. Continue prednisone 20 mg p.o. daily as she does outpatient. added PJP ppx with atovaquone (avoid bactrim due to fluctuating renal function and hyperkalemia recently) (7) Chronic left hip pain: severe degenerative arthritis (8) Fever: related to gram negative bacatremia and now coronavirus 229E (9) Elevated troponin: Elevated troponin, baseline of 57, downtrending at 2 and 6 hours. Suspect that elevated troponin is a result of CHF exacerbation, unlikely ACS. Stress test performed in August 2021 had shown myocardial imaging with small area of inconsistent reversible defect in the distribution of LCx. At that time LVEF was 71% on stress test. More recent echocardiogram from June 2022 shows an EF of 45 to 50% which would be considered a mold changer prior. Patient will likely need additional ischemic work-up once stabilized with more acute issues of a fib rvr and CHF (10) Coronavirus infection, unspecified: Coronavirus 229E infection , NOT covid , RVP positive on 07/20 supportive symptomatic treatment prn tylenol for fever and chills likely to be the cause of new fever today off oxygen now Plan Full code lovenox for DVT prophylaxis All updates discussed with daughter Shanika Hsu Attestations Medical Necessity Statement*: Needs to be in hospital for management of fever need for IV antibiotics Coding Level of Care Code 49441 Diagnoses Gram-negative bacteremia R78.81 Atrial fibrillation with rapid ventricular response I48.91 JES (acute kidney injury) N17.9 Heart failure I50.9 Injury of left hip S79.912A Lymphatic leukemia C91.90 Chronic left hip pain M25.552; G89.29 Fever R50.9 Elevated troponin R77.8 Coronavirus infection, unspecified B34.2
--- NOTE | 2022-07-23 23:44 | P.PN_ITS ---
Subjective Subjective: Patient is feeling better. Still has slight cough and some productive sputum. Remains afebrile. Denies any chest pain. Has some amount of shortness of breath with activities. Telemetry shows atrial fibrillation with a controlled ventricular response rate. Medications: Medication Review Details: Current Medications Acetaminophen (Acetaminophen 325 Mg Tablet) 650 mg PO Q6H PRN PRN Reason: Mild/Mod Pain Or Temp >/= 101 Last Admin: 07/21/22 12:03 Dose: 650 mg Al Hydrox/Mg Hydrox/Simethicone (Ucjh-Pdn-Wjsbkozqu-Monique 30 Ml Udc) 15 ml PO Q6H PRN PRN Reason: INDIGESTION Amiodarone HCl (Amiodarone 200 Mg Tablet) 400 mg PO BID [facility] Last Admin: 07/23/22 17:53 Dose: 400 mg Bisacodyl (Bisacodyl 5 Mg Tablet) 10 mg PO DAILY PRN; Protocol PRN Reason: Constipation (see protocol) Digoxin (Digoxin 125 Mcg Tablet) 125 mcg PO DAILY [facility] Last Admin: 07/23/22 08:32 Dose: 125 mcg Enoxaparin Sodium (Enoxaparin 80 Mg/0.8 Ml Syringe) 80 mg 1 mg/kg (80 mg) SUBCUT Q12H [facility] Last Admin: 07/23/22 15:28 Dose: 80 mg Furosemide (Furosemide 20 Mg Tablet) 20 mg PO DAILY@0800 [facility] Last Admin: 07/23/22 08:32 Dose: 20 mg Amiodarone HCl 900 mg/Dextrose/ IV Miscellaneous Supplies 518 mls @ 0 mls/hr IV .Q0M [facility]; Protocol Last Titration: 07/19/22 19:00 Dose: Infused Ceftriaxone Sodium 1,000 mg/ (Sodium Chloride) 50 mls @ 100 mls/hr IV Q24H [facility]; Protocol Last Infusion: 07/23/22 16:18 Dose: Infused Lidocaine (Lidocaine 5% Patch) 1 patch TOPICAL [id number] [facility] Last Admin: 07/23/22 20:23 Dose: Not Given Metoprolol Tartrate (Metoprolol Tartrate 50 Mg Tablet) 100 mg PO BID [facility] Last Admin: 07/23/22 17:53 Dose: 100 mg Naloxone HCl (Naloxone 0.4 Mg/Ml Sdv) 0.1 mg IVP Q2M PRN PRN Reason: OPIATERV Non-Formulary Medication (Atovaquone) 1,500 mg PO DAILY [facility] Last Admin: 07/22/22 11:33 Dose: 1,500 mg Pantoprazole Sodium (Pantoprazole Dr 40 Mg Tablet) 40 mg PO BID [facility] Last Admin: 07/23/22 17:53 Dose: 40 mg Polyethylene Glycol (Polyethylene Glycol 3350 Pkt 17 Gm) 17 gm PO DAILY [facility] Last Admin: 07/23/22 10:47 Dose: Not Given Prednisone (Prednisone 20 Mg Tablet) 20 mg PO DAILY [facility] Last Admin: 07/23/22 08:32 Dose: 20 mg Promethazine HCl (Promethazine 25 Mg Tablet) 25 mg PO Q6H PRN PRN Reason: NAUSEA Vitals/I&O/Wt Last Vital Signs Temp 97.8 F 07/23/22 20:00 Pulse 68 07/23/22 21:47 Resp 18 07/23/22 20:00 BP 143/54 07/23/22 20:00 Pulse Ox 99 07/23/22 20:00 O2 Del Method 07/23/22 20:00 O2 Flow Rate 0.5 07/21/22 04:00 07/23/22 07/23/22 07/24/22 14:59 22:59 06:59 Intake Total 960 / 960 410 / 1370 Balance 960 / 960 410 / 1370 Weight last 48 hrs Weight 177 lb Weight 177 lb Physical Exam Narrative: GENERAL: The patient is alert and oriented times three. Not in any acute distress. HEENT: No significant pallor, icterus or lymphadenopathy.Oral cavity: There are no mucous membrane lesions. NECK: Trachea appears to be central. No masses noted. No JVD or thyromegaly appreciated. RESPIRATORY: Breath sounds are heard bilaterally with occasional coarse crackles. BREASTS: Deferred. HEART: The heart sounds are normal. No S3 or S4. No significant murmurs. No pericardial rub ABDOMEN: No vessel pulsations or distention. No tenderness. No organomegaly appreciated. Bowel sounds are normally heard. : Deferred. RECTAL: Deferred. LYMPHATIC: No lymphadenopathy noted in the neck. EXTREMITIES: No edema or cyanosis. No clubbing. MUSCULOSKELETAL: No acute joint deformities or swelling SKIN: There are no significant rashes or ecchymosis NEUROPSYCHIATRIC: The patient is alert and oriented x3. Appears to be in a good mood. No tremors or rigidity noted. Urinary Catheter Management: Lucas: Cath Placed During This Visit: yes, but has since been removed by the nurse Reason for Continuing Indwelling Catheter: Accurate Measurement of Urinary Output in Critically Ill Patients Urinary Catheter Date of Insertion: 07/15/22 Urinary Catheter Time of Insertion: 10:00 Date Urinary Catheter Removed: 07/21/22 Time Urinary Catheter Discontinued: 10:35 Data 07/22/22 03:15 07/22/22 03:15 A&P Assessment and plan (1) Atrial fibrillation with rapid ventricular response: Patient may continue on the current medications. I will continue the same dose of the amiodarone and AV racheal blocking agents. (2) Heart failure: The heart failure seems to be fairly compensated. We will continue on the current medications. (3) Gram-negative bacteremia: Patient seems to be responding well to the current antibiotics. (4) Injury of left hip: Continue on the current management. 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 Management as per the oncology service. Plan Her other problems are Anemia, has improved after blood transfusion Coronavirus E 229-clinically improving May continue on the current medications. Continue monitoring the heart rhythm Attestations Medical Necessity Statement*: Disposition as per the primary Coding Level of Care Code 55734 Diagnoses Atrial fibrillation with rapid ventricular response I48.91 Heart failure I50.9 Gram-negative bacteremia R78.81 Injury of left hip S79.912A Lymphatic leukemia C91.90
[2022-07-24] VITALS (7 sets, daily range): BP systolic 138–170; BP diastolic 47–71; PULSE 69–96; RESP 17–22; TEMP 36.4–37.2; O2SAT 92–94
[2022-07-24] MEDS: enoxaparin 80 mg/0.8 mL Syringe SUBCUT (02:38)
[2022-07-24] MEDS: amiodarone 200 mg Tablet 400 MG PO (08:21)
[2022-07-24] MEDS: digoxin 125 mcg Tablet PO (08:21)
[2022-07-24] MEDS: FUROsemide 20 mg Tablet PO (08:21)
[2022-07-24] MEDS: metoprolol tartrate 50 mg Tablet 100 MG PO (08:22)
[2022-07-24] MEDS: polyethylene glycol 3350 Pkt 17 gm PO (08:22)
[2022-07-24] MEDS: pantoprazole DR 40 mg Tablet PO (08:22)
[2022-07-24] MEDS: lidocaine 5% Patch 1 PATCH TOPICAL (08:23)
[2022-07-24] MEDS: predniSONE 20 mg Tablet PO (08:24)
--- NOTE | 2022-07-24 10:29 | P.PN_ITS ---
Subjective Subjective: The patient is feeling okay. Telemetry shows atrial fibrillation with a controlled ventricular response rate. Heart rate in the 70s and 80s. Patient denies any chest pain or shortness of breath. She is afebrile for the last more the last 48 hours. Medications: Medication Review Details: Current Medications Acetaminophen (Acetaminophen 325 Mg Tablet) 650 mg PO Q6H PRN PRN Reason: Mild/Mod Pain Or Temp >/= 101 Last Admin: 07/21/22 12:03 Dose: 650 mg Al Hydrox/Mg Hydrox/Simethicone (Eszx-Zdx-Jqqdzkhaz-Monique 30 Ml Udc) 15 ml PO Q6H PRN PRN Reason: INDIGESTION Amiodarone HCl (Amiodarone 200 Mg Tablet) 400 mg PO BID [facility] Last Admin: 07/24/22 08:21 Dose: 400 mg Bisacodyl (Bisacodyl 5 Mg Tablet) 10 mg PO DAILY PRN; Protocol PRN Reason: Constipation (see protocol) Digoxin (Digoxin 125 Mcg Tablet) 125 mcg PO DAILY [facility] Last Admin: 07/24/22 08:21 Dose: 125 mcg Enoxaparin Sodium (Enoxaparin 80 Mg/0.8 Ml Syringe) 80 mg 1 mg/kg (80 mg) SUBCUT Q12H [facility] Last Admin: 07/24/22 02:38 Dose: 80 mg Furosemide (Furosemide 20 Mg Tablet) 20 mg PO DAILY@0800 [facility] Last Admin: 07/24/22 08:21 Dose: 20 mg Amiodarone HCl 900 mg/Dextrose/ IV Miscellaneous Supplies 518 mls @ 0 mls/hr IV .Q0M [facility]; Protocol Last Titration: 07/19/22 19:00 Dose: Infused Ceftriaxone Sodium 1,000 mg/ (Sodium Chloride) 50 mls @ 100 mls/hr IV Q24H [facility]; Protocol Last Infusion: 07/23/22 16:18 Dose: Infused Lidocaine (Lidocaine 5% Patch) 1 patch TOPICAL [id number] [facility] Last Admin: 07/24/22 08:23 Dose: 1 patch Metoprolol Tartrate (Metoprolol Tartrate 50 Mg Tablet) 100 mg PO BID [facility] Last Admin: 07/24/22 08:22 Dose: 100 mg Naloxone HCl (Naloxone 0.4 Mg/Ml Sdv) 0.1 mg IVP Q2M PRN PRN Reason: OPIATERV Non-Formulary Medication (Atovaquone) 1,500 mg PO DAILY [facility] Last Admin: 07/24/22 08:21 Dose: 1,500 mg Pantoprazole Sodium (Pantoprazole Dr 40 Mg Tablet) 40 mg PO BID [facility] Last Admin: 07/24/22 08:22 Dose: 40 mg Polyethylene Glycol (Polyethylene Glycol 3350 Pkt 17 Gm) 17 gm PO DAILY [facility] Last Admin: 07/24/22 08:22 Dose: 17 gm Prednisone (Prednisone 20 Mg Tablet) 20 mg PO DAILY [facility] Last Admin: 07/24/22 08:24 Dose: 20 mg Promethazine HCl (Promethazine 25 Mg Tablet) 25 mg PO Q6H PRN PRN Reason: NAUSEA Vitals/I&O/Wt Last Vital Signs Temp 98.6 F 07/24/22 07:30 Pulse 96 07/24/22 07:30 Resp 22 H 07/24/22 07:30 BP 151/49 07/24/22 07:30 Pulse Ox 94 07/24/22 07:30 O2 Del Method 07/24/22 07:30 O2 Flow Rate 0.5 07/21/22 04:00 07/23/22 07/24/22 07/24/22 22:59 06:59 14:59 Intake Total 410 / 1370 240 / 240 Balance 410 / 1370 240 / 240 Weight last 48 hrs Weight 170 lb 12.8 oz Weight 177 lb Physical Exam Narrative: GENERAL: The patient is alert and oriented times three. Not in any acute distress. HEENT: No significant pallor, icterus or lymphadenopathy.Oral cavity: There are no mucous membrane lesions. NECK: Trachea appears to be central. No masses noted. No JVD or thyromegaly appreciated. RESPIRATORY: Chest is symmetrical. No intercostals muscle retraction or any accessory muscle activation. There is no chest wall tenderness. Breath sounds are heard bilaterally. No rales or rhonchi heard. No evidence of any consolid ation. BREASTS: Deferred. HEART: The heart sounds are normal. No S3 or S4. No significant murmurs. No pericardial rub ABDOMEN: No vessel pulsations or distention. No tenderness. No organomegaly ap preciated. Bowel sounds are normally heard. : Deferred. RECTAL: Deferred. LYMPHATIC: No lymphadenopathy noted in the neck. EXTREMITIES: No edema or cyanosis. No clubbing. MUSCULOSKELETAL: No acute joint deformities or swelling SKIN: There are no significant rashes or ecchymosis NEUROPSYCHIATRIC: The patient is alert and oriented x3. Appears to be in a good mood. No tremors or rigidity noted. Urinary Catheter Management: Lucas: Cath Placed During This Visit: yes, but has since been removed by the nurse Reason for Continuing Indwelling Catheter: Accurate Measurement of Urinary Output in Critically Ill Patients Urinary Catheter Date of Insertion: 07/15/22 Urinary Catheter Time of Insertion: 10:00 Date Urinary Catheter Removed: 07/21/22 Time Urinary Catheter Discontinued: 10:35 Data 07/22/22 03:15 07/22/22 03:15 Other Labs: Laboratory Last Values WBC 62.0 10^3/uL (4.0-10.0) H* 07/22/22 03:15 RBC 3.35 10^6/uL (4.1-5.3) L 07/22/22 03:15 Hgb 11.0 g/dL (11.5-15.3) L 07/22/22 03:15 Hct 34.8 % (37.0-47.0) L 07/22/22 03:15 MCV 103.9 fl (81-99) H 07/22/22 03:15 MCH 32.8 pg (28.0-34.0) 07/22/22 03:15 MCHC 31.6 g/dL (30.0-36.0) 07/22/22 03:15 RDW 20.2 % (12.1-15.1) H 07/22/22 03:15 Plt Count 384 10^3/cmm (130-400) 07/22/22 03:15 MPV 9.7 fL (7.4-10.4) 07/22/22 03:15 Neut % (Auto) 19.2 % 07/22/22 03:15 Lymph % (Auto) 78.5 % 07/22/22 03:15 Tyler % (Auto) 0.7 % 07/22/22 03:15 Eos % (Auto) 0.0 % 07/22/22 03:15 Baso % (Auto) 0.0 % 07/22/22 03:15 Neut # (Auto) 11.86 10^3/uL (1.8-7.7) H 07/22/22 03:15 Lymph # (Auto) 48.7 10^3/uL (0.8-4.8) H 07/22/22 03:15 Tyler # (Auto) 0.5 10^3/uL (0.2-0.9) 07/22/22 03:15 Eos # (Auto) 0.0 10^3/uL (0.0-0.8) 07/22/22 03:15 Baso # (Auto) 0.0 10^3/uL (0.0-0.1) 07/22/22 03:15 Nucleated RBC % (auto) 0 % 07/22/22 03:15 Total Counted 100 (0-100) 07/16/22 04:32 Atypical Lymphs % 0.0 % (0-5) 07/16/22 04:32 Absolute Neutrophils 12.6 10^3/cmm (1.4-6.5) H 07/16/22 04:32 Segmented Neutrophils 17 % 07/16/22 04:32 Abs Segm Neuts (Man) 11.9 10/cmm (1.6-7.1) H 07/16/22 04:32 Band Neutrophils 1.0 % 07/16/22 04:32 Abs Band Neuts (Man) 0.7 10^3/cmm (0.0-1.2) 07/16/22 04:32 Absolute Lymphocytes 57.3 10^3/cmm (1.2-3.4) H 07/16/22 04:32 Lymphocytes (Manual) 82 % 07/16/22 04:32 Monocytes (Manual) 0.0 % 07/16/22 04:32 Absolute Monocytes 0.0 10^3/cmm (0.1-0.6) L 07/16/22 04:32 Eosinophils (Manual) 0 % 07/16/22 04:32 Absolute Eosinophils 0.0 10^3/cmm (0.0-0.7) 07/16/22 04:32 Basophils (Manual) 0.0 % 07/16/22 04:32 Absolute Basophils 0.0 10^3/cmm (0.0-0.2) 07/16/22 04:32 Nucleated RBCs # 0.0 /100WBC 07/22/22 03:15 Toxic Granulation 1+ H 07/16/22 04:32 Toxic Vacuolation Trace 07/16/22 04:32 Dohle Bodies 2+ H 07/14/22 03:56 Platelet Estimate Normal (Normal) 07/16/22 04:32 Anisocytosis 2+ H 07/16/22 04:32 Macrocytosis 1+ H 07/16/22 04:32 Haptoglobin 363.0 mg/L (30-200) H 07/17/22 03:11 PT 17.90 SECONDS (12.1-14.9) H 07/14/22 03:56 INR 1.43 (0.8-1.2) H 07/14/22 03:56 APTT 37.6 SECONDS (23.9-36.7) H 07/14/22 03:56 Sodium 141 mmol/L (136-145) 07/22/22 03:15 Potassium 4.2 mmol/L (3.5-5.1) 07/22/22 03:15 Chloride 105 mmol/L (98-107) 07/22/22 03:15 Carbon Dioxide 27 mmol/L (22-29) 07/22/22 03:15 Anion Gap 13.2 (5-19) 07/22/22 03:15 BUN 32 mg/dL (8-23) H 07/22/22 03:15 Creatinine 0.8 mg/dL (0.5-0.9) 07/22/22 03:15 GFR Calculation Not Reportable 07/22/22 03:15 Glucose 105 mg/dL (65-115) 07/22/22 03:15 Calculated Osmolality 299 mOsm/kg (285-295) H 07/22/22 03:15 Calcium 8.5 mg/dL (8.5-10.5) 07/22/22 03:15 Phosphorus 5.2 mg/dL (2.5-4.5) H 07/14/22 03:56 Magnesium 2.8 mg/dL (1.7-2.3) H 07/14/22 03:56 Total Bilirubin 0.7 mg/dL (0.15-1.2) 07/22/22 03:15 Direct Bilirubin 1.10 mg/dL (0.00-0.30) H 07/17/22 03:11 Indirect Bilirubin 0.30 07/17/22 03:11 AST 7 U/L (0-32) 07/22/22 03:15 ALT 33 U/L (0-33) 07/22/22 03:15 Alkaline Phosphatase 85 U/L (35-105) 07/22/22 03:15 Lactate Dehydrogenase 242 U/L (135-214) H 07/17/22 03:11 Creatine Kinase 17 U/L (26-192) L 07/15/22 11:39 Troponin T Baseline 35 ng/L (0-10) H 07/16/22 14:37 Troponin T 120 Minute 32.85 ng/L (0-10) H 07/16/22 16:58 Delta Troponin T -2.15 ABS# (0-10) L 07/16/22 16:58 Troponin T Hi Sens 6Hr 30.92 ng/L (0-10) H 07/16/22 20:41 Troponin T Hi Sens 6Hr Delta -4.08 ng/L (0-12) L 07/16/22 20:41 NT-Pro-B Natriuret Pep 7788 pg/mL (0-450) H 07/14/22 03:56 Total Protein 4.6 g/dL (6.6-8.7) L 07/22/22 03:15 Albumin 2.2 g/dL (3.5-5.2) L 07/22/22 03:15 Globulin 2.4 g/dL (1.3-4.6) 07/22/22 03:15 Random Cortisol 9.94 ug/dL (2.47-19.5) 07/16/22 14:37 Urine Color Yellow (Yellow) 07/15/22 10:00 Urine Appearance Hazy (CLEAR) A 07/15/22 10:00 Urine pH 5 (5-7) 07/15/22 10:00 Ur Specific Roy 1.020 (1.005-1.030) 07/15/22 10:00 Urine Protein Trace (Negative) 07/15/22 10:00 Urine Glucose (UA) Norm (Normal) 07/15/22 10:00 Urine Ketones 1+ (Negative) H 07/15/22 10:00 Urine Blood 3+ (Negative) H 07/15/22 10:00 Urine Nitrate Negative (Negative) 07/15/22 10:00 Urine Bilirubin Neg (Negative) 07/15/22 10:00 Urine Urobilinogen Norm mg/dL (Negative) 07/15/22 10:00 Ur Leukocyte Esterase Trace (Negative) H 07/15/22 10:00 Urine RBC 15-25 /hpf (0-2) H 07/15/22 10:00 Urine WBC 15-25 /hpf (0-5) H 07/15/22 10:00 Ur Squamous Epith Cells 0-4 /hpf (0-5) H 07/15/22 10:00 Amorphous Sediment Not Reportable 07/15/22 10:00 Urine Bacteria 3+ /hpf (NONE) H 07/15/22 10:00 Nasal Influ A H1 2009 PCR Not detected (NOT DETECT) 07/20/22 17:33 Adenovirus (PCR) Not detected (NOT DETECT) 07/20/22 17: C. pneumoniae DNA (PCR) Not detected (NOT DETECT) 07/20/22 17: Coronavirus 229E (PCR) Detected (NOT DETECT) A 07/20/22 17:33 Human Metapneumovir PCR Not detected (NOT DETECT) 07/20/22 17:33 Influenza A (H1) PCR Not detected (NOT DETECT) 07/20/22 17:33 Influenza A (H3) PCR Not detected (NOT DETECT) 07/20/22 17:33 Influenza Type A (PCR) Not detected (NOT DETECT) 07/20/22 17:33 Influenza Type B (PCR) Not detected (NOT DETECT) 07/20/22 17:33 M. pneumoniae (PCR) Not detected (NOT DETECT) 07/20/22 17:33 Parainfluenza 1 (PCR) Not detected (NOT DETECT) 07/20/22 17:33 Parainfluenza 2 (PCR) Not detected (NOT DETECT) 07/20/22 17:33 Parainfluenza 3 (PCR) Not detected (NOT DETECT) 07/20/22 17:33 Parainfluenza 4 (PCR) Not detected (NOT DETECT) 07/20/22 17:33 RSV Type A (PCR) Not detected (NOT DETECT) 07/20/22 17:33 RSV Type B (PCR) Not detected (NOT DETECT) 07/20/22 17:33 Entero/Rhino (PCR) Not detected (NOT DETECT) 07/20/22 17:33 SARS-CoV-2 (PCR) Not detected (NOT DETECT) 07/20/22 17:33 Blood Type A Positive 07/18/22 14:44 Rho(D) Type Positive 07/18/22 14:44 Antibody Screen Negative 07/18/22 14:44 Crossmatch See Detail 07/18/22 14:44 A&P Assessment and plan (1) Atrial fibrillation with rapid ventricular response: Patient may continue on the current medications. I may discontinue the digoxin at this time. Continue on the amiodarone and the metoprolol. The dose of the amiodarone may be cut back to 400 mg p.o. daily for a week followed by 200 mg p.o. daily. Other medications may be continued as it is. (2) Heart failure: The heart failure seems to be fairly compensated. We will continue on the current medications. (3) Gram-negative bacteremia: Patient seems to be responding well to the current antibiotics. Management as per the primary (4) Injury of left hip: Continue on the current management. 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 Management as per the oncology service. Plan Her other problems are Anemia, has improved after blood transfusion Coronavirus E 229-clinically improving If the patient continues to remain stable, may be discharged from a cardiac standpoint. 80 be seen at the [facility] 1 week by the nurse practitioner for the medication adjustments. I may see him in the office in 1 month. Attestations Medical Necessity Statement*: Disposition as per the primary Coding Level of Care Code Acute Code for [facility] Diagnoses Atrial fibrillation with rapid ventricular response I48.91 Heart failure I50.9 Gram-negative bacteremia R78.81 Injury of left hip S79.912A Lymphatic leukemia C91.90
--- NOTE | 2022-07-24 11:16 | PC.SOCIAL ---
Imm update Imm updated with patient at bedside. copy of page 2 provided. Patient verbalized understanding. Copy in chart initialed, dated and timed.
--- NOTE | 2022-07-24 13:33 | PC.NURSE ---
report called to [facility] talked to jose and gave her a hand-off report on pt's hospitalization and discharge orders.
--- NOTE | 2022-07-24 14:04 | PM.DCS ---
Discharge Providers Date of Admission: 07/13/22 13:42 Date of Discharge: July 24, 2022 Attending Provider at Admission: Abimael Torres MD Attending Provider at Discharge: Gage Cannon MD Primary Care Provider: Griselda Garrett APRN Diagnoses at Discharge Discharge Diagnosis (1) Atrial fibrillation with rapid ventricular response: Status: Inactive (2) Heart failure: Status: Inactive (3) Gram-negative bacteremia: Status: Inactive (4) Injury of left hip: Status: Inactive (5) Lymphatic leukemia: Status: Inactive Reason for Visit Reason for Visit: LEFT HIP PAIN S/P FALL Hospital Course Hospital Course HPI:Abimael Torres MD Sadie Martines is a 86 year old female? with Hx of CHF, HTN, Afib and lymphocytic leukemia presented to the ED to be evaluated s/o fall at 1-2PM yesterday landing on her left hip. Fell while attempting to go to the bathroom. states her left leg gave out on her and she landed on the L hip and hit her head against the cabinet, no LOC. At time was not able to walk, had to use rollaid sitting on it and kicking her feet.? States this AM she was in a lot of pain and could not get out of bed. Admitted to worsening L hip pain in comparison to her baseline 2/2 avascular necrosis and OA. Of importance, pt did state she had not taken her medication since the evening of 07/11/22. Pt was recently admitted 2 weeks ago for Afib RVR and sent home on cardizem 120mg DS daily and metoprolol 25mg BID and restarted on eliquis 5mg BID. Pt was seen by [facility] [employer] on 07/08/22, no changes to medication other than restarting lasix 20mg PO qd. Pt admits to posterior hip pain worse than baseline, associated with some radiation down the L lateral aspect of her leg. Denies CP, palpitations, SOB, N/V/D/C. admits to decreased appetite. Upon arrival to ED, EKG showed HR in 180's in Afib RVR. Given Cardizem 20mg x 2, started on drip and an additional metoprolol 5mg IVP. HR decreased to 120's. When i saw the patient her HR was ranging from 115-140 in afib rvr but asymptomatic. Hospital course: Initially she was admitted for the management of: A-fib with RVR, initially she was on Cardizem drip, but later she was transitioned to amiodarone p.o. as well as metoprolol, she was on Eliquis for anticoagulation, during the hospital stay she was also managed for gram-negative bacteremia, blood culture grew E. coli, plan was to treat with IV ceftriaxone, during the hospital stay, and transition her to p.o. levofloxacin, on discharge to complete total 14-day course.Repeat blood culture was negative, prior to the discharge.During the hospital stay she was also managed for decompensated heart failure Acute on chronic combined systolic and diastolic heart failure, she was kept on IV diuresis, to which she responded well, at the time of discharge she was, euvolemic, she also had an episode of fever during the hospital stay, possibly 2/2 gram-negative bacteremia as well as could be secondary to coronavirus 229E.Injury of left hip:s/p mechanical fall,Imaging negative for any acute fractures.During the hospital stay she was also managed for elevated troponin, likely type II NSTEMI In the setting of CHF exacerbation,Stress test performed in August 2021 had shown myocardial imaging with small area of inconsistent reversible defect in the distribution of LCx. Patient has history of CLL for which she has not been started on BTK inhibitors, she is on p.o. prednisone as outpatient, during the hospital stay she was started on,PJP prophylaxis, given the fact she is immunocompromised, and is also on prednisone which will add further to, her immunocompromise status, she was started on atovaquone, Bactrim was avoided, due to fluctuating renal function and hyperkalemia seen recently, I have advised the patient to hold atovaquone briefly, as she was developing bullous skin lesion on the lateral aspect of upper thigh, could be possibly secondary to drug rash related to atovaquone, she is scheduled to see ID as outpatient, at that point in time, decision regarding initiating, atovaquone can be taken.Overall patient has responded fairly well to above medical management and she is being discharged in stable condition to home, she will continue to follow with her PCP as outpatient. Physical Exam Const: COMMON NORMALS: patient oriented x3 HENMT: COMMON NORMALS: normocephalic and atraumatic HEAD & SCALP: normocephalic and atraumatic Resp: COMMON NORMALS: clear to auscultation bilaterally EFFORT & INSPECTION: Yes symmetric chest movement AUSCULTATION: clear to auscultation bilaterally Cardio: COMMON NORMALS: No gallops present (Cardio), No murmurs present (Cardio), No rub (Cardio) and Peripheral pulses 2+ throughout PERIPHERAL PULSES: Peripheral pulses 2+ throughout OTHER: Irregularly irregular rhythm S1-S2 variable intensity GI: COMMON NORMALS: Normal to inspection, nondistended, normoactive bowel sounds present, Soft to palpation, non-tender, No hepatosplenomegaly present and no masses AUSCULTATION: Yes normoactive bowel sounds PALPATION: Yes Soft to palpation and Yes No hepatosplenomegaly present RECTAL EXAM: deferred Extremity: COMMON NORMALS: no clubbing, cyanosis or edema and no pedal edema Neuro: COMMON NORMALS: patient oriented x3 Urinary Catheter Management: Lucas: Cath Placed During This Visit: yes, but has since been removed by the nurse Reason for Continuing Indwelling Catheter: Accurate Measurement of Urinary Output in Critically Ill Patients Urinary Catheter Date of Insertion: 07/15/22 Urinary Catheter Time of Insertion: 10:00 Date Urinary Catheter Removed: 07/21/22 Time Urinary Catheter Discontinued: 10:35 Discharge Data Studies Completed and Pending Completed Studies During Hospitalization Category Date Time Status CT abdomen renal stone [CT kidney stone 38733] Routine Cat Scan 07/15/22 11:[address] bony pelvis 04673 Routine Cat Scan 07/15/22 10:52 Completed CXRP [XR chest 1V portable [id number]] AM LABS Exams 07/22/22 04:00 Completed CXRP [XR chest 1V portable [id number]] Routine Exams 07/15/22 10:57 Completed XR chest 1V portable [id number] Stat Exams 07/13/22 12:15 Completed XR hip LT 2-3V wo/w pel* [id number] Stat Exams 07/13/22 12:16 Completed NM pul vent and perfus* [id number] Routine Nuc Med 07/17/22 07:00 [place] [id number] Routine Ultrasound 07/16/22 13:22 Completed Pending at discharge Category Date Time Status Blood Culture Stat Lab 07/15/22 11:39 Results Blood Culture Stat Lab 07/21/22 10:46 Results Radiology Impressions Hip/Pelvis X-Ray 07/13/22 12:16 IMPRESSION: 1. 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 Otherwise No acute findings. Pelvis CT 07/15/22 10:52 IMPRESSION: 1. Severe osteoarthritis at the left hip. 2. Moderate osteoarthritis at the right hip. 3. No fracture. Abdomen/Pelvis CT 07/15/22 11:02 IMPRESSION: 1. No obstructive uropathy. 2. Small bilateral pleural effusions and compressive atelectasis in the lower lobes. 3. Retroperitoneal, left iliac and lower mesenteric lymphadenopathy. Possible reactive or neoplastic nodes. 4. Right middle and lower lobe pulmonary nodules measuring up to 12 mm.For patients at low risk (minimal or absent history of smoking and of other known risk factors), recommend CT Chest at 3-6 months, then consider CT Chest at 18-24 months. For patients at high risk (history of smoking or of other known risk factors), recommend CT Chest at 3-6 months, then CT Chest at 18-24 months. (Reference: Kellee) REFERENCES: Kellee Garcias, et al. Guidelines for Management of Incidental Pulmonary Nodules Detected on CT Images: From the Fleischner Society 2017. Radiology. 2017;284(1):228-243. Pulmonary Perfusion Imaging 07/17/22 07:00 IMPRESSION: 1. Low probability for pulmonary embolus. Chest X-Ray 07/22/22 04:00 IMPRESSION: 1. Large heart with mild diffuse interstitial edema or scarring. These findings have progressed slightly from 9 days ago. 2. No focal pneumonia. 3. Other chronic findings again noted. Laboratory Results WBC 62.0 10^3/uL (4.0-10.0) H* 07/22/22 03:15 RBC 3.35 10^6/uL (4.1-5.3) L 07/22/22 03:15 Hgb 11.0 g/dL (11.5-15.3) L 07/22/22 03:15 Hct 34.8 % (37.0-47.0) L 07/22/22 03:15 MCV 103.9 fl (81-99) H 07/22/22 03:15 MCH 32.8 pg (28.0-34.0) 07/22/22 03:15 MCHC 31.6 g/dL (30.0-36.0) 07/22/22 03:15 RDW 20.2 % (12.1-15.1) H 07/22/22 03:15 Plt Count 384 10^3/cmm (130-400) 07/22/22 03:15 MPV 9.7 fL (7.4-10.4) 07/22/22 03:15 Neut % (Auto) 19.2 % 07/22/22 03:15 Lymph % (Auto) 78.5 % 07/22/22 03:15 [place] % (Auto) 0.7 % 07/22/22 03:15 Eos % (Auto) 0.0 % 07/22/22 03:15 Baso % (Auto) 0.0 % 07/22/22 03:15 Neut # (Auto) 11.86 10^3/uL (1.8-7.7) H 07/22/22 03:15 Lymph # (Auto) 48.7 10^3/uL (0.8-4.8) H 07/22/22 03:15 [place] # (Auto) 0.5 10^3/uL (0.2-0.9) 07/22/22 03:15 Eos # (Auto) 0.0 10^3/uL (0.0-0.8) 07/22/22 03:15 Baso # (Auto) 0.0 10^3/uL (0.0-0.1) 07/22/22 03:15 Nucleated RBC % (auto) 0 % 07/22/22 03:15 Total Counted 100 (0-100) 07/16/22 04:32 Atypical Lymphs % 0.0 % (0-5) 07/16/22 04:32 Absolute Neutrophils 12.6 10^3/cmm (1.4-6.5) H 07/16/22 04:32 Segmented Neutrophils 17 % 07/16/22 04:32 Abs Segm Neuts (Man) 11.9 10/cmm (1.6-7.1) H 07/16/22 04:32 Band Neutrophils 1.0 % 07/16/22 04:32 Abs Band Neuts (Man) 0.7 10^3/cmm (0.0-1.2) 07/16/22 04:32 Absolute Lymphocytes 57.3 10^3/cmm (1.2-3.4) H 07/16/22 04:32 Lymphocytes (Manual) 82 % 07/16/22 04:32 Monocytes (Manual) 0.0 % 07/16/22 04:32 Absolute Monocytes 0.0 10^3/cmm (0.1-0.6) L 07/16/22 04:32 Eosinophils (Manual) 0 % 07/16/22 04:32 Absolute Eosinophils 0.0 10^3/cmm (0.0-0.7) 07/16/22 04:32 Basophils (Manual) 0.0 % 07/16/22 04:32 Absolute Basophils 0.0 10^3/cmm (0.0-0.2) 07/16/22 04:32 Nucleated RBCs # 0.0 /100WBC 07/22/22 03:15 Toxic Granulation 1+ H 07/16/22 04:32 Toxic Vacuolation Trace 07/16/22 04:32 Dohle Bodies 2+ H 07/14/22 03:56 Platelet Estimate Normal (Normal) 07/16/22 04:32 Anisocytosis 2+ H 07/16/22 04:32 Macrocytosis 1+ H 07/16/22 04:32 Haptoglobin 363.0 mg/L (30-200) H 07/17/22 03:11 PT 17.90 SECONDS (12.1-14.9) H 07/14/22 03:56 INR 1.43 (0.8-1.2) H 07/14/22 03:56 APTT 37.6 SECONDS (23.9-36.7) H 07/14/22 03:56 Sodium 141 mmol/L (136-145) 07/22/22 03:15 Potassium 4.2 mmol/L (3.5-5.1) 07/22/22 03:15 Chloride 105 mmol/L (98-107) 07/22/22 03:15 Carbon Dioxide 27 mmol/L (22-29) 07/22/22 03:15 Anion Gap 13.2 (5-19) 07/22/22 03:15 BUN 32 mg/dL (8-23) H 07/22/22 03:15 Creatinine 0.8 mg/dL (0.5-0.9) 07/22/22 03:15 GFR Calculation Not Reportable 07/22/22 03:15 Glucose 105 mg/dL (65-115) 07/22/22 03:15 Calculated Osmolality 299 mOsm/kg (285-295) H 07/22/22 03:15 Calcium 8.5 mg/dL (8.5-10.5) 07/22/22 03:15 Phosphorus 5.2 mg/dL (2.5-4.5) H 07/14/22 03:56 Magnesium 2.8 mg/dL (1.7-2.3) H 07/14/22 03:56 Total Bilirubin 0.7 mg/dL (0.15-1.2) 07/22/22 03:15 Direct Bilirubin 1.10 mg/dL (0.00-0.30) H 07/17/22 03:11 Indirect Bilirubin 0.30 07/17/22 03:11 AST 7 U/L (0-32) 07/22/22 03:15 ALT 33 U/L (0-33) 07/22/22 03:15 Alkaline Phosphatase 85 U/L (35-105) 07/22/22 03:15 Lactate Dehydrogenase 242 U/L (135-214) H 07/17/22 03:11 Creatine Kinase 17 U/L (26-192) L 07/15/22 11:39 Troponin T Baseline 35 ng/L (0-10) H 07/16/22 14:37 Troponin T 120 Minute 32.85 ng/L (0-10) H 07/16/22 16:58 Delta Troponin T -2.15 ABS# (0-10) L 07/16/22 16:58 Troponin T Hi Sens 6Hr 30.92 ng/L (0-10) H 07/16/22 20:41 Troponin T Hi Sens 6Hr Delta -4.08 ng/L (0-12) L 07/16/22 20:41 NT-Pro-B Natriuret Pep 7788 pg/mL (0-450) H 07/14/22 03:56 Total Protein 4.6 g/dL (6.6-8.7) L 07/22/22 03:15 Albumin 2.2 g/dL (3.5-5.2) L 07/22/22 03:15 Globulin 2.4 g/dL (1.3-4.6) 07/22/22 03:15 Random Cortisol 9.94 ug/dL (2.47-19.5) 07/16/22 14:37 Urine Color Yellow (Yellow) 07/15/22 10:00 Urine Appearance Hazy (CLEAR) A 07/15/22 10:00 Urine pH 5 (5-7) 07/15/22 10:00 Ur Specific [place] 1.020 (1.005-1.030) 07/15/22 10:00 Urine Protein Trace (Negative) 07/15/22 10:00 Urine Glucose (UA) Norm (Normal) 07/15/22 10:00 Urine Ketones 1+ (Negative) H 07/15/22 10:00 Urine Blood 3+ (Negative) H 07/15/22 10:00 Urine Nitrate Negative (Negative) 07/15/22 10:00 Urine Bilirubin Neg (Negative) 07/15/22 10:00 Urine Urobilinogen Norm mg/dL (Negative) 07/15/22 10:00 Ur Leukocyte Esterase Trace (Negative) H 07/15/22 10:00 Urine RBC 15-25 /hpf (0-2) H 07/15/22 10:00 Urine WBC 15-25 /hpf (0-5) H 07/15/22 10:00 Ur Squamous Epith Cells 0-4 /hpf (0-5) H 07/15/22 10:00 Amorphous Sediment Not Reportable 07/15/22 10:00 Urine Bacteria 3+ /hpf (NONE) H 07/15/22 10:00 Nasal Influ A H1 2008 PCR Not detected (NOT DETECT) 07/20/22 17:33 Adenovirus (PCR) Not detected (NOT DETECT) 07/20/22 17:33 C. pneumoniae DNA (PCR) Not detected (NOT DETECT) 07/20/22 17:33 Coronavirus 229E (PCR) Detected (NOT DETECT) A 07/20/22 17:33 Human Metapneumovir PCR Not detected (NOT DETECT) 07/20/22 17:33 Influenza A (H1) PCR Not detected (NOT DETECT) 07/20/22 17:33 Influenza A (H3) PCR Not detected (NOT DETECT) 07/20/22 17:33 Influenza Type A (PCR) Not detected (NOT DETECT) 07/20/22 17:33 Influenza Type B (PCR) Not detected (NOT DETECT) 07/20/22 17:33 M. pneumoniae (PCR) Not detected (NOT DETECT) 07/20/22 17:33 Parainfluenza 1 (PCR) Not detected (NOT DETECT) 07/20/22 17:33 Parainfluenza 2 (PCR) Not detected (NOT DETECT) 07/20/22 17:33 Parainfluenza 3 (PCR) Not detected (NOT DETECT) 07/20/22 17:33 Parainfluenza 4 (PCR) Not detected (NOT DETECT) 07/20/22 17:33 RSV Type A (PCR) Not detected (NOT DETECT) 07/20/22 17:33 RSV Type B (PCR) Not detected (NOT DETECT) 07/20/22 17:33 Entero/Rhino (PCR) Not detected (NOT DETECT) 07/20/22 17:33 SARS-CoV-2 (PCR) Not detected (NOT DETECT) 07/20/22 17:33 Blood Type A Positive 07/18/22 14:44 Rho(D) Type Positive 07/18/22 14:44 Antibody Screen Negative 07/18/22 14:44 Crossmatch See Detail 07/18/22 14:44 Vitals Last Vital Signs Temp 97.6 F 07/24/22 13:27 Pulse 86 07/24/22 13:27 Resp 20 H 07/24/22 13:27 BP 170/71 07/24/22 11:27 Pulse Ox 92 07/24/22 13:27 O2 Del Method 07/24/22 11:27 O2 Flow Rate 0.5 07/21/22 04:00 Discharge Plan Discharge Patient Disposition: Home Health Service Condition: Stable Prescriptions: New levofloxacin 750 mg tablet 750 mg PO DAILY 14 Days Qty: 14 0RF metoprolol tartrate 50 mg Tablet 100 mg PO BID 30 Days Qty: 120 2RF Continued cyanocobalamin (vitamin B-12) 1,000 mcg/mL solution 1,000 mcg SUBCUT Q30D Discontinued diltiazem HCl 120 mg capsule,extended release 24hr 120 mg PO DAILY Qty: 30 0RF metoprolol tartrate [Lopressor] 50 mg tablet 25 mg PO BID Qty: 60 0RF No Action acalabrutinib maleate 100 mg tablet 100 mg PO Q12H Qty: 60 5RF Hold Instructions: Order Change Rx Instructions: not started as of 06/25/22 amiodarone 400 mg tablet 200 mg PO DAILY Rx Instructions: 400 mg po daily for 7 days and thereafter 200 mg po daily Eliquis 5 mg tablet 5 mg PO BID Qty: 180 3RF furosemide 20 mg tablet 20 mg PO DAILY PRN (Reason: swelling) Label Comments: Take 20mg twice a day prednisone 20 mg tablet 10 mg PO DAILY Discharge Orders: Discharge Order (Routine); Ordered 07/24/22 Ordered By: Gage Cannon Other Ambulatory Orders: DME: Wheelchair (Order) Location: None Selected Ordered By: Catia Agarwal Referrals: [facility] [Other] ([facility] has accepted you on services for home health. Once you get home they should reach out to set up a time for start of care. If you do not hear from them in a timely manner, You may call the number above to check on services. ) Griselda Garrett APRN [Primary Care Provider] - 07/29/22 9:40 am Catia Agarwal MD [Hospitalist] - 08/22/22 9:45 am (Please call [phone] with any questions or concerns. Thank you.) Alexia Mayen FNP [Nurse Practitioner] - 07/30/22 2:45 pm Patient Instructions: Metoprolol (By mouth) (Lopressor, Toprol XL), Amiodarone (By mouth) (Cordarone, Pacerone), Atovaquone (By mouth) (Mepron), Levofloxacin (By mouth) (Levaquin, Levaquin Leva-phuong), A-fib (Atrial Fibrillation) (IP), Fall Prevention for Older Adults (DC), Acute Wound Care (DC), Chronic Lymphocytic Leukemia (DC), Bacteremia (DC), CHF Stoplight Activity Restrictions/Additional Instructions: Patient has been asked to hold atovaquone till the time she see as outpatient, in view of newly developed tense bullous rash on her let lateral upper thigh. Keep your wound open to air, apply pads if blisters are draining. If you develop any fever, chills and if there are more blisters/ rashes are more spread and swelling and redness are noted even after holding this medication, pls come to ER vivian. Discharge Attestations Time Spent in Discharge Care*: less than 30 min Quality Metrics Clinical Quality Measures [ No reported AMI, CVA or VTE this stay] Coding Level of Care Code Acute Code for Chg Fwd Diagnoses Atrial fibrillation with rapid ventricular response I48.91 Heart failure I50.9 Gram-negative bacteremia R78.81 Injury of left hip S79.912A Lymphatic leukemia C91.90
== END 2022-07-24 14:21 | disposition home health service (06) | DRG 280 ==
LOC: ER 13:42 → CSU 13:56 → ICU 07-16 13:37 → CSU 07-20 11:55
PROVIDERS: Student in an Organized Health Care Education/Training Program; Admitting Provider Family Medicine; Emergency Provider Family Medicine; PCP Nurse Practitioner Family; Visit Provider Internal Medicine
DX: I48.91 Unspecified atrial fibrillation (principal); I50.43 Acute on chronic combined systolic (congestive) and diastolic (congestive) heart failure; I21.A1 Myocardial infarction type 2; I13.0 Hypertensive heart and chronic kidney disease with heart failure and stage 1 through stage 4 chronic kidney disease, or unspecified chronic kidney disease; C91.10 Chronic lymphocytic leukemia of B-cell type not having achieved remission; R78.81 Bacteremia; D84.9 Immunodeficiency, unspecified; N17.9 Acute kidney failure, unspecified; N39.0 Urinary tract infection, site not specified; N18.30 Chronic kidney disease, stage 3 unspecified; B96.20 Unspecified Escherichia coli [E. coli] as the cause of diseases classified elsewhere; S79.912A Unspecified injury of left hip, initial encounter; W18.39XA Other fall on same level, initial encounter; G89.29 Other chronic pain; D53.1 Other megaloblastic anemias, not elsewhere classified; I27.20 Pulmonary hypertension, unspecified; I95.9 Hypotension, unspecified; E78.5 Hyperlipidemia, unspecified; E87.5 Hyperkalemia; B34.2 Coronavirus infection, unspecified; L27.1 Localized skin eruption due to drugs and medicaments taken internally; T37.3X5A Adverse effect of other antiprotozoal drugs, initial encounter; Y92.239 Unspecified place in hospital as the place of occurrence of the external cause; Z87.891 Personal history of nicotine dependence; Z79.52 Long term (current) use of systemic steroids; Z79.899 Other long term (current) drug therapy
CPT/HCPCS: 36415; 36430; 51702; 71045; 72192; 73502; 74176; 78014; 80053; 80503; 81001; 82247; 82248; 82274; 82533; 82550; 83010; 83615; 83735; 83880; 84100; 84484; 85007; 85025; 85610; 85730; 86850; 86900; 86920; 87040; 87077; 87086; 87150; 87186; 87205; 87486; 87581; 87633; 93005; 93970; 96365; 96366; 96372; 96375; 96376; 97110; 97116; 97161; 97165; 97530; 97535; 99285; A9540; A9567; J0282; J0696; J1160; J1650; J1815; J1940; J2543; J3490; J7030; J7060; J7120; J7512; P9016

== ENCOUNTER 2022-07-29 11:55 | Oncology outpatient (recurring) (ONCR) | payer MEDICARE, OTHER, SELFPAY | END 2022-08-25 23:59 | disposition home or self-care (01) | LOC: ONCMED 11:56 | PROVIDERS: PCP Nurse Practitioner Family; Visit Provider Nurse Practitioner Family | DX: Z08 Encounter for follow-up examination after completed treatment for malignant neoplasm; Z85.6 Personal history of leukemia; D59.10 Autoimmune hemolytic anemia, unspecified; M25.552 Pain in left hip; I48.19 Other persistent atrial fibrillation; Z79.01 Long term (current) use of anticoagulants; Z79.899 Other long term (current) drug therapy; Z87.891 Personal history of nicotine dependence | CPT/HCPCS: 36415; 80053; 83010; 83615; 84550; 85007; 85025; 85045; 93005; 99214 ==

== ENCOUNTER → 2022-07-30 14:31 | Outpatient (BNVA) | payer MEDICARE, OTHER, SELFPAY | PROVIDERS: PCP Nurse Practitioner Family; Visit Provider Nurse Practitioner Family | DX: I48.91 Unspecified atrial fibrillation (principal); Z79.01 Long term (current) use of anticoagulants; Z87.891 Personal history of nicotine dependence; I11.0 Hypertensive heart disease with heart failure; I50.9 Heart failure, unspecified | CPT/HCPCS: 93005; 99214 ==

== ENCOUNTER → 2022-08-05 09:14 | Outpatient (BNVA) | payer MEDICARE, OTHER, SELFPAY | PROVIDERS: PCP Nurse Practitioner Family; Visit Provider Specialist | DX: M16.12 Unilateral primary osteoarthritis, left hip (principal); L89.309 Pressure ulcer of unspecified buttock, unspecified stage | CPT/HCPCS: 99214 ==

== ENCOUNTER → 2022-09-09 11:10 | Outpatient (BNVA) | payer MEDICARE, OTHER, SELFPAY | PROVIDERS: PCP Nurse Practitioner Family; Visit Provider Internal Medicine Cardiovascular Disease | DX: R07.9 Chest pain, unspecified (principal); I48.91 Unspecified atrial fibrillation; C91.10 Chronic lymphocytic leukemia of B-cell type not having achieved remission; I50.9 Heart failure, unspecified; J47.9 Bronchiectasis, uncomplicated; I11.0 Hypertensive heart disease with heart failure; E78.5 Hyperlipidemia, unspecified; Z79.899 Other long term (current) drug therapy | CPT/HCPCS: 93005; 99214 ==

== ENCOUNTER 2022-09-19 13:25 | Oncology outpatient (recurring) (ONCR) | payer MEDICARE, OTHER, SELFPAY ==
[2022-09-19 13:57] LABS: Hematocrit 34.2 % (37.0-47.0); Hemoglobin 9.9 g/dL (11.5-15.3); Mean Corpuscular HGB Conc 28.9 g/dL (30.0-36.0); Mean Corpuscular Hemoglobin 31.4 pg (28.0-34.0); Mean Corpuscular Volume 108.6 fl (81-99); Mean Platelet Volume 9.6 fL (7.4-10.4); Platelet Count 349 10^3/cmm (130-400); Red Blood Count 3.15 10^6/uL (4.1-5.3); Red Cell Distribution Width 20.1 % (12.1-15.1)
[2022-09-19 14:15] LABS: Alanine Aminotransferase 9 U/L (0-33); Albumin Level 3.5 g/dL (3.5-5.2); Alkaline Phosphatase 67 U/L (35-105); Anion Gap 14.6 (5-19); Aspartate Amino Transferase 8 U/L (0-32); Blood Urea Nitrogen 29 mg/dL (8-23); Carbon Dioxide 25 mmol/L (22-29); Chloride 106 mmol/L (98-107); Globulin 2.1 g/dL (1.3-4.6); Glucose 110 mg/dL (65-115); Lactate Dehydrogenase 202 U/L (135-214); Osmolality Calculated 298 mOsm/kg (285-295); Potassium 4.6 mmol/L (3.5-5.1); Sodium 141 mmol/L (136-145); Total Bilirubin 0.4 mg/dL (0.15-1.2); Total Protein 5.6 g/dL (6.6-8.7)
[2022-09-19 14:24] LABS: White Blood Count 39.3 10^3/uL (4.0-10.0)
[2022-09-19 14:25] LABS: Absolute Neutrophil 8.3 10^3/cmm (1.4-6.5); Absolute Segmented Neutrophil 8.3 10/cmm (1.6-7.1); Eosinophils 0 %; Lymphocytes 55 %; Lymphocytes Absolute 30.7 10^3/cmm (1.2-3.4); Macrocytosis 2+; Platelet Estimate Normal (Normal); Segmented Neutrophils 21 %; Total Cells Counted 100 (0-100)
[2022-09-19 14:26] LABS: Schistocytes Trace
[2022-09-19 14:27] LABS: Ovalocytes 1+; Smudge Cells Trace
[2022-09-19 15:31] LABS: Basophils # 0.1 10^3/uL (0.0-0.1); Basophils % 0.3 %; Lymphocytes # 28.6 10^3/uL (0.8-4.8); Lymphocytes % 71.7 %; Monocytes # 1.1 10^3/uL (0.2-0.9); Monocytes % 2.7 %; Neutrophils # 9.59 10^3/uL (1.8-7.7); Neutrophils % 24.1 %; Nucleated Red Blood Cells % 0.1 %
[2022-09-19 15:40] LABS: Reticulocyte % 2.3 % (0.5-2.0)
[2022-09-19 16:02] LABS: Iron 37 ug/dL (37-145); Percent Saturation 17.7 % (20-50); Total Iron Binding Capacity 208 mcg/dl; Unsaturated Iron Binding 171 ug/dL (112-347)
[2022-09-19 18:04] LABS: LAB Peripheral Smear Sent for Review
== END 2022-09-25 23:59 | disposition home or self-care (01) ==
PROVIDERS: Internal Medicine Medical Oncology; PCP Nurse Practitioner Family; Visit Provider Nurse Practitioner Family
DX: Z08 Encounter for follow-up examination after completed treatment for malignant neoplasm (principal); Z85.6 Personal history of leukemia; M25.552 Pain in left hip; L89.159 Pressure ulcer of sacral region, unspecified stage; D64.9 Anemia, unspecified; R74.02 Elevation of levels of lactic acid dehydrogenase [LDH]; Z79.52 Long term (current) use of systemic steroids; Z79.899 Other long term (current) drug therapy
CPT/HCPCS: 36415; 80053; 83010; 83540; 83550; 83615; 85007; 85025; 85045; 99214

== ENCOUNTER 2022-11-04 09:44 | Oncology outpatient (recurring) (ONCR) | payer MEDICARE, OTHER, SELFPAY ==
[2022-11-04 10:07] VITALS: BP 152/62; PULSE 46; RESP 18; TEMP 35.7; O2SAT 99
[2022-11-04 10:24] LABS: Reticulocyte % 1.8 % (0.5-2.0)
[2022-11-04 10:25] LABS: Basophils # 0.1 10^3/uL (0.0-0.1); Basophils % 0.4 %; Eosinophils # 0.1 10^3/uL (0.0-0.8); Eosinophils % 0.2 %; Hematocrit 36.9 % (37.0-47.0); Hemoglobin 11.1 g/dL (11.5-15.3); Lymphocytes # 16.7 10^3/uL (0.8-4.8); Lymphocytes % 66.6 %; Mean Corpuscular HGB Conc 30.1 g/dL (30.0-36.0); Mean Corpuscular Hemoglobin 30.7 pg (28.0-34.0); Mean Corpuscular Volume 101.9 fl (81-99); Mean Platelet Volume 9.7 fL (7.4-10.4); Monocytes # 2.1 10^3/uL (0.2-0.9); Monocytes % 8.5 %; Neutrophils # 5.77 10^3/uL (1.8-7.7); Nucleated Red Blood Cells % 0.1 %; Platelet Count 289 10^3/cmm (130-400); Red Blood Count 3.62 10^6/uL (4.1-5.3); White Blood Count 25.1 10^3/uL (4.0-10.0)
[2022-11-04 10:40] LABS: Alanine Aminotransferase 8 U/L (0-33); Albumin Level 3.9 g/dL (3.5-5.2); Alkaline Phosphatase 58 U/L (35-105); Anion Gap 10.2 (5-19); Blood Urea Nitrogen 28 mg/dL (8-23); Carbon Dioxide 28 mmol/L (22-29); Chloride 103 mmol/L (98-107); Globulin 2.3 g/dL (1.3-4.6); Glucose 79 mg/dL (65-115); Iron 74 ug/dL (37-145); Lactate Dehydrogenase 235 U/L (135-214); Osmolality Calculated 288 mOsm/kg (285-295); Potassium 4.2 mmol/L (3.5-5.1); Sodium 137 mmol/L (136-145); Total Bilirubin 0.3 mg/dL (0.15-1.2); Total Iron Binding Capacity 200 mcg/dl; Total Protein 6.2 g/dL (6.6-8.7); Unsaturated Iron Binding 126 ug/dL (112-347)
[2022-11-04 10:49] LABS: Aspartate Amino Transferase 5 U/L (0-32)
[2022-11-04 11:22] LABS: Slide Review Slide Review Perform
== END 2022-11-25 23:59 | disposition home or self-care (01) ==
PROVIDERS: Internal Medicine Medical Oncology; PCP Nurse Practitioner Family; Visit Provider Nurse Practitioner Family
DX: C91.10 Chronic lymphocytic leukemia of B-cell type not having achieved remission
CPT/HCPCS: 36415; 80053; 83010; 83540; 83550; 83615; 85025; 85045; 99214

== ENCOUNTER 2022-12-02 08:44 | Oncology outpatient (recurring) (ONCR) | payer MEDICARE, OTHER, SELFPAY ==
[2022-12-02 08:54] VITALS: BP 126/73; PULSE 63; RESP 18; TEMP 36.4; O2SAT 98
[2022-12-02 09:13] LABS: Basophils # 0.1 10^3/uL (0.0-0.1); Basophils % 0.3 %; Eosinophils # 0.1 10^3/uL (0.0-0.8); Eosinophils % 0.2 %; Hematocrit 40.1 % (37.0-47.0); Hemoglobin 12.2 g/dL (11.5-15.3); Lymphocytes # 22.6 10^3/uL (0.8-4.8); Lymphocytes % 75.9 %; Mean Corpuscular HGB Conc 30.4 g/dL (30.0-36.0); Mean Corpuscular Hemoglobin 29.5 pg (28.0-34.0); Mean Corpuscular Volume 97.1 fl (81-99); Mean Platelet Volume 10.2 fL (7.4-10.4); Monocytes # 3.8 10^3/uL (0.2-0.9); Monocytes % 12.7 %; Neutrophils # 3.14 10^3/uL (1.8-7.7); Neutrophils % 10.6 %; Nucleated Red Blood Cells % 0 %; Platelet Count 245 10^3/cmm (130-400); Red Blood Count 4.13 10^6/uL (4.1-5.3); Red Cell Distribution Width 18.9 % (12.1-15.1); White Blood Count 29.7 10^3/uL (4.0-10.0)
== END 2022-12-26 23:59 | disposition home or self-care (01) ==
LOC: ONCMED 08:44
PROVIDERS: PCP Nurse Practitioner Family; Visit Provider Nurse Practitioner Family
DX: C91.10 Chronic lymphocytic leukemia of B-cell type not having achieved remission (principal)
CPT/HCPCS: 36415; 85025

== ENCOUNTER 2022-12-31 08:46 | Oncology outpatient (recurring) (ONCR) | payer MEDICARE, OTHER, SELFPAY ==
[2022-12-31 09:57] LABS: Basophils # 0.1 10^3/uL (0.0-0.1); Basophils % 0.4 %; Eosinophils # 0.1 10^3/uL (0.0-0.8); Eosinophils % 0.2 %; Hematocrit 40.5 % (36-47); Lymphocytes # 18.1 10^3/uL (0.8-4.8); Lymphocytes % 69.6 %; Mean Corpuscular HGB Conc 31.1 g/dL (30-55); Mean Corpuscular Hemoglobin 30.1 pg (27-33); Mean Corpuscular Volume 96.7 fl (85-98); Mean Platelet Volume 10.4 fL (7.4-10.4); Monocytes # 3.1 10^3/uL (0.2-0.9); Monocytes % 11.7 %; Neutrophils # 4.58 10^3/uL (1.8-7.7); Neutrophils % 17.6 %; Nucleated Red Blood Cells % 0 %; Platelet Count 234 10^3/cmm (157-399); Red Blood Count 4.19 10^6/uL (3.85-5.65); Red Cell Distribution Width 19.3 % (12.1-15.1); White Blood Count 26.04 10^3/uL (3.29-11.43)
[2022-12-31 10:33] LABS: Slide Review Slide Review Perform
[2022-12-31 11:06] LABS: Iron 80 ug/dL (37-145); Percent Saturation 36.3 % (20-50); Total Iron Binding Capacity 220 mcg/dl; Unsaturated Iron Binding 140 ug/dL (112-347)
== END 2023-01-25 23:59 | disposition home or self-care (01) ==
LOC: ONCMED 08:47
PROVIDERS: Internal Medicine Medical Oncology; PCP Nurse Practitioner Family; Visit Provider Nurse Practitioner Family
DX: C91.10 Chronic lymphocytic leukemia of B-cell type not having achieved remission (principal); D64.9 Anemia, unspecified
CPT/HCPCS: 36415; 83540; 83550; 85025

== ENCOUNTER → 2023-01-06 10:19 | Outpatient (BNVA) | payer MEDICARE, OTHER, SELFPAY | PROVIDERS: PCP Nurse Practitioner Family; Visit Provider Specialist | DX: M16.12 Unilateral primary osteoarthritis, left hip; M87.052 Idiopathic aseptic necrosis of left femur | CPT/HCPCS: 36415; 73502; 80053; 81001; 85025; 99214 ==

== ENCOUNTER 2023-01-14 14:13 | Observation (INO) | payer MEDICARE, OTHER, SELFPAY ==
[2023-01-14] VITALS (12 sets, daily range): BP systolic 135–203; BP diastolic 39–79; PULSE 64–83; RESP 15–16; TEMP 36.2–36.4; O2SAT 93–100; BMI 30.6
--- NOTE | 2023-01-14 09:50 | ECG_ITS ---
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 Measurements Intervals [place] Rate: 58 P: 14 MS: 177 QRS: 59 QRSD: 106 T: -15 QT: 420 QTc: 414 Interpretive Statements SINUS BRADYCARDIA POSSIBLE ANTERIOR MYOCARDIAL INFARCTION , PROBABLY OLD [30 ms Q WAVE IN V3/V4, OR R < 0.2 mV IN V4] Compared to ECG 09/09/2022 11:21:39 Myocardial infarct finding now present Electronically Signed On 01-14-2023 16:45:10 CDT by Gustavo Arguello M.D. [email or web address]
[2023-01-14] MEDS: gabapentin 300 mg Capsule PO (09:59)
[2023-01-14] MEDS: CELEcoxib 200 mg Capsule 400 MG PO (09:59)
[2023-01-14] MEDS: acetaminophen 1,000 MG/100 ML PIGGYBACK 400 MG IV ×2 (10:01→17:41)
--- NOTE | 2023-01-14 10:03 | P.ANESASSM_ITS ---
Pre-Anesthetic Assessment Height/Weight: Height 1.55 m Weight 73.482 kg Temp Pulse Resp BP Pulse Ox O2 Del Method 97.3 F L 72 16 191/56 97 Room Air 01/14/23 09:30 01/14/23 09:30 01/14/23 09:30 01/14/23 09:30 01/14/23 09:30 01/14/23 09:30 Operation Date: 01/14/23 10:50 Proposed Procedures p LEFT TOTAL HIP ARTHROPLASTY 62397, m16.9(Left) - Brinda Ambrosio MD Familial anesthetic complications: None Was Beta Krzysztof taken within 24 hours: Yes Was Clonidine taken within 24 hours: N/A Last intake: Intake Last Liquid Date 01/13/23 Last Liquid Time 18:00 Last Solid Date 01/13/23 Last Solid Time 18:00 Social No alcohol and No tobacco Exam alert, oriented x 3, clear to auscultation bilaterally and regular rate & rhythm Airway Mallampati: Class II Dentition: chipped CV/HEM Atrial Fibrillation, Congestive Heart Failure and Hypertension leukemia CKD Anesthetic Plan ASA status: 3 Anesthesia: General Other: general for eliquis dose < 72 hrs ago Risk of > 500 ml blood loss (7ml/kg in children): No Medications/Allergies Home Medications Medication Instructions Recorded Confirmed Last Taken Type cyanocobalamin (vitamin B-12) 1,000 mcg SUBCUT Q30D 07/04/21 01/14/23 1 Week Ago History 1,000 mcg/mL injection solution ~01/07/23 apixaban 5 mg tablet (Eliquis) 5 mg PO BID #180 tabs 07/30/22 01/14/23 01/11/23 Rx furosemide 20 mg tablet 20 mg PO DAILY PRN swelling 07/30/22 01/14/23 6 Months Ago History ~07/14/22 amiodarone 200 mg tablet 100 mg PO DAILY #90 tabs 11/04/22 01/14/23 01/14/23 07:30 Rx prednisone 5 mg tablet 5 mg PO DAILY #30 tabs 11/04/22 01/14/23 01/14/23 07:30 Rx metoprolol tartrate 50 mg tablet 25 mg PO BID #60 tabs 11/11/22 01/14/23 2 Months Ago Rx ~11/13/22 sulfamethoxazole 800 1 tab PO BID 7 days #14 tabs 01/08/23 01/14/23 01/14/23 07:30 Rx mg-trimethoprim 160 mg tablet (Bactrim DS) Allergies Allergy/AdvReac Type Severity Reaction Status Date / Time No Known Allergies Allergy Verified 01/14/23 09:24 [facility] Anesthesia Medical History JES (acute kidney injury) Atrial fibrillation by electrocardiogram Atrial fibrillation with rapid ventricular response B12 deficiency Chronic left hip pain Chronic lymphocytic leukemia Coronavirus infection, unspecified Degenerative arthritis Elevated troponin Fever Gram-negative bacteremia Heart failure Hyperlipidemia Hypertension Injury of left hip Lymphatic leukemia Surgical History History of carpal tunnel surgery of right wrist History of tubal ligation Status post total knee replacement, 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
--- NOTE | 2023-01-14 10:10 | W.PM.OPSUD ---
Surgery/Procedure H&P Update DATE OF PROCEDURE: January 14, 2023 DATE H&P PERFORMED: 01/09/23 H&P UPDATE INFORMATION: I have reviewed H&P completed within last 30 days, I have examined patient prior to procedure, No changes to prior documentation and H&P is in [facility] EMR on date indicated PLANNED PROCEDURE: Operation Date: 01/14/23 10:50 Proposed Procedures p LEFT TOTAL HIP ARTHROPLASTY 22369, m16.9(Left) - Brinda Ambrosio MD Related Problem List Diagnoses (1) Avascular necrosis of bone of left hip: (2) Primary osteoarthritis of left hip:
[2023-01-14] MEDS: sodium chloride 0.9% 1,000 ML 30 ML IV (10:15)
[2023-01-14] MEDS: ceFAZolin 2,000 MG in sodium chloride 0.9% (plus) 50 ML 100 MG IV ×2 (10:56→18:15)
[2023-01-14] MEDS: ceFAZolin 1,000 mg SDV 1000 MG IRRIGATION (12:13)
[2023-01-14] MEDS: vancomycin 1,000 MG SDV 1000 MG XX (12:15)
--- NOTE | 2023-01-14 13:10 | P.OP_ITS ---
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 A size 7 Accolade II 127? neck angle hip stem with a size 28 mm x +0 mm femoral head and a presybeterian MDM X3 insert size 42E Specimens removed/disposition: Femoral Head, disposed of Surgeon: Brinda Ambrosio MD Vb Net Developer: [facility] operating room technicians Anesthesia: General (Intubated, ASA 3) Estimated blood loss (mL): 300 IV fluids (mL): 1,100 Urine output (mL): 300 Complications: None Findings: Severe deformity and collapse of femoral head with significant arthritic change. The hip was stable to toe hang as well as to IR of 60 degrees with 90 degrees of flexion and 30 degrees of adduction. Condition: stable Disposition: PACU (Then return to floor for postoperative rehabilitation and pain management) Brief History: This is an established 87 year old female patient here today for left total hip arthroplasty. She presents to today in a wheelchair. She explains she utilizes a wheelchair at home for ambulation. She states she is able to stand and transfer with assistance. She states her left hip pain has significantly worsened with time. She reports pain in her groin area and thigh that radiates down to her knee. She rates her pain a 8/10 pre-op. She explains her pain is aggravated by standing and walking.? Patient reports a pressure ulcer located on her sacral area that was found in June of 2022. She [facility] being [facility]. Patient states the wound is almost healed, and she states there is no reported evidence of infection. In the office, consents were signed and q uestions were answered. Further questions are answered today. Procedure: Patient was brought to the operating theater.? She was transferred to the op erating room table and subsequently administered a general anesthesia intubated, ASA 3.? Following administration of adequate anesthesia, the patient was placed in full lateral position and held in position with a pegboard.? The patient's left lower extremity was then prepped and draped in usual fashion utilizing DuraPrep.? It was draped free.? Following prepping and draping, a surgical pause was performed.? At the time of surgical pause, we identified the site and side of surgery.? We also identified the patient and preoperative surgical markings.?The patient's operative leg was noted to be significantly shortened compare to the opposite leg. Confirmation was made of equipment availability.? Additionally, the patient's preoperative IV antibiotic, Ancef 2 g, and TXA administration was confirmed as well.? X-rays were also reviewed. Following the surgical pause, an incision was made centering over the patient's greater trochanter continuing proximally and distally as necessary to allow access to the hip joint.? Dissection continued through skin and soft tissues using a scalpel, and hemostasis was obtained using electrocautery. The tensor fascia adeola was identified and incised longitudinally but there was minimal fascial component to the tensor tissues.? Sciatic nerve was identified and protected throughout the surgical procedure.? A Charnley U retractor was placed after the tensor fascia adeola had been incised longitudinally, and the sciatic nerve had been identified.? The hip was internally rotated, and the piriformis muscle was identified and tagged. Piriformis muscle along with the remaining short external rotators were then incised from the posterior aspect of the hip joint.? These were retracted posteriorly.? The capsule was entered in a T-type fashion with the edges being tagged, and subsequently the hip was dislocated.? There was very thickened labrum as well.? This was excised with further excision accomplished once the femoral head was removed.? Following hip dislocation, a femoral neck osteotomy was accomplished in the appropriate position.? The head was measured, but it was quite deformed.? Subsequently, it was disposed of.? We then evaluated the acetabulum. The femur was retracted anteriorly.? Soft tissues were retracted, and the labrum was removed.? We then began reaming.? Once the femoral head was removed, there was noted to be significant loss of cartilage over the head with the previously noted deformity and within the acetabulum.? We reamed to a size 51 to allow for a size 52 acetabular shell.? The acetabulum was impacted into position.? The MDM liner was then impacted into position with care being taken to assure it seated appropriately.? It was noted that the acetabulum matched the bony anatomy.? The cup was noted to seat nicely and had good fixation upon impact. Attention was directed to the proximal femur.? The proximal femur was lifted out of the wound.? A canal finder was passed after the box chisel.? The reamer was used to lateralize.? We then began broaching. We broached sequentially and had excellent fit and fill with the size 6 broach. ? A trial reduction was attempted with a +0 mm femoral head.? With this construct, the hip was stable, and leg length was felt to be equal.? With this in place, we had the above stabilities.? This was felt to be excellent stability. Therefore, trial components were removed after the hip was dislocated.? The size 7 Accolade II 127? neck angle stem was impacted into position without difficulty and onto this was placed a +0 mm x 28 mm femoral head which had been assembled into the MDM insert size 42E.? With a +0 mm femoral head, we had the above-noted stability.? The stem was noted to seat nicely prior to placement of the femoral head.? The wound was copiously irrigated with 20 mL of Betadine and 500 mL of normal saline mixed together.? Subsequently, we suctioned this out and irrigated the wound copiously with lactated Ringer's.? At this time, with all components in appropriate position, the hip was reduced.? Following reduction of the prosthesis once again, we confirmed the stability of the hip.? Leg lengths were also felt to be satisfactory. Being satisfied with the prosthesis, attention was directed to closure.? Closure was accomplished with 0 Vicryl in the capsular tissues.? Piriformis was reattached with 0 Vicryl as well.? Tensor fascia adeola was closed with 0 Vicryl in an interrupted fashion.? The subcutaneous tissues were closed with a combination of 0 Vicryl and 2-0 Monocryl.? Vancomycin powder and a Gelfoam thrombin mixture was placed into the wound as well.? The skin was closed with a running 3-0 Monocryl followed by Dermabond Prineo followed by OpSite.? The patient was placed in an abduction pillow.? She was returned the Recovery Room in a satisfactory condition and will be discharged to the floor for postoperative rehabilitation and pain management.? There were no complications or specimens. Related Problem List Diagnoses (1) Avascular necrosis of bone of left hip: (2) Primary osteoarthritis of left hip:
--- NOTE | 2023-01-14 13:24 | XR_ITS ---
WS: [id number] XR pelvis 1-2V* [id number] REASON FOR EXAM: S/P Left TU FINDINGS: Total left hip arthroplasty. Prosthetic components are intact and in proper position and alignment. No bone abnormality. IMPRESSION: Total left hip arthroplasty without abnormality.
--- NOTE | 2023-01-14 14:35 | ANE.PACU2 ---
Inpatient post-anesthesia follow up: Airway intact: Yes Vital signs: Temperature 97.1 F Pulse Rate 75 Respiratory Rate 16 Blood Pressure 175/65 Pulse Oximetry 94 Oxygen Delivery Me thod Room Air Oxygen Flow Rate 6 Fraction of Inspir ed Oxygen Hydration adequate: Yes Nausea and vomiting: No Pain level: 1 Mental status: Baseline
[2023-01-14] MEDS: mupirocin oint 22 gm 1 APPLIC NASAL (17:55)
[2023-01-14] MEDS: metoprolol tartrate 50 mg Tablet 25 MG PO (17:55)
[2023-01-14] MEDS: chlorhexidine gluconate 0.12% Btl 473 mL 30 ML MUCOUS MEM (17:55)
[2023-01-14] MEDS: calcium carbonate 500 mg Chew Tablet 1000 MG PO (17:55)
[2023-01-14] MEDS: iron polysaccharide complex 150 mg Capsule PO (17:56)
[2023-01-14] MEDS: apixaban 5 mg Tablet PO (17:56)
[2023-01-14] MEDS: sennosides-docusate Tablet 2 TAB PO (17:56)
[2023-01-15] VITALS (7 sets, daily range): BP systolic 100–117; BP diastolic 45–58; PULSE 51–60; RESP 15–20; TEMP 36.4–36.9; O2SAT 91–100
[2023-01-15] MEDS: acetaminophen 1,000 MG/100 ML PIGGYBACK 400 MG IV ×2 (02:05→09:53)
[2023-01-15] MEDS: ceFAZolin 2,000 MG in sodium chloride 0.9% (plus) 50 ML 100 MG IV ×2 (03:07→10:12)
[2023-01-15 05:26] LABS: Basophils # 0.1 10^3/uL (0.0-0.1); Basophils % 0.2 %; Hematocrit 30.6 % (36-47); Lymphocytes # 15.4 10^3/uL (0.8-4.8); Lymphocytes % 48.7 %; Mean Corpuscular HGB Conc 30.7 g/dL (30-55); Mean Corpuscular Hemoglobin 29.7 pg (27-33); Mean Corpuscular Volume 96.8 fl (85-98); Mean Platelet Volume 10.6 fL (7.4-10.4); Monocytes # 2.6 10^3/uL (0.2-0.9); Monocytes % 8.2 %; Neutrophils # 13.13 10^3/uL (1.8-7.7); Neutrophils % 41.7 %; Nucleated Red Blood Cells % 0 %; Platelet Count 182 10^3/cmm (157-399); Red Blood Count 3.16 10^6/uL (3.85-5.65); Red Cell Distribution Width 19.7 % (12.1-15.1)
[2023-01-15 05:42] LABS: Slide Review Slide Review Perform
[2023-01-15 05:44] LABS: White Blood Count 31.51 10^3/uL (3.29-11.43)
[2023-01-15 05:50] LABS: Blood Urea Nitrogen 34 mg/dL (8-23); Calcium 9.1 mg/dL (8.5-10.5); Carbon Dioxide 23 mmol/L (22-29); Chloride 104 mmol/L (98-107); Glucose 112 mg/dL (65-115); Osmolality Calculated 288 mOsm/kg (285-295); Sodium 135 mmol/L (136-145)
[2023-01-15] MEDS: oxyCODONE 5 mg IR Tab/Cap PO ×2 (06:13→10:14)
[2023-01-15] MEDS: cholecalciferol (vitamin D3) 1,000 unit Tablet 1000 UNIT PO (08:48)
[2023-01-15] MEDS: apixaban 5 mg Tablet PO (08:48)
[2023-01-15] MEDS: sennosides-docusate Tablet 2 TAB PO (08:48)
[2023-01-15] MEDS: CELEcoxib 200 mg Capsule PO (08:48)
[2023-01-15] MEDS: multivitamin therapeutic Tablet 1 TAB PO (08:48)
[2023-01-15] MEDS: amiodarone 200 mg Tablet 100 MG PO (08:48)
[2023-01-15] MEDS: predniSONE 5 mg Tablet PO (08:48)
[2023-01-15] MEDS: calcium carbonate 500 mg Chew Tablet 1000 MG PO (08:49)
[2023-01-15] MEDS: iron polysaccharide complex 150 mg Capsule PO (08:49)
[2023-01-15] MEDS: mupirocin oint 22 gm 1 APPLIC NASAL (08:53)
[2023-01-15] MEDS: chlorhexidine gluconate 0.12% Btl 473 mL 30 ML MUCOUS MEM (08:53)
--- NOTE | 2023-01-15 10:50 | PC.CHAP ---
Pastoral Care Encounter/Spiritual Assessment Type of Contact [] Declined digital media buyer visit [] Patient/Family/Request visit [] Outpatient visit [] Follow-up visit [] Physician referral [] Code/Alert [x] Routine visit [] Staff referral [] Actively dying [] Patient sleeping [] Family support [] [] Out of room [] Palliative care [] [x] Receiving care in room [] Pre-surgical visit [] Trauma [] Long length of stay [] ICU visit [] Other: Relational/Emotional Strength [] Patient feels connected with others/family/visitors/staff [] Distress [] Loneliness/isolation [] Abandonment Spirituality of Patient [] Person of Ghada [] Attends Sikhism of their Ghada [] Believes in Prayer [] Reads Bible or Nondenominational materials [] There are Spiritual issues to be addressed Data Processing Supervisor Interventions [] Prayer [] Active listening [] Non-anxious presence [] Spiritual/emotional support [] Crisis/trauma care [] Spiritual counseling [] Bereavement support [] Provided bereavement packet [] Provided Bible/devotional materials [] Provided toy/stuffed animal, coloring book to patient or family member [] Provided Communion [] Anointing/[place] [] Salvation [] Completed spiritual assessment [] Other: Impact on Illness or Injury [] Angry [] Fearful [] Anxious [] Often cries [] Exhaustion [] Unable to work [] Unable to attend congregational [] Unable to walk/stand [] Unable to read [] Unable to drive [] Unable to eat/drink [] Unable to sleep [] Unable to be with family [] Patient intubated [] Other: Summary Time spent with patient
--- NOTE | 2023-01-15 12:29 | PM.DCS ---
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 A size 7 Accolade II 127? neck angle hip stem with a size 28 mm x +0 mm femoral head and a yazidism MDM X3 insert size 42E (2) Avascular necrosis of bone of left hip: Status: Acute (3) Primary osteoarthritis of left hip: Status: Acute Reason for Visit Reason for Visit: 01852 M16.9 Brief History: This is an established 87 year old female patient here today for left total hip arthroplasty. She presents to today in a wheelchair. She explains she utilizes a wheelchair at home for ambulation. She states she is able to stand and transfer with assistance. She states her left hip pain has significantly worsened with time. She reports pain in her groin area and thigh that radiates down to her knee. She rates her pain a 8/10 pre-op. She explains her pain is aggravated by standing and walking.? Patient reports a pressure ulcer located on her sacral area that was found in June of 2022. She is currently being treated at [facility]. Patient states the wound is almost healed, and she states there is no reported evidence of infection. In the office, consents were signed and questions were answered. Further questions are answered today. Hospital Course Hospital Course This 87-year-old woman was admitted under observation status following same-day total hip arthroplasty with adductor release. Postoperatively, the patient did quite well. She was independent with her ambulation after working with physical therapy. Family was comfortable with her being discharged as well as the patient. There was no evidence of DVT. Her dressing was dry and intact. She was much more ambulatory following her surgical procedure than prior to it. Physical Exam Const: COMMON NORMALS: no acute distress, average body habitus, patient oriented x3 and alert GENERAL APPEARANCE: cooperative and comfortable ORIENTATION/CONSCIOUSNESS: Yes awake HENMT: COMMON NORMALS: normocephalic and atraumatic HEAD & SCALP: normocephalic and atraumatic Eye: GENERAL EYE: appearance normal, both eyes and all related structures Chest: COMMONS NORMALS: normal inspection of the chest Resp: COMMON NORMALS: normal respiratory effort EFFORT & INSPECTION: Yes able to speak in complete sentences and Yes symmetric chest movement Extremity: LEFT LOWER EXTREMITY: Yes hip joint (Dressing is dry and intact with minimal to no drainage.) Left hip: Yes inspection (No significant swelling.), Yes palpation (Nontender.), Yes ROM (Not evaluated.) and Yes neurovascular exam (Intact distally.) Neuro: COMMON NORMALS: patient oriented x3 SENSORIUM/ORIENTATION: Yes alert Psych: COMMON NORMALS: mental status grossly normal APPEARANCE: Yes grossly normal ATTITUDE: Yes calm and Yes engaged ATTENTION/CONCENTRATION: Yes attention grossly intact Skin: COMMON NORMALS: no rashes or lesions noted GENERAL SKIN EXAM: no rashes or lesions noted Urinary Catheter Management: Lucas: Cath Placed During This Visit: yes, but has since been removed by the nurse Reason for Continuing Indwelling Catheter: Decision to DC Catheter Urinary Catheter Date of Insertion: 01/14/23 Urinary Catheter Time of Insertion: 11:20 Date Urinary Catheter Removed: 01/15/23 Time Urinary Catheter Discontinued: 06:22 Discharge Data Studies Completed and Pending Completed Studies During Hospitalization Category Date Time Status XR pelvis 1-2V* [id number] Routine Exams 01/14/23 13:24 Completed Laboratory Results WBC 31.51 10^3/uL (3.29-11.43) H* 01/15/23 04:53 RBC 3.16 10^6/uL (3.85-5.65) L 01/15/23 04:53 Hgb 9.40 g/dL (11.27-16.99) L 01/15/23 04:53 Hct 30.6 % (36-47) L 01/15/23 04:53 MCV 96.8 fl (85-98) 01/15/23 04:53 MCH 29.7 pg (27-33) 01/15/23 04:53 MCHC 30.7 g/dL (30-55) 01/15/23 04:53 RDW 19.7 % (12.1-15.1) H 01/15/23 04:53 Plt Count 182 10^3/cmm (157-399) 01/15/23 04:53 MPV 10.6 fL (7.4-10.4) H 01/15/23 04:53 Neut % (Auto) 41.7 % 01/15/23 04:53 Lymph % (Auto) 48.7 % 01/15/23 04:53 [place] % (Auto) 8.2 % 01/15/23 04:53 Eos % (Auto) 0.0 % 01/15/23 04:53 Baso % (Auto) 0.2 % 01/15/23 04:53 Neut # (Auto) 13.13 10^3/uL (1.8-7.7) H 01/15/23 04:53 Lymph # (Auto) 15.4 10^3/uL (0.8-4.8) H 01/15/23 04:53 [place] # (Auto) 2.6 10^3/uL (0.2-0.9) H 01/15/23 04:53 Eos # (Auto) 0.0 10^3/uL (0.0-0.8) 01/15/23 04:53 Baso # (Auto) 0.1 10^3/uL (0.0-0.1) 01/15/23 04:53 Nucleated RBC % (auto) 0 % 01/15/23 04:53 Nucleated RBCs # 0.0 /100WBC 01/15/23 04:53 Sodium 135 mmol/L (136-145) L 01/15/23 04:53 Potassium 6.0 mmol/L (3.5-5.1) H 01/15/23 04:53 Chloride 104 mmol/L (98-107) 01/15/23 04:53 Carbon Dioxide 23 mmol/L (22-29) 01/15/23 04:53 Anion Gap 14.0 (5-19) 01/15/23 04:53 BUN 34 mg/dL (8-23) H 01/15/23 04:53 Creatinine 1.8 mg/dL (0.5-0.9) H 01/15/23 04:53 GFR Calculation Not Reportable 01/15/23 04:53 Glucose 112 mg/dL (65-115) 01/15/23 04:53 Calculated Osmolality 288 mOsm/kg (285-295) 01/15/23 04:53 Calcium 9.1 mg/dL (8.5-10.5) 01/15/23 04:53 Vitals Last Vital Signs Temp 97.6 F 01/15/23 11:39 Pulse 51 L 01/15/23 11:39 Resp 18 01/15/23 11:39 BP 100/45 01/15/23 11:39 Pulse Ox 100 01/15/23 11:39 O2 Del Method Room Air 01/15/23 11:39 O2 Flow Rate 6 01/14/23 14:05 Discharge Plan Discharge Patient Disposition: Home Health Service Condition: Stable Prescriptions: New celecoxib 200 mg Capsule 200 mg PO DAILY 30 Days Qty: 30 0RF acetaminophen 500 mg Tablet 1,000 mg PO Q8H 15 Days Qty: 0 0RF oxycodone 5 mg Tablet 5 mg PO Q4H PRN (Reason: Moderate Pain) 7 Days Qty: 30 0RF Continued cyanocobalamin (vitamin B-12) 1,000 mcg/mL solution 1,000 mcg SUBCUT Q30D Eliquis 5 mg tablet 5 mg PO BID Qty: 180 3RF amiodarone 200 mg tablet 100 mg PO DAILY Qty: 90 3RF prednisone 5 mg tablet 5 mg PO DAILY Qty: 30 2RF furosemide 20 mg tablet 20 mg PO DAILY PRN (Reason: swelling) Patient Comments: Take 20mg twice a day metoprolol tartrate 50 mg tablet 25 mg PO BID Qty: 60 3RF Hold Instructions: Doctor's Order sulfamethoxazole-trimethoprim [Bactrim DS] 800-160 mg tablet 1 tab PO BID 7 Days Qty: 14 0RF Rx Instructions: TAKE 1 TABLET TWO TIMES DAILY Discharge Orders: Discharge Order (Routine); Ordered 01/15/23 Ordered By: Brinda Ambrosio Referrals: [facility] [Other] Brinda Ambrosio MD [Physician] - 01/29/23 9:15 am (For a nurse visit. Then again on February 05, 2023 at 3 PM with tn for x-ray and evaluation) Discharge Diet: Advance as tolerated and Usual diet Discharge Activity: Increase activity as tolerated, Limit activity as instructed, Use walker/crutches as instructed and As per PT/OT instructions Patient Instructions: Oxycodone/Acetaminophen (By mouth), Celecoxib (By mouth), Precautions after Total Joint Replacement Surgery (GEN), Total Hip Replacement (GEN), Hip Abduction Pillow (GEN), Joint Replacement Stoplight Activity Restrictions/Additional Instructions: Posterior precautions. Ice to left hip. You may ambulate weightbearing as tolerated. Maintain dressing in place until it comes off on its own. Discharge Attestations Time Spent in Discharge Care*: greater than 30 min Specific Discharge Activities: educating patient, documenting/other paperwork and evaluating patient/reviewing data Quality Metrics Clinical Quality Measures [ No reported AMI, CVA or VTE this stay] Coding Level of Care Code Acute Code for Chg Fwd Diagnoses Status post total hip replacement, left Z96.642 Avascular necrosis of bone of left hip M87.052 Primary osteoarthritis of left hip M16.12
== END 2023-01-15 13:55 | disposition home health service (06) ==
LOC: MEDSURG 14:13
PROVIDERS: Admitting Provider Specialist; PCP Nurse Practitioner Family; Visit Provider Specialist
PROC: (CPT 27130; principal; 2023-01-14 10:50)
DX: M87.052 Idiopathic aseptic necrosis of left femur (principal); I48.91 Unspecified atrial fibrillation; I13.0 Hypertensive heart and chronic kidney disease with heart failure and stage 1 through stage 4 chronic kidney disease, or unspecified chronic kidney disease; N18.9 Chronic kidney disease, unspecified; I50.9 Heart failure, unspecified; C95.90 Leukemia, unspecified not having achieved remission; E78.5 Hyperlipidemia, unspecified; Z87.891 Personal history of nicotine dependence; M16.12 Unilateral primary osteoarthritis, left hip; R00.1 Bradycardia, unspecified
CPT/HCPCS: 27130; 36415; 51702; 72170; 80048; 85025; 93005; 97110; 97116; 97162; 97165; 97530; A9281; C1776; G0378; J0131; J0690; J1100; J2405; J2704; J3010; J3370; J3490; J7030; J7512

== ENCOUNTER 2023-02-04 13:09 | Emergency (ER) | payer MEDICARE, OTHER, SELFPAY ==
[2023-02-04] VITALS (10 sets, daily range): BP systolic 150–184; BP diastolic 50–71; PULSE 63–87; RESP 15–17; TEMP 36.6; O2SAT 96–100; BMI 31.1
--- NOTE | 2023-02-04 13:11 | XRR_ITS ---
PROCEDURE INFORMATION: Exam: XR Left Hip Exam date and time: 02/04/2023 1:16 PM Age: 87 years old Clinical indication: Hip pain; Left hip; Prior surgery; Surgery date: 6+ months TECHNIQUE: Imaging protocol: Radiologic exam of the left hip. Views: 2 or 3 views hip with pelvis when performed. COMPARISON: CR XR pelvis 1-2V* [id number] 01/14/2023 1:58 PM FINDINGS: Bones/joints: The femoral component of the left total hip prosthesis is dislocated superior and posterior to the acetabular prosthesis. [place] bone is intact. Soft tissues: Unremarkable. Other findings: An artifact is seen on the AP view and to a lesser extent the lateral view projecting over the proximal thigh posteriorly which is probably external to the patient. XR/XR hip LT 2-3V wo/w pel* [id number] IMPRESSION: Dislocated hip prosthesis.
[2023-02-04] MEDS: fentaNYL 50 mcg/mL INJ 2mL IVP (13:30)
--- NOTE | 2023-02-04 13:35 | W.ED.EXTPRO ---
HPI - Extremity Problem General: Chief complaint: Extremity Injury, Lower Stated complaint: left hip pain Time Seen by Provider: 02/04/23 13:11 Source: patient Mode of arrival: EMS History of Present Illness: 87-year-old female presents emergency room via EMS she bent over in the shower had sudden sharp pain in her left hip felt a popping sensation. She recently had a left hip arthroplasty. On arrival here is obvious shortening. Deformity at the hip overall picture consistent with dislocation confirmed on x-ray. MD Complaint: joint pain Onset (ago): minute(s) Pain Consistency: constant Location: left and lower extremity (Hip) Quality: sharp Radiation: none Relieving factors: nothing Exacerbating factors: range of motion and palpation Associated symptoms: Deny chest pain, fever(s) or rash Context: recent surgery/procedure (Left hip arthroplasty December 2022) Review of Systems Const: Denies: fever(s) or chills Card: Denies: chest pain Resp: Denies: dyspnea GI: Denies: abdominal pain : Denies: dysuria, urinary frequency or urinary urgency Musc: Reports: extremity pain and joint pain; Denies: neck pain or back pain Skin/Breast: Denies: rash PFSH ED PFSH: Medical History JES (acute kidney injury) Atrial fibrillation by electrocardiogram Atrial fibrillation with rapid ventricular response B12 deficiency Chronic left hip pain Chronic lymphocytic leukemia Coronavirus infection, unspecified Degenerative arthritis Elevated troponin Fever Gram-negative bacteremia Heart failure Hyperlipidemia Hypertension Injury of left hip Lymphatic leukemia Surgical History History of carpal tunnel surgery of right wrist History of tubal ligation Status post total knee replacement, 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) Family History Mother CAD (coronary artery disease) unknown age of onset Stroke Father Cancer Brother Cancer Denies family history of Diabetes Clotting disorder Dementia Chronic kidney disease (CKD) Suicide Anesthesia complication Bleeding disorder Lung disease Social History Smoking and tobacco status: former smoker (smoked x 45 years) Quit status (tobacco): has quit using tobacco Year quit tobacco: 1992 Former quit date comment: smoked 40 years Alcohol intake: current Alcohol intake frequency: 0-2 Drinks per Day Substance/Drug Use: never Physical Exam Const: COMMON NORMALS: no acute distress GENERAL APPEARANCE: cooperative and comfortable ORIENTATION/CONSCIOUSNESS: Yes awake, Yes oriented to person, Yes oriented to place and Yes oriented to time HENMT: COMMON NORMALS: normocephalic, atraumatic and hearing grossly normal bilaterally HEAD & SCALP: normocephalic and atraumatic Resp: COMMON NORMALS: normal respiratory effort, No retractions, No use of accessory muscles and clear to auscultation bilaterally AUSCULTATION: clear to auscultation bilaterally Cardio: COMMON NORMALS: regular rate, regular rhythm and No murmurs present (Cardio) RATE: regular rate RHYTHM: regular rhythm Extremity: COMMON NORMALS: normal to inspection, capillary refill normal, no clubbing, cyanosis or edema, no calf tenderness and no pedal edema Neuro: SENSORIUM/ORIENTATION: Yes oriented to person, Yes oriented to place and Yes oriented to time Skin: COMMON NORMALS: no rashes or lesions noted GENERAL SKIN EXAM: no rashes or lesions noted Procedures Orthopedic Joint Reduction Joint #1: Time Out Performed: Yes Side: left Joint Reduction Location: hip Analgesia: procedural sedation Technique used: direct manipulation Post-reduction neuro exam: intact Post-reduction vascular: intact Post Reduction X-Ray Obtained: Yes Post Reduction X-Ray Results: reduced Splint Applied: Yes (Left knee immobilizer) Patient Tolerated Procedure: well Procedural Sedation Indication: fracture/dislocation reduction ASA Class: I Preparation: cardiac monitor technician applied, pulse oximeter, supplemental O2 applied, suction/airway equipment at bedside and IV secured Fentanyl: IV Fentanyl dose (mcg): 50 Midazolam dose (mg): 4 Patient Tolerated Procedure: well Complications: none Course Vital Signs: Vital signs: Vital Signs Temperature 97.9 F 02/04/23 13:11 Pulse Rate 71 02/04/23 15:30 Respiratory Rate 15 02/04/23 15:30 Blood Pressure 176/65 02/04/23 15:30 Pulse Oximetry 96 02/04/23 15:30 Oxygen Delivery Me thod Nasal Cannula 02/04/23 13:52 MDM - Extremity (Nontraumatic) Medical Decision Making Conscious sedation with joint reduction no complications patient tolerated well. She recovered well from the conscious sedation we discharged home with a knee immobilizer to help with flexion at the hip discussed Dr. Lee she concurs with plan. They have follow-up with Dr. Lee in the morning should keep that. Reviewed activity limits with patient and family member at the bedside Medical Records I reviewed the patient's medical records. Lab Data I reviewed the patient's lab results. Radiology Impressions Hip/Pelvis X-Ray 02/04/23 14:02 IMPRESSION: Reduced hip dislocation. All radiology interpretation(s) finalized by discharge Discharge Plan Discharge Patient Disposition: Home Clinical Impression: Hip dislocation, left Condition: Stable Prescriptions: No Action cyanocobalamin (vitamin B-12) 1,000 mcg/mL solution 1,000 mcg SUBCUT Q30D Eliquis 5 mg tablet 5 mg PO BID Qty: 180 3RF furosemide 20 mg tablet 20 mg PO DAILY PRN (Reason: swelling) Patient Comments: Take 20mg twice a day Tylenol Ex Str Rapid Release 500 mg Tablet 1,000 mg PO Q6H PRN (Reason: Pain) oxycodone 5 mg tablet 5 mg PO Q4H PRN (Reason: Pain) amiodarone 200 mg tablet 100 mg PO QAM prednisone 5 mg tablet 5 mg PO QAM Discharge Orders: Discharge ED (Routine); Ordered 02/04/23 Ordered By: Hal Harding Referrals: Griselda Garrett APRN [Primary Care Provider] - Patient Instructions: Opioid Safety, Pain Management Activity Restrictions/Additional Instructions: Keep your follow-up appointment with Dr. Lee tomorrow. Use pain medications as needed. Wear knee immobilizer unless bathing. Coding Level of Care Code ED Thermocouple Tester for Michele Taylor
[2023-02-04] MEDS: fentaNYL 50 mcg/mL INJ 2mL 100 MCG IVP (13:54)
[2023-02-04] MEDS: midazolam 1 mg/mL INJ 2 mL 6 MG IVP (13:54)
--- NOTE | 2023-02-04 14:02 | XRR_ITS ---
PROCEDURE INFORMATION: Exam: XR Left Hip Exam date and time: 02/04/2023 2:03 PM Age: 87 years old Clinical indication: Device placement; Other: Post reduction; Prior surgery; Surgery date: 6+ months; Surgery type: Hip; Additional info: Hip reduction TECHNIQUE: Imaging protocol: Radiologic exam of the left hip. Views: 2 or 3 views hip with pelvis when performed. COMPARISON: CR XR hip LT 2-3V wo/w pel* [id number] 02/04/2023 1:16 PM FINDINGS: Tubes, catheters and devices: Postreduction views of the left hip reveal reduction of the previously noted prosthetic femoral dislocation. No acute or adverse findings. Bones/joints: Unremarkable. No acute fracture. Soft tissues: Unremarkable. XR/XR hip LT 2-3V wo/w pel* [id number] IMPRESSION: Reduced hip dislocation.
--- NOTE | 2023-02-04 14:15 | PC.PHAR ---
pt states she takes care of her own medications-pt states she never started losartan 25mg daily rx filled 12/03/22 90d/s pt states she never started and states the dr told her just to put on hold even tho she never took-pt states she is not taking celebrex 200mg daily ext shows last filled 01/15/23 30d/s-
--- NOTE | 2023-02-04 15:35 | PC.NURSE ---
Placed knee immobilizer on patient's left knee after Dr. Harding reduced her hip and put it back into place. Patient and her daughter were instructed on how to take the immobilizer on and off.
[2023-02-05 17:34] LABS: Alanine Aminotransferase 8 U/L (0-33); Albumin Level 3.9 g/dL (3.5-5.2); Alkaline Phosphatase 185 U/L (35-105); Anion Gap 16.2 (5-19); Aspartate Amino Transferase 9 U/L (0-32); Blood Urea Nitrogen 46 mg/dL (8-23); Calcium 8.9 mg/dL (8.5-10.5); Carbon Dioxide 24 mmol/L (22-29); Chloride 105 mmol/L (98-107); Globulin 2.3 g/dL (1.3-4.6); Glucose 90 mg/dL (65-115); Osmolality Calculated 303 mOsm/kg (285-295); Potassium 4.2 mmol/L (3.5-5.1); Sodium 141 mmol/L (136-145); Total Bilirubin 1.1 mg/dL (0.15-1.2); Total Protein 6.2 g/dL (6.6-8.7)
[2023-02-05 17:35] LABS: Hematocrit 30.2 % (36-47); Mean Corpuscular HGB Conc 29.8 g/dL (30-55); Mean Corpuscular Volume 100.7 fl (85-98); Platelet Count 518 10^3/cmm (157-399); Red Cell Distribution Width 22.5 % (12.1-15.1)
[2023-02-05 18:35] LABS: Slide Review Slide Review Perform; White Blood Count 39.11 10^3/uL (3.29-11.43)
[2023-02-05 18:37] LABS: Absolute Neutrophil 3.9 10^3/cmm (1.4-6.5); Absolute Segmented Neutrophil 3.9 10/cmm (1.6-7.1); Eosinophils 0 %; Hypochromasia 1+; Lymphocytes 63 %; Lymphocytes Absolute 33.2 10^3/cmm (1.2-3.4); Monocytes Absolute 1.6 10^3/cmm (0.1-0.6); Platelet Estimate Increased (Normal); Poikilocytosis 1+; Segmented Neutrophils 10 %; Total Cells Counted 100 (0-100)
[2023-02-05 18:38] LABS: Macrocytosis 2+
== END 2023-02-04 16:59 | disposition home or self-care (01) ==
PROVIDERS: Nurse Practitioner Family; Emergency Provider Family Medicine; PCP Nurse Practitioner Family
DX: T84.021A Dislocation of internal left hip prosthesis, initial encounter (principal); Z79.01 Long term (current) use of anticoagulants; Z87.891 Personal history of nicotine dependence; I11.0 Hypertensive heart disease with heart failure; I50.9 Heart failure, unspecified; E78.5 Hyperlipidemia, unspecified; Z85.6 Personal history of leukemia; X50.1XXA Overexertion from prolonged static or awkward postures, initial encounter
CPT/HCPCS: 27265; 73502; 80053; 85007; 85025; 96374; 96375; 99152; 99284; J2250; J3010

== ENCOUNTER 2023-02-05 13:45 | Oncology outpatient (recurring) (ONCR) | payer MEDICARE, OTHER, SELFPAY ==
[2023-01-28 10:42] VITALS: BP 137/69; PULSE 54; RESP 16; TEMP 36
[2023-01-28 11:14] LABS: Reticulocyte % 1.9 % (0.5-2.0)
[2023-01-28 11:15] LABS: Basophils # 0.1 10^3/uL (0.0-0.1); Basophils % 0.2 %; Eosinophils % 0.1 %; Hematocrit 27.5 % (36-47); Lymphocytes # 25.5 10^3/uL (0.8-4.8); Lymphocytes % 70.7 %; Mean Corpuscular HGB Conc 30.9 g/dL (30-55); Mean Corpuscular Hemoglobin 30.1 pg (27-33); Mean Corpuscular Volume 97.5 fl (85-98); Mean Platelet Volume 8.4 fL (7.4-10.4); Monocytes # 1.8 10^3/uL (0.2-0.9); Monocytes % 4.9 %; Neutrophils # 8.35 10^3/uL (1.8-7.7); Neutrophils % 23.2 %; Nucleated Red Blood Cells % 0.1 %; Platelet Count 530 10^3/cmm (157-399); Red Blood Count 2.82 10^6/uL (3.85-5.65); Red Cell Distribution Width 21.1 % (12.1-15.1)
[2023-01-28 11:34] LABS: Alanine Aminotransferase 8 U/L (0-33); Albumin Level 3.6 g/dL (3.5-5.2); Alkaline Phosphatase 103 U/L (35-105); Anion Gap 14.7 (5-19); Aspartate Amino Transferase 11 U/L (0-32); Blood Urea Nitrogen 39 mg/dL (8-23); Calcium 8.9 mg/dL (8.5-10.5); Carbon Dioxide 26 mmol/L (22-29); Chloride 103 mmol/L (98-107); Globulin 2.3 g/dL (1.3-4.6); Glucose 99 mg/dL (65-115); Osmolality Calculated 295 mOsm/kg (285-295); Potassium 5.7 mmol/L (3.5-5.1); Sodium 138 mmol/L (136-145); Total Bilirubin 0.9 mg/dL (0.15-1.2); Total Protein 5.9 g/dL (6.6-8.7)
[2023-01-28 11:37] LABS: Lactate Dehydrogenase 351 U/L (135-214)
[2023-01-28 12:28] LABS: White Blood Count 36.06 10^3/uL (3.29-11.43)
[2023-01-28 12:29] LABS: Slide Review Slide Review Perform
[2023-01-28 14:31] LABS: Ferritin 588 ng/mL (15-150); Iron 44 ug/dL (37-145); Percent Saturation 22.5 % (20-50); Total Iron Binding Capacity 195 mcg/dl; Unsaturated Iron Binding 151 ug/dL (112-347)
== END 2023-02-25 23:59 | disposition home or self-care (01) ==
PROVIDERS: PCP Nurse Practitioner Family; Visit Provider Nurse Practitioner Family
DX: C91.10 Chronic lymphocytic leukemia of B-cell type not having achieved remission (principal); Z96.642 Presence of left artificial hip joint; S73.005D Unspecified dislocation of left hip, subsequent encounter; X58.XXXD Exposure to other specified factors, subsequent encounter
CPT/HCPCS: 36415; 80053; 82728; 83010; 83540; 83550; 83615; 85025; 85045; 99024; 99214

== ENCOUNTER 2023-03-22 14:09 | Inpatient (IN) | payer MEDICARE, OTHER, SELFPAY ==
[2023-03-22] VITALS (7 sets, daily range): BP systolic 145–167; BP diastolic 50–68; PULSE 61–66; RESP 17–28; TEMP 36.6–36.9; O2SAT 93–96
--- NOTE | 2023-03-22 14:17 | CTR_ITS ---
PROCEDURE INFORMATION: Exam: CT Left Lower Extremity With Contrast, Hip Exam date and time: 03/22/2023 3:45 PM Age: 87 years old Clinical indication: Swelling or effusion of joint; Prior surgery; Surgery date: 1-6 months; Surgery type: Left hip replacement in December; Additional info: Thr, purulent drainage, leukocytosis R/O abscess TECHNIQUE: Imaging protocol: CT of the left lower extremity with intravenous contrast was performed. Exam focused on the hip. Radiation optimization: All CT scans at this facility use at least one of these dose optimization techniques: automated exposure control; mA and/or kV adjustment per patient size (includes targeted exams where dose is matched to clinical indication); or iterative reconstruction. Contrast material: OMNI 350; Contrast volume: 100 ml; Contrast route: INTRAVENOUS (IV); REPORTING DATA: Count of CT and Cardiac NM exams in prior 12 months: This patient has received 2 known CTs and 0 known cardiac nuclear medicine studies in the 12 months prior to the current study. COMPARISON: CR XR hip LT 2-3V wo/w pel* [id number] 02/04/2023 2:03 PM RADIATION DOSE METRICS: Total DLP (mGy-cm): 553.43 FINDINGS: Bones/joints: The suspected abscess is abutting the left greater trochanter, so osteomyelitis is possible. The left hip arthroplasty projects in satisfactory position without evidence of loosening or dislocation. There is a minimally displaced fracture of the lesser trochanter extending inferiorly to involve the lateral and posterior cortex of the proximal left femoral diaphysis. This is abutting the prosthesis. There is a small left hip joint effusion which contains some gas, so this could be infected. Soft tissues: Gas and fluid in the soft tissues of the wound lateral to the left hip suspicious for abscess. This measures 12 cm x 6.5 cm x [address]/CT hip LT w con [id number] IMPRESSION: 1. Abscess in the surgical wound lateral to the left hip. Measurements above. This abuts the left lesser trochanter, so osteomyelitis is possible. 2. Small left hip joint effusion containing gas bubbles, so this could be infected. 3. Minimally displaced fracture around the prosthesis involving the left lesser trochanter and proximal left femoral diaphysis.
--- NOTE | 2023-03-22 14:24 | ED_ITS ---
HPI - General Adult General: Chief complaint: Extremity Problem,Nontraumatic Stated complaint: LEFT HIP INFECTION Time Seen by Provider: 03/22/23 14:14 History of Present Illness: patient presents to the ER by EMS from [facility] for left hip infection. Patient had a total hip replacement done by Dr. Lee approximately January 14 and was doing good but then a little while ago she had a dislocation that was reduced then she was doing good again up until about a week ago when she noticed her left hip was swollen patient denies any pain fever chills erythema. Patient said she noticed this morning when she woke u s purulent bloody drainage out of a spot on her left hip. Patient went to the ER at [facility] where she was worked up she was given Zosyn 4.5 g, vancomycin, fluids, had lab work, x-ray, Wound cultures, blood cultures, and then was proceeded to be transferred to the [facility] for further evaluation and treatment. patient does have CLL and has a elevated white count of approximately 36,000 Review of Systems General: Reports: 10 or more systems reviewed and unremarkable except in HPI and below PFSH ED PFSH: Medical History JES (acute kidney injury) Atrial fibrillation by electrocardiogram Atrial fibrillation with rapid ventricular response B12 deficiency Chronic left hip pain Chronic lymphocytic leukemia Coronavirus infection, unspecified Degenerative arthritis Elevated troponin Fever Gram-negative bacteremia Heart failure Hyperlipidemia Hypertension Injury of left hip Lymphatic leukemia Surgical History History of carpal tunnel surgery of right wrist History of tubal ligation Status post total knee replacement, 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) Family History Mother CAD (coronary artery disease) unknown age of onset Stroke Father Cancer Brother Cancer Denies family history of Diabetes Clotting disorder Dementia Chronic kidney disease (CKD) Suicide Anesthesia complication Bleeding disorder Lung disease Social History Smoking and tobacco/nicotine status: former use of tobacco/nicotine (smoked x 45 years) Quit status (tobacco/nicotine): has quit using Year quit tobacco: 1992 Former quit date comment: smoked 40 years Alcohol intake: current Alcohol intake frequency: 0-2 Drinks per Day Substance/Drug Use: never Physical Exam Const: COMMON NORMALS: no acute distress, average body habitus, patient oriented x3, no limitations, healthy appearing, alert and well nourished HENMT: COMMON NORMALS: normocephalic, atraumatic, hearing grossly normal bilaterally, external ears normal, Normal external nose present, moist oral mucous membranes and oropharynx normal HEAD & SCALP: normocephalic and atraumatic NOSE: Normal external nose present EXTERNAL EAR: Yes external ears normal Neck/C-Spine: COMMON NORMALS: no JVD Chest: COMMONS NORMALS: normal inspection of the chest and normal palpation of entire chest wall Resp: COMMON NORMALS: normal respiratory effort, No retractions, No use of accessory muscles and clear to auscultation bilaterally AUSCULTATION: clear to auscultation bilaterally Cardio: COMMON NORMALS: no JVD, regular rate, regular rhythm, S1 normal heart sound present and S2 normal heart sound present RATE: regular rate RHYTHM: regular rhythm HEART SOUNDS: S1 normal heart sound present and S2 normal heart sound present GI: COMMON NORMALS: Normal to inspection, nondistended, normoactive bowel sounds present, Soft to palpation, non-tender, No hepatosplenomegaly present and no masses PALPATION: Yes Soft to palpation and Yes No hepatosplenomegaly present Neuro: COMMON NORMALS: patient oriented x3 SENSORIUM/ORIENTATION: Yes alert Skin: NARRATIVE SKIN EXAM: patient has an opening in her left lateral hip region currently draining serosanguineous drainage currently packed with quarter inch gauze, no erythema noted. Course Vital Signs: Vital signs: Vital Signs Temperature 97.9 F 03/22/23 14:19 Pulse Rate 64 03/22/23 14:19 Respiratory Rate 18 03/22/23 14:19 Blood Pressure 167/68 03/22/23 14:19 Pulse Oximetry 94 03/22/23 14:19 Oxygen Delivery Me thod Room Air 03/22/23 14:19 MDM - General Adult Medical Decision Making ER Dr. Crews called up and we discussed this case and the possibility of a joint infection. Dr. Ambrosio was notified her patient had arrived. Dr. Diaz was consulted and he agreed for inpatient treatment for further evaluation. Lab work was reviewed from [facility], new lab work was obtained that included CBC CMP procalcitonin blood and wound cultures. Imaging will be obtained with a CT with contrast of the left hip to Help get a better differentiation of the wound. Patient will be admitted to [facility]. Differential Diagnosis Infection left hip, total hip replacement Medical Records I reviewed the patient's medical records. Lab Data I reviewed the patient's lab results. All radiology interpretation(s) finalized by discharge Discharge Plan Discharge Patient Disposition: Admitted As Inpatient Clinical Impression: Abscess of left hip, Chronic lymphocytic leukemia of B-cell type not having achieved remission, Chronic anticoagulation, History of total left hip replacement Condition: Stable Coding Level of Care Code ED Armature Winder Repairer for Michele Taylor
[2023-03-22 14:51] LABS: Hematocrit 26.6 % (36-47); Mean Corpuscular HGB Conc 28.6 g/dL (30-55); Mean Corpuscular Hemoglobin 31.8 pg (27-33); Mean Corpuscular Volume 111.3 fl (85-98); Mean Platelet Volume 8.5 fL (7.4-10.4); Platelet Count 376 10^3/cmm (157-399); Red Blood Count 2.39 10^6/uL (3.85-5.65); Red Cell Distribution Width 22.2 % (12.1-15.1)
[2023-03-22 14:58] LABS: Erythrocyte Sedimentation Rate 14 mm/hr (0-15)
[2023-03-22 15:08] LABS: Alanine Aminotransferase 7 U/L (0-33); Albumin Level 2.9 g/dL (3.5-5.2); Alkaline Phosphatase 92 U/L (35-105); Anion Gap 13.2 (5-19); Aspartate Amino Transferase 7 U/L (0-32); Blood Urea Nitrogen 22 mg/dL (8-23); C Reactive Protein 99.6 mg/L (0.0-4.9); Calcium 8.7 mg/dL (8.5-10.5); Carbon Dioxide 21 mmol/L (22-29); Chloride 110 mmol/L (98-107); Cholesterol 137 mg/dL (0-200); Globulin 2.3 g/dL (1.3-4.6); Glucose 88 mg/dL (65-115); HDL Cholesterol 57 mg/dL (60-100); LDL Cholesterol Calculated 65 mg/dL (50-129); LDL HDL Ratio 1.14 RATIO (0.00-3.22); Osmolality Calculated 293 mOsm/kg (285-295); Potassium 4.2 mmol/L (3.5-5.1); Sodium 140 mmol/L (136-145); Total Bilirubin 0.7 mg/dL (0.15-1.2); Total Protein 5.2 g/dL (6.6-8.7); Triglycerides 75 mg/dL (0-150)
[2023-03-22 15:09] LABS: White Blood Count 30.46 10^3/uL (3.29-11.43)
[2023-03-22 15:10] LABS: Slide Review Slide Review Perform
[2023-03-22 15:12] LABS: Lactic Sepsis W/Reflex 0.9 mmol/L (0.5-2.2)
[2023-03-22 15:15] LABS: Hypochromasia Trace; Lymphocytes 81 %; Lymphocytes Absolute 26.5 10^3/cmm (1.2-3.4); Platelet Estimate Normal (Normal); Poikilocytosis 2+; Procalcitonin 0.15 ng/mL (0-0.5); Segmented Neutrophils 13 %; Total Cells Counted 100 (0-100)
[2023-03-22 15:16] LABS: Anisocytosis 2+; Eosinophils 0 %; Macrocytosis 1+; Smudge Cells 1+
[2023-03-22 15:24] LABS: Creatine Phosphokinase 11 U/L (26-192)
--- NOTE | 2023-03-22 15:33 | XRR_ITS ---
PROCEDURE INFORMATION: Exam: XR Left Hip Exam date and time: 03/22/2023 4:02 PM Age: 87 years old Clinical indication: Swelling or effusion of joint; Left; Prior surgery; Surgery date: 1-6 months; Surgery type: Jose; Additional info: As per Dr beltran TECHNIQUE: Imaging protocol: Radiologic exam of the left hip. Views: 2 or 3 views hip with pelvis when performed. COMPARISON: CT hip LT w con [id number] 03/22/2023 3:45 PM FINDINGS: Bones/joints: Left hip arthroplasty projects in satisfactory position. Minimally displaced fracture lesser trochanter and proximal left femoral diaphysis. Soft tissues: Unremarkable. XR/XR hip LT 2-3V wo/w pel* [id number] IMPRESSION: Fracture left lesser trochanter and proximal left femoral diaphysis.
--- NOTE | 2023-03-22 15:33 | CTR_ITS ---
PROCEDURE INFORMATION: Exam: CT Lumbar Spine With Contrast Exam date and time: 03/22/2023 6:34 PM Age: 87 years old Clinical indication: Other: Sacral abscess TECHNIQUE: Imaging protocol: Computed tomography of the lumbar spine with contrast. Radiation optimization: All CT scans at this facility use at least one of these dose optimization techniques: automated exposure control; mA and/or kV adjustment per patient size (includes targeted exams where dose is matched to clinical indication); or iterative reconstruction. Contrast material: OMNI 350; Contrast volume: 80 ml; Contrast route: INTRAVENOUS (IV); REPORTING DATA: Count of CT and Cardiac NM exams in prior 12 months: This patient has received 2 known CTs and 0 known cardiac nuclear medicine studies in the 12 months prior to the current study. COMPARISON: CT hip LT w con [id number] 03/22/2023 3:45 PM RADIATION DOSE METRICS: Total DLP (mGy-cm): 798.28 FINDINGS: Bones/joints: T12 vertebral body compression fracture with mild retropulsion of bony fragments without significant spinal canal narrowing. L1-L2: No significant disc bulge or herniation. No severe spinal canal stenosis. No significant neural foraminal narrowing. L2-L3: L2-L3 broad-based disc bulge with moderate bilateral foraminal narrowing. L3-L4: L3-L4 broad-based disc bulge [id number] bilateral foraminal narrowing. L4-L5: L4-L5 broad-based disc bulge with mild spinal canal and moderate severe bilateral foraminal narrowing. L5-S1: L5/S1 broad-based disc bulge and productive degenerative changes resulting in moderate to severe bilateral foraminal narrowing. Lungs: Bibasilar atelectasis. Pleural spaces: Small bilateral pleural effusions. Lymph nodes: Several enlarged left periaortic retroperitoneal lymph nodes measuring up to 2 cm, further evaluation with dedicated CT abdomen and pelvis advised. Soft tissues: Unremarkable. CT/CT lumbar spine w con [id number] IMPRESSION: 1. T12 vertebral body compression fracture with mild retropulsion of bony fragments without significant spinal canal narrowing. 2. Small bilateral pleural effusions. 3. Bibasilar atelectasis. 4. Several enlarged left periaortic retroperitoneal lymph nodes measuring up to 2 cm, further evaluation with dedicated CT abdomen and pelvis advised. 5. L2-L3 broad-based disc bulge with moderate bilateral foraminal narrowing. 6. L3-L4 broad-based disc bulge [id number] bilateral foraminal narrowing. 7. L4-L5 broad-based disc bulge with mild spinal canal and moderate severe bilateral foraminal narrowing. 8. L5/S1 broad-based disc bulge and productive degenerative changes resulting in moderate to severe bilateral foraminal narrowing.
--- NOTE | 2023-03-22 15:53 | P.HP_ITS ---
Providers/Chief Complaint Admitting Physician: Dominick Pack MD Primary Care Provider: Griselda Garrett APRN Chief Complaint: LEFT HIP INFECTION History of Present Illness Sadie Martines is a 87 year old female with a past medical history of chronic lymphocytic leukemia, history of autoimmune hemolytic anemia, on chronic prednisone, history of atrial fibrillation, on Eliquis, history of CHF, recent history of left total hip arthroplasty, she presented to the emergency room on 02/04/2023 for left hip dislocation, and was reduced in the emergency room, who presents to [facility] as this morning she noticed drainage from the left hip,. Patient patient tells me that about a week or so ago, she had a heating pad, over her back, as her back and her hip was hurting her, and she had noticed that her left hip was warm, it was hot, she had a home health care look at it and she thought it would possibly the heating pad, but there was concern for possible hip infection, they were monitoring it, family, she has been ambulating, no recent falls, no recent injuries except reduction as above, she does report chills last night, she reports severe chills, no fevers, no cough, this morning, she was walking and she noticed that there was a trail of blood behind her, family members noticed that out of the left hip, there was serosanguineous drainage bloody drainage, with an open hole. They presented to [facility], where she received blood cultures, wound cultures was given a dose of vancomycin, Zosyn and transferred to [facility] for evaluation. Currently on examination, left hip, there is a 2 x 2 centimeter open area, I did not probe it, but there is active serosanguineous drainage, she denies any pain but the area is very red, hot, warm, erythematous. She also has a sacral decubitus ulcer, just below pilonidal sinus, measuring 1 x 1 cm no significant erythema, patient's family tells me that she had a significant sacral decubitus ulcer over this location it does look significantly better, but they were worried about tunneling, as it looks deeper to them, they show me pictures on their phone, to compare to. Review of Systems Const: Reports: chills; Denies: fever(s) Card: Denies: chest pain Resp: Denies: dyspnea GI: Denies: abdominal pain Skin/Breast: Reports: rash Medications/Allergies Home Medications Medication Instructions Recorded Confirmed Last Taken Type cyanocobalamin (vitamin B-12) 1,000 mcg SUBCUT Q30D 07/04/21 03/22/23 1 Week Ago History 1,000 mcg/mL injection solution ~01/07/23 apixaban 5 mg tablet (Eliquis) 5 mg PO BID #180 tabs 07/30/22 03/22/23 03/20/23 Rx furosemide 20 mg tablet 20 mg PO DAILY PRN swelling 07/30/22 03/22/23 6 Months Ago History ~07/14/22 acetaminophen 500 mg tablet 1,000 mg PO Q6H PRN Pain 02/04/23 03/22/23 Unknown History amiodarone 200 mg tablet 100 mg PO QAM 02/04/23 03/22/23 03/20/23 History oxycodone 5 mg tablet 5 mg PO Q4H PRN Pain 02/04/23 03/22/23 Unknown History prednisone 5 mg tablet 5 mg PO QAM #30 tabs 02/24/23 03/22/23 03/20/23 Rx celecoxib 200 mg capsule 200 mg PO DAILY 03/22/23 03/22/23 03/20/23 History losartan 25 mg tablet 25 mg PO DAILY 03/22/23 03/22/23 03/20/23 History Allergies Allergy/AdvReac Type Severity Reaction Status Date / Time No Known Allergies Allergy Verified 02/05/23 15:19 PFSH Acute PFSH: Medical History (Updated 03/22/23 @ 16:01 by Dominick Pack MD) JES (acute kidney injury) Atrial fibrillation by electrocardiogram Atrial fibrillation with rapid ventricular response B12 deficiency Chronic left hip pain Chronic lymphocytic leukemia Coronavirus infection, unspecified Degenerative arthritis Elevated troponin Fever Gram-negative bacteremia Heart failure Hyperlipidemia Hypertension Injury of left hip Lymphatic leukemia Surgical History History of carpal tunnel surgery of right wrist History of tubal ligation Status post total knee replacement, 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) Family History Mother CAD (coronary artery disease) unknown age of onset Stroke Father Cancer Brother Cancer Denies family history of Diabetes Clotting disorder Dementia Chronic kidney disease (CKD) Suicide Anesthesia complication Bleeding disorder Lung disease Social History Smoking and tobacco/nicotine status: former use of tobacco/nicotine (smoked x 45 years) Quit status (tobacco/nicotine): has quit using Year quit tobacco: 1992 Former quit date comment: smoked 40 years Alcohol intake: current Alcohol intake frequency: 0-2 Drinks per Day Substance/Drug Use: never Vitals/I&O/Wt Last Vital Signs Temp 97.9 F 03/22/23 14:19 Pulse 61 03/22/23 15:00 Resp 28 H 03/22/23 15:00 BP 145/52 03/22/23 15:00 Pulse Ox 95 03/22/23 15:00 O2 Del Method Room Air 03/22/23 15:00 Physical Exam Const: COMMON NORMALS: no acute distress and patient oriented x3 HENMT: COMMON NORMALS: normocephalic HEAD & SCALP: normocephalic Eye: COMMON NORMALS: Equal, round and reactive pupils present Neck/C-Spine: COMMON NORMALS: no JVD Resp: COMMON NORMALS: normal respiratory effort, No retractions, No use of accessory muscles and clear to auscultation bilaterally AUSCULTATION: clear to auscultation bilaterally Cardio: COMMON NORMALS: regular rate, regular rhythm, S1 normal heart sound present and S2 normal heart sound present RATE: regular rate RHYTHM: regular rhythm HEART SOUNDS: S1 normal heart sound present and S2 normal heart sound present GI: COMMON NORMALS: Normal to inspection, nondistended, normoactive bowel sounds present, Soft to palpation and non-tender Extremity: COMMON NORMALS: no calf tenderness and no pedal edema Neuro: COMMON NORMALS: patient oriented x3, CN's II-XII intact bilaterally, moves all extremities and no focal motor deficits Psych: COMMON NORMALS: mental status grossly normal Data 03/22/23 14:38 03/22/23 14:38 Micro: Microbiology 03/22/23 14:32 Blood Culture - Preliminary Blood SPECIMEN COLLECTED 03/22/23 14:38 Blood Culture - Preliminary Blood SPECIMEN COLLECTED A&P Assessment and plan (1) Abscess of left hip: (2) History of total left hip replacement: (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 CRP is 99 -ESR within normal limits, -Pro-James within normal limits -Follow blood cultures, ? Follow wound cultures, ? We will request medical records of cultures from [facility] once available, ? Continue vancomycin, ? Continue Zosyn ? Continue IV fluids ? CT left hip with IV contrast ? Plans on possible surgical intervention tomorrow, is on chronic prednisone, stress dose steroids, spoke with anesthesiology, ? Dr. Lee on consult, ? We will speak with infectious disease based on results as above, ? Eliquis for DVT prophylaxis currently on hold as there is plans of surgery tomorrow ? DNR/DNI Sacral decubitus ulcer, ? Stage II -Does show evidence of tunneling ? We will do CT lumbar spine with IV contrast ? Continue repositioning every 1-2 hours, ? Wound care consult History of atrial fibrillation, telemetry monitoring, ? Continue amiodarone, ? Hold Eliquis for now Chronic lymphocytic leukemia, chronic leukocytosis, Autoimmune hemolytic anemia, on chronic prednisone, continue Attestations Medical Necessity Statement*: Patient requires hospitalization, inpatient, greater than 2 midnights, for concerns for prosthetic joint infection, requiring surgical intervention, IV antibiotics Diagnoses Abscess of left hip L02.416 History of total left hip replacement Z96.642 Prosthetic joint infection of left hip T84.52XA Sacral decubitus ulcer L89.159 Autoimmune hemolytic anemia D59.10 Chronic lymphocytic leukemia C91.10 Atrial fibrillation by electrocardiogram I48.91 Hyperlipidemia E78.5 Chronic anticoagulation Z79.01 Status post total hip replacement, left Z96.642 Immunocompromised D84.9
--- NOTE | 2023-03-22 16:03 | P.CONIM_ITS ---
Providers/Reason For Consult Consulting Physician/Specialty*: Dr. Brinda Ambrosio - Orthopedics Reason for Consult*: Abscess left hip Requesting Physician: Transfer from [place] emergency department Attending Physician: Dominick Pack MD Primary Care Provider: Griselda Garrett APRN History of Present Illness History of Present Illness Sadie Martines is a 87 year old female who underwent left total hip arthroplasty in December of this year. She presented to [facility] emergency department with drainage from the left hip. She stated at the time that she was doing well, but she did have a hip dislocation. This was reduced and she was doing well again until about a week prior to this admission. She noted that her hip was swollen, but she denies any pain, fever, or chills prior to today. The patient stated this morning when she woke, she had a purulent bloody drainage out of a spot in the distal midportion of her incision on her left hip. She went to the [place] emergency department where she was given Zosyn, vancomycin, fluids, and had lab work done. Reportedly, wound cultures, blood cultures were obtained and then the patient was transferred to our facility for definitive treatment. The patient has an elevated white count, but she has chronic lymphocytic leukemia and chronically runs a high white count. Medications/Allergies Home Medications Medication Instructions Recorded Confirmed Last Taken Type cyanocobalamin (vitamin B-12) 1,000 mcg SUBCUT Q30D 07/04/21 03/22/23 1 Week Ago History 1,000 mcg/mL injection solution ~01/07/23 apixaban 5 mg tablet (Eliquis) 5 mg PO BID #180 tabs 07/30/22 03/22/23 03/20/23 Rx furosemide 20 mg tablet 20 mg PO DAILY PRN swelling 07/30/22 03/22/23 6 Months Ago History ~07/14/22 acetaminophen 500 mg tablet 1,000 mg PO Q6H PRN Pain 02/04/23 03/22/23 Unknown History amiodarone 200 mg tablet 100 mg PO QAM 02/04/23 03/22/23 03/20/23 History oxycodone 5 mg tablet 5 mg PO Q4H PRN Pain 02/04/23 03/22/23 Unknown History prednisone 5 mg tablet 5 mg PO QAM #30 tabs 02/24/23 03/22/23 03/20/23 Rx celecoxib 200 mg capsule 200 mg PO DAILY 03/22/23 03/22/23 03/20/23 History losartan 25 mg tablet 25 mg PO DAILY 03/22/23 03/22/23 03/20/23 History Allergies Allergy/AdvReac Type Severity Reaction Status Date / Time No Known Allergies Allergy Verified 02/05/23 15:19 PFSH Acute PFSH: Medical History (Updated 03/22/23 @ 16:01 by Dominick Pack MD) JES (acute kidney injury) Atrial fibrillation by electrocardiogram Atrial fibrillation with rapid ventricular response B12 deficiency Chronic left hip pain Chronic lymphocytic leukemia Coronavirus infection, unspecified Degenerative arthritis Elevated troponin Fever Gram-negative bacteremia Heart failure Hyperlipidemia Hypertension Injury of left hip Lymphatic leukemia Surgical History History of carpal tunnel surgery of right wrist History of tubal ligation Status post total knee replacement, 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) Family History Mother CAD (coronary artery disease) unknown age of onset Stroke Father Cancer Brother Cancer Denies family history of Diabetes Clotting disorder Dementia Chronic kidney disease (CKD) Suicide Anesthesia complication Bleeding disorder Lung disease Social History Smoking and tobacco/nicotine status: former use of tobacco/nicotine (smoked x 45 years) Quit status (tobacco/nicotine): has quit using Year quit tobacco: 1992 Former quit date comment: smoked 40 years Alcohol intake: current Alcohol intake frequency: 0-2 Drinks per Day Substance/Drug Use: never Vitals/I&O/Wt Last Vital Signs Temp 97.9 F 03/22/23 14:19 Pulse 65 03/22/23 15:42 Resp 28 H 03/22/23 15:42 BP 145/52 03/22/23 15:42 Pulse Ox 95 03/22/23 15:42 O2 Del Method Room Air 03/22/23 15:00 Physical Exam Const: COMMON NORMALS: no acute distress, average body habitus, patient oriented x3 and alert GENERAL APPEARANCE: cooperative and comfortable ORIENTATION/CONSCIOUSNESS: Yes awake HENMT: COMMON NORMALS: normocephalic and atraumatic HEAD & SCALP: normocephalic and atraumatic Eye: GENERAL EYE: appearance normal, both eyes and all related structures Chest: COMMONS NORMALS: normal inspection of the chest Resp: COMMON NORMALS: normal respiratory effort EFFORT & INSPECTION: Yes able to speak in complete sentences and Yes symmetric chest movement Extremity: LEFT LOWER EXTREMITY: Yes hip joint (Open area in mid distal third of incision, draining) Left hip: Yes inspection (There is minimal erythema), Yes palpation (Minimal tenderness), Yes ROM (Not evaluated) and Yes neurovascular exam (Intact distally) Neuro: COMMON NORMALS: patient oriented x3 SENSORIUM/ORIENTATION: Yes alert Psych: COMMON NORMALS: mental status grossly normal APPEARANCE: Yes grossly normal ATTITUDE: Yes calm and Yes engaged ATTENTION/CONCENTRATION: Yes attention grossly intact Skin: COMMON NORMALS: no rashes or lesions noted GENERAL SKIN EXAM: no rashes or lesions noted Data 03/22/23 14:38 03/22/23 14:38 Micro: Microbiology 03/22/23 14:32 Blood Culture - Preliminary Blood SPECIMEN COLLECTED 03/22/23 14:38 Blood Culture - Preliminary Blood SPECIMEN COLLECTED Xray Ortho: My impression: X-rays and CT scan are reviewed. There does appear to be a fracture involving the lesser trochanter and proximal left femoral diaphysis which is against the prosthesis. This is nondisplaced. Soft tissues around this area are unremarkable. The CT scan however demonstrates a soft tissue abscess with gas and fluid in the soft tissues of the wound lateral to the left hip which is merrick picious at 12 cm x 6.5 cm x 2 cm. This does touch the left greater trochanter, so there is concern regarding possible osteomyelitis. There is also a minimally displaced fracture around the prosthesis involving the lesser trochanter and proximal left femoral diaphysis. There is only a small left hip effusion, but there is gas in this effusion, so it could involve the hip joint. A&P Assessment and plan (1) Abscess of left hip: Patient was admitted following opening of her incision for total hip arthroplasty. This was in the mid to distal aspect of the incision. This was cultured at [facility], and the patient was started on antibiotics there. She wished to be transferred, and arrangements were made for her transfer. Plans were made for her to be taken to the operating room tomorrow morning for irrigation and debridement of this wound. We will also evaluate whether or not the wound abscess extends into the hip joint. Plans are that we would change prosthetic components including the femoral head and the MDM component without pulling the prosthesis. It is felt that this lesser trochanteric fracture is nondisplaced, and stability of the prosthesis will be evaluated at the time of the surgical procedure. Plans will be made at that point. Risks and complications of surgery were discussed with the patient and her family. Consents were signed and questions were answered. (2) History of total left hip replacement: Coding Level of Care Code Acute Code for [facility] Fwd Diagnoses Abscess of left hip L02.416 History of total left hip replacement Z96.642
--- NOTE | 2023-03-22 16:05 | XRR_ITS ---
PROCEDURE INFORMATION: Exam: XR Chest Exam date and time: 03/22/2023 4:06 PM Age: 87 years old Clinical indication: Dyspnea; Additional info: Surgical clearance, HTN, chf TECHNIQUE: Imaging protocol: Radiologic exam of the chest. Views: 1 view. COMPARISON: CR (CHEST, ) 07/22/2022 3:07 AM FINDINGS: Lungs: Increased diffuse bilateral pulmonary edema and/or pneumonitis. Pleural spaces: Unremarkable. No pleural effusion. No pneumothorax. Heart/Mediastinum: Unremarkable. No cardiomegaly. Bones/joints: Unremarkable. XR/XR chest 1V portable [id number] IMPRESSION: Increased diffuse bilateral pulmonary edema and/or pneumonitis.
[2023-03-22] MEDS: pantoprazole 40 mg SDV IVP (16:52)
[2023-03-22] MEDS: sodium chloride 0.9% 1,000 ML 75 ML IV (16:53)
[2023-03-22] MEDS: vancomycin 750 MG in sodium chloride 0.9% 250 ML 250 MG IV (16:53)
[2023-03-22 17:36] LABS: Add Urine Microscopic? NO; Bilirubin Urine Neg (Negative); Blood Urine Neg (Negative); Charge for UA Resulting for Rev; Glucose Urine UA Norm (Normal); Ketones Urine Negative (Negative); Leukocyte Esterase Urine Negative (Negative); Nitrate Urine Negative (Negative); Protein Urine Neg (Negative); Urine Appearance Clear (CLEAR); Urine Color Colorless (Yellow); Urobilinogen Urine Norm (Negative); pH Urine 5 (5-7)
[2023-03-22 17:50] LABS: Cortisol Random 9.08 ug/dL (2.47-19.5)
[2023-03-22] MEDS: piperacillin-tazobactam 3.375 GM in sodium chloride 0.9% (plus) 50 ML IV (18:12)
[2023-03-22 18:14] LABS: Ferritin 345 ng/mL (15-150); Iron 28 ug/dL (37-145)
[2023-03-22 18:31] LABS: Estmated Average Glucose 94; Hemoglobin A1C 4.9 % (4.0-6.0)
[2023-03-22] MEDS: iohexol 350 mg/mL 500 mL Btl (per mL) IV (18:38)
[2023-03-23] VITALS (21 sets, daily range): BP systolic 103–170; BP diastolic 48–78; PULSE 53–73; RESP 16–18; TEMP 36.3–37; O2SAT 92–100
[2023-03-23] MEDS: piperacillin-tazobactam 3.375 GM in sodium chloride 0.9% (plus) 50 ML IV ×2 (00:11→17:53)
[2023-03-23 05:08] LABS: Basophils # 0.1 10^3/uL (0.0-0.1); Basophils % 0.3 %; Eosinophils # 0.1 10^3/uL (0.0-0.8); Eosinophils % 0.4 %; Hematocrit 24.6 % (36-47); Lymphocytes # 22.6 10^3/uL (0.8-4.8); Lymphocytes % 81.8 %; Mean Corpuscular HGB Conc 28.9 g/dL (30-55); Mean Corpuscular Hemoglobin 31.3 pg (27-33); Mean Corpuscular Volume 108.4 fl (85-98); Mean Platelet Volume 8.9 fL (7.4-10.4); Monocytes # 1.5 10^3/uL (0.2-0.9); Monocytes % 5.5 %; Neutrophils # 3.13 10^3/uL (1.8-7.7); Neutrophils % 11.3 %; Nucleated Red Blood Cells % 0 %; Platelet Count 419 10^3/cmm (157-399); Red Blood Count 2.27 10^6/uL (3.85-5.65); Red Cell Distribution Width 22.3 % (12.1-15.1); White Blood Count 27.65 10^3/uL (3.29-11.43)
[2023-03-23 05:29] LABS: Alanine Aminotransferase 6 U/L (0-33); Albumin Level 2.6 g/dL (3.5-5.2); Alkaline Phosphatase 87 U/L (35-105); Anion Gap 13.3 (5-19); Aspartate Amino Transferase 5 U/L (0-32); Blood Urea Nitrogen 16 mg/dL (8-23); C Reactive Protein 100.9 mg/L (0.0-4.9); Calcium 8.5 mg/dL (8.5-10.5); Carbon Dioxide 21 mmol/L (22-29); Chloride 111 mmol/L (98-107); Globulin 2.1 g/dL (1.3-4.6); Glucose 89 mg/dL (65-115); Magnesium 1.9 mg/dL (1.7-2.3); Osmolality Calculated 293 mOsm/kg (285-295); Phosphorus 3.3 mg/dL (2.5-4.5); Potassium 4.3 mmol/L (3.5-5.1); Sodium 141 mmol/L (136-145); Total Bilirubin 0.6 mg/dL (0.15-1.2); Total Protein 4.7 g/dL (6.6-8.7)
[2023-03-23] MEDS: amiodarone 200 mg Tablet 100 MG PO (05:32)
[2023-03-23] MEDS: predniSONE 5 mg Tablet PO (05:33)
[2023-03-23 06:15] LABS: Slide Review Slide Review Perform
[2023-03-23] MEDS: CELEcoxib 200 mg Capsule 400 MG PO (10:26)
[2023-03-23] MEDS: gabapentin 300 mg Capsule PO (10:26)
[2023-03-23] MEDS: acetaminophen 1,000 MG/100 ML PIGGYBACK 400 MG IV ×3 (10:26→22:38)
--- NOTE | 2023-03-23 10:44 | P.ANESASSM_ITS ---
Pre-Anesthetic Assessment Height/Weight: Height 1.55 m Weight 80.059 kg Temp Pulse Resp BP Pulse Ox O2 Del Method 98.1 F 70 17 166/66 92 Room Air 03/23/23 07:50 03/23/23 07:50 03/23/23 07:50 03/23/23 07:50 03/23/23 07:50 03/23/23 07:50 Operation Date: 03/23/23 09:20 Proposed Procedures p Incision & Drainage Lower Extremity(Left) - Brinda Ambrosio MD Familial anesthetic complications: none Was Beta Rkzysztof taken within 24 hours: N/A Was Clonidine taken within 24 hours: N/A Last intake: Intake Last Liquid Date 03/22/23 Last Liquid Time 17:00 Last Solid Date 03/22/23 Last Solid Time 17:00 Social No alcohol and No tobacco Exam alert, oriented x 3 and clear to auscultation bilaterally Airway Submandibular: within normal limits Cervical ROM: within normal limits Mallampati: Class II Dentition: false CV/HEM Atrial Fibrillation, Congestive Heart Failure (EF mildly reduced 45-50%) and Hypertension Leukemia Chronic Renal Insufficiency Metabolic chronic [place] [facility] [place] Osteoarthritis/DJD Anesthetic Plan ASA status: 3 Anesthesia: General Medications/Allergies Home Medications Medication Instructions Recorded Confirmed Last Taken Type cyanocobalamin (vitamin B-12) 1,000 mcg SUBCUT Q30D 07/04/21 03/22/23 1 Week Ago History 1,000 mcg/mL injection solution ~01/07/23 apixaban 5 mg tablet (Eliquis) 5 mg PO BID #180 tabs 07/30/22 03/22/23 03/20/23 Rx furosemide 20 mg tablet 20 mg PO DAILY PRN swelling 07/30/22 03/22/23 6 Months Ago History ~07/14/22 acetaminophen 500 mg tablet 1,000 mg PO Q6H PRN Pain 02/04/23 03/22/23 Unknown History amiodarone 200 mg tablet 100 mg PO QAM 02/04/23 03/22/23 03/20/23 History oxycodone 5 mg tablet 5 mg PO Q4H PRN Pain 02/04/23 03/22/23 Unknown History prednisone 5 mg tablet 5 mg PO QAM #30 tabs 02/24/23 03/22/23 03/20/23 Rx celecoxib 200 mg capsule 200 mg PO DAILY 03/22/23 03/22/23 03/20/23 History losartan 25 mg tablet 25 mg PO DAILY 03/22/23 03/22/23 03/20/23 History Allergies Allergy/AdvReac Type Severity Reaction Status Date / Time No Known Allergies Allergy Verified 02/05/23 15:19 Current Medications Generic Name Dose Route Start Last Admin Trade Name Eloyq PRN Reason Stop Dose Admin Amiodarone HCl 100 mg 03/23/23 06:00 03/23/23 05:32 Amiodarone 200 Mg Tablet PO 100 mg QAM CHEIKH Administration Sodium Chloride 1,000 mls @ 75 mls/hr 03/22/23 15:45 03/23/23 07:43 Sodium Chloride 0.9% IV Infused .[id number] CHEIKH Infusion Piperacillin Sod/Tazobactam 50 mls @ 12.5 mls/hr 03/22/23 16:30 03/23/23 03:59 Sod 3.375 gm/ Sodium Chloride IV Infused Q8H CHEIKH Infusion Vancomycin HCl 750 mg/ Sodium 250 mls @ 250 mls/hr 03/22/23 17:00 03/22/23 18:04 Chloride IV Infused Q24H CHEIKH Infusion Pantoprazole Sodium 40 mg 03/22/23 16:12 03/22/23 16:52 Pantoprazole 40 Mg Sdv IVP 40 mg Q24H CHEIKH Administration Prednisone 5 mg 03/23/23 06:00 03/23/23 05:33 Prednisone 5 Mg Tablet PO 5 mg QAM CHEIKH Administration PFS Anesthesia Medical History (Updated 03/22/23 @ 16:01 by Dominick Pack MD) JES (acute kidney injury) Atrial fibrillation by electrocardiogram Atrial fibrillation with rapid ventricular response B12 deficiency Chronic left hip pain Chronic lymphocytic leukemia Coronavirus infection, unspecified Degenerative arthritis Elevated troponin Fever Gram-negative bacteremia Heart failure Hyperlipidemia Hypertension Injury of left hip Lymphatic leukemia Surgical History History of carpal tunnel surgery of right wrist History of tubal ligation Status post total knee replacement, 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) Family History Mother CAD (coronary artery disease) unknown age of onset Stroke Father Cancer Brother Cancer Denies family history of Diabetes Clotting disorder Dementia Chronic kidney disease (CKD) Suicide Anesthesia complication Bleeding disorder Lung disease Social History Smoking and tobacco/nicotine status: former use of tobacco/nicotine (smoked x 45 years) Quit status (tobacco/nicotine): has quit using Year quit tobacco: 1992 Former quit date comment: smoked 40 years Alcohol intake: current Alcohol intake frequency: 0-2 Drinks per Day Substance/Drug Use: never Data Anesthesia 03/23/23 04:20 03/23/23 04:20 Short CBC 03/22/23 03/23/23 Range/Units 14:38 04:20 WBC 30.46 H* 27.65 H (3.29-11.43) 10^3/uL Hgb 7.60 L 7.10 L (11.27-16.99) g/dL Hct 26.6 L 24.6 L (36-47) % MCV 111.3 H 108.4 H (85-98) fl Plt Count 376 419 H (157-399) 10^3/cmm Neut % (Auto) 11.3 % Neut # (Auto) 3.13 (1.8-7.7) 10^3/uL BMP 03/22/23 03/23/23 14:38 04:20 Sodium 140 141 Potassium 4.2 4.3 Chloride 110 H 111 H Carbon Dioxide 21 L 21 L BUN 22 16 Creatinine 1.1 H 1.1 H Glucose 88 89 Calcium 8.7 8.5 Cardiac Enzymes 03/22/23 Range/Units 14:38 Creatine Kinase 11 L (26-192) U/L Liver Function 03/22/23 03/23/23 Range/Units 14:38 04:20 Total Bilirubin 0.7 0.6 (0.15-1.2) mg/dL AST 7 5 (0-32) U/L ALT 7 6 (0-33) U/L Alkaline Phosphatase 92 87 (35-105) U/L Albumin 2.9 L 2.6 L (3.5-5.2) g/dL Urine 03/22/23 Range/Units 17:07 Urine Color Colorless (Yellow) Urine Appearance Clear (CLEAR) Urine pH 5 (5-7) Ur Specific [place] 1.010 (1.005-1.030) Urine Protein Neg (Negative) Urine Glucose (UA) Norm (Normal) Urine Ketones Negative (Negative) Urine Nitrate Negative (Negative) Urine Bilirubin Neg (Negative) Ur Leukocyte Esterase Negative (Negative) Coags 03/22/23 03/22/23 03/23/23 14:38 14:38 04:20 ESR 14 C-Reactive Protein 99.6 H 100.9 H Microbiology 03/22/23 14:32 Blood Culture - Preliminary Blood SPECIMEN COLLECTED 03/22/23 14:38 Blood Culture - Preliminary Blood SPECIMEN COLLECTED Cardiac Studies: Echocardiogram 06/26/22 Sestamibi Stress Test (Cardiology) 08/28 Cardiac Event Monitor 07/09/21
[2023-03-23] MEDS: thrombin 5,000 unit SDV 5000 UNIT XX (12:02)
[2023-03-23] MEDS: ceFAZolin 1,000 mg SDV 6000 MG IRRIGATION (12:05)
[2023-03-23] MEDS: vancomycin 1,000 MG SDV 1000 MG XX (12:05)
[2023-03-23] MEDS: ceFAZolin 1,000 mg SDV 1000 MG IRRIGATION (12:06)
--- NOTE | 2023-03-23 13:18 | ANE.PACU2 ---
Inpatient post-anesthesia follow up: Airway intact: Yes Vital signs: Temperature 98.1 F Pulse Rate 70 Respiratory Rate 17 Blood Pressure 166/66 Pulse Oximetry 92 Oxygen Delivery Me thod Room Air Oxygen Flow Rate Fraction of Inspir ed Oxygen Hydration adequate: Yes Nausea and vomiting: No Pain level: 3 Mental status: Baseline
--- NOTE | 2023-03-23 13:19 | PM.PN ---
Subjective Subjective: Patient was seen this morning, in preop, she has no complaints, no fevers, no chills, no cough overnight Vitals/I&O/Wt Last Vital Signs Temp 98.1 F 03/23/23 07:50 Pulse 70 03/23/23 07:50 Resp 17 03/23/23 07:50 BP 166/66 03/23/23 07:50 Pulse Ox 92 03/23/23 07:50 O2 Del Method Room Air 03/23/23 07:50 03/22/23 03/23/23 03/23/23 22:59 06:59 14:59 Intake Total 300 / 300 50 / 350 1000 / 1000 Output Total 450 / 450 500 / 950 Balance -150 / -150 -450 / -600 1000 / 1000 Weight last 48 hrs Weight 80.059 kg Weight 76.26 kg Physical Exam Const: COMMON NORMALS: no acute distress and patient oriented x3 Resp: COMMON NORMALS: normal respiratory effort, No retractions, No use of accessory muscles and clear to auscultation bilaterally AUSCULTATION: clear to auscultation bilaterally Cardio: COMMON NORMALS: regular rate, regular rhythm, S1 normal heart sound present and S2 normal heart sound present RATE: regular rate RHYTHM: regular rhythm HEART SOUNDS: S1 normal heart sound present and S2 normal heart sound present GI: COMMON NORMALS: Normal to inspection, nondistended, normoactive bowel sounds present and non-tender Extremity: COMMON NORMALS: no pedal edema Neuro: COMMON NORMALS: patient oriented x3 Psych: COMMON NORMALS: mental status grossly normal Urinary Catheter Management: Lucas: Cath Placed During This Visit: yes Urinary Catheter Date of Insertion: 03/23/23 Urinary Catheter Time of Insertion: 11:17 Data 03/23/23 04:20 03/23/23 04:20 Micro: Microbiology 03/22/23 14:49 Wound Culture - Preliminary Hip - Wound Gram Negative Rods 03/22/23 14:32 Blood Culture - Preliminary Blood SPECIMEN COLLECTED 03/22/23 14:38 Blood Culture - Preliminary Blood SPECIMEN COLLECTED A&P Assessment and plan (1) Abscess of left hip: (2) History of total left hip replacement: (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 ? Abscess in the surgical wound lateral to the left hip. Measurements above. This abuts the left lesser trochanter, so osteomyelitis is possible. 2. ? Small left hip joint effusion containing gas bubbles, so this could be infected. 3. ? Minimally displaced fracture around the prosthesis involving the left lesser trochanter and proximal left femoral diaphysis. ? Plan ? CRP is 100 -ESR within normal limits, -Pro-James within normal limits -Follow blood cultures, ? Follow wound cultures, ? We will request medical records of cultures from [facility] once available, ? Continue vancomycin, ? Continue Zosyn ? Continue IV fluids ? Plans on possible surgical intervention today, is on chronic prednisone, stress dose steroids, spoke with anesthesiology, ? Dr. Lee on consult, ? We will speak with infectious disease based on results as above, ? Eliquis for DVT prophylaxis currently on hold as there is plans of surgery tomorrow -Resume thereafter ? DNR/DNI Sacral decubitus ulcer, ? Stage II -Does show evidence of tunneling ? CT/CT lumbar spine w con [id number] IMPRESSION: 1. ? T12 vertebral body compression fracture with mild retropulsion of bony fragments without significant spinal canal narrowing. 2. ? Small bilateral pleural effusions. 3. ? Bibasilar atelectasis. 4. ? Several enlarged left periaortic retroperitoneal lymph nodes measuring up to 2 cm, further evaluation with dedicated CT abdomen and pelvis advised. 5. ? L2-L3 broad-based disc bulge with moderate bilateral foraminal narrowing. 6. ? L3-L4 broad-based disc bulge [id number] bilateral foraminal narrowing. 7. ? L4-L5 broad-based disc bulge with mild spinal canal and moderate severe bilateral foraminal narrowing. 8. ? L5/S1 broad-based disc bulge and productive degenerative changes resulting in moderate to severe bilateral foraminal narrowing. ? Continue repositioning every 1-2 hours, ? Wound care consult History of atrial fibrillation, telemetry monitoring, ? Continue amiodarone, ? Hold Eliquis for now Chronic lymphocytic leukemia, chronic leukocytosis, Autoimmune hemolytic anemia, on chronic prednisone, continue Attestations Medical Necessity Statement*: Patient requires hospitalization for left hip abscess, deep tissue infection, cellulitis, requiring IV antibiotics, surgical debridement Diagnoses Abscess of left hip L02.416 History of total left hip replacement Z96.642 Prosthetic joint infection of left hip T84.52XA Sacral decubitus ulcer L89.159 Autoimmune hemolytic anemia D59.10 Chronic lymphocytic leukemia C91.10 Atrial fibrillation by electrocardiogram I48.91 Hyperlipidemia E78.5 Chronic anticoagulation Z79.01 Status post total hip replacement, left Z96.642 Immunocompromised D84.9
--- NOTE | 2023-03-23 13:33 | XRR_ITS ---
PROCEDURE INFORMATION: Exam: XR Pelvis Exam date and time: 03/23/2023 2:36 PM Age: 87 years old Clinical indication: Condition or disease; Joint replacement status; Left; Prior surgery; Surgery date: Post-operative (0-2 days); Surgery type: Lt hip; Additional info: S/P shun, low ap pelvis TECHNIQUE: Imaging protocol: Radiologic exam of the pelvis. Views: 1 or 2 view. COMPARISON: CR (PELVIS, ) 03/22/2023 4:02 PM FINDINGS: Bones/joints: Satisfactory postoperative appearance of left total hip arthroplasty. Soft tissues: Postoperative gas. XR/XR pelvis 1-2V* [id number] IMPRESSION: Satisfactory postoperative appearance.
--- NOTE | 2023-03-23 14:03 | PC.NURSE ---
Patient/family would like SNF upon discharge. Preferably [facility] in [place].
--- NOTE | 2023-03-23 14:47 | P.OP_ITS ---
Operative Report Date of procedure: March 23, 2023 Pre-op diagnosis: Infection left total hip arthroplasty Post-op diagnosis: Infection left total hip arthroplasty Post-op findings: Left total hip arthroplasty infection Procedure done: Incision and debridement left total hip arthroplasty with exchange of femoral head and methodist MDM insert Implants: The Jones total hip system with a Catholic MDM insert size 42E with a 28 mm inner diameter by 48 mm outer diameter and a 28 mm outer diameter +4 mm offset femoral head LFIT Specimens removed/disposition: Prior femoral head and methodist insert disposed of Pathology: Trochanteric bone sent for culture and pathology, multiple cultures taken pre and post irrigation Surgeon: Brinda Ambrosio MD [employer] Etcher[facility] Anesthesia: General (Per LMA, ASA 3) Estimated blood loss (mL): 250 IV fluids (mL): 800 Urine output (mL): 300 Complications: None Findings: Well-healed tensor fascia adeola with small rent over the greater trochanter communicating with the joint. No obvious abscess collections. Condition: stable Disposition: PACU (Then return to floor for postoperative rehabilitation and antibiotics) Brief History: This 87-year-old woman presented to the emergency department with drainage from a wound at approximately the junction of the middle and distal thirds of her total hip incision. She noted that it had only opened the day of admission. She denied other symptoms or complaints of pain prior to that. The patient underwent total hip arthroplasty in December 2022. Patient did well following her surgery. She was able to ambulate where she had not been ambulatory for an extended period of time. She chronically has a high white count. Upon admission, sed rate was normal but CRP was elevated. Plans were made for operative intervention in the form of incision and debridement with irrigation and exchange of femoral head and MDM insert. Procedure: Patient was brought to the operating theater.? She was transferred to the operating room table and subsequently administered a general anesthesia per LMA, ASA 3.? Following administration of adequate anesthesia, the patient was placed in full lateral position and held in position with a pegboard.? The patient's left lower extremity was then prepped and draped in usual fashion utilizing Betadine.? It was draped free.? Following prepping and draping, a surgical pause was performed.? At the time of surgical pause, we identified the site and side of surgery.? We also identified the patient and preoperative surgical markings.? Confirmation was made of equipment availability.? Additionally, the patient's preoperative IV antibiotic was confirmed as having been given on the floor.? X- rays were also reviewed. Following the surgical pause, the patient's previous incision was entered, and the area that was open was excised. The subcutaneous area between the tensor fascia adeola and the skin was evaluated. There was noted to be no obvious necrotic tissue, but there was inflamed tissue, and this was removed with a combination of curettes and rongeurs. The fascia adeola was evaluated and was felt to be healed nicely. In fact the previous incision line was not able to be identified. There was an area over the greater trochanter, however, which was smaller than the size of a dime which had opened over the bony area. This did lead into the total joint. Therefore, tensor fascia adeola was opened incorporating this area, and we proceeded to dissected down into the joint. At this point, the hip was dislocated. We obtained cultures from within the hip joint. Also, bone was obtained from the greater trochanteric area and sent for culture and pathology. Further debridement was accomplished once again with a curette and rongeur. Once it was felt that soft tissue had been adequately debrided, the wound was copiously irrigated. Initially, we irrigated with 3 L of normal saline without antibiotic. Following this irrigation, cultures were again obtained. Subsequent to the cultures, the wound was irrigated with 6 additional liters containing 6 g of Ancef. Following this irrigation, the wound was further evaluated. Being satisfied that soft tissue had been appropriately debrided, attention was directed to closure. The methodist insert and femoral head were assembled. We chose to use a chrome cobalt femoral head as I did not wish to place ceramic onto the Griffin taper that had been previously utilized. Secondary to the patient's history of prior dislocation, even though she bent over significantly causing the dislocation, I chose to lengthen the femoral head from a +0 mm offset to a +4 mm offset. These were placed onto the femoral neck without difficulty. Once this was impacted into position, reduction was accomplished and the hip was noted to be stable. Leg length was felt to be equal. Being satisfied with the prosthesis, attention was directed to closure.? Closure of the tensor fascia adeola was accomplished with #1 PDS in an interrupted fashion.? The subcutaneous tissues were closed with 2-0 Monocryl.? Vancomycin powder and a Gelfoam thrombin mixture was placed into the wound as well.? The skin was closed with skin loretta followed by Silverlon dressing.? The patient was placed in an abduction pillow.? She was returned the Recovery Room in a satisfactory condition and will be discharged to the floor for postoperative rehabilitation and pain management.? There were no complications. Related Problem List Diagnoses (1) Prosthetic joint infection of left hip:
[2023-03-23] MEDS: pantoprazole 40 mg SDV IVP (15:27)
[2023-03-23] MEDS: sodium chloride 0.9% 1,000 ML 75 ML IV (15:27)
[2023-03-23] MEDS: oxyCODONE 5 mg IR Tab/Cap PO (15:28)
[2023-03-23] MEDS: vancomycin 750 MG in sodium chloride 0.9% 250 ML 250 MG IV (17:50)
[2023-03-23] MEDS: chlorhexidine gluconate 0.12% Btl 473 mL 30 ML MUCOUS MEM ×2 (17:52→20:10)
[2023-03-23] MEDS: calcium carbonate 500 mg Chew Tablet 1000 MG PO (17:53)
[2023-03-23] MEDS: sennosides-docusate Tablet 2 TAB PO (17:53)
[2023-03-23] MEDS: iron polysaccharide complex 150 mg Capsule PO (17:53)
[2023-03-23] MEDS: mupirocin oint 22 gm 1 APPLIC NASAL (18:04)
[2023-03-23 18:48] LABS: Basophils # 0.1 10^3/uL (0.0-0.1); Basophils % 0.2 %; Hematocrit 27.2 % (36-47); Lymphocytes # 24.7 10^3/uL (0.8-4.8); Lymphocytes % 76.5 %; Mean Corpuscular HGB Conc 29.4 g/dL (30-55); Mean Corpuscular Hemoglobin 31.4 pg (27-33); Mean Corpuscular Volume 106.7 fl (85-98); Mean Platelet Volume 8.8 fL (7.4-10.4); Monocytes # 0.2 10^3/uL (0.2-0.9); Monocytes % 0.7 %; Neutrophils # 7.03 10^3/uL (1.8-7.7); Neutrophils % 21.9 %; Nucleated Red Blood Cells % 0 %; Platelet Count 505 10^3/cmm (157-399); Red Blood Count 2.55 10^6/uL (3.85-5.65); Red Cell Distribution Width 21.6 % (12.1-15.1)
[2023-03-23 19:22] LABS: White Blood Count 32.24 10^3/uL (3.29-11.43)
[2023-03-24] VITALS (17 sets, daily range): BP systolic 93–136; BP diastolic 46–75; PULSE 50–81; RESP 16–18; TEMP 36.2–37; O2SAT 93–100; BMI 33.3
[2023-03-24] MEDS: piperacillin-tazobactam 3.375 GM in sodium chloride 0.9% (plus) 50 ML IV ×3 (00:46→16:01)
[2023-03-24 03:57] LABS: Basophils # 0.1 10^3/uL (0.0-0.1); Basophils % 0.2 %; Hematocrit 22.2 % (36-47); Lymphocytes # 23.2 10^3/uL (0.8-4.8); Lymphocytes % 71.3 %; Mean Corpuscular HGB Conc 28.8 g/dL (30-55); Mean Corpuscular Hemoglobin 31.1 pg (27-33); Mean Corpuscular Volume 107.8 fl (85-98); Mean Platelet Volume 8.8 fL (7.4-10.4); Monocytes # 0.5 10^3/uL (0.2-0.9); Monocytes % 1.6 %; Neutrophils # 8.53 10^3/uL (1.8-7.7); Neutrophils % 26.2 %; Nucleated Red Blood Cells % 0 %; Platelet Count 394 10^3/cmm (157-399); Red Blood Count 2.06 10^6/uL (3.85-5.65); Red Cell Distribution Width 21.3 % (12.1-15.1)
[2023-03-24 04:19] LABS: Alanine Aminotransferase 7 U/L (0-33); Albumin Level 2.6 g/dL (3.5-5.2); Alkaline Phosphatase 80 U/L (35-105); Anion Gap 15.4 (5-19); Aspartate Amino Transferase 6 U/L (0-32); Blood Urea Nitrogen 28 mg/dL (8-23); C Reactive Protein 62.7 mg/L (0.0-4.9); Calcium 8.2 mg/dL (8.5-10.5); Carbon Dioxide 19 mmol/L (22-29); Chloride 106 mmol/L (98-107); Globulin 2.1 g/dL (1.3-4.6); Glucose 172 mg/dL (65-115); Magnesium 2.1 mg/dL (1.7-2.3); Osmolality Calculated 290 mOsm/kg (285-295); Phosphorus 4.7 mg/dL (2.5-4.5); Potassium 5.4 mmol/L (3.5-5.1); Sodium 135 mmol/L (136-145); Total Bilirubin 0.4 mg/dL (0.15-1.2); Total Protein 4.7 g/dL (6.6-8.7)
[2023-03-24 04:35] LABS: White Blood Count 32.53 10^3/uL (3.29-11.43)
[2023-03-24] MEDS: amiodarone 200 mg Tablet 100 MG PO (05:22)
[2023-03-24] MEDS: predniSONE 5 mg Tablet PO (05:22)
[2023-03-24] MEDS: acetaminophen 1,000 MG/100 ML PIGGYBACK 400 MG IV (05:24)
--- NOTE | 2023-03-24 07:39 | P.CONIM_ITS ---
Providers/Reason For Consult Consulting Physician/Specialty*: Christina Welch, PSYCHOLOGICAL OPERATIONS SPECIALIST-BC/Wound Care Reason for Consult*: Wound evaluation and management Requesting Physician: Dominick Pack MD Attending Physician: Dominick Pack MD Primary Care Provider: Griselda Garrett APRN History of Present Illness History of Present Illness Sadie Martines is a 87 year old female presents today with a sacral wound. Medical history includes Atrial fibrillation, CHF and recent left total hip arthroplasty. Ms. Martines was admitted for abscess in surgical wound lateral to left hip. She underwent surgical procedure yesterday on 03/23/[address] Ambrosio to that left hip. Abductor pillow is in place. Ms. Martines reports she lives in [facility] with her son. She reports she has had the sacral wound since June when she was hospitalized. She received wound care in [facility]. She reports the wound was much larger at one-point at which time she had a wound VAC to the sacral ulcer. She reports the wound VAC was discontinued in October of this year. Assessment of the wound today revealed a small wound to the sacral region [id number]. No curette debridement performed. The wound has excellent granulation to the wound bed. The wound is clean with no odor. Scant amount of serous drainage to previous bandage. I do not appreciate any erythema or induration to the periwound. I do not appreciate any tunneling at this time. There is a small portion of undermining from 6-10 o'clock with a max of 0.5 cm. I recommend daily wound dressing changes of Hydrofera Blue as the primary product and a comfort bordered foam to cover. The bandage should be changed as needed if soiled. She may shower with no wound dressing. I have encouraged Ms. Martines to offload is much as possible, this includes turning every 2 hours. I recommend Ms. Martines follow-up with wound care at discharge. Review of Systems Const: Denies: fever(s) Card: Denies: chest pain Resp: Denies: dyspnea GI: Denies: abdominal pain Medications/Allergies Home Medications Medication Instructions Recorded Confirmed Last Taken Type cyanocobalamin (vitamin B-12) 1,000 mcg SUBCUT Q30D 07/04/21 03/22/23 1 Week Ago History 1,000 mcg/mL injection solution ~01/07/23 apixaban 5 mg tablet (Eliquis) 5 mg PO BID #180 tabs 07/30/22 03/22/23 03/20/23 Rx furosemide 20 mg tablet 20 mg PO DAILY PRN swelling 07/30/22 03/22/23 6 Months Ago History ~07/14/22 acetaminophen 500 mg tablet 1,000 mg PO Q6H PRN Pain 02/04/23 03/22/23 Unknown History amiodarone 200 mg tablet 100 mg PO QAM 02/04/23 03/22/23 03/20/23 History oxycodone 5 mg tablet 5 mg PO Q4H PRN Pain 02/04/23 03/22/23 Unknown History prednisone 5 mg tablet 5 mg PO QAM #30 tabs 02/24/23 03/22/23 03/20/23 Rx celecoxib 200 mg capsule 200 mg PO DAILY 03/22/23 03/22/23 03/20/23 History losartan 25 mg tablet 25 mg PO DAILY 03/22/23 03/22/23 03/20/23 History Allergies Allergy/AdvReac Type Severity Reaction Status Date / Time No Known Allergies Allergy Verified 02/05/23 15:19 Current Medications Generic Name Dose Route Start Last Admin Trade Name Freq PRN Reason Stop Dose Admin Amiodarone HCl 100 mg 03/23/23 06:00 03/24/23 05:22 Amiodarone 200 Mg Tablet PO 100 mg QAM CHEIKH Administration Calcium Carbonate 1,000 mg 03/23/23 18:00 03/23/23 17:53 Calcium Carbonate 500 Mg Chew Tablet PO 1,000 mg BID CHEIKH Administration Chlorhexidine Gluconate 30 ml 03/23/23 17:00 03/23/23 20:10 Chlorhexidine Gluconate 0.12% Btl 473 Ml MUCOUS MEM 30 ml QID CHEIKH Administration Piperacillin Sod/Tazobactam 50 mls @ 12.5 mls/hr 03/22/23 16:30 03/24/23 04:15 Sod 3.375 gm/ Sodium Chloride IV Infused Q8H CHEIKH Infusion Vancomycin HCl 750 mg/ Sodium 250 mls @ 250 mls/hr 03/22/23 17:00 03/23/23 19:26 Chloride IV Infused Q24H CHEIKH Infusion Losartan Potassium 25 mg 03/23/23 09:00 03/23/23 15:16 Losartan 50 Mg Tablet PO Not Given DAILY CHEIKH Mupirocin 1 applic 03/23/23 18:00 03/23/23 18:04 Mupirocin Oint 22 Gm NASAL 03/28/23 17:59 1 applic BID CHEIKH Administration Oxycodone HCl 5 mg 03/23/23 14:13 03/23/23 15:28 Oxycodone 5 Mg Ir Tab/Cap PO 5 mg Q4H PRN Administration MODERATE PAIN Pantoprazole Sodium 40 mg 03/22/23 16:12 03/23/23 15:27 Pantoprazole 40 Mg Sdv IVP 40 mg Q24H CHEIKH Administration Polysaccharide Iron Complex 150 mg 03/23/23 18:00 03/23/23 17:53 Iron Polysaccharide Complex 150 Mg Capsule PO 150 mg BIDWM CHEIKH Administration Prednisone 5 mg 03/23/23 06:00 03/24/23 05:22 Prednisone 5 Mg Tablet PO 5 mg QAM CHEIKH Administration Senna/Docusate Sodium 2 tab 03/23/23 18:00 03/23/23 17:53 Sennosides-Docusate Tablet PO 2 tab BID CHEIKH Administration PFSH Acute PFSH: Medical History JES (acute kidney injury) Atrial fibrillation by electrocardiogram Atrial fibrillation with rapid ventricular response B12 deficiency Chronic left hip pain Chronic lymphocytic leukemia Coronavirus infection, unspecified Degenerative arthritis Elevated troponin Fever Gram-negative bacteremia Heart failure Hyperlipidemia Hypertension Injury of left hip Lymphatic leukemia Surgical History History of carpal tunnel surgery of right wrist History of tubal ligation Status post total knee replacement, 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) Family History Mother CAD (coronary artery disease) unknown age of onset Stroke Father Cancer Brother Cancer Denies family history of Diabetes Clotting disorder Dementia Chronic kidney disease (CKD) Suicide Anesthesia complication Bleeding disorder Lung disease Social History Smoking and tobacco/nicotine status: former use of tobacco/nicotine (smoked x 45 years) Quit status (tobacco/nicotine): has quit using Year quit tobacco: 1992 Former quit date comment: smoked 40 years Alcohol intake: current Alcohol intake frequency: 0-2 Drinks per Day Substance/Drug Use: never Vitals/I&O/Wt Last Vital Signs Temp 97.6 F 03/24/23 07:07 Pulse 56 L 03/24/23 07:07 Resp 16 03/24/23 07:07 BP 101/56 03/24/23 07:07 Pulse Ox 99 03/24/23 07:07 O2 Del Method Nasal Cannula 03/23/23 20:00 O2 Flow Rate 2 03/23/23 20:00 03/23/23 03/24/23 03/24/23 22:59 06:59 14:59 Intake Total 1600 / 2700 370 / 3070 Output Total 500 / 1050 100 / 1150 Balance 1100 / 1650 270 / 1920 Weight last 48 hrs Weight 80.059 kg Weight 80.059 kg Weight 76.26 kg Physical Exam Const: COMMON NORMALS: no acute distress and patient oriented x3 Resp: COMMON NORMALS: normal respiratory effort, No retractions, No use of accessory muscles and clear to auscultation bilaterally AUSCULTATION: clear to auscultation bilaterally Cardio: COMMON NORMALS: regular rate, regular rhythm, S1 normal heart sound present and S2 normal heart sound present RATE: regular rate RHYTHM: regular rhythm HEART SOUNDS: S1 normal heart sound present and S2 normal heart sound present GI: COMMON NORMALS: Normal to inspection, nondistended, normoactive bowel sounds present and non-tender Extremity: COMMON NORMALS: no pedal edema Neuro: COMMON NORMALS: patient oriented x3 Psych: COMMON NORMALS: mental status grossly normal Skin: WOUNDS: Yes wounds noted (sacral pressure ulcer stage 2) size (1.0x1.0x0.5cm undermining from 10 to 6 o'clock with max of 0.5cm), bed gran ulating well and pink, drainage serous, margins well defined; without any surrounding erythema and not indurated, without odor and open Urinary Catheter Management: Lucas: Cath Placed During This Visit: yes, but has since been removed by the nurse Reason for Continuing Indwelling Catheter: Decision to DC Catheter Urinary Catheter Date of Insertion: 03/23/23 Urinary Catheter Time of Insertion: 11:17 Date Urinary Catheter Removed: 03/24/23 Time Urinary Catheter Discontinued: 06:00 Data 03/24/23 03:48 03/24/23 03:48 Micro: Microbiology 11/25/23 14:32 Blood Culture - Preliminary Blood NEGATIVE TO DATE 03/22/23 14:38 Blood Culture - Preliminary Blood NEGATIVE TO DATE 03/23/23 12:10 Gram Stain - Final Hip - Left 03/23/23 11:50 Gram Stain - Final Hip - Left 03/23/23 12:05 Gram Stain - Final Hip - Left 03/22/23 14:49 Wound Culture - Preliminary Hip - Wound Gram Negative Rods A&P Assessment and plan (1) Pressure ulcer of sacral region, stage 2: Hospital care recommendations:Sacral wound : Daily dressing changes, PRN if soi led. Offloading. Follow-up: Thank you for this consultation. Will follow patient as needed while here. Please call with questions or concerns. Consult Attestations Medical Necessity Statement: Patient requiring inpatient hospitalization for abscess in surgical wound of lateral to left hip, IV antibiotics and wound care. Time Spent in Patient Care: 16 - 35 minutes (>than 50% of time spent in counselling and/or direct pt care on unit) . Coding Level of Care Code 23012 Diagnoses Pressure ulcer of sacral region, stage 2 L89.152 Time Spent (min) 20 Wound Orders Wound Number 1: Stage 2 Pressure ulcer to sacrum Does Wound require Debridement?: No Duration: 14 Days Dressing change frequency: Daily Wound Cleansing: Saline Primary Wound Care Dressing: Hydrofera blue Secondary Wound Care Dressing: Comfort bordered foam. Bathing/Showering/Hygiene: May shower without wound dressing Off-Loading: Turn and reposition every 2 hours
[2023-03-24] MEDS: losartan 50 mg Tablet 25 MG PO (08:41)
[2023-03-24] MEDS: calcium carbonate 500 mg Chew Tablet 1000 MG PO ×2 (08:41→17:21)
[2023-03-24] MEDS: sennosides-docusate Tablet 2 TAB PO ×2 (08:41→17:22)
[2023-03-24] MEDS: cholecalciferol (vitamin D3) 1,000 unit Tablet 1000 UNIT PO (08:41)
[2023-03-24] MEDS: multivitamin therapeutic Tablet 1 TAB PO (08:42)
[2023-03-24] MEDS: iron polysaccharide complex 150 mg Capsule PO ×2 (08:42→17:22)
[2023-03-24] MEDS: apixaban 5 mg Tablet PO ×2 (08:42→17:22)
[2023-03-24] MEDS: chlorhexidine gluconate 0.12% Btl 473 mL 30 ML MUCOUS MEM ×4 (08:42→19:58)
[2023-03-24] MEDS: mupirocin oint 22 gm 1 APPLIC NASAL ×2 (08:43→17:20)
[2023-03-24] MEDS: oxyCODONE 5 mg IR Tab/Cap PO (10:32)
[2023-03-24 10:40] LABS: Methicillin-Resist S.aureu PCR NOT DETECTED (NOT DETECTED)
--- NOTE | 2023-03-24 10:48 | PC.OT ---
HOLD OT EVALUATION DUE TO LOW HGB AND K
--- NOTE | 2023-03-24 13:32 | P.PN_ITS ---
Subjective 2 Subjective: Patient was seen at approximately lunchtime. She was doing well and was up in the chair. She had no fevers no chills and no evidence of complication following her hip irrigation and debridement. Her white count continues to be elevated, but this is secondary to her CLL. She had a low H&H, however, looking historically, this is also chronic for her. Medications: Reviewed: Yes Vitals/I&O/Wt Last Vital Signs Temp 97.5 F L 03/24/23 12:57 Pulse 81 03/24/23 12:57 Resp 17 03/24/23 12:57 BP 123/70 03/24/23 12:57 Pulse Ox 93 03/24/23 12:57 O2 Del Method Nasal Cannula 03/24/23 12:57 O2 Flow Rate 2 03/24/23 07:53 03/23/23 03/24/23 03/24/23 22:59 06:59 14:59 Intake Total 1600 / 2700 370 / 3070 720.208 / 720.208 Output Total 500 / 1050 100 / 1150 Balance 1100 / 1650 270 / 1920 720.208 / 720.208 Weight last 48 hrs Weight 176 lb 8 oz Weight 176 lb 8 oz Weight 168 lb 2 oz Physical Exam 2 Const: COMMON NORMALS: no acute distress, average body habitus, patient oriented x3 and alert GENERAL APPEARANCE: cooperative and comfortable O RIENTATION/CONSCIOUSNESS: Yes awake HENMT: COMMON NORMALS: normocephalic and atraumatic HEAD & SCALP: n ormocephalic and atraumatic Eye: GENERAL EYE: appearance normal, both eyes and all related structures Chest: COMMONS NORMALS: normal inspection of the chest Resp: COMMON NORMALS: normal respiratory effort EFFORT & INSPECTION: Yes able to speak in complete sentences and Yes symmetric chest movement Extremity: LEFT LOWER EXTREMITY: Yes hip joint (Dressing is dry and intact. There is minimal to no swelling. No erythema.) Left hip: Yes palpation (No tenderness.), Yes ROM (Not evaluated.) and Yes neurovascular exam (Neurologically intact with no deficits) Neuro: COMMON NORMALS: patient oriented x3 SENSORIUM/ORIENTATION: Yes alert Psych: COMMON NORMALS: mental status grossly normal APPEARANCE: Yes grossly normal ATTITUDE: Yes calm and Yes engaged ATTENTION/CONCENTRATION: Yes attention grossly intact Skin: COMMON NORMALS: no rashes or lesions noted GENERAL SKIN EXAM: no rashes or lesions noted Urinary Catheter Management: Lucas: Cath Placed During This Visit: yes, but has since been removed by the nurse Reason for Continuing Indwelling Catheter: Decision to DC Catheter Urinary Catheter Date of Insertion: 03/23/23 Urinary Catheter Time of Insertion: 11:17 Date Urinary Catheter Removed: 03/24/23 Time Urinary Catheter Discontinued: 06:00 Data 03/25/23 07:11 03/25/23 07:11 Micro: Microbiology 03/22/23 14:49 Wound Culture - Final Hip - Wound Morganella morganii 03/23/23 12:05 Gram Stain - Final Hip - Left Abscess Culture - Preliminary 03/23/23 11:50 Gram Stain - Final Hip - Left Abscess Culture - Preliminary Gram Negative Rods 03/23/23 12:10 Gram Stain - Final Hip - Left Tissue Culture - Preliminary 03/22/23 14:32 Blood Culture - Preliminary Blood NEGATIVE TO DATE 03/22/23 14:38 Blood Culture - Preliminary Blood NEGATIVE TO DATE A&P Assessment and plan (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 She developed at least a subcutaneous fluid collection which appeared somewhat purulent in nature. She was initially seen at [facility] and transferred here at her request. The patient was taken to the operating room where the hip was irrigated and debrided. The prosthetic component was left in place, but we did change the polyethylene and the femoral head. In this manner, she did have revision of components along with irrigation and debridement with 9 L of fluid. Today, she is working with physical therapy and is doing well. She understands that she will likely need to go to alf at the time of discharge to allow antibiotic therapies to be maximized. Qualifiers: Encounter type: initial encounter Qualified Code(s): T84.52XA - Infection and inflammatory reaction due to internal left hip prosthesis, initial encounter Attestations 2 Medical Necessity Statement*: Ongoing care following irrigation and debridement of left hip. Coding Level of Care Code Acute Code for [facility] Diagnoses Infection associated with internal left hip prosthesis, initial encounter T84.52XA Encounter type: initial encounter
--- NOTE | 2023-03-24 15:38 | PC.SOCIAL ---
Pg 2 IMM Explained to pt Pg 2 IMM. No questions voiced. Provided pt a copy. Initialed, dated, & timed a copy & placed in chart.
[2023-03-24] MEDS: pantoprazole 40 mg SDV IVP (16:02)
[2023-03-24] MEDS: acetaminophen 500 mg Tablet 1000 MG PO ×2 (16:02→23:59)
--- NOTE | 2023-03-24 16:19 | P.PN_ITS ---
Subjective Subjective: Patient was seen this morning, she does report feeling fatigued and tired this morning, no fevers, no chills, no cough does report generalized weakness, no focal weakness no facial droop no slurring of words, we discussed her anemia, she is receiving a unit of PRBC Vitals/I&O/Wt Last Vital Signs Temp 97.6 F 03/24/23 16:14 Pulse 78 03/24/23 16:14 Resp 18 03/24/23 16:14 BP 136/75 03/24/23 16:14 Pulse Ox 97 03/24/23 16:14 O2 Del Method Room Air 03/24/23 16:14 O2 Flow Rate 2 03/24/23 07:53 03/24/23 03/24/23 03/24/23 06:59 14:59 22:59 Intake Total 370 / 3070 720.208 / 720.208 49.792 / 770.000 Output Total 100 / 1150 Balance 270 / 1920 720.208 / 720.208 49.792 / 770.000 Weight last 48 hrs Weight 80.059 kg Weight 80.059 kg Weight 76.26 kg Physical Exam Const: COMMON NORMALS: no acute distress and patient oriented x3 Resp: COMMON NORMALS: normal respiratory effort, No retractions, No use of accessory muscles and clear to auscultation bilaterally AUSCULTATION: clear to auscultation bilaterally Cardio: COMMON NORMALS: regular rate, regular rhythm, S1 normal heart sound present and S2 normal heart sound present RATE: regular rate RHYTHM: regular rhythm HEART SOUNDS: S1 normal heart sound present and S2 normal heart sound present GI: COMMON NORMALS: Normal to inspection, nondistended, normoactive bowel sounds present and non-tender Extremity: COMMON NORMALS: no pedal edema Neuro: COMMON NORMALS: patient oriented x3 Psych: COMMON NORMALS: mental status grossly normal Urinary Catheter Management: Lucas: Cath Placed During This Visit: yes, but has since been removed by the nurse Reason for Continuing Indwelling Catheter: Decision to DC Catheter Urinary Catheter Date of Insertion: 03/23/23 Urinary Catheter Time of Insertion: 11:17 Date Urinary Catheter Removed: 03/24/23 Time Urinary Catheter Discontinued: 06:00 Data 03/24/23 03:48 03/24/23 03:48 Micro: Microbiology 03/23/23 11:50 Gram Stain - Final Hip - Left Anaerobic Culture - Preliminary Abscess Culture - Preliminary Gram Negative Rods 03/23/23 12:05 Gram Stain - Final Hip - Left Anaerobic Culture - Preliminary Abscess Culture - Preliminary 03/22/23 14:49 Wound Culture - Final Hip - Wound Morganella morganii 03/23/23 12:10 Gram Stain - Final Hip - Left Tissue Culture - Preliminary 03/22/23 14:32 Blood Culture - Preliminary Blood NEGATIVE TO DATE 03/22/23 14:38 Blood Culture - Preliminary Blood NEGATIVE TO DATE A&P Assessment and plan (1) Postoperative anemia: (2) JES (acute kidney injury): (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 ? Abscess in the surgical wound lateral to the left hip. Measurements above. This abuts the left lesser trochanter, so osteomyelitis is possible. 2. ? Small left hip joint effusion containing gas bubbles, so this could be infected. 3. ? Minimally displaced fracture around the prosthesis involving the left lesser trochanter and proximal left femoral diaphysis. ? Status post Incision and debridement left total hip arthroplasty with exchange of femoral head and adventism MDM insert Plan ? CRP is 100 -ESR within normal limits, -Pro-James within normal limits -Follow blood cultures, ? Follow wound cultures, ? We will request medical records of cultures from [facility] once available, ? Continue vancomycin, ? Continue Zosyn ? Dr. Lee on consult, ? We will speak with infectious disease based on results as above, plans on long-term IV antibiotics, PICC line placed and ? Eliquis for DVT prophylaxis -Resume thereafter ? DNR/DNI, Postoperative anemia, hemoglobin 6.8, transfuse 1 unit PRBC, recheck CBC in the afternoon, Acute kidney injury, with hypokalemia, he is receiving blood, will recheck BMP this afternoon, if creatinine remains elevated, will start IV fluids Sacral decubitus ulcer, ? Stage II -Does show evidence of tunneling ? CT/CT lumbar spine w con [id number] IMPRESSION: 1. ? T12 vertebral body compression fracture with mild retropulsion of bony fragments without significant spinal canal narrowing. 2. ? Small bilateral pleural effusions. 3. ? Bibasilar atelectasis. 4. ? Several enlarged left periaortic retroperitoneal lymph nodes measuring up to 2 cm, further evaluation with dedicated CT abdomen and pelvis advised. 5. ? L2-L3 broad-based disc bulge with moderate bilateral foraminal narrowing. 6. ? L3-L4 broad-based disc bulge [id number] bilateral foraminal narrowing. 7. ? L4-L5 broad-based disc bulge with mild spinal canal and moderate severe bilateral foraminal narrowing. 8. ? L5/S1 broad-based disc bulge and productive degenerative changes resulting in moderate to severe bilateral foraminal narrowing. ? Continue repositioning every 1-2 hours, ? Wound care consult History of atrial fibrillation, telemetry monitoring, ? Continue amiodarone, Chronic lymphocytic leukemia, chronic leukocytosis, Autoimmune hemolytic anemia, on chronic prednisone, continue Attestations Medical Necessity Statement*: Patient requires hospitalization for prosthetic joint infection requiring IV antibiotics, Diagnoses Postoperative anemia D64.9 JES (acute kidney injury) N17.9 Prosthetic joint infection of left hip T84.52XA Sacral decubitus ulcer L89.159 Autoimmune hemolytic anemia D59.10 Chronic lymphocytic leukemia C91.10 Atrial fibrillation by electrocardiogram I48.91 Hyperlipidemia E78.5 Chronic anticoagulation Z79.01 Status post total hip replacement, left Z96.642 Immunocompromised D84.9
[2023-03-24] MEDS: vancomycin 750 MG in sodium chloride 0.9% 250 ML 250 MG IV (17:21)
[2023-03-24 17:23] LABS: Basophils # 0.2 10^3/uL (0.0-0.1); Basophils % 0.3 %; Hematocrit 29.1 % (36-47); Lymphocytes # 29.3 10^3/uL (0.8-4.8); Lymphocytes % 68.1 %; Mean Corpuscular HGB Conc 30.2 g/dL (30-55); Mean Corpuscular Hemoglobin 31.4 pg (27-33); Mean Corpuscular Volume 103.9 fl (85-98); Mean Platelet Volume 8.8 fL (7.4-10.4); Monocytes # 1.3 10^3/uL (0.2-0.9); Monocytes % 3.1 %; Neutrophils # 11.82 10^3/uL (1.8-7.7); Neutrophils % 27.5 %; Nucleated Red Blood Cells % 0 %; Platelet Count 463 10^3/cmm (157-399); Red Cell Distribution Width 21.8 % (12.1-15.1)
[2023-03-24 17:44] LABS: Anion Gap 18.4 (5-19); Blood Urea Nitrogen 38 mg/dL (8-23); Calcium 8.6 mg/dL (8.5-10.5); Carbon Dioxide 19 mmol/L (22-29); Chloride 104 mmol/L (98-107); Glucose 120 mg/dL (65-115); Osmolality Calculated 292 mOsm/kg (285-295); Potassium 5.4 mmol/L (3.5-5.1); Sodium 136 mmol/L (136-145)
[2023-03-24 18:16] LABS: Slide Review Slide Review Perform
[2023-03-24 18:19] LABS: White Blood Count 43.06 10^3/uL (3.29-11.43)
--- NOTE | 2023-03-24 18:21 | US_ITS ---
WS: [id number] RENAL ULTRASOUND HISTORY: dong COMPARISON: None available. TECHNIQUE: 2-D and color Doppler imaging of the kidney submitted. Right kidney: 8.8 cm x 4.6 cm x 4.4 cm. Cortex: 1.2 cm Normal echogenicity with no hydronephrosis or mass. Left kidney: 9.1 cm x 5.2 cm x 5.2 cm. Cortex: 1.3 cm Normal size kidney. No hydronephrosis. Tiny cortical cyst mid kidney 0.6 cm. Additional small cortica l cyst inferior pole measuring 1.2 x 1.6 cm. Aorta: Normal. Urinary Bladder: Nondistended. IMPRESSION: 1. No solid mass or hydronephrosis. 2. Nondistended urinary bladder.
[2023-03-24] MEDS: sodium chloride 0.9% 1,000 ML 75 ML IV (19:58)
[2023-03-25] VITALS (7 sets, daily range): BP systolic 111–169; BP diastolic 64–74; PULSE 61–75; RESP 17–18; TEMP 36.5–36.7; O2SAT 92–94
[2023-03-25] MEDS: amiodarone 200 mg Tablet 100 MG PO (06:20)
[2023-03-25] MEDS: predniSONE 5 mg Tablet PO (06:20)
[2023-03-25 08:28] LABS: Alanine Aminotransferase 7 U/L (0-33); Alkaline Phosphatase 80 U/L (35-105); Anion Gap 16.8 (5-19); Aspartate Amino Transferase 5 U/L (0-32); Blood Urea Nitrogen 51 mg/dL (8-23); Calcium 8.5 mg/dL (8.5-10.5); Carbon Dioxide 20 mmol/L (22-29); Chloride 105 mmol/L (98-107); Glucose 121 mg/dL (65-115); Magnesium 2.2 mg/dL (1.7-2.3); Osmolality Calculated 299 mOsm/kg (285-295); Phosphorus 5.1 mg/dL (2.5-4.5); Potassium 4.8 mmol/L (3.5-5.1); Sodium 137 mmol/L (136-145); Total Bilirubin 0.5 mg/dL (0.15-1.2)
[2023-03-25] MEDS: multivitamin therapeutic Tablet 1 TAB PO (08:28)
[2023-03-25] MEDS: apixaban 5 mg Tablet PO ×2 (08:28→17:16)
[2023-03-25] MEDS: chlorhexidine gluconate 0.12% Btl 473 mL 30 ML MUCOUS MEM ×3 (08:28→17:17)
[2023-03-25] MEDS: cholecalciferol (vitamin D3) 1,000 unit Tablet 1000 UNIT PO (08:28)
[2023-03-25] MEDS: mupirocin oint 22 gm 1 APPLIC NASAL ×2 (08:28→17:17)
[2023-03-25] MEDS: acetaminophen 500 mg Tablet 1000 MG PO ×3 (08:28→23:57)
[2023-03-25] MEDS: calcium carbonate 500 mg Chew Tablet 1000 MG PO ×2 (08:28→17:16)
[2023-03-25] MEDS: iron polysaccharide complex 150 mg Capsule PO ×2 (08:28→17:16)
[2023-03-25] MEDS: piperacillin-tazobactam 3.375 GM in sodium chloride 0.9% (plus) 50 ML IV ×4 (08:31→23:57)
--- NOTE | 2023-03-25 08:53 | P.PN_ITS ---
Subjective 2 Subjective: Mrs. Martines reports no events overnight. She reports she has been up out of bed working with physical therapy. Wound is stable. Will continue to follow while inpatient. I do recommend Ms. Martines follow up with wound care at time of discharge. Medications: Reviewed: Yes Vitals/I&O/Wt Last Vital Signs Temp 97.8 F 03/25/23 00:00 Pulse 64 03/25/23 00:00 Resp 17 03/25/23 00:00 BP 111/66 03/25/23 00:00 Pulse Ox 94 03/25/23 00:00 O2 Del Method Room Air 03/24/23 20:07 O2 Flow Rate 2 03/24/23 07:53 03/24/23 03/25/23 03/25/23 22:59 06:59 14:59 Intake Total 1069.792 / 1790.000 Balance 1069.792 / 1790.000 Weight last 48 hrs Weight 80.059 kg Physical Exam 2 Const: COMMON NORMALS: no acute distress and patient oriented x3 Resp: COMMON NORMALS: normal respiratory effort, No retractions, No use of accessory muscles and clear to auscultation bilaterally AUSCULTATION: clear to auscultation bilaterally Cardio: COMMON NORMALS: regular rate, regular rhythm, S1 normal heart sound present and S2 normal heart sound present RATE: regular rate RHYTHM: r egular rhythm HEART SOUNDS: S1 normal heart sound present and S2 normal heart sound present GI: COMMON NORMALS: Normal to inspection, nondistended, normoactive bowel sounds present and non-tender Extremity: COMMON NORMALS: no pedal edema Neuro: COMMON NORMALS: patient oriented x3 Psych: COMMON NORMALS: mental status grossly normal Skin: WOUNDS: Yes wounds noted (sacral pressure ulcer stage 2) size (1.0x1.0x0.5cm undermining from 10 to 6 o'clock with max of 0.5cm), bed granulating well and pink, drainage serous, margins well defined; without any surrounding erythema and not indurated, without odor and open Urinary Catheter Management: Lucas: Cath Placed During This Visit: yes, but has since been removed by the nurse Reason for Continuing Indwelling Catheter: Decision to DC Catheter Urinary Catheter Date of Insertion: 03/23/23 Urinary Catheter Time of Insertion: 11:17 Date Urinary Catheter Removed: 11/27/23 Time Urinary Catheter Discontinued: 06:00 Data 03/25/23 07:11 03/25/23 16:30 Micro: Microbiology 03/23/23 11:50 Gram Stain - Final Hip - Left Anaerobic Culture - Preliminary Abscess Culture - Preliminary Gram Negative Rods 03/23/23 12:05 Gram Stain - Final Hip - Left Anaerobic Culture - Preliminary Abscess Culture - Preliminary 03/22/23 14:49 Wound Culture - Final Hip - Wound Morganella morganii 03/23/23 12:10 Gram Stain - Final Hip - Left Tissue Culture - Preliminary A&P Assessment and plan (1) Pressure ulcer of sacral region, stage 2: Hospital care recommendations:Sacral wound : Daily dressing changes, PRN if soiled. Offloading. Follow-up: Thank you for this consultation. Will follow patient as needed while here. Please call with questions or concerns. Attestations 2 Medical Necessity Statement*: Patient requires hospitalization for JES, requiring IV fluids, clinical monitoring, abscess, infection of the left replacement, requiring IV antibiotics, infectious disease consultation, wound care evaluation and management. Time Spent in Patient Care: 16 - 35 minutes (>than 50% of time sp ent in counselling and/or direct pt care on unit) . Other Coding Information Focused coding review requested Diagnoses Pressure ulcer of sacral region, stage 2 L89.152 Time Spent (min) 16 Wound Orders Wound Number 1: Stage 2 Pressure ulcer to sacrum Does Wound require Debridement?: No Duration: 14 Days Dressing change frequency: Daily Wound Cleansing: Saline Primary Wound Care Dressing: Hydrofera blue Secondary Wound Care Dressing: Comfort bordered foam. Bathing/Showering/Hygiene: May shower without wound dressing Off-Loading: Turn and reposition every 2 hours
[2023-03-25 09:19] LABS: Basophils # 0.2 10^3/uL (0.0-0.1); Basophils % 0.3 %; Hematocrit 26.8 % (36-47); Lymphocytes # 34.6 10^3/uL (0.8-4.8); Lymphocytes % 77.7 %; Mean Corpuscular HGB Conc 30.2 g/dL (30-55); Mean Corpuscular Hemoglobin 31.2 pg (27-33); Mean Corpuscular Volume 103.1 fl (85-98); Mean Platelet Volume 8.6 fL (7.4-10.4); Monocytes # 0.9 10^3/uL (0.2-0.9); Neutrophils # 8.53 10^3/uL (1.8-7.7); Neutrophils % 19.2 %; Nucleated Red Blood Cells % 0 %; Platelet Count 487 10^3/cmm (157-399); Red Cell Distribution Width 22.1 % (12.1-15.1)
[2023-03-25 09:36] LABS: White Blood Count 44.52 10^3/uL (3.29-11.43)
[2023-03-25] MEDS: sodium chloride 0.9% 1,000 ML 75 ML IV (12:02)
[2023-03-25] MEDS: sennosides-docusate Tablet 2 TAB PO ×2 (13:34→17:16)
--- NOTE | 2023-03-25 13:34 | P.PN_ITS ---
Vitals/I&O/Wt Last Vital Signs Temp 97.8 F 03/25/23 11:33 Pulse 75 03/25/23 11:33 Resp 17 03/25/23 11:33 BP 169/69 03/25/23 11:33 Pulse Ox 94 03/25/23 11:33 O2 Del Method Room Air 03/25/23 11:33 O2 Flow Rate 2 03/24/23 07:53 03/24/23 03/25/23 03/25/23 22:59 06:59 14:59 Intake Total 1069.792 / 0659.433 7874 / 1240 Balance 1069.792 / 7478.402 5791 / 1240 Weight last 48 hrs Weight 80.059 kg Physical Exam 2 Const: COMMON NORMALS: no acute distress and patient oriented x3 Resp: COMMON NORMALS: normal respiratory effort, No retractions, No use of accessory muscles and clear to auscultation bilaterally AUSCULTATION: clear to auscultation bilaterally Cardio: COMMON NORMALS: regular rate, regular rhythm, S1 normal heart sound present and S2 normal heart sound present RATE: regular rate RHYTHM: r egular rhythm HEART SOUNDS: S1 normal heart sound present and S2 normal heart sound present GI: COMMON NORMALS: Normal to inspection, nondistended, normoactive bowel sounds present, non-tender and no bruits Extremity: COMMON NORMALS: no pedal edema Neuro: COMMON NORMALS: patient oriented x3 Psych: COMMON NORMALS: mental status grossly normal Urinary Catheter Management: Lucas: Cath Placed During This Visit: yes, but has since been removed by the nurse Reason for Continuing Indwelling Catheter: Decision to DC Catheter Urinary Catheter Date of Insertion: 03/23/23 Urinary Catheter Time of Insertion: 11:17 Date Urinary Catheter Removed: 03/24/23 Time Urinary Catheter Discontinued: 06:00 Data 03/25/23 07:11 03/25/23 07:11 Micro: Microbiology 03/23/23 12:05 Gram Stain - Final Hip - Left Anaerobic Culture - Preliminary Abscess Culture - Preliminary 03/23/23 11:50 Gram Stain - Final Hip - Left Anaerobic Culture - Preliminary Abscess Culture - Preliminary Gram Negative Rods 03/22/23 14:49 Wound Culture - Final Hip - Wound Morganella morganii 03/23/23 12:10 Gram Stain - Final Hip - Left Tissue Culture - Preliminary A&P Assessment and plan (1) Postoperative anemia: (2) JES (acute kidney injury): (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 ? Abscess in the surgical wound lateral to the left hip. Measurements above. This abuts the left lesser trochanter, so osteomyelitis is possible. 2. ? Small left hip joint effusion containing gas bubbles, so this could be infected. 3. ? Minimally displaced fracture around the prosthesis involving the left lesser trochanter and proximal left femoral diaphysis. ? Status post Incision and debridement left total hip arthroplasty with exchange of femoral head and moravian MDM insert Plan ? CRP is 100 -ESR within normal limits, -Pro-James within normal limits -Follow blood cultures, ? Follow wound cultures, showing Morganella sensitive to cefepime ? We will request medical records of cultures from [facility] once available, showing Morganella ? Continue vancomycin, ? Continue Zosyn, likely discharge on cefepime 2 g every 24 hours based on kidney function repeat cultures ? Dr. Lee on consult, ? We will speak with infectious disease based on results as above, plans on long-term IV antibiotics, PICC line placed and ? Eliquis for DVT prophylaxis -Resume thereafter ? DNR/DNI, Postoperative anemia, hemoglobin 6.8, transfuse 1 unit PRBC, currently hemoglobin 8.1, recheck CBC in the afternoon, Acute kidney injury, patient tells me that she has good urine output, creatinine plateaued at 2.7, continue IV fluids Sacral decubitus ulcer, ? Stage II -Does show evidence of tunneling ? CT/CT lumbar spine w con [id number] IMPRESSION: 1. ? T12 vertebral body compression fracture with mild retropulsion of bony fragments without significant spinal canal narrowing. 2. ? Small bilateral pleural effusions. 3. ? Bibasilar atelectasis. 4. ? Several enlarged left periaortic retroperitoneal lymph nodes measuring up to 2 cm, further evaluation with dedicated CT abdomen and pelvis advised. 5. ? L2-L3 broad-based disc bulge with moderate bilateral foraminal narrowing. 6. ? L3-L4 broad-based disc bulge [id number] bilateral foraminal narrowing. 7. ? L4-L5 broad-based disc bulge with mild spinal canal and moderate severe bilateral foraminal narrowing. 8. ? L5/S1 broad-based disc bulge and productive degenerative changes resulting in moderate to severe bilateral foraminal narrowing. ? Continue repositioning every 1-2 hours, ? Wound care consult History of atrial fibrillation, telemetry monitoring, ? Continue amiodarone, Chronic lymphocytic leukemia, chronic leukocytosis, Autoimmune hemolytic anemia, on chronic prednisone, continue Attestations 2 Medical Necessity Statement*: Patient requires hospitalization for JES, requiring IV fluids, clinical monitoring, abscess, infection of the left replacement, requiring IV antibiotics, infectious disease consultation, Diagnoses Postoperative anemia D64.9 JES (acute kidney injury) N17.9 Prosthetic joint infection of left hip T84.52XA Sacral decubitus ulcer L89.159 Autoimmune hemolytic anemia D59.10 Chronic lymphocytic leukemia C91.10 Atrial fibrillation by electrocardiogram I48.91 Hyperlipidemia E78.5 Chronic anticoagulation Z79.01 Status post total hip replacement, left Z96.642 Immunocompromised D84.9
--- NOTE | 2023-03-25 14:45 | XRR_ITS ---
PROCEDURE INFORMATION: Exam: XR Chest Exam date and time: 03/25/2023 5:37 PM Age: 87 years old Clinical indication: Picc placement TECHNIQUE: Imaging protocol: Radiologic exam of the chest. Views: 1 view. COMPARISON: CR (CHEST, ) 03/22/2023 4:06 PM FINDINGS: Right-sided PICC tip projects over the cavoatrial junction. No significant change in appearance of the lungs. XR/XR chest 1V portable [id number] IMPRESSION: As above.
--- NOTE | 2023-03-25 16:33 | PM.CONSULT ---
Providers/Reason For Consult Consulting Physician/Specialty*: Catia Agarwal MD/infectious disease Reason for Consult*: PJI left hip Attending Physician: Dominick Pack MD Primary Care Provider: Griselda Garrett APRN History of Present Illness History of Present Illness Sadie Martines is a 87 year old female with Hx of CHF, HTN, Afib and chronic lymphocytic leukemia ,not on chemo currently admitted since 03/22/2023 for prostatic joint infection. Patient underwent a left total hip arthroplasty in December of this year, immediate postop course was relatively uneventful, however around February 05, 2023 while she was bending in the shower she felt an immense pain and pop in her left hip.She presented to the emergency room on February 04 following her injury at which time her hip was noted to be dislocated. In the ED her hip was successfully reduced.. Approximately a week ago she noted her hip to be swollen and warm. She denied any fever or pain. When she woke up on 03/22/2023 she noted purulent bloody drainage through the sinus tract of the hip. She went to the [place] emergency department initially where she was given IV antibiotics and fluids. Wound cultures were taken which showed Morganella Morganii. She was transferred to [facility] per patient's request. CT of the left hip showed abscess in the surgical wound lateral to the left hip. Small left hip joint effusion containing gas bubbles. Minimally displaced fracture around the prosthesis involving the left lesser trochanter and proximal left femoral diaphysis. Cx were taken which are also with Morganella. . She is s/p Incision and debridement left total hip arthroplasty with exchange of femoral head and hinduism MDM insert on 01/14/23. Hospital course notable for JES, chronic sacral wound and anemia. She has no new complaints today Review of Systems General: Reports: 10 or more systems reviewed and unremarkable except in HPI and below Const: Denies: fever(s), chills or body aches Eyes: Denies: change in vision, blurry vision or photophobia ENMT: Reports: hoarseness; Denies: throat pain, enlarged tonsils, odynophagia or nasal congestion Card: Denies: chest pain, palpitations, irregular heart rhythm, edema, swelling of feet/ankles, lightheadedness, pre-syncope, dyspnea on exertion or orthopnea Resp: Denies: dyspnea, productive cough, non-productive cough, wheezing, stridor, pain on inspiration, change in phlegm color, hemoptysis or chest congestion GI: Denies: abdominal pain, nausea, vomiting, hematemesis, coffee ground emesis, dysphagia, heartburn, diarrhea, constipation, GI cramping, change in stool character, hematochezia or melena : Denies: flank pain, difficulty voiding, dysuria, urinary frequency, urinary urgency, urinary hesitancy or hematuria Musc: Denies: neck pain, back pain, extremity pain, joint swelling, joint warmth or deformity Neuro: Denies: headache(s), numbness in extremities, weakness in extremities, sensory changes, difficulty walking, frequent falls, dizziness, vertigo, behavioral changes, Slurred speech present or seizure-like activity Psych: Denies: anxiety, depression, suicidal ideation or homicidal ideation Endo: Denies: polyuria, polydipsia, tired all the time, cold intolerance or hot flashes Davey/Lymph: Denies: easy bruising or easy bleeding Medications/Allergies Home Medications Medication Instructions Recorded Confirmed Last Taken Type cyanocobalamin (vitamin B-12) 1,000 mcg SUBCUT Q30D 07/04/21 03/22/23 1 Week Ago History 1,000 mcg/mL injection solution ~01/07/23 apixaban 5 mg tablet (Eliquis) 5 mg PO BID #180 tabs 07/30/22 03/22/23 03/20/23 Rx furosemide 20 mg tablet 20 mg PO DAILY PRN swelling 07/30/22 03/22/23 6 Months Ago History ~07/14/22 acetaminophen 500 mg tablet 1,000 mg PO Q6H PRN Pain 02/04/23 03/22/23 Unknown History amiodarone 200 mg tablet 100 mg PO QAM 02/04/23 03/22/23 03/20/23 History oxycodone 5 mg tablet 5 mg PO Q4H PRN Pain 02/04/23 03/22/23 Unknown History prednisone 5 mg tablet 5 mg PO QAM #30 tabs 02/24/23 03/22/23 03/20/23 Rx celecoxib 200 mg capsule 200 mg PO DAILY 03/22/23 03/22/23 03/20/23 History losartan 25 mg tablet 25 mg PO DAILY 03/22/23 03/22/23 03/20/23 History Allergies Allergy/AdvReac Type Severity Reaction Status Date / Time No Known Allergies Allergy Verified 02/05/23 15:19 Current Medications Generic Name Dose Route Start Last Admin Trade Name Ellen PRN Reason Stop Dose Admin Acetaminophen 1,000 mg 03/24/23 13:45 03/25/23 08:28 Acetaminophen 500 Mg Tablet PO 1,000 mg Q8H CHEIKH Administration Amiodarone HCl 100 mg 03/23/23 06:00 03/25/23 06:20 Amiodarone 200 Mg Tablet PO 100 mg QAM CHEKIH Administration Apixaban 5 mg 03/24/23 09:00 03/25/23 08:28 Apixaban 5 Mg Tablet PO 5 mg BID CHEIKH Administration Calcium Carbonate 1,000 mg 03/23/23 18:00 03/25/23 08:28 Calcium Carbonate 500 Mg Chew Tablet PO 1,000 mg BID CHEIKH Administration Chlorhexidine Gluconate 30 ml 03/23/23 17:00 03/25/23 14:49 Chlorhexidine Gluconate 0.12% Btl 473 Ml MUCOUS MEM 30 ml QID CHEIKH Administration Piperacillin Sod/Tazobactam 50 mls @ 12.5 mls/hr 03/22/23 16:30 03/25/23 14:50 Sod 3.375 gm/ Sodium Chloride IV Infused Q8H CHEIKH Infusion Vancomycin HCl 750 mg/ Sodium 250 mls @ 250 mls/hr 03/22/23 17:00 03/24/23 19:02 Chloride IV Infused Q24H CHEIKH Infusion Sodium Chloride 1,000 mls @ 75 mls/hr 03/24/23 18:30 03/25/23 12:02 Sodium Chloride 0.9% IV 75 mls/hr .[id number] CHEIKH Administration Multivitamins Therapeutic 1 tab 03/24/23 09:00 03/25/23 08:28 Multivitamin Therapeutic Tablet PO 1 tab DAILY CHEIKH Administration Mupirocin 1 applic 03/23/23 18:00 03/25/23 08:28 Mupirocin Oint 22 Gm NASAL 03/28/23 17:59 1 applic BID CHEIKH Administration Oxycodone HCl 5 mg 03/23/23 14:13 03/24/23 10:32 Oxycodone 5 Mg Ir Tab/Cap PO 5 mg Q4H PRN Administration MODERATE PAIN Pantoprazole Sodium 40 mg 03/22/23 16:12 03/24/23 16:02 Pantoprazole 40 Mg Sdv IVP 40 mg Q24H CHEIKH Administration Polysaccharide Iron Complex 150 mg 03/23/23 18:00 03/25/23 08:28 Iron Polysaccharide Complex 150 Mg Capsule PO 150 mg BIDWM CHEIKH Administration Prednisone 5 mg 03/23/23 06:00 03/25/23 06:20 Prednisone 5 Mg Tablet PO 5 mg QAM CHEIKH Administration Senna/Docusate Sodium 2 tab 03/23/23 18:00 03/25/23 13:34 Sennosides-Docusate Tablet PO 2 tab BID CHEIKH Administration Vitamin D 1,000 unit 03/24/23 09:00 03/25/23 08:28 Cholecalciferol (Vitamin D3) 1,000 Unit Tablet PO 1,000 unit DAILY CHEIKH Administration PFSH Acute PFSH: Medical History Coronavirus infection, unspecified Gram-negative bacteremia Elevated troponin Fever Injury of left hip JES (acute kidney injury) Heart failure Chronic left hip pain Atrial fibrillation with rapid ventricular response B12 deficiency Degenerative arthritis Hyperlipidemia Chronic lymphocytic leukemia Atrial fibrillation by electrocardiogram Lymphatic leukemia Hypertension Surgical History Status post total knee replacement, 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) History of carpal tunnel surgery of right wrist History of tubal ligation Family History Mother CAD (coronary artery disease) unknown age of onset Stroke Father Cancer Brother Cancer Denies family history of Diabetes Clotting disorder Dementia Chronic kidney disease (CKD) Suicide Anesthesia complication Bleeding disorder Lung disease Social History Smoking and tobacco/nicotine status: former use of tobacco/nicotine (smoked x 45 years) Quit status (tobacco/nicotine): has quit using Year quit tobacco: 1992 Former quit date comment: smoked 40 years Alcohol intake: current Alcohol intake frequency: 0-2 Drinks per Day Substance/Drug Use: never Vitals/I&O/Wt Last Vital Signs Temp 97.8 F 03/25/23 11:33 Pulse 75 03/25/23 11:33 Resp 17 03/25/23 11:33 BP 169/69 03/25/23 11:33 Pulse Ox 94 03/25/23 11:33 O2 Del Method Room Air 03/25/23 11:33 O2 Flow Rate 2 03/24/23 07:53 03/25/23 03/25/23 03/25/23 06:59 14:59 22:59 Intake Total 50 / 5552.276 3342 / 1290 Balance 50 / 3350.249 6200 / 1290 Weight last 48 hrs Weight 80.059 kg Physical Exam Narrative: General: No acute distress, AO x3 HEENT: PERRLA, pupils bilaterally equal and reactive, pallors not present Chest: Normal vesicular breath sounds, no added sounds, equal good air entry bilaterally CVS: S1-S2 regular, no murmurs, no tachycardia, no gallops, no rubs Abdomen: Soft, nontender, no organomegaly, bowel sounds present Neuro: No focal deficits, no facial deformity, AO x3, power 5/5 in all limbs Urinary Catheter Management: Lucas: Cath Placed During This Visit: yes, but has since been removed by the nurse Reason for Continuing Indwelling Catheter: Decision to DC Catheter Urinary Catheter Date of Insertion: 03/23/23 Urinary Catheter Time of Insertion: 11:17 Date Urinary Catheter Removed: 03/24/23 Time Urinary Catheter Discontinued: 06:00 Data 03/26/23 06:10 03/26/23 06:10 Micro: Microbiology 03/23/23 11:50 Gram Stain - Final Hip - Left Anaerobic Culture - Preliminary Abscess Culture - Final Morganella morganii M morganii M.I.C. RX --------- ------ * Amikacin <=16 S * Amoxicillin/Clavulanate >16/8 R * Ampicillin >16 R * Ampicillin/Sulbactam 16/8 I * Aztreonam <=4 S * Cefepime <=8 S * Ceftriaxone <=1 S * Cefuroxime 16 R * Ciprofloxacin <=1 S * Gentamicin <=2 S * Imipenem 4 R * Levofloxacin <=2 S * Tetracycline <=4 S * Trimethoprim/Sulfamethoxazole <=2/38 S * Piperacillin/Tazobactam <=16 S 03/23/23 12:05 Gram Stain - Final Hip - Left Anaerobic Culture - Preliminary Abscess Culture - Preliminary 03/23/23 12:10 Gram Stain - Final Hip - Left Tissue Culture - Preliminary Gram Negative Rods 03/22/23 14:49 Wound Culture - Final Hip - Wound Morganella morganii Launch?[facility] CLINICAL LABORATORY [address] [place] [id number] JAKI DAVIS, PHOTOGRAPHIC ENGINEER NAME: Sadie Martines LOC: [facility] U #: [id number] AGE/SX: 87/F ROOM: 269 RE03/22/[address]: Dominick Pack MD : 1935 BED: 1 DIS: FAX #: STATUS: ADM IN TLOC: Spec #: [id number] Salome: 03/23/23 Status: COMP Req #: [id number] Recd: 03/23/[address]: Brinda Ambrosio MD Src: Hip SpDesc: Left Ordered: Tissue Cult GS Comments: Comment LEFT GREATER TROCHANTER-BONE CULTURE Procedure Result Verified Site Gram Stain Final 03/23/23-1443 Result FEW WHITE BLOOD CELLS NO ORGANISMS SEEN Tissue Culture Final 03/26/23 Organism 1 Morganella morganii Growth RARE DAY 3 M morganii M.I.C. RX --------- ------ * Amikacin <=16 S * Amoxicillin/Clavulanate >16/8 R * Ampicillin >16 R * Ampicillin/Sulbactam 16/8 I * Aztreonam <=4 S * Cefepime <=8 S * Ceftriaxone <=1 S * Cefuroxime 16 R * Ciprofloxacin <=1 S * Gentamicin <=2 S * Imipenem 4 R * Levofloxacin <=2 S * Tetracycline <=4 S * Trimethoprim/Sulfamethoxazole <=2/38 S * Piperacillin/Tazobactam <=16 S Tissue Culture Preliminary (changed) 03/25/23-1503 Organism 1 Gram Negative Rods Growth RARE DAY 2, RESULTS TO FOLLOW Tissue Culture Preliminary (changed) 03/24/23-1213 NO GROWTH AFTER 1 DAY Launch[facility] [address] [place] [id number] JAKI DAVIS, PHOTOGRAPHIC ENGINEER NAME: Sadie Martines LOC: [facility] U #: [id number] AGE/SX: 87/F ROOM: 269 RE03/22/[address]: Dominick Pack MD : 1935 BED: 1 DIS: FAX #: STATUS: ADM IN TLOC: Spec #: [id number] Salome: 03/23/23 Status: RES Req #: [id number] Recd: 03/23/[address]: Brinda Ambrosio MD Src: Hip SpDesc: Left Ordered: Absces Cult&GS, Anaer Comments: Comment LEFT HIP SYNOVIAL FLUID Procedure Result Verified Site Gram Stain Final 03/23/23-144 Result FEW WHITE BLOOD CELLS NO ORGANISMS SEEN Anaerobic Culture Preliminary 03/26/23-1329 NO ANAEROBES ISOLATED ON DAY 3 Anaerobic Culture Preliminary (changed) 03/25/23-1550 NO ANAEROBES ISOLATED ON DAY 2 Anaerobic Culture Preliminary (changed) 03/24/23-1510 NO ANAEROBES ISOLATED ON DAY 1 Abscess Culture Final 03/25/23-1353 Organism 1 Morganella morganii Growth FEW DAY 2 M morganii M.I.C. RX --------- ------ * Amikacin <=16 S * Amoxicillin/Clavulanate >16/8 R * Ampicillin >16 R * Ampicillin/Sulbactam 16/8 I * Aztreonam <=4 S * Cefepime <=8 S * Ceftriaxone <=1 S * Cefuroxime 16 R * Ciprofloxacin <=1 S * Gentamicin <=2 S * Imipenem 4 R * Levofloxacin <=2 S * Tetracycline <=4 S * Trimethoprim/Sulfamethoxazole <=2/38 S * Piperacillin/Tazobactam <=16 S Abscess Culture Preliminary (changed) 03/24/23-1218 Organism 1 Gram Negative Rods Growth FEW DAY 1, RESULTS TO FOLLOW [facility] CLINICAL LABORATORY [address] [place] [address] DR. JAKI DAVIS, PHOTOGRAPHIC ENGINEER NAME: Sadie Martines LOC: [facility] U #: [id number] AGE/SX: 87/F ROOM: 269 RE03/22/[address]: Dominick Pack MD : 1935 BED: 1 DIS: FAX #: STATUS: ADM IN TLOC: Spec #: [id number] Salome: 03/22/23 Status: COMP Req #: [id number] Recd: 03/22/23-[address]: Elmer Yanez DO Src: Hip SpDesc: Wound Ordered: Wound Procedure Result Verified Site Wound Culture Final 03/24/236 Organism 1 Morganella morganii Growth FEW DAY 2 M morganii M.I.C. RX --------- ------ * Amikacin <=16 S * Amoxicillin/Clavulanate >16/8 R * Ampicillin >16 R * Ampicillin/Sulbactam 16/8 I * Aztreonam <=4 S * Cefepime <=8 S * Ceftriaxone <=1 S * Cefuroxime 16 R * Ciprofloxacin <=1 S * Gentamicin <=2 S * Imipenem 4 R * Levofloxacin <=2 S * Tetracycline <=4 S * Trimethoprim/Sulfamethoxazole >2/38 R * Piperacillin/Tazobactam <=16 S Wound Culture Preliminary (changed) 03/23/23 Organism 1 Gram Negative Rods Growth FEW DAY 1, RESULTS TO FOLLOW NAME: Sadie Martines LOC: [facility] #: [id number] AGE/SX: 87/F ROOM: 269 RE03/22/[address]: Dominick Pack MD : 1935 BED: 1 DIS: FAX #: STATUS: ADM IN TLOC: Spec #: [id number] Salome: 03/22/23 Status: RES Req #: [id number] Recd: 03/22/[address]: Elmer Yanez DO Src: Blood SpDesc: Ordered: Bcult Procedure Result Verified Site Blood Culture Preliminary 03/23/23 NEGATIVE TO DATE Blood Culture Preliminary (changed) 03/22/23 SPECIMEN COLLECTED Other data: CT/CT hip LT w con [id number] IMPRESSION: 1. Abscess in the surgical wound lateral to the left hip. Measurements above. This abuts the left lesser trochanter, so osteomyelitis is possible. 2. Small left hip joint effusion containing gas bubbles, so this could be infected. 3. 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 Dos: Patient developed erythema warmth and eventually a draining sinus tract one week [employer]SEM[employer] UP MECH[employer]IC. Diagnosed with PJI of left hip All op cx with Morganella morganii s/o surgicalintevrnetion on 03/23 as above recommend 6 weeks iv cefepime renally dosed 2g iv q12h , thereafter plan to switch to oral treatment weekly CBC, creat, LFT, CRP while on above treatment - faax to ID office Picc placed on 03/25 to facilitate above follow up ID clinic on Apr at 10 AM Consult Attestations Medical Necessity Statement: per admitting Coding Level of Care Code Acute Code for [facility] Diagnoses Prosthetic joint infection T84.50XA
[2023-03-25 17:01] LABS: Vancomycin Trough 20.4 ug/mL (10-15)
[2023-03-25] MEDS: pantoprazole 40 mg SDV IVP (17:15)
--- NOTE | 2023-03-25 17:16 | P.PN_ITS ---
Subjective 2 Subjective: Patient is status post incision and debridement of left total hip arthroplasty. She is doing well and is comfortable on oral pain medications at this time. She is on IV antibiotics. Medications: Reviewed: Yes Vitals/I&O/Wt Last Vital Signs Temp 97.7 F 03/25/23 16:00 Pulse 68 03/25/23 16:07 Resp 17 03/25/23 16:00 BP 154/74 03/25/23 16:00 Pulse Ox 92 03/25/23 16:00 O2 Del Method Room Air 03/25/23 16:00 O2 Flow Rate 2 03/24/23 07:53 03/25/23 03/25/23 03/25/23 06:59 14:59 22:59 Intake Total 50 / 8070.818 5648 / 1290 Balance 50 / 9582.568 1885 / 1290 Weight last 48 hrs Weight 176 lb 8 oz Physical Exam 2 Const: COMMON NORMALS: no acute distress, average body habitus, patient oriented x3 and alert GENERAL APPEARANCE: cooperative and comfortable O RIENTATION/CONSCIOUSNESS: Yes awake HENMT: COMMON NORMALS: normocephalic and atraumatic HEAD & SCALP: n ormocephalic and atraumatic Eye: GENERAL EYE: appearance normal, both eyes and all related structures Chest: COMMONS NORMALS: normal inspection of the chest Resp: COMMON NORMALS: normal respiratory effort EFFORT & INSPECTION: Yes able to speak in complete sentences and Yes symmetric chest movement Extremity: LEFT LOWER EXTREMITY: Yes hip joint (Dressing is dry and intact) Left hip: Yes palpation (Minimal to no tenderness), Yes ROM (Not evaluated) and Yes neurovascular exam (No evidence of DVT) Neuro: COMMON NORMALS: patient oriented x3 SENSORIUM/ORIENTATION: Yes alert Psych: COMMON NORMALS: mental status grossly normal APPEARANCE: Yes grossly normal ATTITUDE: Yes calm and Yes engaged ATTENTION/CONCENTRATION: Yes attention grossly intact Skin: COMMON NORMALS: no rashes or lesions noted GENERAL SKIN EXAM: no rashes or lesions noted Urinary Catheter Management: Lucsa: Cath Placed During This Visit: yes, but has since been removed by the nurse Reason for Continuing Indwelling Catheter: Decision to DC Catheter Urinary Catheter Date of Insertion: 03/23/23 Urinary Catheter Time of Insertion: 11:17 Date Urinary Catheter Removed: 03/24/23 Time Urinary Catheter Discontinued: 06:00 Data 03/26/23 06:10 03/26/23 06:10 Micro: Microbiology 03/23/23 11:50 Gram Stain - Final Hip - Left Anaerobic Culture - Preliminary Abscess Culture - Final Morganella morganii 03/23/23 12:05 Gram Stain - Final Hip - Left Anaerobic Culture - Preliminary Abscess Culture - Preliminary 03/23/23 12:10 Gram Stain - Final Hip - Left Tissue Culture - Preliminary Gram Negative Rods 03/22/23 14:49 Wound Culture - Final Hip - Wound Morganella morganii A&P Assessment and plan (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 She developed at least a subcutaneous fluid collection which appeared somewhat purulent in nature. She was initially seen at [facility] and transferred here at her request. The patient was taken to the operating room where the hip was irrigated and debrided. The prosthetic component was left in place, but we did change the polyethylene and the femoral head. In this manner, she did have revision of components along with irrigation and debridement with 9 L of fluid. Postoperatively. The patient worked with physical therapy, and she was started on appropriate IV antibiotic therapy. Cultures will be reviewed by Dr. Agarwal for appropriate antibiotic treatment. Chronic suppression was also discussed with the patient and she understands that this will likely be the path that is chosen for her treatment plan. She is in agreement with this. She also understands that she will require correction at the time of discharge for ongoing antibiotic treatment and rehabilitation. The patient is doing well without significant complaints. She continues to work with physical therapy. Dr. Agarwal from infectious disease has been consulted for appropriate antibiotic therapy. Qualifiers: Encounter type: initial encounter Qualified Code(s): T84.52XA - Infection and inflammatory reaction due to internal left hip prosthesis, initial encounter Attestations 2 Medical Necessity Statement*: Ongoing care and evaluation of appropriate antibiotic therapies Coding Level of Care Code Acute Code for [facility] Diagnoses Infection associated with internal left hip prosthesis, initial encounter T84.52XA Encounter type: initial encounter
[2023-03-25 17:28] LABS: Blood Urea Nitrogen 55 mg/dL (8-23); Calcium 8.4 mg/dL (8.5-10.5); Carbon Dioxide 20 mmol/L (22-29); Chloride 107 mmol/L (98-107); Glucose 112 mg/dL (65-115); Osmolality Calculated 302 mOsm/kg (285-295); Sodium 138 mmol/L (136-145)
[2023-03-25 17:29] LABS: Anion Gap 16.1 (5-19)
[2023-03-25 17:30] LABS: Potassium 5.1 mmol/L (3.5-5.1)
[2023-03-25] MEDS: vancomycin 750 MG in sodium chloride 0.9% 250 ML 250 MG IV (21:59)
[2023-03-26] VITALS (14 sets, daily range): BP systolic 121–179; BP diastolic 63–72; PULSE 58–72; RESP 16–19; TEMP 36.2–36.8; O2SAT 93–96; BMI 33.3
[2023-03-26] MEDS: sodium chloride 0.9% 1,000 ML 75 ML IV (00:09)
[2023-03-26] MEDS: predniSONE 5 mg Tablet PO (06:13)
[2023-03-26] MEDS: amiodarone 200 mg Tablet 100 MG PO (06:13)
[2023-03-26 06:26] LABS: Basophils # 0.1 10^3/uL (0.0-0.1); Basophils % 0.3 %; Eosinophils # 0.2 10^3/uL (0.0-0.8); Eosinophils % 0.5 %; Lymphocytes # 26.6 10^3/uL (0.8-4.8); Lymphocytes % 82.5 %; Mean Corpuscular Hemoglobin 31.1 pg (27-33); Mean Corpuscular Volume 103.6 fl (85-98); Mean Platelet Volume 8.8 fL (7.4-10.4); Monocytes # 1.3 10^3/uL (0.2-0.9); Neutrophils % 11.7 %; Nucleated Red Blood Cells % 0.1 %; Platelet Count 405 10^3/cmm (157-399); Red Blood Count 2.22 10^6/uL (3.85-5.65); Red Cell Distribution Width 21.3 % (12.1-15.1)
[2023-03-26 06:38] LABS: White Blood Count 32.25 10^3/uL (3.29-11.43)
[2023-03-26 06:40] LABS: Alanine Aminotransferase 8 U/L (0-33); Albumin Level 2.5 g/dL (3.5-5.2); Alkaline Phosphatase 72 U/L (35-105); Anion Gap 12.8 (5-19); Aspartate Amino Transferase 6 U/L (0-32); Blood Urea Nitrogen 49 mg/dL (8-23); Calcium 8.2 mg/dL (8.5-10.5); Carbon Dioxide 21 mmol/L (22-29); Chloride 113 mmol/L (98-107); Globulin 1.8 g/dL (1.3-4.6); Glucose 95 mg/dL (65-115); Magnesium 2.2 mg/dL (1.7-2.3); Osmolality Calculated 307 mOsm/kg (285-295); Phosphorus 3.4 mg/dL (2.5-4.5); Potassium 4.8 mmol/L (3.5-5.1); Sodium 142 mmol/L (136-145); Total Bilirubin 0.4 mg/dL (0.15-1.2); Total Protein 4.3 g/dL (6.6-8.7)
--- NOTE | 2023-03-26 07:55 | P.PN_ITS ---
Subjective 2 Subjective: Ms. Martines is in good spirits today. She reports she had a good night with no events. She reports she may get to go home today. I recommend Ms. Martines follow up with wound care after discharge. Medications: Reviewed: Yes Vitals/I&O/Wt Last Vital Signs Temp 98.0 F 03/26/23 04:54 Pulse 61 03/26/23 05:19 Resp 18 03/26/23 04:54 BP 165/70 03/26/23 04:54 Pulse Ox 93 03/26/23 04:54 O2 Del Method Room Air 03/25/23 16:00 O2 Flow Rate 2 03/24/23 07:53 03/25/23 03/26/23 03/26/23 22:59 06:59 14:59 Intake Total 170 / 1460 1640 / 3100 Output Total 650 / 650 Balance 170 / 1460 990 / 2450 Weight last 48 hrs Weight 80.059 kg Physical Exam 2 Const: COMMON NORMALS: no acute distress and patient oriented x3 Resp: COMMON NORMALS: normal respiratory effort, No retractions, No use of accessory muscles and clear to auscultation bilaterally AUSCULTATION: clear to auscultation bilaterally Cardio: COMMON NORMALS: regular rate, regular rhythm, S1 normal heart sound present and S2 normal heart sound present RATE: regular rate RHYTHM: r egular rhythm HEART SOUNDS: S1 normal heart sound present and S2 normal heart sound present GI: COMMON NORMALS: Normal to inspection, nondistended, normoactive bowel sounds present and non-tender Extremity: COMMON NORMALS: no pedal edema Neuro: COMMON NORMALS: patient oriented x3 Psych: COMMON NORMALS: mental status grossly normal Skin: WOUNDS: Yes wounds noted (sacral pressure ulcer stage 2) size (1.0x1.0x0.5cm undermining from 10 to 6 o'clock with max of 0.5cm), bed granulating well and pink, drainage serous, margins well defined; without any surrounding erythema and not indurated, without odor and open Urinary Catheter Management: Lucas: Cath Placed During This Visit: yes, but has since been removed by the nurse Reason for Continuing Indwelling Catheter: Decision to DC Catheter Urinary Catheter Date of Insertion: 03/23/23 Urinary Catheter Time of Insertion: 11:17 Date Urinary Catheter Removed: 03/24/23 Time Urinary Catheter Discontinued: 06:00 Data 03/26/23 06:10 03/26/23 06:10 Micro: Microbiology 03/23/23 11:50 Gram Stain - Final Hip - Left Anaerobic Culture - Preliminary Abscess Culture - Final Morganella morganii 03/23/23 12:05 Gram Stain - Final Hip - Left Anaerobic Culture - Preliminary Abscess Culture - Preliminary 03/23/23 12:10 Gram Stain - Final Hip - Left Tissue Culture - Preliminary Gram Negative Rods A&P Assessment and plan (1) Pressure ulcer of sacral region, stage 2: Hospital care recommendations:Sacral wound : Daily dressing changes, PRN if soiled. Offloading. Follow-up: Thank you for this consultation. Will follow patient as needed while here. Please call with questions or concerns. Attestations 2 Medical Necessity Statement*: Patient requires hospitalization for JES, requiring IV fluids, clinical monitoring, abscess, infection of the left replacement, requiring IV antibiotics, infectious disease consultation, Time Spent in Patient Care: 16 - 35 minutes (>than 50% of time sp ent in counselling and/or direct pt care on unit) . and Moderate Time for a total of 25 minutes, includes reviewing past or interval history, examining/interviewing patient, counseling patient/family/other support, updating patient/family/other support, discussing plan of care with staff, documenting encounter and coordinating care Other Coding Information Focused coding review requested Diagnoses Pressure ulcer of sacral region, stage 2 L89.152 Time Spent (min) 25 Wound Orders Wound Number 1: Stage 2 Pressure ulcer to sacrum Does Wound require Debridement?: No Duration: 14 Days Dressing change frequency: Daily Wound Cleansing: Saline Primary Wound Care Dressing: Hydrofera blue Secondary Wound Care Dressing: Comfort bordered foam. Bathing/Showering/Hygiene: May shower without wound dressing Off-Loading: Turn and reposition every 2 hours
[2023-03-26] MEDS: acetaminophen 500 mg Tablet 1000 MG PO ×3 (08:51→23:47)
[2023-03-26] MEDS: iron polysaccharide complex 150 mg Capsule PO ×2 (08:51→16:55)
[2023-03-26] MEDS: multivitamin therapeutic Tablet 1 TAB PO (08:52)
[2023-03-26] MEDS: sennosides-docusate Tablet 2 TAB PO ×2 (08:52→16:56)
[2023-03-26] MEDS: apixaban 5 mg Tablet PO ×2 (08:52→16:54)
[2023-03-26] MEDS: cholecalciferol (vitamin D3) 1,000 unit Tablet 1000 UNIT PO (08:52)
[2023-03-26] MEDS: calcium carbonate 500 mg Chew Tablet 1000 MG PO ×2 (08:52→16:55)
[2023-03-26] MEDS: piperacillin-tazobactam 3.375 GM in sodium chloride 0.9% (plus) 50 ML IV (08:52)
[2023-03-26] MEDS: chlorhexidine gluconate 0.12% Btl 473 mL 30 ML MUCOUS MEM ×3 (08:54→20:56)
[2023-03-26] MEDS: mupirocin oint 22 gm 1 APPLIC NASAL ×2 (08:54→17:00)
--- NOTE | 2023-03-26 13:41 | P.PN_ITS ---
Subjective 2 Subjective: Patient was seen this morning, she is ambulating with physical therapy, no fevers, no chills, no cough Vitals/I&O/Wt Last Vital Signs Temp 97.9 F 03/26/23 13:15 Pulse 63 03/26/23 13:15 Resp 16 03/26/23 13:15 BP 135/69 03/26/23 13:15 Pulse Ox 95 03/26/23 13:15 O2 Del Method Room Air 03/26/23 12:49 O2 Flow Rate 2 03/24/23 07:53 03/25/23 03/26/23 03/26/23 22:59 06:59 14:59 Intake Total 170 / 1460 1640 / 3100 1530 / 1530 Output Total 650 / 650 Balance 170 / 1460 990 / 2450 1530 / 1530 Weight last 48 hrs Weight 80.059 kg Physical Exam 2 Const: COMMON NORMALS: no acute distress and patient oriented x3 Resp: COMMON NORMALS: normal respiratory effort, No retractions, No use of accessory muscles and clear to auscultation bilaterally AUSCULTATION: clear to auscultation bilaterally Cardio: COMMON NORMALS: regular rate, regular rhythm, S1 normal heart sound present and S2 normal heart sound present RATE: regular rate RHYTHM: r egular rhythm HEART SOUNDS: S1 normal heart sound present and S2 normal heart sound present GI: COMMON NORMALS: Normal to inspection, nondistended, normoactive bowel sounds present and non-tender Extremity: COMMON NORMALS: no pedal edema Neuro: COMMON NORMALS: patient oriented x3 Psych: COMMON NORMALS: mental status grossly normal Urinary Catheter Management: Lucas: Cath Placed During This Visit: yes, but has since been removed by the nurse Reason for Continuing Indwelling Catheter: Decision to DC Catheter Urinary Catheter Date of Insertion: 03/23/23 Urinary Catheter Time of Insertion: 11:17 Date Urinary Catheter Removed: 03/24/23 Time Urinary Catheter Discontinued: 06:00 Data 03/26/23 06:10 03/26/23 06:10 Micro: Microbiology 03/23/23 11:50 Gram Stain - Final Hip - Left Anaerobic Culture - Preliminary Abscess Culture - Final Morganella morganii 03/23/23 12:05 Gram Stain - Final Hip - Left Anaerobic Culture - Preliminary Abscess Culture - Final 03/23/23 12:10 Gram Stain - Final Hip - Left Tissue Culture - Preliminary Gram Negative Rods A&P Assessment and plan (1) Postoperative anemia: (2) JES (acute kidney injury): (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 ? Abscess in the surgical wound lateral to the left hip. Measurements above. This abuts the left lesser trochanter, so osteomyelitis is possible. 2. ? Small left hip joint effusion containing gas bubbles, so this could be infected. 3. ? Minimally displaced fracture around the prosthesis involving the left lesser trochanter and proximal left femoral diaphysis. ? Status post Incision and debridement left total hip arthroplasty with exchange of femoral head and scientology MDM insert Plan ? CRP is 100 -ESR within normal limits, -Pro-James within normal limits -Follow blood cultures, ? Follow wound cultures, showing Morganella sensitive to cefepime ? We will request medical records of cultures from [facility] once available, showing Morganella ? discontinue vancomycin as trough is 19.8, with jes -picc line placed ? Continue Zosyn, likely discharge on cefepime 2 g every 24 hours based on kidney function repeat cultures ? Dr. Lee on consult, ? We will speak with infectious disease based on results as above, plans on long-term IV antibiotics, PICC line placed and ? Eliquis for DVT prophylaxis -Resume thereafter ? DNR/DNI, Postoperative anemia, hemoglobin 6.8, status post transfuse 1 unit PRBC, currently hemoglobin 6.9, will transfuse another unit PRBC Acute kidney injury, 1.7, hold off on IV fluids, she is receiving blood, risk of fluid overload Sacral decubitus ulcer, ? Stage II -Does show evidence of tunneling ? CT/CT lumbar spine w con [id number] IMPRESSION: 1. ? T12 vertebral body compression fracture with mild retropulsion of bony fragments without significant spinal canal narrowing. 2. ? Small bilateral pleural effusions. 3. ? Bibasilar atelectasis. 4. ? Several enlarged left periaortic retroperitoneal lymph nodes measuring up to 2 cm, further evaluation with dedicated CT abdomen and pelvis advised. 5. ? L2-L3 broad-based disc bulge with moderate bilateral foraminal narrowing. 6. ? L3-L4 broad-based disc bulge [id number] bilateral foraminal narrowing. 7. ? L4-L5 broad-based disc bulge with mild spinal canal and moderate severe bilateral foraminal narrowing. 8. ? L5/S1 broad-based disc bulge and productive degenerative changes resulting in moderate to severe bilateral foraminal narrowing. ? Continue repositioning every 1-2 hours, ? Wound care consult History of atrial fibrillation, telemetry monitoring, ? Continue amiodarone, Chronic lymphocytic leukemia, chronic leukocytosis, Autoimmune hemolytic anemia, on chronic prednisone, continue Attestations 2 Medical Necessity Statement*: patient requires hospitalization for anemia, JES, prosthetic joint infection requiring IV antibiotics, following cultures anemia requiring transfusion Diagnoses Postoperative anemia D64.9 JES (acute kidney injury) N17.9 Infection associated with internal left hip prosthesis, initial encounter T84.52XA Encounter type: initial encounter Sacral decubitus ulcer L89.159 Autoimmune hemolytic anemia D59.10 Chronic lymphocytic leukemia C91.10 Atrial fibrillation by electrocardiogram I48.91 Hyperlipidemia E78.5 Chronic anticoagulation Z79.01 Status post total hip replacement, left Z96.642 Immunocompromised D84.9
--- NOTE | 2023-03-26 13:45 | P.PN_ITS ---
Subjective 2 Subjective: Patient is doing well following Incision and debridement of her left hip. Cultures are pending, and she is looking forward to being discharged closer to home, but she understands she will require half-way. Medications: Reviewed: Yes Vitals/I&O/Wt Last Vital Signs Temp 97.9 F 03/26/23 13:15 Pulse 63 03/26/23 13:15 Resp 16 03/26/23 13:15 BP 135/69 03/26/23 13:15 Pulse Ox 95 03/26/23 13:15 O2 Del Method Room Air 03/26/23 12:49 O2 Flow Rate 2 03/24/23 07:53 03/25/23 03/26/23 03/26/23 22:59 06:59 14:59 Intake Total 170 / 1460 1640 / 3100 1530 / 1530 Output Total 650 / 650 Balance 170 / 1460 990 / 2450 1530 / 1530 Weight last 48 hrs Weight 176 lb 8 oz Physical Exam 2 Const: COMMON NORMALS: no acute distress, average body habitus, patient oriented x3 and alert GENERAL APPEARANCE: cooperative and comfortable O RIENTATION/CONSCIOUSNESS: Yes awake HENMT: COMMON NORMALS: normocephalic and atraumatic HEAD & SCALP: n ormocephalic and atraumatic Eye: GENERAL EYE: appearance normal, both eyes and all related structures Chest: COMMONS NORMALS: normal inspection of the chest Resp: COMMON NORMALS: normal respiratory effort EFFORT & INSPECTION: Yes able to speak in complete sentences and Yes symmetric chest movement Extremity: LEFT LOWER EXTREMITY: Yes hip joint (No significant swelling or ecchymosis.) Left hip: Yes palpation (Minimal tenderness), Yes ROM (Not evaluated) and Yes neurovascular exam (Intact distally with no evidence of DVT) Neuro: COMMON NORMALS: patient oriented x3 SENSORIUM/ORIENTATION: Yes alert Psych: COMMON NORMALS: mental status grossly normal APPEARANCE: Yes grossly normal ATTITUDE: Yes calm and Yes engaged ATTENTION/CONCENTRATION: Yes attention grossly intact Skin: COMMON NORMALS: no rashes or lesions noted GENERAL SKIN EXAM: no rashes or lesions noted Urinary Catheter Management: Lucas: Cath Placed During This Visit: yes, but has since been removed by the nurse Reason for Continuing Indwelling Catheter: Decision to DC Catheter Urinary Catheter Date of Insertion: 03/23/23 Urinary Catheter Time of Insertion: 11:17 Date Urinary Catheter Removed: 03/24/23 Time Urinary Catheter Discontinued: 06:00 Data 03/26/23 06:10 03/26/23 06:10 Micro: Microbiology 03/23/23 11:50 Gram Stain - Final Hip - Left Anaerobic Culture - Preliminary Abscess Culture - Final Morganella morganii 03/23/23 12:05 Gram Stain - Final Hip - Left Anaerobic Culture - Preliminary Abscess Culture - Final 03/23/23 12:10 Gram Stain - Final Hip - Left Tissue Culture - Preliminary Gram Negative Rods A&P Assessment and plan (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 She developed at least a subcutaneous fluid collection which appeared somewhat purulent in nature. She was initially seen at [facility] and transferred here at her request. The patient was taken to the operating room where the hip was irrigated and debrided. The prosthetic component was left in place, but we did change the polyethylene and the femoral head. In this manner, she did have revision of components along with irrigation and debridement with 9 L of fluid. Postoperatively. The patient worked with physical therapy, and she was started on appropriate IV antibiotic therapy. Cultures will be reviewed by Dr. Agarwal for appropriate antibiotic treatment. Chronic suppression was also discussed with the patient and she understands that this will likely be the path that is chosen for her treatment plan. She is in agreement with this. She also understands that she will require half-way at the time of discharge for ongoing antibiotic treatment and rehabilitation. Qualifiers: Encounter type: initial encounter Qualified Code(s): T84.52XA - Infection and inflammatory reaction due to internal left hip prosthesis, initial encounter Attestations 2 Medical Necessity Statement*: Ongoing hospitalization for appropriate antibiotic treatment and awaiting cultures. Coding Level of Care Code Acute Code for [facility] Diagnoses Infection associated with internal left hip prosthesis, initial encounter T84.52XA Encounter type: initial encounter
--- NOTE | 2023-03-26 13:49 | PC.SOCIAL ---
IMM Update pg 2 of IMM updated and reviewed w/ patient. Copy provided and copy dated, initialed and placed in chart.
[2023-03-26] MEDS: cefepime 2,000 MG in sodium chloride 0.9% (plus) 50 ML 100 MG IV (16:54)
[2023-03-26] MEDS: pantoprazole 40 mg SDV IVP (16:54)
[2023-03-27] VITALS (7 sets, daily range): BP systolic 150–199; BP diastolic 70–81; PULSE 61–77; RESP 16–19; TEMP 36.1–36.9; O2SAT 95–96
[2023-03-27] MEDS: cefepime 2,000 MG in sodium chloride 0.9% (plus) 50 ML 100 MG IV (03:58)
[2023-03-27] MEDS: amiodarone 200 mg Tablet 100 MG PO (05:43)
[2023-03-27] MEDS: predniSONE 5 mg Tablet PO (05:43)
[2023-03-27 06:07] LABS: Basophils # 0.1 10^3/uL (0.0-0.1); Basophils % 0.3 %; Eosinophils # 0.2 10^3/uL (0.0-0.8); Eosinophils % 0.6 %; Hematocrit 28.4 % (36-47); Lymphocytes # 27.1 10^3/uL (0.8-4.8); Lymphocytes % 83.8 %; Mean Corpuscular HGB Conc 30.6 g/dL (30-55); Mean Corpuscular Hemoglobin 30.5 pg (27-33); Mean Corpuscular Volume 99.6 fl (85-98); Mean Platelet Volume 8.5 fL (7.4-10.4); Monocytes # 1.2 10^3/uL (0.2-0.9); Monocytes % 3.6 %; Neutrophils # 3.39 10^3/uL (1.8-7.7); Neutrophils % 10.4 %; Nucleated Red Blood Cells % 0 %; Platelet Count 362 10^3/cmm (157-399); Red Blood Count 2.85 10^6/uL (3.85-5.65)
[2023-03-27 06:27] LABS: Alanine Aminotransferase 15 U/L (0-33); Albumin Level 2.6 g/dL (3.5-5.2); Alkaline Phosphatase 74 U/L (35-105); Anion Gap 12.4 (5-19); Aspartate Amino Transferase 15 U/L (0-32); Blood Urea Nitrogen 44 mg/dL (8-23); Calcium 8.4 mg/dL (8.5-10.5); Carbon Dioxide 21 mmol/L (22-29); Chloride 115 mmol/L (98-107); Globulin 1.9 g/dL (1.3-4.6); Glucose 100 mg/dL (65-115); Magnesium 2.1 mg/dL (1.7-2.3); Osmolality Calculated 309 mOsm/kg (285-295); Phosphorus 2.6 mg/dL (2.5-4.5); Potassium 4.4 mmol/L (3.5-5.1); Sodium 144 mmol/L (136-145); Total Bilirubin 0.6 mg/dL (0.15-1.2); Total Protein 4.5 g/dL (6.6-8.7)
[2023-03-27 06:46] LABS: SARS Covid-2 Antigen negative (Negative)
[2023-03-27 07:10] LABS: Slide Review Slide Review Perform; White Blood Count 32.37 10^3/uL (3.29-11.43)
--- NOTE | 2023-03-27 08:37 | P.DS_ITS ---
Discharge Providers Date of Admission: 03/22/23 14:53 Date of Discharge: March 27, 2023 Attending Provider at Admission: Dominick Pack MD Attending Provider at Discharge: Dominick Pack MD Primary Care Provider: Griselda Garrett APRN Diagnoses at Discharge Discharge Diagnosis (1) Prosthetic joint infection of left hip: Status: Resolved Qualifiers: Encounter type: initial encounter Qualified Code(s): T84.52XA - Infection and inflammatory reaction due to internal left hip prosthesis, initial encounter Reason for Visit Reason for Visit: LEFT HIP INFECTION Hospital Course Hospital Course Sadie Martines is a 87 year old female with a past medical history of chronic lymphocytic leukemia, history of autoimmune hemolytic anemia, on chronic prednisone, history of atrial fibrillation, on Eliquis, history of CHF, recent history of left total hip arthroplasty, she presented to the emergency room on 02/04/2023 for left hip dislocation, and was reduced in the emergency room, who presents to [facility] as this morning she noticed drainage from the left hip,. Patient patient tells me that about a week or so ago, she had a heating pad, over her back, as her back and her hip was hurting her, and she had noticed that her left hip was warm, it was hot, she had a home health care look at it and she thought it would possibly the heating pad, but there was concern for possible hip infection, they were monitoring it, family, she has been ambulating, no recent falls, no recent injuries except reduction as above, she does report chills last night, she reports severe chills, no fevers, no cough, this morning, she was walking and she noticed that there was a trail of blood behind her, family members noticed that out of the left hip, there was serosanguineous drainage bloody drainage, with an open hole. They presented to [facility], where she received blood cultures, wound cultures was given a dose of vancomycin, Zosyn and transferred to [facility] for evaluation. Currently on examination, left hip, there is a 2 x 2 centimeter open area, I did not probe it, but there is active serosanguineous drainage, she denies any pain but the area is very red, hot, warm, erythematous. She also has a sacral decubitus ulcer, just below pilonidal sinus, measuring 1 x 1 cm no significant erythema, patient's family tells me that she had a significant sacral decubitus ulcer over this location it does look significantly better, but they were worried about tunneling, as it looks deeper to them, they show me pictures on their phone, to compare to. Concerns for left hip prosthetic joint infection/deep tissue infection/abscess/cellulitis CT left hip CT/CT hip LT w con [id number] IMPRESSION: 1. ? Abscess in the surgical wound lateral to the left hip. Measurements above. This abuts the left lesser trochanter, so osteomyelitis is possible. 2. ? Small left hip joint effusion containing gas bubbles, so this could be infected. 3. ? Minimally displaced fracture around the prosthesis involving the left lesser trochanter and proximal left femoral diaphysis. ? Status post Incision and debridement left total hip arthroplasty with exchange of femoral head and anabaptism MDM -Monitored as inpatient, patient's culture show Morganella species, ? Discharged on cefepime 2 gram IVq 12 hours, ? Follow-up with Dr. Lee as outpatient, ? Wound care as per Dr. Lee, ? Follow-up with infectious disease as outpatient, likely patient will need l ifelong antibiotic therapy, likely p.o., ? Discharged on Eliquis for DVT prophylaxis Patient's hospital course was complicated with postoperative anemia, requiring 2 units PRBC, monitor hemoglobin as outpatient, Patient's postoperative course was complicated with JES, creatinine as high as 2.7 improved with IV fluids, creatinine on discharge was 1.2, Patient was found to have a sacral decubitus ulcer, stage II, managed with wound care as outpatient, discharged with wound care as outpatient Physical Exam Const: COMMON NORMALS: no acute distress and patient oriented x3 Resp: COMMON NORMALS: normal respiratory effort, No retractions, No use of accessory muscles and clear to auscultation bilaterally AUSCULTATION: clear to auscultation bilaterally Cardio: COMMON NORMALS: regular rate, regular rhythm, S1 normal heart sound present and S2 normal heart sound present RATE: regular rate RHYTHM: regu lar rhythm HEART SOUNDS: S1 normal heart sound present and S2 normal heart sound present GI: COMMON NORMALS: Normal to inspection, nondistended, normoactive bowel sounds present and non-tender Extremity: COMMON NORMALS: no pedal edema Neuro: COMMON NORMALS: patient oriented x3 Psych: COMMON NORMALS: mental status grossly normal Urinary Catheter Management: Lucas: Cath Placed During This Visit: yes, but has since been removed by the nurse Reason for Continuing Indwelling Catheter: Decision to DC Catheter Urinary Catheter Date of Insertion: 03/23/23 Urinary Catheter Time of Insertion: 11:17 Date Urinary Catheter Removed: 03/24/23 Time Urinary Catheter Discontinued: 06:00 Discharge Data Studies Completed and Pending Completed Studies During Hospitalization Category Date Time Status CT hip LT w con [id number] Stat Cat Scan 03/22/23 14:[address] lumbar spine w con [id number] Routine Cat Scan 03/22/23 15:33 Completed CXRP [XR chest 1V portable [id number]] Routine Exams 03/25/23 14:45 Completed XR chest 1V portable [id number] Stat Exams 03/22/23 16:05 Completed XR hip LT 2-3V wo/w pel* [id number] Routine Exams 03/22/23 15:33 Completed XR pelvis 1-2V* [id number] Routine Exams 03/23/23 13:33 Completed Pathology: Surgical [PTH] Routine Pth 03/23/23 12:59 Completed US renal BI* [id number] Routine Ultrasound 03/24/23 18:21 Completed Pending at discharge Category Date Time Status Abscess Culture and Gram Stain Routine Lab 03/23/23 11:50 Results Abscess Culture and Gram Stain Routine Lab 03/23/23 12:05 Results Anaerobic Culture Routine Lab 03/23/23 11:50 Results Anaerobic Culture Routine Lab 03/23/23 12:05 Results Blood Culture Stat Lab 03/22/23 14:38 Results Clostridium Difficile PCR Routine Lab 03/22/23 15:40 Ordered Complete Blood Count w/Auto AM LABS Lab 03/28/23 04:00 Ordered Comprehensive Metabolic Panel AM LABS Lab 03/28/23 04:00 Ordered Immunochemical Fecal OCB Routine Lab 03/22/23 15:40 Ordered Lactoferrin Routine Lab 03/22/23 15:40 Ordered Magnesium AM LABS Lab 03/28/23 04:00 Ordered OVA and Parasites, Conc and PE Routine Lab 03/22/23 15:40 Ordered Phosphorus AM LABS Lab 03/28/23 04:00 Ordered Salmonella / Shigella / Campy Routine Lab 03/22/23 15:40 Ordered Radiology Impressions Hip CT 03/22/23 14:17 IMPRESSION: 1. Abscess in the surgical wound lateral to the left hip. Measurements above. This abuts the left lesser trochanter, so osteomyelitis is possible. 2. Small left hip joint effusion containing gas bubbles, so this could be infected. 3. Minimally displaced fracture around the prosthesis involving the left lesser trochanter and proximal left femoral diaphysis. Hip/Pelvis X-Ray 03/22/23 15:33 IMPRESSION: Fracture left lesser trochanter and proximal left femoral diaphysis. Lumbar Spine CT 03/22/23 15:33 IMPRESSION: 1. T12 vertebral body compression fracture with mild retropulsion of bony fragments without significant spinal canal narrowing. 2. Small bilateral pleural effusions. 3. Bibasilar atelectasis. 4. Several enlarged left periaortic retroperitoneal lymph nodes measuring up to 2 cm, further evaluation with dedicated CT abdomen and pelvis advised. 5. L2-L3 broad-based disc bulge with moderate bilateral foraminal narrowing. 6. L3-L4 broad-based disc bulge [id number] bilateral foraminal narrowing. 7. L4-L5 broad-based disc bulge with mild spinal canal and moderate severe bilateral foraminal narrowing. 8. L5/S1 broad-based disc bulge and productive degenerative changes resulting in moderate to severe bilateral foraminal narrowing. Pelvis X-Ray 03/23/23 13:33 IMPRESSION: Satisfactory postoperative appearance. Chest X-Ray 03/25/23 14:45 IMPRESSION: As above. Laboratory Results WBC 32.37 10^3/uL (3.29-11.43) H* 03/27/23 06:00 RBC 2.85 10^6/uL (3.85-5.65) L 03/27/23 06:00 Hgb 8.70 g/dL (11.27-16.99) L 03/27/23 06:00 Hct 28.4 % (36-47) L 03/27/23 06:00 MCV 99.6 fl (85-98) H 03/27/23 06:00 MCH 30.5 pg (27-33) 03/27/23 06:00 MCHC 30.6 g/dL (30-55) 03/27/23 06:00 RDW 23.0 % (12.1-15.1) H 03/27/23 06:00 Plt Count 362 10^3/cmm (157-399) 03/27/23 06:00 MPV 8.5 fL (7.4-10.4) 03/27/23 06:00 Neut % (Auto) 10.4 % 03/27/23 06:00 Lymph % (Auto) 83.8 % 03/27/23 06:00 [place] % (Auto) 3.6 % 03/27/23 06:00 Eos % (Auto) 0.6 % 03/27/23 06:00 Baso % (Auto) 0.3 % 03/27/23 06:00 Neut # (Auto) 3.39 10^3/uL (1.8-7.7) 03/27/23 06:00 Lymph # (Auto) 27.1 10^3/uL (0.8-4.8) H 03/27/23 06:00 [place] # (Auto) 1.2 10^3/uL (0.2-0.9) H 03/27/23 06:00 Eos # (Auto) 0.2 10^3/uL (0.0-0.8) 03/27/23 06:00 Baso # (Auto) 0.1 10^3/uL (0.0-0.1) 03/27/23 06:00 Nucleated RBC % (auto) 0 % 03/27/23 06:00 Total Counted 100 (0-100) 03/22/23 14:38 Atypical Lymphs % 6.0 % (0-5) H 03/22/23 14:38 Absolute Neutrophils 4.0 10^3/cmm (1.4-6.5) 03/22/23 14:38 Segmented Neutrophils 13 % 03/22/23 14:38 Abs Segm Neuts (Man) 4.0 10/cmm (1.6-7.1) 03/22/23 14:38 Band Neutrophils 0.0 % 03/22/23 14:38 Abs Band Neuts (Man) 0.0 10^3/cmm (0.0-1.2) 03/22/23 14:38 Absolute Lymphocytes 26.5 10^3/cmm (1.2-3.4) H 03/22/23 14:38 Lymphocytes (Manual) 81 % 03/22/23 14:38 Monocytes (Manual) 0.0 % 03/22/23 14:38 Absolute Monocytes 0.0 10^3/cmm (0.1-0.6) L 03/22/23 14:38 Eosinophils (Manual) 0 % 03/22/23 14:38 Absolute Eosinophils 0.0 10^3/cmm (0.0-0.7) 03/22/23 14:38 Basophils (Manual) 0.0 % 03/22/23 14:38 Absolute Basophils 0.0 10^3/cmm (0.0-0.2) 03/22/23 14:38 Nucleated RBCs # 0.0 /100WBC 03/27/23 06:00 Smudge Cells 1+ H 03/22/23 14:38 Platelet Estimate Normal (Normal) 03/22/23 14:38 Hypochromasia Trace 03/22/23 14:38 Poikilocytosis 2+ H 03/22/23 14:38 Anisocytosis 2+ H 03/22/23 14:38 Macrocytosis 1+ H 03/22/23 14:38 ESR 14 mm/hr (0-15) 03/22/23 14:38 Sodium 144 mmol/L (136-145) 03/27/23 06:00 Potassium 4.4 mmol/L (3.5-5.1) 03/27/23 06:00 Chloride 115 mmol/L (98-107) H 03/27/23 06:00 Carbon Dioxide 21 mmol/L (22-29) L 03/27/23 06:00 Anion Gap 12.4 (5-19) 03/27/23 06:00 BUN 44 mg/dL (8-23) H 03/27/23 06:00 Creatinine 1.2 mg/dL (0.5-0.9) H 03/27/23 06:00 GFR Calculation Not Reportable 03/27/23 06:00 Glucose 100 mg/dL (65-115) 03/27/23 06:00 Estimat Average Glucose 94 03/22/23 17:44 Hemoglobin A1c 4.9 % (4.0-6.0) 03/22/23 17:44 Calculated Osmolality 309 mOsm/kg (285-295) H 03/27/23 06:00 Lactic Acid 0.9 mmol/L (0.5-2.2) 03/22/23 14:38 Calcium 8.4 mg/dL (8.5-10.5) L 03/27/23 06:00 Phosphorus 2.6 mg/dL (2.5-4.5) 03/27/23 06:00 Magnesium 2.1 mg/dL (1.7-2.3) 03/27/23 06:00 Iron 28 ug/dL (37-145) L 03/22/23 14:38 Ferritin 345 ng/mL (15-150) H 03/22/23 14:38 Total Bilirubin 0.6 mg/dL (0.15-1.2) 03/27/23 06:00 AST 15 U/L (0-32) 03/27/23 06:00 ALT 15 U/L (0-33) 03/27/23 06:00 Alkaline Phosphatase 74 U/L (35-105) 03/27/23 06:00 Creatine Kinase 11 U/L (26-192) L 03/22/23 14:38 C-Reactive Protein 34.0 mg/L (0.0-4.9) H 03/25/23 07:11 Total Protein 4.5 g/dL (6.6-8.7) L 03/27/23 06:00 Albumin 2.6 g/dL (3.5-5.2) L 03/27/23 06:00 Globulin 1.9 g/dL (1.3-4.6) 03/27/23 06:00 Triglycerides 75 mg/dL (0-150) 03/22/23 14:38 Cholesterol 137 mg/dL (0-200) 03/22/23 14:38 LDL Cholesterol, Calc 65 mg/dL (50-129) 03/22/23 14:38 HDL Cholesterol 57 mg/dL (60-100) L 03/22/23 14:38 LDL/HDL Ratio 1.14 RATIO (0.00-3.22) 03/22/23 14:38 Cholesterol/HDL Ratio 2.40 mg/dL (0.0-4.40) 03/22/23 14:38 Procalcitonin 0.15 ng/mL (0-0.5) 03/22/23 14:38 Random Cortisol 9.08 ug/dL (2.47-19.5) 03/22/23 14:38 Urine Color Colorless (Yellow) 03/22/23 17:07 Urine Appearance Clear (CLEAR) 03/22/23 17:07 Urine pH 5 (5-7) 03/22/23 17:07 Ur Specific [place] 1.010 (1.005-1.030) 03/22/23 17:07 Urine Protein Neg (Negative) 03/22/23 17:07 Urine Glucose (UA) Norm (Normal) 03/22/23 17:07 Urine Ketones Negative (Negative) 03/22/23 17:07 Urine Blood Neg (Negative) 03/22/23 17:07 Urine Nitrate Negative (Negative) 03/22/23 17:07 Urine Bilirubin Neg (Negative) 03/22/23 17:07 Urine Urobilinogen Norm mg/dL (Negative) 03/22/23 17:07 Ur Leukocyte Esterase Negative (Negative) 03/22/23 17:07 Vancomycin Trough 20.4 ug/mL (10-15) H 03/25/23 16:30 SARS-CoV-2 Ag (Rapid) negative (Negative) 03/27/23 05:47 MRSA (PCR) Not detected (NOT DETECTED) 03/22/23 17:04 Blood Type A Positive 03/26/23 10:11 Rho(D) Type Rh positive 03/26/23 10:11 Antibody Screen Negative 03/26/23 10:11 Crossmatch See Detail 03/26/23 10:11 Vitals Last Vital Signs Temp 97.5 F L 03/27/23 04:34 Pulse 61 03/27/23 04:34 Resp 17 03/27/23 04:34 BP 181/71 03/27/23 04:34 Pulse Ox 96 03/27/23 04:34 O2 Del Method Room Air 03/27/23 04:34 O2 Flow Rate 2 03/24/23 07:53 Discharge Plan Discharge Patient Disposition: Xfer SNF Condition: Stable Prescriptions: New cefepime 2 gram recon soln 2 g IV Q12H 42 Days Continued cyanocobalamin (vitamin B-12) 1,000 mcg/mL solution 1,000 mcg SUBCUT Q30D Eliquis 5 mg tablet 5 mg PO BID Qty: 180 3RF furosemide 20 mg tablet 20 mg PO DAILY PRN (Reason: swelling) Patient Comments: Take 20mg twice a day prednisone 5 mg tablet 5 mg PO QAM Qty: 30 2RF oxycodone 5 mg tablet 5 mg PO Q4H PRN (Reason: Pain) amiodarone 200 mg tablet 100 mg PO QAM losartan 25 mg tablet 25 mg PO DAILY Discontinued acetaminophen [Tylenol Ex Str Rapid Release] 500 mg Tablet 1,000 mg PO Q6H PRN (Reason: Pain) celecoxib 200 mg capsule 200 mg PO DAILY Discharge Orders: Discharge Order (Routine); Ordered 03/27/23 Ordered By: Dominick Pack Referrals: [facility] [Other] [facility] [Provider Group] - 04/29/23 10:00 am Griselda Garrett APRN [Primary Care Provider] - Discharge Diet: Cardiac Discharge Activity: Resume usual activity Patient Instructions: Opioid Safety Activity Restrictions/Additional Instructions: -cefepime 2gram q 12h for 6 weeks -weekly cbc and cmp -if any fever or chills go to er Discharge Attestations Time Spent in Discharge Care*: greater than 30 min Quality Metrics Clinical Quality Measures [ No reported AMI, CVA or VTE this stay] Coding Level of Care Code 58048 Total time (in minutes) for Discharge: 45 Diagnoses Infection associated with internal left hip prosthesis, initial encounter T84.52XA Encounter type: initial encounter
[2023-03-27] MEDS: apixaban 5 mg Tablet PO (10:59)
[2023-03-27] MEDS: acetaminophen 500 mg Tablet 1000 MG PO (10:59)
[2023-03-27] MEDS: multivitamin therapeutic Tablet 1 TAB PO (10:59)
[2023-03-27] MEDS: sennosides-docusate Tablet 2 TAB PO (10:59)
[2023-03-27] MEDS: iron polysaccharide complex 150 mg Capsule PO (10:59)
[2023-03-27] MEDS: mupirocin oint 22 gm 1 APPLIC NASAL (11:00)
[2023-03-27] MEDS: chlorhexidine gluconate 0.12% Btl 473 mL 30 ML MUCOUS MEM (11:00)
[2023-03-27] MEDS: calcium carbonate 500 mg Chew Tablet 1000 MG PO (11:00)
[2023-03-27] MEDS: cholecalciferol (vitamin D3) 1,000 unit Tablet 1000 UNIT PO (11:00)
== END 2023-03-27 12:58 | disposition skilled nursing facility (03) | DRG 467 ==
LOC: ER 15:23 → MEDSURG 15:25
PROVIDERS: Specialist; Admitting Provider Family Medicine; Emergency Provider Emergency Medicine; PCP Nurse Practitioner Family; Visit Provider Family Medicine
PROC: 0SRS0JZ Replacement of Left Hip Joint, Femoral Surface with Synthetic Substitute, Open Approach (ICD-10-PCS; principal; 2023-03-23 09:20)
DX: T84.52XA Infection and inflammatory reaction due to internal left hip prosthesis, initial encounter (principal); C91.10 Chronic lymphocytic leukemia of B-cell type not having achieved remission; D59.10 Autoimmune hemolytic anemia, unspecified; I13.0 Hypertensive heart and chronic kidney disease with heart failure and stage 1 through stage 4 chronic kidney disease, or unspecified chronic kidney disease; N17.9 Acute kidney failure, unspecified; D62 Acute posthemorrhagic anemia; D84.9 Immunodeficiency, unspecified; Y79.2 Prosthetic and other implants, materials and accessory orthopedic devices associated with adverse incidents; B96.4 Proteus (mirabilis) (morganii) as the cause of diseases classified elsewhere; I48.91 Unspecified atrial fibrillation; I50.9 Heart failure, unspecified; N18.9 Chronic kidney disease, unspecified; L89.152 Pressure ulcer of sacral region, stage 2; E78.5 Hyperlipidemia, unspecified; Z66 Do not resuscitate; Z11.52 Encounter for screening for COVID-19; Z79.52 Long term (current) use of systemic steroids; Z86.16 Personal history of COVID-19; Z79.01 Long term (current) use of anticoagulants; Z87.891 Personal history of nicotine dependence
CPT/HCPCS: 36415; 36430; 36573; 36592; 51702; 71045; 72132; 72170; 73502; 73701; 76770; 80048; 80053; 80061; 80202; 81003; 82533; 82550; 82728; 83036; 83540; 83605; 83735; 84100; 84145; 85007; 85025; 85651; 86140; 86850; 86900; 86920; 87040; 87070; 87075; 87077; 87176; 87186; 87205; 87426; 87641; 88307; 88311; 94664; 97110; 97116; 97161; 97165; 97530; 97535; 99285; C1776; C9113; J0131; J0690; J0692; J1100; J2405; J2543; J2704; J2930; J3010; J3370; J7030; J7050; J7512; P9016; P9040; Q9967

== ENCOUNTER → 2023-04-09 13:04 | Outpatient (BNVA) | payer MEDICARE, OTHER, SELFPAY | PROVIDERS: PCP Nurse Practitioner Family; Visit Provider Specialist | DX: Z96.642 Presence of left artificial hip joint (principal); M16.12 Unilateral primary osteoarthritis, left hip; L02.416 Cutaneous abscess of left lower limb | CPT/HCPCS: 73502; 99024 ==

== ENCOUNTER → 2023-04-29 09:28 | Outpatient (BNVA) | payer MEDICARE, OTHER, SELFPAY | PROVIDERS: PCP Nurse Practitioner Family; Visit Provider Student in an Organized Health Care Education/Training Program | DX: M86.9 Osteomyelitis, unspecified | CPT/HCPCS: 99205 ==

== ENCOUNTER → 2023-06-11 09:30 | Outpatient (BNVA) | payer MEDICARE, OTHER, SELFPAY | PROVIDERS: PCP Nurse Practitioner Family; Visit Provider Specialist | DX: M16.0 Bilateral primary osteoarthritis of hip; T84.50XD Infection and inflammatory reaction due to unspecified internal joint prosthesis, subsequent encounter; Y79.2 Prosthetic and other implants, materials and accessory orthopedic devices associated with adverse incidents; Z96.642 Presence of left artificial hip joint | CPT/HCPCS: 36415; 73522; 85007; 85025; 85651; 86140; 99214 ==

== ENCOUNTER 2023-07-22 10:30 | Oncology outpatient (recurring) (ONCR) | payer MEDICARE, OTHER, SELFPAY ==
[2023-07-02 09:59] LABS: Hematocrit 28.9 % (36-47); Mean Corpuscular HGB Conc 30.4 g/dL (30-55); Mean Corpuscular Hemoglobin 31.9 pg (27-33); Mean Corpuscular Volume 104.7 fl (85-98); Mean Platelet Volume 8.7 fL (7.4-10.4); Platelet Count 321 10^3/cmm (157-399); Red Blood Count 2.76 10^6/uL (3.85-5.65); Red Cell Distribution Width 20.7 % (12.1-15.1)
[2023-07-02 10:41] LABS: White Blood Count 48.18 10^3/uL (3.29-11.43)
[2023-07-02 10:42] LABS: Alanine Aminotransferase 8 U/L (0-33); Albumin Level 3.7 g/dL (3.5-5.2); Alkaline Phosphatase 62 U/L (35-105); Anion Gap 15.3 (5-19); Aspartate Amino Transferase 12 U/L (0-32); Blood Urea Nitrogen 20 mg/dL (8-23); Calcium 8.7 mg/dL (8.5-10.5); Carbon Dioxide 24 mmol/L (22-29); Chloride 103 mmol/L (98-107); Ferritin 386 ng/mL (15-150); Globulin 2.4 g/dL (1.3-4.6); Glucose 106 mg/dL (65-115); Iron 64 ug/dL (37-145); Lactate Dehydrogenase 430 U/L (135-214); Osmolality Calculated 289 mOsm/kg (285-295); Percent Saturation 33.1 % (20-50); Potassium 4.3 mmol/L (3.5-5.1); Sodium 138 mmol/L (136-145); Thyroid Stimulating Hormone 3.68 uIU/mL (0.27-4.20); Total Bilirubin 0.7 mg/dL (0.15-1.2); Total Iron Binding Capacity 193 mcg/dl; Total Protein 6.1 g/dL (6.6-8.7); Unsaturated Iron Binding 129 ug/dL (112-347); Uric Acid 5.9 mg/dL (2.4-5.7)
[2023-07-02 10:43] LABS: Folate Level 8.4 ng/mL (4.8-37.3)
[2023-07-02 10:56] LABS: Slide Review Slide Review Perform
[2023-07-02 10:57] LABS: Absolute Neutrophil 4.3 10^3/cmm (1.4-6.5); Absolute Segmented Neutrophil 4.3 10/cmm (1.6-7.1); Eosinophils 0 %; Lymphocytes 61 %; Lymphocytes Absolute 41.9 10^3/cmm (1.2-3.4); Monocytes Absolute 1.9 10^3/cmm (0.1-0.6); Platelet Estimate Normal (Normal); Segmented Neutrophils 9 %; Total Cells Counted 100 (0-100)
[2023-07-02 10:58] LABS: Anisocytosis 2+; Macrocytosis 1+; Poikilocytosis 1+
[2023-07-02 11:18] LABS: Immunoglobulin IGG 451 mg/dL (700-1600)
[2023-07-02 11:22] LABS: Vitamin B12 > 2000 pg/mL (232-1245)
[2023-07-02 13:07] LABS: Reticulocyte % 1.6 % (0.5-2.0)
[2023-07-03 06:25] LABS: PROTEIN, TOTAL 5.7 g/dL (6.1-8.1)
[2023-07-03 14:39] LABS: KAPPA/LAMBDA LIGHT CHAINS FREE 3.33 (0.26-1.65); LAMBDA LIGHT CHAIN, FREE, SERU 7.2 mg/L (5.7-26.3)
[2023-07-03 16:06] LABS: Beta-2-Microglobulin 4.07 mg/L (< OR = 2.51)
[2023-07-03 17:29] LABS: Creatinine, Random Urine 45 mg/dL (20-275); Protein, Total, Random 11 mg/dL (5-24); Protein/Creatinine Ratio 0.244 (0.024-0.184); Protein/Creatinine Ratio 244 mg/g creat (24-184)
[2023-07-03 23:33] LABS: ABNORMAL PROTEIN BAND 1 0.1 g/dL (NONE DETECTED); ABNORMAL PROTEIN BAND 2 0.1 g/dL (NONE DETECTED); ALBUMIN 3.5 g/dL (3.8-4.8); ALPHA 1 GLOBULIN 0.5 g/dL (0.2-0.3); ALPHA 2 GLOBULIN 0.8 g/dL (0.5-0.9); BETA 1 GLOBULIN 0.3 g/dL (0.4-0.6); BETA 2 GLOBULIN 0.2 g/dL (0.2-0.5); GAMMA GLOBULIN 0.4 g/dL (0.8-1.7)
[2023-07-05 17:33] LABS: Methylmalonic Acid 158 nmol/L (87-318)
[2023-07-14 16:59] LABS: Abnormal Protein Band 1 2 mg/dL (NONE DETECTED); Albumin,Urine Random 20 %; Alpha-1-Globulins Urine Random 14 %; Alpha-2-Globulins Urine Random 15 %; Beta-Globulin,Urine Random 18 %; Gamma Globulin,Urine Random 33 %
[2023-07-21 09:23] LABS: CLL Prognostic Panel (BBPL) See Report
[2023-07-22 10:40] LABS: Reticulocyte % 0.5 % (0.5-2.0)
[2023-07-22 10:41] LABS: Basophils # 0.1 10^3/uL (0.0-0.1); Basophils % 0.1 %; Eosinophils # 0.1 10^3/uL (0.0-0.8); Eosinophils % 0.1 %; Hematocrit 28.5 % (36-47); Lymphocytes # 45.7 10^3/uL (0.8-4.8); Lymphocytes % 93.3 %; Mean Corpuscular HGB Conc 29.8 g/dL (30-55); Mean Corpuscular Hemoglobin 31.7 pg (27-33); Mean Corpuscular Volume 106.3 fl (85-98); Monocytes # 1.7 10^3/uL (0.2-0.9); Monocytes % 3.4 %; Neutrophils # 1.31 10^3/uL (1.8-7.7); Neutrophils % 2.7 %; Nucleated Red Blood Cells % 0 %; Platelet Count 217 10^3/cmm (157-399); Red Blood Count 2.68 10^6/uL (3.85-5.65); Red Cell Distribution Width 22.5 % (12.1-15.1)
[2023-07-22 10:55] LABS: White Blood Count 49.01 10^3/uL (3.29-11.43)
[2023-07-22 10:59] LABS: Chloride 107 mmol/L (98-107); Immunoglobulin IGG 390 mg/dL (700-1600); Immunoglobulin IGM 118 mg/dL (40-230); Potassium 4.5 mmol/L (3.5-5.1); Slide Review Slide Review Perform; Sodium 143 mmol/L (136-145)
[2023-07-22 11:00] LABS: Immunoglobulin IGA < 50 mg/dL (70-400)
[2023-07-22 11:05] LABS: Alanine Aminotransferase 9 U/L (0-33); Albumin Level 3.6 g/dL (3.5-5.2); Alkaline Phosphatase 51 U/L (35-105); Anion Gap 13.3 (5-19); Aspartate Amino Transferase 9 U/L (0-32); Blood Urea Nitrogen 23 mg/dL (8-23); Calcium 8.9 mg/dL (8.5-10.5); Carbon Dioxide 25 mmol/L (22-29); Globulin 2.2 g/dL (1.3-4.6); Glucose 87 mg/dL (65-115); Lactate Dehydrogenase 404 U/L (135-214); Osmolality Calculated 291 mOsm/kg (285-295); Total Bilirubin 0.6 mg/dL (0.15-1.2); Total Protein 5.8 g/dL (6.6-8.7); Uric Acid 3.7 mg/dL (2.4-5.7)
== END 2023-07-27 23:59 | disposition home or self-care (01) ==
PROVIDERS: Internal Medicine; PCP Nurse Practitioner Family; Visit Provider Nurse Practitioner Family
DX: C91.10 Chronic lymphocytic leukemia of B-cell type not having achieved remission (principal); Z53.9 Procedure and treatment not carried out, unspecified reason; M86.9 Osteomyelitis, unspecified; I48.91 Unspecified atrial fibrillation; I10 Essential (primary) hypertension; Z79.899 Other long term (current) drug therapy
CPT/HCPCS: 36415; 80053; 81263; 82232; 82274; 82570; 82607; 82728; 82746; 82784; 83010; 83540; 83550; 83615; 83735; 83883; 83921; 84155; 84156; 84165; 84166; 84238; 84443; 84550; 85007; 85025; 85045; 86334; 86880; 88185; 88264; 88271; 88367; 88374; 99213; 99214; 99215

== ENCOUNTER 2023-07-29 12:31 | Outpatient (CLI) | payer MEDICARE, OTHER, SELFPAY ==
--- NOTE | 2023-07-29 13:00 | PETR_ITS ---
PROCEDURE INFORMATION: Exam: PET/CT Whole Body Exam date and time: 07/29/2023 1:22 PM Age: 87 years old Clinical indication: Condition or disease; Primary cancer: Cll o F b cell type not having achieved remission; Initial oncological staging assessment; Prior surgery; Surgery date: 6+ months; Surgery type: Lt hip; Additional info: Cll, has medicare no pa required LABS AND CLINICAL REPORTS: Glucose: 119 mg/dl Treatment strategy for malignancy (PET staging): Initial Staging (PI) TECHNIQUE: Imaging protocol: Following at least four-hour fasting and following the injection of radiopharmaceutical, low dose CT images were obtained. Then, PET images were obtained. Attenuation corrected images were constructed using the CT scan. Fused images of PET and CT were reviewed. The standardized uptake values (SUV) reported below are maximum values within a region of interest, expressed in gm/ml. Exam includes the whole body. Radiopharmaceutical: 11.3 mCi F-18 FDG (Fluorodeoxyglucose), IV. Time of imaging post radiopharmaceutical administration: 1 hour COMPARISON: 1. CT lumbar spine w con [id number] 03/22/2023 6:[address] abdomen pelvis from 07/15/2022 FINDINGS: Brain: Visualized brain has normal physiologic uptake. Pharynx: No abnormal uptake. Larynx: No abnormal uptake. Lungs, pleura and trachea: Hypermetabolic masslike area of consolidation in the right middle lobe has SUV max 11.1. This measures 2.6 x 3.7 cm and was likely present but significantly decreased in size on CT from 07/15/2022. Another smaller nodular area of consolidation in the right lower lobe has SUV max 4.7. This measures up to 1.5 cm, similar to 07/15/2022. Some additional mild ground-glass opacities in the right lower lobe have low level FDG uptake. Small to moderate right pleural effusion with mild FDG uptake with SUV max 2.5. Heart: Normal physiologic uptake. Mediastinal space: No abnormal uptake. Liver: No abnormal uptake. Gallbladder and bile ducts: No abnormal uptake. Pancreas: No abnormal uptake. Spleen: No abnormal uptake. Adrenal glands: No abnormal uptake. Kidneys and ureters: Tiny nonobstructing left renal calculus. Stomach and bowel: No abnormal uptake. Vasculature: Heavy burden of atherosclerotic plaque in the abdominal aorta and branch vessels. No aneurysm. Lymph nodes: Mild FDG uptake within a subcarinal lymph node with SUV max 4.3. Enlarged left external iliac chain lymph nodes measuring up to 1.4 cm have increased in size compared to 07/15/2022. There is no associated increased FDG uptake. Enlarged periaortic lymph nodes measuring up to 2.9 cm have increased in size compared to 07/15/2022 but appear similar to 03/22/2023. There is no increased FDG uptake. Bones/joints: Remote left rib fractures. Left total hip arthroplasty. Soft tissues: Some mild uptake in the left iliopsoas muscle is likely physiologic. PET/PET WB melanoma INITIAL [id number] IMPRESSION: 1. Hypermetabolic masslike and nodular consolidation in the right middle and lower lobes raises concern for neoplastic disease, possibly lymphomatous involvement versus a bronchogenic carcinoma. 2. Small right pleural effusion has some mild FDG uptake. 3. Enlarged retroperitoneal and left external iliac chain lymph nodes are not FDG avid.
== END 2023-07-29 12:32 | disposition home or self-care (01) ==
LOC: RAD 12:32
PROVIDERS: PCP Nurse Practitioner Family; Visit Provider Internal Medicine
DX: C91.10 Chronic lymphocytic leukemia of B-cell type not having achieved remission (principal); J90 Pleural effusion, not elsewhere classified; R91.8 Other nonspecific abnormal finding of lung field
CPT/HCPCS: 78816; A9552

== ENCOUNTER → 2023-08-04 08:47 | Outpatient (BNVA) | payer MEDICARE, OTHER, SELFPAY | PROVIDERS: PCP Nurse Practitioner Family; Visit Provider Surgery | DX: C91.10 Chronic lymphocytic leukemia of B-cell type not having achieved remission (principal); I48.91 Unspecified atrial fibrillation; Z79.01 Long term (current) use of anticoagulants | CPT/HCPCS: 99204 ==

== ENCOUNTER 2023-08-05 10:28 | Day surgery (SDC) | payer MEDICARE, OTHER, SELFPAY ==
[2023-08-05] VITALS (8 sets, daily range): BP systolic 136–167; BP diastolic 48–77; PULSE 67–80; RESP 17–20; TEMP 36.5–36.7; O2SAT 92–96
--- NOTE | 2023-08-05 10:32 | XRR_ITS ---
PROCEDURE INFORMATION: Exam: XR Chest Exam date and time: 08/05/2023 12:48 PM Age: 87 years old Clinical indication: Device placement; Other: Mediport; Additional info: Postop mediport TECHNIQUE: Imaging protocol: Radiologic exam of the chest. Views: 1 view. COMPARISON: 1. CR (CHEST, ) 03/25/2023 5:37 PM 2. PT PET WB melanoma INITIAL [id number] 07/29/2023 1:22 PM FINDINGS: Tubes, catheters and devices: Left chest port terminates near the superior cavoatrial junction. Lungs: Mild asymmetric diffuse right lung ground-glass attenuation with lower lung zone opacity corresponding to hypermetabolic masslike consolidation on comparison PET-CT. Pleural spaces: Mild right pleural effusion. No pneumothorax. Heart/Mediastinum: Unremarkable. No cardiomegaly. Vasculature: Aortic arch atherosclerotic calcification. Bones/joints: Degenerative change along the spine and shoulders. Other findings: Patient rotation is noted. XR/XR chest 1V portable [id number] IMPRESSION: 1. Interval left chest port terminates near the superior cavoatrial junction. 2. Known mild right pleural effusion and lower lung zone masslike opacity.
--- NOTE | 2023-08-05 10:32 | SC_ITS ---
WS: [id number] INTRAOPERATIVE TECHNIQUE: 2 Spot fluoroscopic images for intraoperative purposes. FLUOROSCOPY TIME: 3.0 seconds CLINICAL INFORMATION: Mediport placement FINDINGS: LEFT Port-A-Cath with tip in the distal SVC. No visualized pneumothorax. IMPRESSION: Images obtained for intraoperative purposes.
--- NOTE | 2023-08-05 10:49 | W.PM.OPSUD ---
Surgery/Procedure H&P Update DATE OF PROCEDURE: August 05, 2023 DATE H&P PERFORMED: 08/04/23 H&P UPDATE INFORMATION: I have reviewed H&P completed within last 30 days, I have examined patient prior to procedure and No changes to prior documentation PLANNED PROCEDURE: Operation Date: 08/05/23 12:00 Proposed Procedures p Portacath Placement(Not Applicable) - Wayne Cooley DO
[2023-08-05] MEDS: sodium chloride 0.9% 1,000 ML 30 ML IV (11:12)
--- NOTE | 2023-08-05 11:25 | P.ANESASSM_ITS ---
Pre-Anesthetic Assessment Height/Weight: Height 1.55 m Weight 467.2 kg Temp Pulse Resp BP Pulse Ox O2 Del Method 98.0 F 78 18 156/59 93 Room Air 08/05/23 10:39 08/05/23 10:39 08/05/23 10:39 08/05/23 10:39 08/05/23 10:39 08/05/23 10:39 Operation Date: 08/05/23 12:00 Proposed Procedures p Portacath Placement(Not Applicable) - Wayne Cooley DO Familial anesthetic complications: none Was Beta Krzysztof taken within 24 hours: N/A Was Clonidine taken within 24 hours: N/A Last intake: Intake Last Liquid Date 08/04/23 Last Liquid Time 20:00 Last Solid Date 08/04/23 Last Solid Time 17:30 Social No alcohol and No tobacco Exam alert, oriented x 3, clear to auscultation bilaterally and regular rate & rhythm Airway Submandibular: within normal limits Cervical ROM: within normal limits Mallampati: Class II Dentition: false CV/HEM Atrial Fibrillation, Anemia and Hypertension leukemia Metabolic Morbid Obesity [facility] [place] Osteoarthritis/DJD Anesthetic Plan ASA status: 3 Anesthesia: MAC Medications/Allergies Home Medications Medication Instructions Recorded Confirmed Last Taken Type cyanocobalamin (vitamin B-12) 1,000 mcg SUBCUT Q60D 07/04/21 08/04/23 06/11/23 History 1,000 mcg/mL injection solution apixaban 5 mg tablet (Eliquis) 5 mg PO BID #180 tabs 07/30/22 08/04/23 08/03/23 Rx furosemide 20 mg tablet 20 mg PO DAILY PRN swelling 07/30/22 08/04/23 6 Months Ago History ~07/14/22 amiodarone 200 mg tablet 100 mg PO QAM 02/04/23 08/04/23 08/04/23 History ciprofloxacin HCl 500 mg tablet 500 mg PO BID chronic suppression 06/10/23 08/04/23 08/04/23 Rx for PJI 30 days #60 tabs allopurinol 300 mg tablet 300 mg PO DAILY #30 tabs 07/30/23 08/04/23 08/04/23 Rx venetoclax 10 mg (14)-50 mg See Rx Instructions PO .COMPLEX 08/04/23 08/05/23 Unknown Rx (7)-100 mg (21) tablets in a dose #42 ea pack zinc 10 mg tablet 10 mg PO DAILY 08/04/23 08/04/23 08/04/23 History Allergies Allergy/AdvReac Type Severity Reaction Status Date / Time No Known Allergies Allergy Verified 08/04/23 08:58 Current Medications Generic Name Dose Route Start Last Admin Trade Name Ellen PRN Reason Stop Dose Admin Sodium Chloride 1,000 mls @ 30 mls/hr 08/05/23 10:45 08/05/23 11:12 Sodium Chloride 0.9% IV 08/06/23 10:44 30 mls/hr .Q24H CHEIKH Administration PFSH Anesthesia Medical History Atrial fibrillation with rapid ventricular response Coronavirus infection, unspecified Gram-negative bacteremia Elevated troponin Fever Injury of left hip JES (acute kidney injury) Heart failure Chronic left hip pain B12 deficiency Degenerative arthritis Hyperlipidemia Chronic lymphocytic leukemia Atrial fibrillation by electrocardiogram Hypertension Surgical History Status post total knee replacement, 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) History of carpal tunnel surgery of right wrist History of tubal ligation Family History Mother CAD (coronary artery disease) unknown age of onset Stroke Father Cancer Brother Cancer Denies family history of Diabetes Clotting disorder Dementia Chronic kidney disease (CKD) Suicide Anesthesia complication Bleeding disorder Lung disease Social History Smoking and tobacco/nicotine status: former use of tobacco/nicotine (smoked x 45 years) Quit status (tobacco/nicotine): has quit using Year quit tobacco: 1992 Former quit date comment: smoked 40 years Alcohol intake: current Alcohol intake frequency: 0-2 Drinks per Day Substance/Drug Use: never Data Anesthesia Cardiac Studies: Echocardiogram 06/26/22 Sestamibi Stress Test (Cardiology) 08/28 Cardiac Event Monitor 07/09/21
[2023-08-05] MEDS: ceFAZolin 2,000 MG in sodium chloride 0.9% (plus) 50 ML 100 MG IV (12:59)
[2023-08-05] MEDS: lidocaine-epi 2% PF 1:200,000 20 mL SDV XX (13:12)
[2023-08-05] MEDS: heparin, porcine 1,000 unit/mL INJ 10 mL 10000 UNIT IRRIGATION (13:12)
--- NOTE | 2023-08-05 13:33 | P.OP_ITS ---
Operative Report Date of procedure: August 05, 2023 Pre-op diagnosis: Chronic lymphocytic leukemia Post-op diagnosis: same Procedure done: Mediport placement Implants: PowerPort Surgeon: Wayne Cooley DO Anesthesia: MAC and Local Estimated blood loss (mL): 5 Complications: None apparent Brief History: This is a very pleasant 87-year-old female with chronic lymphocytic leukemia. Oncology requested Mediport placement for chemotherapy access. The risk and benefits were explained and documented. Procedure: They put another order I will do right now things the patient was taken to the operating room and placed supine on the operating room table. All bony prominences were padded. She was given IV sedation and monitored throughout the case by the anesthesia personnel. SCDs were placed and turned on. The arms were tucked to the side. Patient received Ancef 2 g preoperatively IV. The bilateral chest wall was prepped and draped in usual sterile fashion using chlorhexidine base prep. Sterile drapes were applied. We did procedure pause prior to beginning. An 18 gauge needle was placed in the left subclavian vein. Dark, nonpulsatile blood was aspirated. A guidewire was placed through the needle centrally toward the atrial/vena caval junction. Fluoroscopy visualized good placement. The needle was removed and the guidewire was clipped to the drape with a hemostat. Further local anesthetic was infiltrated in the soft tissues of the left chest wall and a #15 blade was used to make a horizontal skin incision. A subcutaneous Mediport pocket was created using Bovie cautery, dissecting down through the skin and subcutaneous tissues. Meticulous hemostasis was achieved. The Mediport was sutured in position using 3-0 vicryl suture x2 stitches. A #15 blade was used to make a small skin barbara around the guidewire insertion area. The Mediport tubing was tunneled through the subcutaneous tissues up to t he needle insertion location. A dilator with a peel-away sheath was placed over the guidewire and placed centrally. After measuring the Mediport tubing was cut to length so that the tip would end at the atrial/vena caval junction. The inner cannula and the guidewire were removed, leaving the dilator sheath in place. The Mediport was flushed. The tip of the catheter was inserted through the peel-away sheath and the peel-away sheath removed in the standard fashion. The Mediport was accessed with a straight Garza needle and dark, nonpulsatile blood was aspirated and flushed using heparinized saline to hep-lock the Mediport. Final fluoroscopy visualization showed no kink in the catheter and the tip of the Mediport tubing near the atrial/vena caval junction. No obvious pneumothorax Both skin incisions were thoroughly irrigated and suctioned dry. Meticulous hemostasis noted. The dermis was approximated with 3-0 Vicryl in an interrupted fashion. Skin was closed with Dermabond. Patient was awakened from anesthesia and transferred via her cart to the recovery room in stable condition. All needle, sponge, and instrument counts were correct per the operating personnel x2 counts.
--- NOTE | 2023-08-05 15:00 | ANE.PACU2 ---
Inpatient post-anesthesia follow up: Airway intact: Yes Vital signs: Temperature 98.0 F Pulse Rate 69 Respiratory Rate 18 Blood Pressure 148/66 Pulse Oximetry 96 Oxygen Delivery Me thod Room Air Oxygen Flow Rate Fraction of Inspir ed Oxygen Hydration adequate: Yes Nausea and vomiting: No Pain level: 2 Mental status: Baseline
== END 2023-08-05 14:43 | disposition home or self-care (01) ==
PROVIDERS: PCP Nurse Practitioner Family; Visit Provider Surgery
PROC: (CPT 36561; principal; 2023-08-05 11:50)
DX: C91.10 Chronic lymphocytic leukemia of B-cell type not having achieved remission (principal); I48.91 Unspecified atrial fibrillation; I10 Essential (primary) hypertension; E66.01 Morbid (severe) obesity due to excess calories; Z68.30 Body mass index [BMI] 30.0-30.9, adult; E78.5 Hyperlipidemia, unspecified; Z87.891 Personal history of nicotine dependence
CPT/HCPCS: 36561; 71045; 77001; C1788; J0690; J1644; J2704; J3010; J7030

== ENCOUNTER → 2023-08-06 14:20 | Outpatient (BNVA) | payer MEDICARE, OTHER, SELFPAY | PROVIDERS: PCP Nurse Practitioner Family; Visit Provider Internal Medicine Pulmonary Disease | DX: R91.1 Solitary pulmonary nodule (principal); R06.02 Shortness of breath; M79.89 Other specified soft tissue disorders | CPT/HCPCS: 99204 ==

== ENCOUNTER 2023-08-12 07:33 | Day surgery (SDC) | payer MEDICARE, OTHER, SELFPAY ==
[2023-08-12] VITALS (17 sets, daily range): BP systolic 111–163; BP diastolic 43–68; PULSE 60–92; RESP 16–25; TEMP 36.5–37.6; O2SAT 64–98; BMI 30.9
--- NOTE | 2023-08-12 07:36 | CT_ITS ---
WS: [id number] CT CHEST TECHNIQUE: Noncontrast CT of the chest with coronal and sagittal reformatted images. CLINICAL INFORMATION: For lung biopsies COMPARISON: None. DLP: [address] scans at [facility] use at least one of these dose optimization techniques: automated e xposure control; mA and/or kV adjustment per patient size (includes targeted exams where dose is matc hed to clinical indication); or iterative reconstruction. FINDINGS: Moderate pleural effusion. Compressive atelectasis RIGHT lower lobe. Stable previously described RIGH T hilar lymphadenopathy. Stable FDG avid RIGHT middle lobe parenchymal mass suspicious for neoplasm. A few patchy infiltrates in the RIGHT upper lobe. LEFT lung is well aerated. Trace LEFT pleural fluid . Small esophageal hiatal hernia. Adrenal glands are normal. Normal caliber thoracic aorta. Aortic calc ification. Coronary calcification. A few small thyroid nodules. Prominent RIGHT greater than LEFT axi llary lymph nodes unchanged since the recent PET/CT. These were FDG negative on the recent PET/CT. IMPRESSION: Images obtained for bronchoscopy guidance purposes
--- NOTE | 2023-08-12 08:02 | ECG_ITS ---
[facility] Test Date: 2023-08-12 Pat Name: Sadie Martines Department: Room: Gender: Female [employer] C[employer]: : 1935 Requested By: Adalberto Cannon Order Number: [id number] Griffin MD: Gustavo Arguello M.D. Measurements Intervals [place] Rate: 83 P: 111 CA: 166 QRS: 6 QRSD: 97 T: 118 QT: 371 QTc: 438 Interpretive Statements SINUS RHYTHM ST DEVIATION AND MODERATE T-WAVE ABNORMALITY, CONSIDER LATERAL ISCHEMIA [-0.1+ mV T-WAVE IN I/aVL/V5/V6] Compared to ECG 01/14/2023 09:50:45 T-wave abnormality now present Possible ischemia now present Sinus bradycardia no longer present Myocardial infarct finding no longer present Electronically Signed On 08-12-2023 12:30:10 CDT by Gustavo Arguello M.D. [email or web address] [id number]
[2023-08-12] MEDS: sodium chloride 0.9% 1,000 ML 30 ML IV (08:16)
--- NOTE | 2023-08-12 08:39 | SC_ITS ---
WS: [id number] Exam: C-arm FL for Bronchoscopy Date/Time of Exam: 08/12/2023 8:39 AM Reason For Exam: ION/EBUS 2 AP C-arm images of the chest are submitted. The images depict an ET tube in the airway as well as a bronchoscope extending into the region of the RIGHT lower lung zone. Images were obtained for intrao perative bronchoscope localization. Images also depict a LEFT subclavian port in place as previously described.
--- NOTE | 2023-08-12 08:47 | ANES.PREANE2 ---
Pre-Anesthetic Assessment Height/Weight: Height 1.55 m Weight 74.389 kg Temp Pulse Resp BP Pulse Ox O2 Del Method O2 Flow Rate 99.6 F 83 20 H 134/48 92 Nasal Cannula 4 08/12/23 08:08 08/12/23 08:08 08/12/23 08:08 08/12/23 08:08 08/12/23 08:09 08/12/23 08:09 08/12/23 08:09 Operation Date: 08/12/23 09:00 Proposed Procedures p Ion Robotic Assisted Bronchoscopy ION: 62228, 26097, 98038, 98310, 87961, 43955, 18533, 78349, 88432, 76877, 35416, 33721, 25486, 97170, R91.1(Not Applicable) - Barber Shelton MD s Ebus(Not Applicable) - Barber Shelton MD Last intake: Intake Last Liquid Date 08/11/23 Last Liquid Time 17:30 Last Solid Date 08/10/23 Last Solid Time 17:30 Social No tobacco Exam alert, oriented x 3 and regular rate & rhythm mild tachypnea and new oxygen requirement due to new pleural effusion Airway Submandibular: within normal limits Cervical ROM: within normal limits Pulmonary Exertional Dyspnea CV/HEM Atrial Fibrillation Anesthetic Plan ASA status: 3 Anesthesia: Anesthesia Evaluation and General Other: drainage of pleural effusion at conclusion of case Medications/Allergies Home Medications Medication Instructions Recorded Confirmed Last Taken Type cyanocobalamin (vitamin B-12) 1,000 mcg SUBCUT Q60D 07/04/21 08/12/23 06/11/23 History 1,000 mcg/mL injection solution apixaban 5 mg tablet (Eliquis) 5 mg PO BID #180 tabs 07/30/22 08/12/23 08/09/23 Rx furosemide 20 mg tablet 20 mg PO DAILY PRN swelling 07/30/22 08/12/23 08/10/23 History amiodarone 200 mg tablet 100 mg PO QAM 02/04/23 08/12/23 08/12/23 History ciprofloxacin HCl 500 mg tablet 500 mg PO BID chronic suppression 06/10/23 08/12/23 08/11/23 Rx for PJI 30 days #60 tabs allopurinol 300 mg tablet 300 mg PO DAILY #30 tabs 07/30/23 08/12/23 08/11/23 Rx zinc 10 mg tablet 10 mg PO DAILY 08/04/23 08/12/23 08/11/23 History potassium chloride 10 mEq 10 meq PO DAILY #30 caps 08/06/23 08/12/23 08/10/23 Rx capsule,extended release Allergies Allergy/AdvReac Type Severity Reaction Status Date / Time No Known Allergies Allergy Verified 08/12/23 08:05 Current Medications Generic Name Dose Route Start Last Admin Trade Name Ellen PRN Reason Stop Dose Admin Sodium Chloride 1,000 mls @ 30 mls/hr 08/12/23 07:45 08/12/23 08:16 Sodium Chloride 0.9% IV 08/13/23 07:44 30 mls/hr .Q24H CHEIKH Administration PFSH Anesthesia Medical History Atrial fibrillation with rapid ventricular response Coronavirus infection, unspecified Gram-negative bacteremia Elevated troponin Fever Injury of left hip JES (acute kidney injury) Heart failure Chronic left hip pain B12 deficiency Degenerative arthritis Hyperlipidemia Chronic lymphocytic leukemia Atrial fibrillation by electrocardiogram Hypertension Surgical History Status post total knee replacement, 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) History of carpal tunnel surgery of right wrist History of tubal ligation Family History Mother CAD (coronary artery disease) unknown age of onset Stroke Father Cancer Brother Cancer Denies family history of Diabetes Clotting disorder Dementia Chronic kidney disease (CKD) Suicide Anesthesia complication Bleeding disorder Lung disease Social History Smoking and tobacco/nicotine status: former use of tobacco/nicotine (smoked x 45 years) Quit status (tobacco/nicotine): has quit using Year quit tobacco: 1992 Former quit date comment: 1ppd X 41 years Alcohol intake: current Alcohol intake frequency: 0-2 Drinks per Day Substance/Drug Use: never Data Anesthesia Cardiac Studies: Echocardiogram 06/26/22 Sestamibi Stress Test (Cardiology) 08/28/21 Cardiac Event Monitor 07/09/21
--- NOTE | 2023-08-12 09:02 | W.PM.OPSUD ---
Surgery/Procedure H&P Update DATE OF PROCEDURE: August 12, 2023 DATE H&P PERFORMED: 08/06/23 H&P UPDATE INFORMATION: I have reviewed H&P completed within last 30 days, I have examined patient prior to procedure and Changes to prior documentation as noted here CHANGES TO PREVIOUS DOCUMENTATION: Preprocedure CT Ion showed increased right pleural effusion causing right lower lobe atelectasis masking the right lower lobe nodule. Right middle lobe masslike lesion is still visible. Patient reported her shortness of breath has gradually worsened and she is more tired since I saw her 1 week ago. Today she is also requiring 4 L supplemental oxygen. PREOP DIAGNOSIS: Suspected lung malignancy PRIMARY INDICATION FOR PROCEDURE: PET active right middle lobe masslike lesion-suspected lung malignancy PLANNED PROCEDURE: Operation Date: 08/12/23 09:00 Proposed Procedures p Ion Robotic Assisted Bronchoscopy ION: 61480, 43589, 39687, 17940, 33706, 80730, 78612, 03734, 41444, 55719, 22670, 71371, 69196, 94259, R91.1(Not Applicable) - Barber Shelton MD s Ebus(Not Applicable) - Barber Shelton MD
[2023-08-12] MEDS: lidocaine 1% INJ 10 mL (per mL) XX (09:45)
[2023-08-12 10:44] LABS: Cyto Order Verification Order Verified
[2023-08-12 11:03] LABS: Bronch Source Right Middle Lobe; PATH Referral Yes
[2023-08-12 11:04] LABS: Apprearance, Bronch Wash Hazy (CLEAR); Color, Bronc Wash Slight Pink
--- NOTE | 2023-08-12 11:29 | XR_ITS ---
WS: [id number] Exam: XR chest 1V portable [id number] Date/Time of Exam: 08/12/2023 11:58 AM Reason For Exam: POST BRONCH Comparison 08/05/2023. Increasing consolidating infiltrate in the RIGHT lower lung zone since the last exam. LEFT lung remai ns generally clear. No pneumothorax. Heart size top limits normal. LEFT subclavian port ends at the c avoatrial junction. Marked DJD of the RIGHT shoulder. Mild scoliosis at the thoracolumbar junction. IMPRESSION: 1. Increasing consolidating infiltrate in the mid and lower RIGHT lung since the last exam. No other significant change.
--- NOTE | 2023-08-12 11:39 | P.OP_ITS ---
Operative Report Date of procedure: August 12, 2023 Procedure done: -Dx Bronchoscope w/Washings or airway inspection -Dx Bronchoscope w/BAL -Bronch with computer image guided Navigational Bronchoscopy -Bronchoscopy w/Transbronchial lung biopsy(s), single lobe using forceps -Bronchoscopy w/Transbronchial needle aspiration biopsy(s), tracheal, main stem, and/or lobar bronchus -Bronchoscopy w/ therapeutic aspiration of the tracheobronchial tree (clearance of airway secretions, removal of mucus plugs) -EBUS Sampling 1-2 nodes Surgeon: Barber Shelton MD Complications: None Brief History: Ms. Sadie Martines is a 87-year-old female with chronic lymphocytic leukemia initially diagnosed in [address] Horton for abnormal PET CT scan showing masslike consolidation in right middle lobe. In September 2016-she was initially diagnosed with stage 0 chronic lymphocytic leukemia in September 2016, and expectant management was recommended. 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 The anemia did show a good response to steroid therapy. She was then scheduled to begin treatment with a acalabrutinib, but that was abandoned when she required hospital admission for atrial fibrillation. In December 2022 she underwent left total hip arthroplasty. 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 She then continued antibiotic coverage with ciprofloxacin for chronic suppression. her staging PET/CT 07/29/2023 showed FDG avid mass like consolidation in the RML (2.6 x 3.7 cm and SUV 11.1) and RLL (1.5 cm suv 4.7). these Lesions were seen on abdominal/pelvic CT 07/15/2022 right middle lobe measuring 10 mm. There is a noncalcified pulmonary nodule in the right lower lobe measuring 12 mm but seems to increase in size. And an FDG avid subcarinal lymph node. This would appear to most likely be due to an inflammatory/infectious process or to unrelated malignancy. She smoked 1ppd x 41 years and quit 1992 She has been recommended to begin treatment with obinutuzumab/venetoclax for the CLL and had a Port-A-Cath placed 08/05/2023 Today patient comes for Ion/robotic bronchoscopic biopsy of right middle lobe lesion as well as endobronchial ultrasound-guided biopsies of mediastinal/hilar lymph nodes. Associated complications like pneumothorax and bleeding were frankly discussed during her clinic visit as well as prior to procedure-she verbalized understanding and agreed to proceed with the procedure. Today her saturations were 84% and required 4 L to keep saturations above 90%.she was not on any baseline oxygen requirement prior to 1 week. She reports that over the last 1 week she has become increasingly tired as well as gradual worsening of shortness of breath. Her preplanning CAT scan done prior to navigational bronchoscopy today morning- showed increased right pleural effusion causing right lower lung atelectasis and obscuring right lower lobe lesion. Discussed with anesthesia and we all were in agreement to proceed with biopsy of right middle lobe lesion followed by thoracentesis for therapeutic as well as diagnostic purposes. Procedure: -Dx Bronchoscope w/Washings or airway inspection -Dx Bronchoscope w/BAL -Bronch with computer image guided Navigational Bronchoscopy -Bronchoscopy w/Transbronchial lung biopsy(s), single lobe using forceps -Bronchoscopy w/Transbronchial needle aspiration biopsy(s), tracheal, main stem, and/or lobar bronchus -Bronchoscopy w/ therapeutic aspiration of the tracheobronchial tree (clearance of airway secretions, removal of mucus plugs) -EBUS Sampling 1-2 nodes ION ROBOTIC BRONCHOSCOPY NOTE Pre-procedure Verification: Prior to the procedure, the patient's identity was verified by full name, date of and medical record number. The patient's identity was verified on all pertinent medical records. Also prior to the procedure, a History and Physical was performed, and patient medications, allergies and sensitivities were reviewed. The patient's tolerance of previous anesthesia was reviewed. The risks and benefits of the procedure and the sedation options and risks were discussed with the patient. All questions were answered and informed consent was obtained. Planning: Using the [employer] planning software, this patient?s preoperative CT was loaded onto the system and then target and pathway mapping was performed. This was all done prior to the start of the procedure and appropriate plan verified prior to induction. Anesthesia: General anesthesia was used. Please see anesthesiology documentation for full details. A modified ELYSE/Elsa Protocol was used for robotic bronchoscopy with rapid Intubation, recruitment maneuvers, Tidal Volume around 8-10mL/Kg Hammon Body Weight, and PEEP 10-15 as feasible. Time-Out: Prior to the start of the procedure, the patient's identification, proposed procedure, accurate signed consent, correctly labeled images and records, and need for prophylactic antibiotics were verified by the physician, the nurse, the anesthesiologist and the service employee in the procedure room. Procedural Details: After obtaining informed consent, The procedure was accomplished without difficulty. The patient tolerated the procedure well. Patient preparation: Patient was placed under general anesthesia. An 8.5 ETT was placed for bronchoscopy. The larynx and vocal cords were not visualized. The trachea was anatomically normal The right sided was anatomically normal without endobronchial lesions. thin slightly mucoid appearing secretions The left sided airway was anatomically normal without endobronchial lesions. thin slightly mucoid appearing secretions. Therapeutic aspiration of the airways, initial encounter, was performed at the right bronchial tree. The therapeutic bronchoscope was then removed. We communicated with the anesthesia team to ensure proper ventilator settings for optimal peripheral bronchoscopy. FIRST LOBE: The Ion Shape Sensing Robotic Assisted Bronchoscope was brought into the field and the process of registration was carried out. The guide catheter was used for peripheral navigational bronchoscopy using the planned pathway into the right middle lobe lesion and was able to be wedged peripherally at a distance of 8 mm away from the target. We locked the catheter position in, and removed the vision probe. We introduced the radial EBUS probe and obtained an good eccentric signal [id number] image location relative to the lesion in the same lobe. We confirmed our location with a fluoroscopic C-arm. We then removed the R-EBUS and introduced the biopsy tools starting with a 19 G ION bronchoscopic peripheral needle for Transbronchial Needle Aspirations (TBNA). The first pass was not sent for Rapid On Site Evaluation (ALLAN) as we do not have onsite pathology. We continued more biopsies in a cloud format. Transbronchial biopsies of right middle lobe lesion were using forceps. Transbronchial biopsy technique was selected because the sampling site was not visible endoscopically. The sampling device penetrated the full thickness of the bronchial wall to obtain the biopsy of lung tissue. 4 biopsy passes were performed, and the same number of biopsy samples were obtained. Finally, we used a 20 cc syringe filled with normal saline connected to the proximal portion of the ION catheter and slowly injected; 10 cc and aspirated the contents for a bronchial alveolar lavage of the lateral segment of right middle lobe. The return was cloudy and blood tinged 13 cc . At this point and after confirming the absence of bleeding, we removed the channel. Minimal blood residue was cleared from the airway and the peripheral navigation portion of the procedure was concluded. Empiric cold saline was instilled through the catheter and tamponade held for 1-5 minutes. Next, we turned our attention to linear EBUS staging. An EBUS exam was performed: - station 7 and 11 R were enlarged > 5mm and sampled. - Stations 11 L, 10 L, 4L, 10 R, 4R and were also scanned but no obvious lymph nodes were identified and thus did not meet criteria for sampling. Level 7 station was identified with the EBUS scope at the medial LMSB/RMSB and 3 passes were made using a 19 G Olympus TBNA needle. Level 11R station was identified with the EBUS scope at the RBI/R hilum and 4 passes were made using a 19 G Olympus TBNA needle Rapid onsite path evaluation (ALLAN) was not utilized for this case. Following completion of all diagnostic and therapeutic procedures, hemostasis was verified. The scope was removed and procedure concluded. Samples: A. Right middle lobe lesion 1. Total of 4 passes were made using needle aspiration ; we do not have onsite pathology and so all the material was placed in formalin for histopathology 2. Targeting the same area 4 passes were made using forceps ; we do not have onsite pathology and so all the material was placed in formalin for histopa thology 3. Bronchoscope was wedged at the entrance of the lateral segment of right middle lobe, 20 mL of saline was instilled and returned 10 mL of bronchoalveolar lavage . The fluid was mixed with blood and specks of tissue. Samples for cell count, cytology, cultures B. EBUS guided Fine-needle aspiration biopsies were taken from station 7 and station 11 R 4. Total of 3 passes were made using needle aspiration from station 7; material was placed in formalin and sent for histopathology 5. Total of 4 passes were made using needle aspiration from station 11 R; material was placed in formalin and sent for histopathology 6. 1 pass from each station 7 and station 11 R was placed in RPMI and sent to lab: and labeled as lymph nodes to rule out lymphoma Complications: None.The patient was extubated and brought to the PACU in stable condition. Postprocedure chest x-ray: There is no evidence of pneumothorax Disposition: Patient can be discharged home in stable condition. Pt, and daughter are aware that I am going to call them to update final biopsy results once available. Followed by thoracentesis-documented separately
--- NOTE | 2023-08-12 11:40 | P.PCN_ITS ---
Outpatient Procedures Thoracentesis Consent signed and on chart: Yes Time Out Performed: Yes Procedure: therapeutic thoracentesis and diagnostic thoracentesis Location: Right Local anesthetic used: lidocaine 1% Bedside ultrasound used: yes, pleural effusion confirmed and location marked and yes, real-time guidance Preparation: sterile prep and drape and 10 blade used to make barbara in skin Amount of fluid obtained (mL): 1,100 Fluid: bloody Post Procedure Exam: awake, alert, normal BP, normal HR and normal SpO2 Post-procedure chest x-ray ordered: Yes Estimated blood loss (mL): 5 Patient Tolerated Procedure: well and no complications Procedure Note: Pulmonary & Critical Care Medicine Procedure - Ultrasound guided Thoracentesis Procedure: CPT code 72212 thoracentesis, needle or catheter, aspiration of the pleural space; with imaging guidance Indication: Worsening right pleural effusion. C56.2 Software Quality Test Engineer(s): Barber Shelton MD [facility] Clinical history: 87-year-old female with chronic lymphocytic leukemia initially diagnosed in [address] Horton for abnormal PET CT scan showing masslike consolidation in right middle lobe and a suspected lesion right lower lobe. Today she comes for navigational bronchoscopy guided biopsies of right middle lobe lesion. However preprocedure CT scan showed worsening right pleural effusion. In the preop area-explained the CAT scan findings to patient and her daughter and informed that post bronchoscopy-we will proceed with thoracentesis of right pleural effusion for therapeutic and diagnostic purposes. Explained the risks of bleeding as well as pneumothorax. They both verbalized and agreed with the plan. Technique: The study was performed in an ACR accredited facility. Medication reconciliation form reviewed and any changes related this procedure resolved. Report: The procedure for thoracentesis was explained to the patient including the risks, benefits and possible complications. The patient was given the opportunity to ask questions, wished to proceed, and signed the written informed consent form. She was brought to the OR-underwent general anesthesia and endotracheal tube placement for airway-and completed robotic navigational bronchoscopy guided biopsy of right middle lobe lesion as well as endobronchial ultrasound-guided biopsies of hilar/mediastinal lymph nodes. Post bronchoscopy, using ultrasound guidance, a safe route of access was identified into the right pleural space. The site was then prepped and draped using maximal sterile barrier technique. The 1% lidocaine was used for local anesthetic. With sonographic guidance, a 6 Persian thoracentesis catheter was placed with return of 5 cc hemorrhagic pleural fluid. The catheter was slipped into the pleural cavity and approximately 1.1 L of sanguinous pleural fluid was removed. The patient tolerated the procedure well without any immediate complications. Impression: 1. Successful ultrasound-guided right thoracentesis with removal of approximate ly 1.1 L of sanguinous pleural fluid. ICD-10 code-J90 pleural effusion, not elsewhere classified
[2023-08-12 12:12] LABS: Body Fluid Polynuclear #Cells 0.037; Body Fluid WBC 998 /uL; Monocytes # Body Fluid 0.961
[2023-08-12 12:13] LABS: Apprearance, Body Fluid BLOODY; Color, Body Fluid YELLOW; PATH Referral YES
[2023-08-12 12:34] LABS: Albumin Body Fluid 2.2 g/dL; Cholesterol Body Fluid 57 mg/dL (0-200); Fluid Alkaline Phos. 26 IU/L; LDH Body Fluid 373 U/L; Triglycerides Body Fluid 31 mg/dL (0-150); Uric Acid Body Fluid 7 mg/dL
[2023-08-12 12:36] LABS: Cyto Order Verification Order Verified
[2023-08-12 13:25] LABS: Total Cells Counted Bronch 200
--- NOTE | 2023-08-12 15:02 | ANE.PACU2 ---
Inpatient post-anesthesia follow up: Vital signs: Temperature 97.8 F Pulse Rate 61 Respiratory Rate 18 Blood Pressure 112/46 Pulse Oximetry [Qu alifying 93 Sp02 on Oxygen wit h Exercise] Pulse Oximetry [Ro om Air at 85 Rest] Pulse Oximetry 95 Oxygen Delivery Me thod Nasal Cannula Oxygen Flow Rate 4 Fraction of Inspir ed Oxygen Hydration adequate: Yes Nausea and vomiting: No Mental status: Baseline Additional Comments: no apparent anesthetic complications noted
[2023-08-13 14:24] LABS: Lymphoma Profile (BBPL) See Report
[2023-08-13 14:25] LABS: Lymphoma Profile (BBPL) See Report
--- NOTE | 2023-08-14 15:38 | PC.SOCIAL ---
DME Faxed Office visit note to [facility] showing patient has hx of heart failure to qualify her for O2 @ this time.
[2023-08-16 13:43] LABS: Amylase, Peritoneal Fluid 11 U/L; Amylase, Pleural Fluid 11 U/L
[2023-08-20 09:37] LABS: PD-L1 (Clone 22C3) by IHC BBPL See Report
== END 2023-08-12 16:30 | disposition home or self-care (01) ==
PROVIDERS: PCP Nurse Practitioner Family; Visit Provider Internal Medicine Pulmonary Disease
PROC: 0BJ08ZZ Inspection of Tracheobronchial Tree, Via Natural or Artificial Opening Endoscopic (ICD-10-PCS; CPT 31622; principal; 2023-08-12 09:00)
PROC: BB4BZZZ Ultrasonography of Pleura (ICD-10-PCS; 2023-08-12 09:00)
PROC: (CPT 32554; 2023-08-12 09:00)
PROC: (CPT 32554; principal; 2023-08-12 10:15)
DX: C34.2 Malignant neoplasm of middle lobe, bronchus or lung (principal); C91.10 Chronic lymphocytic leukemia of B-cell type not having achieved remission; I48.91 Unspecified atrial fibrillation; I11.0 Hypertensive heart disease with heart failure; I50.9 Heart failure, unspecified; E78.5 Hyperlipidemia, unspecified; Z87.891 Personal history of nicotine dependence
CPT/HCPCS: 31624; 31627; 31628; 31629; 31645; 31652; 71045; 71250; 76000; 80503; 82042; 82150; 82465; 82945; 83615; 83986; 84075; 84157; 84315; 84478; 84560; 87070; 87075; 87102; 87205; 87206; 88112; 88184; 88185; 88305; 88341; 88342; 89050; 93005; 94760; J1100; J2371; J2405; J2704; J3010; J3490; J7030

== ENCOUNTER → 2023-08-21 10:15 | Outpatient (BNVA) | payer MEDICARE, OTHER, SELFPAY | PROVIDERS: PCP Nurse Practitioner Family; Visit Provider Surgery | DX: Z95.828 Presence of other vascular implants and grafts (principal); C91.10 Chronic lymphocytic leukemia of B-cell type not having achieved remission | CPT/HCPCS: 99214 ==

== ENCOUNTER 2023-08-22 10:15 | Oncology outpatient (recurring) (ONCR) | payer MEDICARE, OTHER, SELFPAY ==
[2023-07-30 13:21] LABS: Reticulocyte % 1.3 % (0.5-2.0)
[2023-07-30 13:22] LABS: Basophils % 0.1 %; Eosinophils % 0.1 %; Hematocrit 28.2 % (36-47); Lymphocytes # 40.5 10^3/uL (0.8-4.8); Lymphocytes % 86.6 %; Mean Corpuscular HGB Conc 29.8 g/dL (30-55); Mean Corpuscular Hemoglobin 31.6 pg (27-33); Mean Platelet Volume 8.8 fL (7.4-10.4); Monocytes # 5.3 10^3/uL (0.2-0.9); Monocytes % 11.4 %; Neutrophils % 1.5 %; Nucleated Red Blood Cells % 0 %; Platelet Count 294 10^3/cmm (157-399); Red Blood Count 2.66 10^6/uL (3.85-5.65); Red Cell Distribution Width 22.2 % (12.1-15.1)
[2023-07-30 13:39] LABS: Alanine Aminotransferase 11 U/L (0-33); Albumin Level 3.7 g/dL (3.5-5.2); Alkaline Phosphatase 62 U/L (35-105); Aspartate Amino Transferase 10 U/L (0-32); Blood Urea Nitrogen 22 mg/dL (8-23); Calcium 8.9 mg/dL (8.5-10.5); Carbon Dioxide 23 mmol/L (22-29); Chloride 108 mmol/L (98-107); Globulin 2.4 g/dL (1.3-4.6); Glucose 113 mg/dL (65-115); Immunoglobulin IGG 374 mg/dL (700-1600); Immunoglobulin IGM 108 mg/dL (40-230); Magnesium 1.9 mg/dL (1.7-2.3); Osmolality Calculated 298 mOsm/kg (285-295); Sodium 142 mmol/L (136-145); Total Bilirubin 0.7 mg/dL (0.15-1.2); Total Protein 6.1 g/dL (6.6-8.7)
[2023-07-30 13:50] LABS: Lactate Dehydrogenase 506 U/L (135-214)
[2023-07-30 14:11] LABS: Immunoglobulin IGA < 50 mg/dL (70-400)
[2023-07-30 14:32] LABS: White Blood Count 46.72 10^3/uL (3.29-11.43)
[2023-07-30 14:33] LABS: Neutrophils # 0.73 10^3/uL (1.8-7.7); Slide Review Slide Review Perform
[2023-07-30 15:18] LABS: Erythrocyte Sedimentation Rate 21 mm/hr (0-15)
[2023-07-30 15:28] LABS: C Reactive Protein 69.2 mg/L (0.0-4.9); Ferritin 451 ng/mL (15-150); Iron 39 ug/dL (37-145); Percent Saturation 20.6 % (20-50); Total Iron Binding Capacity 189 mcg/dl; Unsaturated Iron Binding 150 ug/dL (112-347)
[2023-08-01 12:18] LABS: KAPPA LIGHT CHAIN, FREE, SERUM 23.7 mg/L (3.3-19.4); KAPPA/LAMBDA LIGHT CHAINS FREE 4.16 (0.26-1.65); LAMBDA LIGHT CHAIN, FREE, SERU 5.7 mg/L (5.7-26.3); PROTEIN, TOTAL 5.5 g/dL (6.1-8.1)
[2023-08-01 18:23] LABS: ABNORMAL PROTEIN BAND 1 0.1 g/dL (NONE DETECTED); ALBUMIN 3.3 g/dL (3.8-4.8); ALPHA 1 GLOBULIN 0.5 g/dL (0.2-0.3); ALPHA 2 GLOBULIN 0.8 g/dL (0.5-0.9); BETA 1 GLOBULIN 0.3 g/dL (0.4-0.6); BETA 2 GLOBULIN 0.2 g/dL (0.2-0.5); GAMMA GLOBULIN 0.4 g/dL (0.8-1.7)
--- NOTE | 2023-08-22 10:38 | XRR_ITS ---
PROCEDURE INFORMATION: Exam: XR Chest Exam date and time: 08/22/2023 10:46 AM Age: 87 years old Clinical indication: Condition or disease; Lung condition and disease; Pleural effusion; Other: Not specified; Prior surgery; Surgery date: 6+ months; Surgery type: Port placement; Patient HX: HX of leukemia and lung cancer; Additional info: Eval of pleural effusion TECHNIQUE: Imaging protocol: Radiologic exam of the chest. Views: 2 views. COMPARISON: CR XR chest 1V portable [id number] 08/12/2023 11:54 AM FINDINGS: Tubes, catheters and devices: There is left subclavian Port-A-Cath with its tip projecting in the region of the superior vena cava. Lungs: There is dense consolidation in the right lung base as before. There is minimal atelectasis or scarring in the left lung base without definite infiltrate. Pleural spaces: There is a moderate-sized right pleural effusion without significant change. Heart/Mediastinum: The heart size is within normal limits. Bones/joints: There are degenerative changes in both shoulders and what appears to be an old fracture deformity of the right humeral head. Also suspect rotator cuff tear on the right. XR/XR chest 2V* [id number] IMPRESSION: 1. Port-A-Cath 2. Dense consolidation right lung base without significant change 3. No significant change right pleural effusion
[2023-08-22 10:44] LABS: Hematocrit 28.1 % (36-47); Mean Corpuscular HGB Conc 29.5 g/dL (30-55); Mean Corpuscular Volume 108.5 fl (85-98); Mean Platelet Volume 9.8 fL (7.4-10.4); Platelet Count 274 10^3/cmm (157-399); Red Blood Count 2.59 10^6/uL (3.85-5.65); Red Cell Distribution Width 21.7 % (12.1-15.1)
[2023-08-22 11:03] LABS: Alanine Aminotransferase 7 U/L (0-33); Albumin Level 3.6 g/dL (3.5-5.2); Alkaline Phosphatase 62 U/L (35-105); Anion Gap 15.4 (5-19); Aspartate Amino Transferase 14 U/L (0-32); Blood Urea Nitrogen 34 mg/dL (8-23); Calcium 9.1 mg/dL (8.5-10.5); Carbon Dioxide 25 mmol/L (22-29); Chloride 107 mmol/L (98-107); Globulin 2.2 g/dL (1.3-4.6); Glucose 107 mg/dL (65-115); Lactate Dehydrogenase 585 U/L (135-214); Osmolality Calculated 304 mOsm/kg (285-295); Potassium 4.4 mmol/L (3.5-5.1); Sodium 143 mmol/L (136-145); Total Bilirubin 0.6 mg/dL (0.15-1.2); Total Protein 5.8 g/dL (6.6-8.7)
[2023-08-22 11:04] LABS: Creatinine Clr Calc Pharmacy 17.2987
[2023-08-22 11:40] LABS: White Blood Count 69.67 10^3/uL (3.29-11.43)
[2023-08-22 11:41] LABS: Absolute Segmented Neutrophil 5.6 10/cmm (1.6-7.1); Eosinophils 0 %; Lymphocytes 80 %; Lymphocytes Absolute 62.7 10^3/cmm (1.2-3.4); Segmented Neutrophils 8 %; Slide Review Slide Review Perform; Total Cells Counted 100 (0-100)
[2023-08-22 11:42] LABS: Blastocytes 2 % (0-0)
[2023-08-22 11:43] LABS: Absolute Neutrophil 5.6 10^3/cmm (1.4-6.5); Platelet Estimate Normal (Normal)
== END 2023-08-26 23:59 | disposition home or self-care (01) ==
PROVIDERS: Internal Medicine; Internal Medicine Hematology & Oncology; Internal Medicine Medical Oncology; PCP Nurse Practitioner Family; Visit Provider Nurse Practitioner Family
DX: C91.10 Chronic lymphocytic leukemia of B-cell type not having achieved remission (principal); Z53.9 Procedure and treatment not carried out, unspecified reason; Z87.891 Personal history of nicotine dependence; Z95.828 Presence of other vascular implants and grafts; C34.91 Malignant neoplasm of unspecified part of right bronchus or lung; J90 Pleural effusion, not elsewhere classified; D64.9 Anemia, unspecified; Z79.899 Other long term (current) drug therapy
CPT/HCPCS: 36415; 71046; 80053; 82728; 82784; 83010; 83540; 83550; 83615; 83735; 83883; 84155; 84165; 84550; 85007; 85025; 85045; 85651; 86140; 86334; 99214; 99215

== ENCOUNTER 2023-08-25 10:13 | Outpatient (CLI) | payer MEDICARE, OTHER, SELFPAY ==
--- NOTE | 2023-08-25 10:45 | USCV_ITS ---
Sadie Martines Age: 87 Gender: F : 1935 Exam Date: 08/25/2023 10:37 Ordering Phys: Barber Shelton MD Technologist: CT Exam Location: [facility] [place] Indication: afib BP: 150 / 77 HR: 69 Rhythm: Sinus Technical Quality: Adequate MEASUREMENTS (Male / Female) Normal Values 2D ECHO LVOT Diameter 2.0 cm LV Ejection Fraction MOD 2C 70.5 % LV Ejection Fraction 2C AL 73.6 % LA Diameter 3.5 cm RA Systolic Volume 4C AL 30.4 ml RA Systolic Volume 4C MOD 29.9 ml LA Sys Volume AL 71.1 cm cubed LA Sys Volume Index AL 40.1 cm cubed/m squared Aorta at Sinotubular Diameter 2.3 cm IVC Diameter 1.4 cm M-MODE LA Ao Ratio MM 1.9 AV Cusp Separation MM 2.0 cm DOPPLER AV Peak Velocity 188.0 cm/s LVOT Peak Velocity 115.0 cm/s AV Area Cont Eq vti 2.2 cm squared AV Area Cont Eq pk 1.9 cm squared MV Peak Velocity 139.0 cm/s MV Area PHT 2.7 cm squared Mitral E to A Ratio 0.6 TR Peak Velocity 133.0 cm/s TR Peak Gradient 7.1 mmHg TV Peak E Velocity 91.0 cm/s Right Atrial Pressure 3.0 mmHg Pulmonary Artery Systolic Pressu 10.1 mmHg PV Peak Velocity 110.5 cm/s FINDINGS Left Ventricle Left ventricle is normal size. LV systolic function is normal with EF of 60 to 65%. No regional wall motion abnormalities are seen. Grade 1 diastolic dysfunction. Right Ventricle Normal in size and function Right Atrium Normal in size Left Atrium Dilated. Mitral Valve Structurally normal mitral valve. Mild mitral regurgitation Aortic Valve Structurally normal aortic valve. No significant stenosis or regurgitation. Tricuspid Valve Mild tricuspid regurgitation. Insufficient TR jet to evaluate RVSP. Pulmonic Valve Not well visualized Pericardium Normal Aorta Normal in size IVC Appears to be normal CONCLUSIONS LV systolic function is normal with EF of 60 to 65%. Grade 1 diastolic dysfunction. Left atrial dilation Mild mitral regurgitation Mild tricuspid regurgitation Gustavo Arguello MD (Electronically Signed) Final Date: 30 Aug 2023 22:53 S
== END 2023-08-25 10:14 | disposition home or self-care (01) ==
PROVIDERS: PCP Nurse Practitioner Family; Visit Provider Internal Medicine Pulmonary Disease
DX: R06.02 Shortness of breath (principal); I08.1 Rheumatic disorders of both mitral and tricuspid valves
CPT/HCPCS: 93306

== ENCOUNTER 2023-08-28 09:29 | Oncology outpatient (recurring) (ONCR) | payer MEDICARE, OTHER, SELFPAY ==
[2023-08-28 09:48] LABS: Mean Corpuscular Hemoglobin 32.7 pg (27-33); Mean Corpuscular Volume 108.9 fl (85-98); Mean Platelet Volume 9.5 fL (7.4-10.4); Platelet Count 211 10^3/cmm (157-399); Red Blood Count 2.48 10^6/uL (3.85-5.65); Red Cell Distribution Width 21.4 % (12.1-15.1)
[2023-08-28 10:02] LABS: Alanine Aminotransferase < 5 U/L (0-33); Albumin Level 3.4 g/dL (3.5-5.2); Alkaline Phosphatase 58 U/L (35-105); Anion Gap 13.3 (5-19); Aspartate Amino Transferase 12 U/L (0-32); Blood Urea Nitrogen 33 mg/dL (8-23); Calcium 8.8 mg/dL (8.5-10.5); Carbon Dioxide 24 mmol/L (22-29); Chloride 108 mmol/L (98-107); Globulin 2.2 g/dL (1.3-4.6); Glucose 112 mg/dL (65-115); Osmolality Calculated 300 mOsm/kg (285-295); Potassium 4.3 mmol/L (3.5-5.1); Sodium 141 mmol/L (136-145); Total Bilirubin 0.6 mg/dL (0.15-1.2); Total Protein 5.6 g/dL (6.6-8.7)
[2023-08-28 10:33] LABS: Slide Review Slide Review Perform
[2023-08-28 10:34] LABS: Eosinophils 0 %; Lymphocytes 86 %; Monocytes Absolute 0.5 10^3/cmm (0.1-0.6); Segmented Neutrophils 2 %; Total Cells Counted 100 (0-100)
[2023-08-28 10:35] LABS: Lymphocytes Absolute 47.3 10^3/cmm (1.2-3.4); Platelet Estimate Normal (Normal)
[2023-08-28 10:36] LABS: Anisocytosis 2+; Macrocytosis 2+
--- NOTE | 2023-08-28 12:18 | XRR_ITS ---
PROCEDURE INFORMATION: Exam: XR Chest Exam date and time: 08/28/2023 12:25 PM Age: 87 years old Clinical indication: Shortness of breath; Prior surgery; Surgery date: 6+ months; Surgery type: Port placement; Patient HX: History of leukemia and lung cancer; Additional info: Recurrent right pleural effusion TECHNIQUE: Imaging protocol: Radiologic exam of the chest. Views: 2 views. COMPARISON: CR XR chest 2V* [id number] 22/08/2023 10:46 FINDINGS: Tubes, catheters and devices: Stable left subclavian approach MediPort. Lungs: Increasing right lower lobe and right mid lung consolidation. Pleural spaces: There is a large right pleural effusion which has increased in size when compared to the previous chest radiograph. Heart/Mediastinum: Unremarkable. No cardiomegaly. Bones/joints: Stable midthoracic and upper lumbar compression fractures XR/XR chest 2V* [id number] IMPRESSION: 1. Large right pleural effusion, significantly increased when compared to the prior imaging 2. Increasing right lower lobe and right mid lung consolidation
== END 2023-09-26 23:59 | disposition home or self-care (01) ==
PROVIDERS: Internal Medicine Hematology & Oncology; PCP Nurse Practitioner Family; Visit Provider Nurse Practitioner Family
DX: C91.10 Chronic lymphocytic leukemia of B-cell type not having achieved remission (principal); M16.11 Unilateral primary osteoarthritis, right hip; Z96.642 Presence of left artificial hip joint; S73.005D Unspecified dislocation of left hip, subsequent encounter; X58.XXXD Exposure to other specified factors, subsequent encounter; D64.9 Anemia, unspecified; I48.91 Unspecified atrial fibrillation; Z79.899 Other long term (current) drug therapy; M79.89 Other specified soft tissue disorders; Z87.891 Personal history of nicotine dependence; C34.91 Malignant neoplasm of unspecified part of right bronchus or lung; J90 Pleural effusion, not elsewhere classified; D59.10 Autoimmune hemolytic anemia, unspecified
CPT/HCPCS: 36415; 71046; 80053; 85007; 85025; 99213; 99214

== ENCOUNTER 2023-09-01 06:30 | Day surgery (SDC) | payer MEDICARE, OTHER, SELFPAY ==
[2023-09-01 06:53] VITALS: BMI 30.4
[2023-09-01 06:56] VITALS: BP 167/61; PULSE 86; RESP 22; TEMP 36.1; O2SAT 96
[2023-09-01] MEDS: sodium chloride 0.9% 1,000 ML 30 ML IV (06:58)
--- NOTE | 2023-09-01 06:58 | PC.NURSE ---
Port to L chest red and has small area of healing noted to left portion at [address] notify [address] Denies pain, swelling, drainage, or fever.
--- NOTE | 2023-09-01 07:31 | W.PM.OPSUD ---
Surgery/Procedure H&P Update DATE OF PROCEDURE: September 01, 2023 DATE H&P PERFORMED: 08/28/23 H&P UPDATE INFORMATION: I have reviewed H&P completed within last 30 days, I have examined patient prior to procedure and No changes to prior documentation CHANGES TO PREVIOUS DOCUMENTATION: none PREOP DIAGNOSIS: recurrent malignant right pleural effusion PRIMARY INDICATION FOR PROCEDURE: pt with CLL and newly diagnosed stage 4 Adenocarcinoma of lung comes with recurrent right malignant pleural effusion. We are placing right pleural ghassan drain for palliative care and symptom relief PLANNED PROCEDURE: Operation Date: 09/01/23 07:10 Proposed Procedures p [place] Drain Placement Pleurx Catheter Insertion [id number], [id number], 37634, J91.0(Not Applicable) - Barber Cunningham DatarMD
[2023-09-01 08:10] VITALS: BP 143/49; PULSE 70; RESP 18; TEMP 36.2; O2SAT 98
--- NOTE | 2023-09-01 08:10 | XR_ITS ---
WS: [id number] PORTABLE CHEST HISTORY: post pleurx drain placement COMPARISON: 08/28/2023 Recent insertion of a RIGHT Pleurx catheter. There is a small hydropneumothorax at the apex. Improved aeration of the lungs. There is continued pleural thickening and decreased pulmonary expansi on. No complications. No midline shift. Cardiac size: Mildly enlarged cardiac silhouette. Mediastinum/Aorta: Mild atherosclerosis aorta. Osteopenia. Advanced degenerative changes at the RIGHT shoulder. Left-sided Mediport. XR/XR chest 1V portable [id number] IMPRESSION: 1. Interval insertion of a RIGHT Pleurx catheter. There is a small hydropneumo thorax at the apex which is probably related to the insertion of the catheter. No midline shift. 2. Overall improved aeration of the RIGHT lung with continued pleural thickeni ng and atelectasis.
--- NOTE | 2023-09-01 08:31 | P.OP_ITS ---
Operative Report Date of procedure: September 01, 2023 Pre-op diagnosis: Recurrent malignant pleural effusion Post-op diagnosis: Recurrent malignant pleural effusion Procedure done: [id number]: Insertion of tunneled Pleurx catheter in the right pleural cavity Surgeon: Barber Shelton MD Brief History: Ms. Sadie Martines is an 87-year-old female with past medical history of CLL and recently diagnosed with adenocarcinoma of lung presents with malignant pleural effusion. On 08/12/2023-her endobronchial ultrasound-guided biopsy of station 7 and 11 R as well as thoracentesis on the same day-revealed tissue diagnosis consistent with metastatic adenocarcinoma. On 08/12/2023-drain 1100 cc hemorrhagic fluid-cytology positive for adenocarcinoma She reported worsening exertional shortness of breath. She is on her baseline 4 L oxygen saturating 96%. Chest x-ray on 08/28/2023 showed worsening right pleural effusion. I have discussed with patient and her daughter about placing a [place] drain for palliative care and symptom relief from recurrent malignant pleural effusion. I frankly discussed about possible complications of infection, nonfunctioning tube. Her Plavix was held 5 days prior. Today we are proceeding with Pleurx catheter placement. Procedure: Procedure: DATE OF PROCEDURE: 09/01/2023 PREOPERATIVE DIAGNOSIS: Recurrent right pleural effusion causing symptomatic dyspnea. POSTOPERATIVE DIAGNOSIS: Recurrent right pleural effusion causing symptomatic dyspnea. PROCEDURE PERFORMED: [id number]: Insertion of tunneled Pleurx catheter in the right pleural cavity SURGEON: Barber Shelton MD [facility] ANESTHESIA: 1% local lidocaine 15 mL ASA: 3 INDICATION FOR PROCEDURE: Recurrent right pleural effusion causing symptomatic dyspnea. In an effort to palliate respiratory symptoms, PleurX catheter placement was considered for home drainage. The patient and his family understood the risks and possible complications of the procedure and wished to proceed. DESCRIPTION OF PROCEDURE: The patient was brought to the operating room. He was placed supine on the operating table. He was connected to telemetry, oxygen, hemodynamic monitoring. After doing appropriate timeout, the patient was then positioned with the head up and a roll under the right shoulder. The right chest and upper abdomen were prepped and draped in the usual sterile fashion. 15 cc 1% local lidocaine is used for local anesthesia. A small counterincision was made in the right upper quadrant area. Through the anterior axillary line area, the pleural space was accessed by Seldinger technique using ultrasound guidance. The counterincision was made around the guidewire and then the indwelling PleurX catheter was tunneled from the right upper quadrant small incision to the one overlying the ribs. After appropriate dilation a sheath introducer was then passed over the wire and then the PleurX catheter was placed through the sheath introducer. There was good return of fluid. 1.5 liters of straw-colored fluid was withdrawn slowly as the small counterincision was closed with Monocryl stitch. The catheter was capped off, and sterile dressings were applied. The patient tolerated the procedure well without any complications. The patient vitals remained stable. Sponge and needle count was correct at the end of the case. OPERATIVE FINDINGS: 1 liters of hemorrhagic fluid was withdrawn before clamping the drainage tube. There were overt no bleeding complications. Estimated blood loss: 5 to 10 cc Immediate complications: Postprocedure chest x-ray showed small hydropneumothorax at the apex which is probably related to insertion of the catheter. No midline shift. Overall improved aeration of the right lung with continued pleural thickening and atelectasis.
--- NOTE | 2023-09-01 08:52 | PC.NURSE ---
Drained 1L of pleural fluid off after placement of right pleurx catheter.
== END 2023-09-01 09:02 | disposition home or self-care (01) ==
PROVIDERS: PCP Nurse Practitioner Family; Visit Provider Internal Medicine Pulmonary Disease
PROC: (CPT 32550; principal; 2023-09-01 07:00)
DX: C34.91 Malignant neoplasm of unspecified part of right bronchus or lung (principal); J91.0 Malignant pleural effusion; C91.10 Chronic lymphocytic leukemia of B-cell type not having achieved remission; D59.10 Autoimmune hemolytic anemia, unspecified
CPT/HCPCS: 71045; C1729; G0463; J7030

== ENCOUNTER → 2023-09-12 11:25 | Outpatient (BNVA) | payer MEDICARE, OTHER, SELFPAY | PROVIDERS: PCP Nurse Practitioner Family; Visit Provider Internal Medicine Pulmonary Disease | DX: C34.91 Malignant neoplasm of unspecified part of right bronchus or lung (principal); M79.89 Other specified soft tissue disorders; J90 Pleural effusion, not elsewhere classified; Z48.02 Encounter for removal of sutures | CPT/HCPCS: 99214 ==

== ENCOUNTER 2023-09-17 08:43 | Emergency (ER) | payer MEDICARE, OTHER, SELFPAY ==
[2023-09-17 09:15] VITALS: BP 116/42; PULSE 65; RESP 18; TEMP 36.6; O2SAT 99; BMI 30.7
--- NOTE | 2023-09-17 09:46 | XRR_ITS ---
PROCEDURE INFORMATION: Exam: XR Chest Exam date and time: 09/17/2023 10:04 AM Age: 87 years old Clinical indication: Shortness of breath; Prior surgery; Surgery date: 6+ months; Surgery type: Port; Patient HX: HX of lung cancer, leukemia; Additional info: SOB TECHNIQUE: Imaging protocol: Radiologic exam of the chest. Views: 1 view. COMPARISON: CR XR chest 1V portable [id number] 09/01/2023 8:30 AM FINDINGS: Tubes, catheters and devices: The tip of the chest tube is now in the lower right pleural space. Unchanged left chest port with catheter terminating near the superior cavoatrial junction. Lungs: Improved aeration of the right lung. Improved right lung atelectasis and/or pneumonitis. Unchanged interstitial prominence throughout the left lung. Pleural spaces: A large right pleural effusion is decreased. Currently no evidence of pneumothorax or left pleural effusion. Heart/Mediastinum: Unremarkable. No cardiomegaly. Bones/joints: Unchanged mild scoliosis and multilevel spondylosis. Unchanged right shoulder arthritis with superior subluxation of the right humeral head. XR/XR chest 1V portable [id number] IMPRESSION: 1. Tip of the right chest tube is now in the inferior right pleural space. 2. Large right pleural effusion is decreased in size. 3. No pneumothorax. 4. Atelectasis and/or pneumonitis in the right lung is slightly improved. 5. Unchanged diffuse interstitial prominence throughout the left lung.
[2023-09-17 11:19] VITALS: BP 135/40; PULSE 66; O2SAT 100
--- NOTE | 2023-09-17 11:19 | W.ED.GENADLT ---
HPI - General Adult General: Chief complaint: General Medical Stated complaint: pleural cath issues Time Seen by Provider: 09/17/23 10:58 Source: patient Mode of arrival: ambulatory Limitations: no limitations History of Present Illness: 87-year-old female has a history of stage IV lung cancer she has had pleural effusions she had a [place] drain placed on August 31 she states she has had less output and is concerned it may be clogged she had some mild increase shortness of breath denies any pain denies any fevers. She is on oxygen at baseline at home. Associated symptoms: Reports dyspnea; Deny chest pain, headache(s), nausea, rash or vomiting Review of Systems Const: Denies: fever(s), chills, body aches or change in appetite ENMT: Denies: throat pain or dental pain Card: Denies: chest pain Resp: Reports: dyspnea GI: Denies: abdominal pain, nausea, vomiting or diarrhea Musc: Denies: neck pain or back pain Skin/Breast: Denies: rash Neuro: Denies: headache(s) PFSH ED PFSH: Medical History Port-A-Cath in place 08/05/23 Dr Cooley Atrial fibrillation with rapid ventricular response Coronavirus infection, unspecified Gram-negative bacteremia Elevated troponin Fever Injury of left hip JES (acute kidney injury) Heart failure Chronic left hip pain B12 deficiency Degenerative arthritis Hyperlipidemia Chronic lymphocytic leukemia Atrial fibrillation by electrocardiogram Hypertension Surgical History Status post total knee replacement, 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) History of carpal tunnel surgery of right wrist History of tubal ligation Family History Mother CAD (coronary artery disease) unknown age of onset Stroke Father Cancer Brother Cancer Denies family history of Diabetes Clotting disorder Dementia Chronic kidney disease (CKD) Suicide Anesthesia complication Bleeding disorder Lung disease Social History Smoking and tobacco/nicotine status: former use of tobacco/nicotine Quit status (tobacco/nicotine): has quit using Year quit tobacco: 1992 Former quit date comment: 1ppd X 41 years Alcohol intake: current Alcohol intake frequency: 0-2 Drinks per Day Substance/Drug Use: never Physical Exam Const: COMMON NORMALS: no acute distress, patient oriented x3 and healthy appearing HENMT: COMMON NORMALS: normocephalic and atraumatic HEAD & SCALP: normocephalic and atraumatic Neck/C-Spine: COMMON NORMALS: full ROM and supple Chest: COMMONS NORMALS: normal inspection of the chest and normal palpation of entire chest wall Resp: COMMON NORMALS: normal respiratory effort, No retractions, No use of accessory muscles and clear to auscultation bilaterally AUSCULTATION: clear to auscultation bilaterally Cardio: COMMON NORMALS: regular rate, regular rhythm and No murmurs present (Cardio) RATE: regular rate RHYTHM: regular rhythm Extremity: COMMON NORMALS: normal to inspection and full ROM Neuro: COMMON NORMALS: patient oriented x3, moves all extremities and no focal motor deficits Psych: COMMON NORMALS: mental status grossly normal, Normal thought process present and cooperative THOUGHT PROCESS: Normal thought process present Skin: COMMON NORMALS: no rashes or lesions noted and no wounds GENERAL SKIN EXAM: no rashes or lesions noted Course Vital Signs: Vital signs: Vital Signs Temperature 97.9 F 09/17/23 09:15 Pulse Rate 66 09/17/23 12:10 Respiratory Rate 18 09/17/23 09:15 Blood Pressure 137/35 09/17/23 12:10 Pulse Oximetry 100 09/17/23 12:10 Oxygen Delivery Me thod Nasal Cannula 09/17/23 12:10 Oxygen Flow Rate 4 09/17/23 12:10 MDM - General Adult Medical Decision Making Patient presents here with some dyspnea she has extensive history of cancer she is on no treatments patient was seen in the ER by Dr. Apodaca her x-ray is much improved no signs of any large pleural effusion he has evaluated her [place] drain he feels she is stable for discharge and will follow-up with her outpatient she understands agrees to plan Medical Records I reviewed the patient's medical records. Lab Data Radiology Impressions Chest X-Ray 09/17/23 09:46 IMPRESSION: 1. Tip of the right chest tube is now in the inferior right pleural space. 2. Large right pleural effusion is decreased in size. 3. No pneumothorax. 4. Atelectasis and/or pneumonitis in the right lung is slightly improved. 5. Unchanged diffuse interstitial prominence throughout the left lung. No radiology studies performed this visit Discharge Plan Discharge Patient Disposition: Home Clinical Impression: Recurrent pleural effusion on right Adenocarcinoma of lung, stage 4 Qualifiers: Laterality: right Qualified Code(s): C34.91 - Malignant neoplasm of unspecified part of right bronchus or lung Condition: Stable Prescriptions: No Action cyanocobalamin (vitamin B-12) 1,000 mcg/mL solution 1,000 mcg SUBCUT Q60D Eliquis 5 mg tablet 5 mg PO BID Qty: 180 3RF Hold Instructions: Resume on 08/07/23. ciprofloxacin HCl 500 mg tablet 500 mg PO BID 30 Days Qty: 60 12RF ondansetron 4 mg tablet,disintegrating 4 mg PO Q8H PRN (Reason: nausea and vomiting) Qty: 60 5RF furosemide 20 mg tablet 20 mg PO DAILY PRN (Reason: swelling) Patient Comments: Take 20mg twice a day potassium chloride 10 mEq capsule, extended release 10 meq PO DAILY Qty: 30 3RF amiodarone 200 mg tablet 100 mg PO QAM zinc 10 mg Tablet 10 mg PO DAILY Discharge Orders: Discharge ED (Routine); Ordered 09/17/23 Ordered By: Hesham Lopez Referrals: Griselda Garrett APRN [Primary Care Provider] - Discharge Diet: Advance as tolerated Discharge Activity: Resume usual activity Patient Instructions: Pleural Empyema (ED) Coding Level of Care Code ED Business Management Professor for Michele Taylor
[2023-09-17 12:10] VITALS: BP 137/35; PULSE 66; O2SAT 100
== END 2023-09-17 12:22 | disposition home or self-care (01) ==
PROVIDERS: Emergency Provider Emergency Medicine; PCP Nurse Practitioner Family
DX: C34.91 Malignant neoplasm of unspecified part of right bronchus or lung (principal); J90 Pleural effusion, not elsewhere classified; Z79.01 Long term (current) use of anticoagulants; Z87.891 Personal history of nicotine dependence; I11.0 Hypertensive heart disease with heart failure; I50.9 Heart failure, unspecified; E78.5 Hyperlipidemia, unspecified; Z85.6 Personal history of leukemia
CPT/HCPCS: 71045; 99283